=== PATIENT | female | born 1995 | race Caucasian/White ===

== ENCOUNTER 2017-11-24 22:14 | Emergency (ER) | payer BC, MEDICAID, SELFPAY ==
[2017-11-24 22:18] VITALS: BP 133/65; PULSE 85; RESP 18; TEMP 36.7
[2017-11-24] MEDS: Ketorolac 30 MG/ML VIAL IVP (23:15)
[2017-11-24] MEDS: Acetaminophen 500 MG TAB 1000 MG PO (23:15)
[2017-11-24] MEDS: Normal Saline 1,000 ML 1000 ML IV (23:16)
[2017-11-24 23:18] LABS: Abs Immature Grans 0.02 k/cumm (0.0-0.09); Absolute Basophil Count 0.03 k/cumm (0.0-0.2); Absolute Eosinophil Count 0.09 k/cumm (0.0-0.7); Absolute Lymphocyte Count 2.01 k/cumm (1.2-3.4); Absolute Monocyte Count 0.66 k/cumm (0.11-0.7); Absolute Neutrophil Count 6.51 k/cumm (1.2-6.7); Basophils % 0.3; HCT 43.2 % (36.0-46.0); HGB 14.6 g/dL (12.0-15.5); Immature Grans % 0.2; Lymphocytes % 21.6; Mean Corp. HGB Concentration 33.8 g/dL (32.0-36.0); Mean Corpuscular Hemoglobin 30.5 pg (27.0-33.0); Mean Corpuscular Volume 90.4 fL (80-95); Mean Platelet Volume 10.9 fL (8.0-11.0); Monocytes % 7.1; Neutrophils % 69.8; Platelet Count 267 x1000/uL (130-400); RBC 4.78 m/cumm (4.00-5.20); RBC Distribution Width 12.6 % (11.7-14.6); White Blood Cell Count 9.32 k/cumm (4.4-10.8)
[2017-11-24 23:26] LABS: ALT 36 U/L (12-78); AST 16 U/L (15-37); Albumin 3.9 g/dL (3.4-5.0); Alkaline Phosphatase 93 U/L (46-116); Anion Gap 9.9 mmol/L (3-11); BUN 10 mg/dL (7-18); Bilirubin, Total 0.8 mg/dL (0.2-1.0); CO2 28.1 mmol/L (21.0-32.0); CREATININE 0.77 mg/dL (0.55-1.02); Calcium 9.7 mg/dL (8.5-10.1); Chloride 103 mmol/L (98-107); Glucose 88 mg/dL (70-100); Potassium 3.2 mmol/L (3.5-5.1); Sodium 141 mmol/L (136-145); Total Protein 7.6 g/dL (6.4-8.2)
[2017-11-24 23:53] LABS: HCG Quant, Pregnancy 1198 mIU/mL (1-3)
--- NOTE | 2017-11-25 00:20 | W.ED.GENAD ---
Discharge Plan Disposition Patient Disposition: HOME Condition: Good Discharge Details Chief Complaint: GenMedical Clinical Impression: Incomplete miscarriage Primary Care Provider: Unknown,Unknown ED Provider: Kishore Hung Home Meds and New Rx's Prescriptions: New ibuprofen [Motrin IB] 200 MG tablet 800 mg PO Q6H 5 Days Qty: 80 RF: 0 No Action ketoconazole (bulk) 25 GM crystals 25 gm Miscellaneous BID Qty: 1 RF: 2 albuterol sulfate [Proventil HFA] 200 PUFF HFA aerosol inhaler 2 puff Inhalation Q4H PRN PRNQty: 1 RF: 0 Discharge Instructions Instructions: Miscarriage (ED) Additional Instructions: Please take the ibuprofen as directed. Please follow-up with your obstetrics rn surgical as soon as possible. If you notice any worsening of your symptoms, or any new symptoms such as vomiting, diarrhea, fever, chills, shortness of breath, chest pain, numbness, weakness, or fainting , please return immediately to the emergency department for reevaluation. Please follow up with your primary care provider as soon as possible for reassessment and reevaluation. As always, it was a pleasure participating in your medical care today. Medical Decision Making This is a pleasant 22-year-old female who presents today for miscarriage. She had an ultrasound earlier today which demonstrated no heart tones, she was discharged home with follow-up. The bleeding worsened in the evening, and she had passage of tissue. She came in for concern of this. Vital signs are normal and demonstrates no signs of tachycardia, hypotension, or fever. Laboratory workup demonstrates a normal hemoglobin level at 14.6, her Rh status is positive. Potassium is slightly low at 3.2. Beta hCG is 1198. Patient was given 1 L of fluids, as well as Toradol. She had notable improvement of her bleeding after this. With a normal hemoglobin, stable vital signs, no heart tones, and close follow-up tomorrow morning, I feel she can be safely discharged home. We will continue ibuprofen 800 mg every 6 hours for the bleeding and cramps. We discussed red flags which to return patient understands. I have extensively reviewed the treatment plan and discharge instructions with the patient. I have addressed all patient concerns at this time. The patient was made aware of what symptoms to monitor for that would warrant a return to the emergency department. Discussed the plan with the patient, they demonstrate verbal understanding and agreement with our assessment and plan at this time. Diagnosis incomplete miscarriage. HPI General Date/Time Provider Initiated Documentation: 11/24/17 22:51. HPI Narrative: This is a 22-year-old female who presents for evaluation of miscarriage. She was 4-5 weeks . She was seen by the women's health group earlier today for cramps and bleeding. Ultrasound was performed and no heart tones were noted. He was discharged home for a impending and suspected miscarriage. After she was discharged she noticed a large amount of blood and tissue extruded. Because of the amount of bleeding that she had she came to the ER for further evaluation. Currently she describes only minimal cramping, but denies any significant abdominal pain, vomiting, diarrhea. She denies any history of bleeding diatheses. She has never had a miscarriage before. She denies any recent surgeries. She denies any other medical problems at this time. She denies any IV or illicit drug use. She denies any pertinent family history. Related Data Home Medications Medication Instructions Recorded Confirmed ketoconazole (bulk) 25 gm MISCELLANEOUS BID #1 tube 01/29/17 11/24/17 albuterol sulfate [Proventil HFA] 2 puff INHALATION Q4H PRN PRN #1 04/19/17 11/24/17 inh ibuprofen [Motrin Ib] 800 mg PO Q6H 5 Days #80 tab 11/25/17 Previous Rx's Medication Instructions Recorded ketoconazole (bulk) 25 gm MISCELLANEOUS BID #1 tube 01/29/17 albuterol sulfate [Proventil HFA] 2 puff INHALATION Q4H PRN PRN #1 04/19/17 inh ibuprofen [Motrin Ib] 800 mg PO Q6H 5 Days #80 tab 11/25/17 Allergies Allergy/AdvReac Type Severity Reaction Status Date / Time codeine [Codeine] AdvReac Intermediate hyperactivi Unverified 11/24/17 22:20 ty General Stated Complaint: GenMedical PHIL: 3 Review of Systems Review of Systems All systems reviewed & are unremarkable except as noted in HPI and below PFSH Social History Smoking/Tobacco Use Status: Never Surgical History removal of wisdom teeth Exam Narrative Exam Narrative: 1.Const: Well-nourished, Well-developed, appearing stated age 2.Eyes: PERRL, no conjunctival injection, no conjunctival pallor, and symmetrical lids. 3.ENT: Atraumatic external nose and ears. Moist MM. Neck: Symmetric, trachea midline, No thyromegaly. 4.CVS: +S1/S2, No murmurs or gallops. Peripheral pulses 2+ and equal in all extremities. Brisk capillary refill in all extremities. 5.RESP: Unlabored respiratory effort. Clear to auscultation bilaterally. No wheezes rales or rhonchi 6.GI: Soft, Nontender/Nondistended, No hepatosplenomegaly. No guarding or rebound. No significant tenderness on palpation of the pelvic region. 7.MSK: Normocephalic/Atraumatic, Extremities w/o deformity or ttp No cyanosis or clubbing, Normal movement of all extremities 8.Skin: Warm, Dry. No rashes or lesions. 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 Sensation grossly intact, no focal neurologic deficits. 10.Psych: (AAO) x3. Appropriate mood and affect Pelvic exam was performed with female nurse at bedside. Notable blood, and small tissue fragments present in the vaginal vault. Cervix is open and minimally dilated. No cervical motion tenderness. Bedside ultrasound demonstrates no evidence of heart rate, or intact fetus on ultrasonography of the uterus. Small amounts of retained products are noted. Blood and clots are noted. Course Vital Signs Temperature 36.7 C 11/24/17 22:18 Pulse 85 11/24/17 22:18 Respiratory Rate 18 11/24/17 22:18 Blood Pressure 133/65 11/24/17 22:18 Temperature 36.7 C 11/24/17 22:18 Temperature Source Temporal Artery Scan 11/24/17 22:18 Pulse 85 11/24/17 22:18 Respiratory Rate 18 11/24/17 22:18 Respiratory Effort 11/24/17 22:21 Respiratory Depth Normal 11/24/17 22:21 Respiratory Pattern Normal 11/24/17 22:21 Blood Pressure 133/65 11/24/17 22:18 Blood Pressure Position Sitting 11/24/17 22:18 Pain Level 2 11/24/17 22:18 Lab/Test Results Lab/Test Results: Laboratory Tests Range/Units 11/24/17 11/24/17 11/24/17 22:58 22:58 22:58 WBC (4.4-10.8) k/cumm 9.32 RBC (4.00-5.20) m/cumm 4.78 Hgb (12.0-15.5) g/dL 14.6 Hct (36.0-46.0) % 43.2 MCV (80-95) fL 90.4 MCH (27.0-33.0) pg 30.5 MCHC (32.0-36.0) g/dL 33.8 RDW (11.7-14.6) % 12.6 Plt Count (130-400) x1000/uL 267 MPV (8.0-11.0) fL 10.9 Immature Gran % 0.2 Neutrophils % 69.8 Lymphocytes % 21.6 Monocytes % 7.1 Eosinophils % 1.0 Basophils % 0.3 Absolute Neutrophils (1.2-6.7) k/cumm 6.51 Absolute Lymphocytes (1.2-3.4) k/cumm 2.01 Absolute Monocytes (0.11-0.7) k/cumm 0.66 Absolute Eosinophils (0.0-0.7) k/cumm 0.09 Absolute Basophils (0.0-0.2) k/cumm 0.03 Sodium (136-145) mmol/L 141 Potassium (3.5-5.1) mmol/L 3.2 L Chloride (98-107) mmol/L 103 Carbon Dioxide (21.0-32.0) mmol/L 28.1 Anion Gap (3-11) mmol/L 9.9 BUN (7-18) mg/dL 10 Creatinine (0.55-1.02) mg/dL 0.77 Estimated GFR/1.73 m2 (mL/min/1.73m2) >= 60.00 Glucose (70-100) mg/dL 88 Calcium (8.5-10.1) mg/dL 9.7 Total Bilirubin (0.2-1.0) mg/dL 0.8 AST (15-37) U/L 16 ALT (12-78) U/L 36 Alkaline Phosphatase (46-116) U/L 93 Total Protein (6.4-8.2) g/dL 7.6 Albumin (3.4-5.0) g/dL 3.9 Beta HCG, Quant (1-3) mIU/mL 1198 H
[2017-11-25 00:47] VITALS: BP 107/68; PULSE 74; RESP 18; TEMP 36.8; O2SAT 96
== END 2017-11-25 00:53 | disposition home or self-care (01) ==
PROVIDERS: Emergency Provider Student in an Organized Health Care Education/Training Program
DX: O03.4 Incomplete spontaneous abortion without complication (principal)
CPT/HCPCS: 80053; 86850; 86900; 86901; 96361; 96374; 99284; 84702; 85025; 99283; J1885

== ENCOUNTER 2017-12-02 14:59 | Outpatient (CLI) | payer BC, MEDICAID, SELFPAY ==
[2017-12-02 16:49] LABS: HCG Quant, Pregnancy 4 mIU/mL (1-3)
== END 2017-12-02 15:19 ==
PROVIDERS: Visit Provider Obstetrics & Gynecology Gynecology
DX: O03.9 Complete or unspecified spontaneous abortion without complication (principal)
CPT/HCPCS: 36415; 84702

== ENCOUNTER 2018-04-18 16:43 | Emergency (ER) | payer BC, MEDICAID, SELFPAY ==
[2018-04-18 16:52] VITALS: BP 135/80; PULSE 76; RESP 18; TEMP 36.5; O2SAT 100
[2018-04-18 18:14] LABS: Abs Immature Grans 0.01 k/cumm (0.0-0.09); Absolute Basophil Count 0.04 k/cumm (0.0-0.2); Absolute Eosinophil Count 0.09 k/cumm (0.0-0.7); Absolute Lymphocyte Count 1.89 k/cumm (1.2-3.4); Absolute Monocyte Count 0.49 k/cumm (0.11-0.7); Absolute Neutrophil Count 5.63 k/cumm (1.2-6.7); Basophils % 0.5; Eosinophils % 1.1; HCT 42.7 % (36.0-46.0); HGB 14.7 g/dL (12.0-15.5); Immature Grans % 0.1; Lymphocytes % 23.2; Mean Corp. HGB Concentration 34.4 g/dL (32.0-36.0); Mean Corpuscular Hemoglobin 30.7 pg (27.0-33.0); Mean Corpuscular Volume 89.1 fL (80-95); Mean Platelet Volume 10.9 fL (8.0-11.0); Neutrophils % 69.1; Platelet Count 254 x1000/uL (130-400); RBC 4.79 m/cumm (4.00-5.20); White Blood Cell Count 8.15 k/cumm (4.4-10.8)
[2018-04-18 18:27] LABS: Bilirubin Small (Negative); Blood Large (Negative); Clarity Cloudy; Glucose Negative (Negative); Ketones Trace mg/dL (Negative); Leukocyte Esterase Trace (Negative); Nitrite Positive (Negative); Specific Gravity >= 1.030 (1.005-1.025)
[2018-04-18 18:33] LABS: ALT 30 U/L (12-78); AST 19 U/L (15-37); Alkaline Phosphatase 86 U/L (46-116); Anion Gap 9.3 mmol/L (3-11); BUN 10 mg/dL (7-18); Bilirubin, Total 0.7 mg/dL (0.2-1.0); CO2 27.7 mmol/L (21.0-32.0); CREATININE 0.69 mg/dL (0.55-1.02); Calcium 9.2 mg/dL (8.5-10.1); Chloride 107 mmol/L (98-107); Glucose 96 mg/dL (70-100); Potassium 3.4 mmol/L (3.5-5.1); Sodium 144 mmol/L (136-145); Total Protein 8.1 g/dL (6.4-8.2)
[2018-04-18 18:34] LABS: C & S Indicated? Yes; RBC >50 (0-2)
--- NOTE | 2018-04-18 18:46 | DI.US_ITS ---
Many abnormalities cannot be diagnosed. A normal exam does not exclude a congenital anomaly. Radiology No. LMP: 03/02/18 Exam Date: 04/19/18 [facility] wks days on EDC ([facility]) Confirmed: HISTORY: VAGINAL BLEEDING IN EARLY , H/O MISCARRIAGE PREDICTED GESTATIONAL AGE NUMBER 6 1/2 weeks with a range of 5 1/2 week to 7 1/2 weeks. 1 2 3 Multiple Determined by___1STUS__X_LMP___HISTORY Info. pertaining to fetus # PLACENTA PRESENTATION Grade Cephalic___ Anterior___Posterior___ Breech____ Right Left Transverse(head right___ Fundal___Low-lying___Previa___ Transverse(head left___ Varying BIOMETRY AMNIOTIC FLUID BPD: mm weeks Normal HC: mm weeks Oligo Polyhydramnios AC: mm weeks FL: mm weeks AMNIOTIC FLUID INDEX >26 WK CRL: mm weeks Cisterna Magna: mm CI: RUQ: LUQ Cerebellum: cm EFW: grams Percentile RLQ: LLQ Total: cms Composite AGE= wks EDC by US BIOPHYSICAL PROFILE ANATOMY IDENTIFIED SCORE 0/2 Heart: 4-Chamber___Rate:BPM LVOT: RVOT: Amniotic Fluid(>2cms)____ Stomach: Kidneys: Respirations (>30 secs) Bladder: Post. Fossa: Body Flex/Extension 3 vessel cord: Ventricles: cord insertion: Lips:____ Extremity Flex/Extension spinal morphology: Nose: Total Score= Palate: NS=not seen The uterus measures 7.5 by 3.8 by 5.5 cm. The endometrial stripe is within normal limits at .4 cm. There is a 0.4 cm. cystic lesion seen in the cervical region. The right ovary measures 2.5 by 1.7 by 1.6 cm. There is normal blood flow. No evidence of torsion. The left ovary measures 2.9 by 1.5 by 2.9 cm. There is normal blood flow. There is a 1.4 cm. left ovarian cyst. The cyst does have internal debris and peripheral vascular flow. There is a small amount of fluid in the cul-de-sac. IMPRESSION: 1. No evidence of an intrauterine gestational sac. This may represent an early or ectopic or failed . 2. 0.4 cm. cystic structure in the region of the cervix. This likely reflects a cervical Nabothian cyst. Theoretically an ectopic or occurring could have this appearance. 3. 1.4 cm. complex left ovarian cyst. This may represent a hemorrhagic cyst or corpus luteal cyst. Follow up as clinically appropriate.
[2018-04-18 18:48] LABS: HCG Qual (Serum) Negative
[2018-04-18 19:42] LABS: HCG Quant, Pregnancy 2 mIU/mL (1-3)
--- NOTE | 2018-04-18 20:29 | W.ED.GENAD ---
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 Clinical Impression: Vaginal bleeding, UTI (urinary tract infection) Primary Care Provider: Unknown,Unknown ED Provider: Mika Munroe Home Meds and New Rx's Prescriptions: New cephalexin 500 mg tablet 500 mg PO BID Qty: 14 RF: 0 No Action Proventil HFA 200 PUFF HFA aerosol inhaler 2 puff Inhalation Q4H PRN PRNQty: 1 RF: 0 Discharge Instructions Instructions: Urinary Tract Infection in Women (ED), First Trimester Vaginal Bleed (ED) Additional Instructions: Return immediately to the emergency department if you have significant change in your vaginal bleeding, rapid heart rate, fever chills, severe abdominal pain, or other concerns. Otherwise please take your antibiotics as prescribed and follow-up with women's wellness for reassessment later this week Referrals: [facility] [Provider Group] (Keep your appointment as previously arranged and inform them of your emergency department results) Discharge Data Discharge Date/Time-TO BE ENTERED AT DEPARTURE: 04/18/18 20:43 Medical Decision Making Patient presenting the emergency department for chief complaint of vaginal bleeding. Patient states that she has a proximally 6 weeks and has been verified with multiple urine test along with a visit to women's wellness with a positive urine test there as well. Patient states around 2:00 today she started having some mild vaginal spotting. Patient denies any pain cramping or discomfort. Patient states that she is O+. Exam is unremarkable. Patient also does state some mild urinary frequency but otherwise denies other vaginal discharge bleeding, pain, discomfort, fever or chills. Plan to check labs including hCG, and ultrasound. Given that patient is otherwise asymptomatic I do not feel any interventions are needed. Review of previous labs does show O+ blood type so I do not feel that RhoGam is needed at this time. Patient deferring vaginal exam. Review of urine to show concerning findings for urinary tract infection otherwise no severe anemia and labs are otherwise nondiagnostic. Serum qualitative test showed negative so quantitative hCG was ordered to confirm. Patient at ultrasound while receiving these reports. Ultrasound preliminary report shows no signs of , no yolk sac, . Radiology interpretation shows the following IMPRESSION: 1. No intrauterine gestational sac is identified. This can be seen with early , failed , or ectopic . 2. Small cystic structure in the region of the cervix. This could represent a nabothian cyst. Theoretically, a cervical ectopic or occurring could also produce this appearance. 3. Lesion within the left ovary which does not fulfill the criteria for a simple cyst. This could represent a corpus luteal lesion of . Followup suggested. 4. Small amount of free fluid in the pelvis. Other findings as above. For the above findings, clinical correlation and close interval followup suggested. patient reassessed and states no pain or discomfort. Again discussed with patient vaginal exam and question if she had any risk factors for STD. She states that her significant other had cheated on her recently but denied any sex and she and him of both been asymptomatic. I informed her she should inform women's wellness of this as well if she is concerned. Again though patient denied/deferred. I feel that the radiological findings showing a cystic structure in the region of the cervix is more than likely from ongoing miscarriage compared to cervical ectopic. Again patient appears very stable and is pain-free patient states only slight spotting at this time. Patient informed to contact women's wellness tomorrow morning for arrangement of close follow-up appointment. Patient encouraged to return for any new or worsening symptoms severe increase in pain or discomfort. After discussion of diagnosis and plan of care patient has no further needs, questions, or concerns and states clear understanding to return to the emergency department for any worsening symptoms. HPI General Mode of arrival: ambulatory. Date/Time Provider Initiated Documentation: 04/18/18 17:05. Limitations to Documentation: no limitations. Information obtained by: patient, RN notes reviewed and old records reviewed. History of Present Illness described as mild, Quality is described as other (denies pain), Patient started experiencing this hour(s) (3) and it has been constant. Patient notes no other symptoms.. Patient did receive the following treatments prior to arrival, none Related Data Home Medications Medication Instructions Recorded Confirmed Proventil HFA 2 puff INHALATION Q4H PRN PRN #1 04/19/17 04/18/18 inh cephalexin 500 mg PO BID #14 tab 04/18/18 Previous Rx's Medication Instructions Recorded Proventil HFA 2 puff INHALATION Q4H PRN PRN #1 04/19/17 inh cephalexin 500 mg PO BID #14 tab 04/18/18 Allergies Allergy/AdvReac Type Severity Reaction Status Date / Time codeine [Codeine] AdvReac Intermediate hyperactivi Unverified 04/18/18 16:55 ty General Stated Complaint: BEHAVIORAL THERAPIST PHIL: 3 Review of Systems Constitutional Denies chills and Denies fever(s) Cardiovascular Denies chest pain and Denies dyspnea Respiratory Denies dyspnea Gastrointestinal Denies abdominal pain, Denies diarrhea, Denies nausea and Denies vomiting Genitourinary Reports as per HPI, Reports abnormal vaginal bleeding, Reports urinary frequency, Denies genital pruritis, Denies genital lesions, Denies dyspareunia, Denies pelvic pain, Denies urinary incontinence, Denies urinary hesitancy, Denies urinary urgency, Denies vaginal discharge, Denies vaginal odor and Denies vaginal pruritus Integumentary/Breasts Denies rash PFSH Medical History Positive test (Acute) Seasonal allergies (Acute 10/27/14) BMI 39.0-39.9,adult (Resolved 07/28/17) Concussion (Resolved 05/18/14) Constipation (Resolved 05/18/14) On Depo-Provera for contraception (Resolved 01/12/15) Surgical History removal of wisdom teeth Social History Smoking and Tabacco status: Never Exam Const General: cooperative, healthy appearing, comfortable and no acute distress Orientation: alert, awake and oriented x3 Resp Effort & Inspection: normal respiratory effort and able to speak in complete sentences Auscultation: clear to auscultation bilaterally Cardio Rate: regular rate Rhythm: regular rhythm Heart Sounds: S1 normal, S2 normal, no click, no gallops, no murmurs and no rubs GI Inspection: normal to inspection Palpation: soft, no hepatosplenomegaly, not firm, no guarding, not rigid and nontender Auscultation: normal bowel sounds General: deferred (by patient) Back/Spine/Pelvis Back: no CVA tenderness Course Vital Signs Temperature 36.5 C 04/18/18 16:52 Pulse 76 04/18/18 16:52 Respiratory Rate 18 04/18/18 16:52 Blood Pressure 135/80 04/18/18 16:52 Pulse Oximetry 100 04/18/18 16:52 Temperature 36.5 C 02/17/19 16:52 Temperature Source Temporal Artery Scan 04/18/18 16:52 Pulse 76 04/18/18 16:52 Respiratory Rate 18 04/18/18 16:52 Respiratory Effort Non-Labored 04/18/18 16:52 Blood Pressure 135/80 04/18/18 16:52 Blood Pressure Position Sitting 04/18/18 16:52 Pulse Oximetry 100 04/18/18 16:52 Oxygen Delivery Method Room Air 04/18/18 16:52 Oxygen Flow Rate 0 04/18/18 16:52 Pain Level 0 04/18/18 16:52 Lab/Test Results Lab/Test Results: 04/18/18 18:00 Urine - Reflex from Ua Urine Culture - Pending Laboratory Tests Range/Units 04/18/18 04/18/18 04/18/18 17:45 17:45 17:45 WBC (4.4-10.8) k/cumm 8.15 RBC (4.00-5.20) m/cumm 4.79 Hgb (12.0-15.5) g/dL 14.7 Hct (36.0-46.0) % 42.7 MCV (80-95) fL 89.1 MCH (27.0-33.0) pg 30.7 MCHC (32.0-36.0) g/dL 34.4 RDW (11.7-14.6) % 13.0 Plt Count (130-400) x1000/uL 254 MPV (8.0-11.0) fL 10.9 Immature Gran % 0.1 Neutrophils % 69.1 Lymphocytes % 23.2 Monocytes % 6.0 Eosinophils % 1.1 Basophils % 0.5 Absolute Neutrophils (1.2-6.7) k/cumm 5.63 Absolute Lymphocytes (1.2-3.4) k/cumm 1.89 Absolute Monocytes (0.11-0.7) k/cumm 0.49 Absolute Eosinophils (0.0-0.7) k/cumm 0.09 Absolute Basophils (0.0-0.2) k/cumm 0.04 Sodium (136-145) mmol/L 144 Potassium (3.5-5.1) mmol/L 3.4 L Chloride (98-107) mmol/L 107 Carbon Dioxide (21.0-32.0) mmol/L 27.7 Anion Gap (3-11) mmol/L 9.3 BUN (7-18) mg/dL 10 Creatinine (0.55-1.02) mg/dL 0.69 Estimated GFR/1.73 m2 (mL/min/1.73m2) >= 60.00 Glucose (70-100) mg/dL 96 Calcium (8.5-10.1) mg/dL 9.2 Total Bilirubin (0.2-1.0) mg/dL 0.7 AST (15-37) U/L 19 ALT (12-78) U/L 30 Alkaline Phosphatase (46-116) U/L 86 Total Protein (6.4-8.2) g/dL 8.1 Albumin (3.4-5.0) g/dL 4.0 Serum HCG, Qual Negative Beta HCG, Quant (1-3) mIU/mL Urine Color (Yellow) Urine Clarity Urine pH (5-8) Ur Specific [place] (1.005-1.025) Urine Protein (Negative) mg/dL Urine Ketones (Negative) mg/dL Urine Blood (Negative) Urine Nitrite (Negative) Urine Bilirubin (Negative) Urine Urobilinogen (Up TO 0.2) EU/dL Ur Leukocyte Esterase (Negative) Urine RBC (0-2) Urine WBC Ur Epithelial Cells Urine Crystals Urine Bacteria Urine Mucus Ur Culture Indicated? Urine Glucose (Negative) mg/dL Range/Units 04/18/18 04/18/18 17:45 18:00 WBC (4.4-10.8) k/cumm RBC (4.00-5.20) m/cumm Hgb (12.0-15.5) g/dL Hct (36.0-46.0) % MCV (80-95) fL MCH (27.0-33.0) pg MCHC (32.0-36.0) g/dL RDW (11.7-14.6) % Plt Count (130-400) x1000/uL MPV (8.0-11.0) fL Immature Gran % Neutrophils % Lymphocytes % Monocytes % Eosinophils % Basophils % Absolute Neutrophils (1.2-6.7) k/cumm Absolute Lymphocytes (1.2-3.4) k/cumm Absolute Monocytes (0.11-0.7) k/cumm Absolute Eosinophils (0.0-0.7) k/cumm Absolute Basophils (0.0-0.2) k/cumm Sodium (136-145) mmol/L Potassium (3.5-5.1) mmol/L Chloride (98-107) mmol/L Carbon Dioxide (21.0-32.0) mmol/L Anion Gap (3-11) mmol/L BUN (7-18) mg/dL Creatinine (0.55-1.02) mg/dL Estimated GFR/1.73 m2 (mL/min/1.73m2) Glucose (70-100) mg/dL Calcium (8.5-10.1) mg/dL Total Bilirubin (0.2-1.0) mg/dL AST (15-37) U/L ALT (12-78) U/L Alkaline Phosphatase (46-116) U/L Total Protein (6.4-8.2) g/dL Albumin (3.4-5.0) g/dL Serum HCG, Qual Beta HCG, Quant (1-3) mIU/mL 2 Urine Color (Yellow) Red Urine Clarity Cloudy Urine pH (5-8) 6.0 Ur Specific [place] (1.005-1.025) >= 1.030 H Urine Protein (Negative) mg/dL >=300 H Urine Ketones (Negative) mg/dL Trace H Urine Blood (Negative) Large H Urine Nitrite (Negative) Positive H Urine Bilirubin (Negative) Small H Urine Urobilinogen (Up TO 0.2) EU/dL 1.0 H Ur Leukocyte Esterase (Negative) Trace H Urine RBC (0-2) >50 H Urine WBC Not Applicable Ur Epithelial Cells Not Applicable Urine Crystals Not Applicable Urine Bacteria Not Applicable Urine Mucus Not Applicable Ur Culture Indicated? Yes Urine Glucose (Negative) mg/dL Negative
[2018-04-18] MEDS: Cephalexin 500 MG CAP PO (20:38)
--- NOTE | 2018-04-18 20:56 | DI.VRAD_ITS ---
Addendum created by Sakshi Ennis MD on 04/18/2018 9:07:51 PM EST THIS REPORT CONTAINS FINDINGS THAT MAY BE CRITICAL TO PATIENT CARE. The findings were verbally communicated via telephone conference with IGOR HOWARD at 9:07 PM EST on 04/18/2018. The findings were acknowledged and understood. Initial report created on 04/18/2018 8:55:49 PM EST EXAM: US First Trimester, Transabdominal and US , Transvaginal EXAM DATE/TIME: 04/18/2018 6:41 PM CLINICAL HISTORY: 23 years old, female; Signs and symptoms; Lmp or gestational age (in weeks): Lmp 03/02/18; Other: Slight 1st trimester bleeding based on patient statements; Patient HX: Past history of miscarriage, slight spotting now, 6-7 week by patient home urine test TECHNIQUE: Real-time transabdominal obstetrical ultrasound of the maternal pelvis and a first trimester , less than 14 weeks 0 days, with image documentation. Transvaginal imaging was used for better evaluation of the fetus and adnexa. COMPARISON: US OB 01/26/2017 4:58 PM FINDINGS: GESTATION: Gestation: No intrauterine gestational sac is identified. MATERNAL: Uterus: Transabdominally, the uterus measures 7.1 x 4.1 x 5.4 cm. Transvaginally, the uterus measures 7.5 x 3.8 x 5.5 cm. Endometrial stripe measures 0.37 cm. Cervix: There is a small cystic structure in the region of the cervix, 0.41 cm. Right adnexa: Right ovary measures 2.5 x 1.7 x 1.6 cm. It demonstrates blood flow. It contains follicles. Left adnexa: Left ovary measures 2.9 x 1.5 x 2.9 cm. It demonstrates blood flow. It contains a 1.4 cm hypoechoic structure which demonstrates internal echoes and rim hyperemia. This could represent a corpus luteal lesion of . Intraperitoneal: There is a small amount of free fluid in the pelvis. IMPRESSION: 1. No intrauterine gestational sac is identified. This can be seen with early , failed , or ectopic . 2. Small cystic structure in the region of the cervix. This could represent a nabothian cyst. Theoretically, a cervical ectopic or occurring could also produce this appearance. 3. Lesion within the left ovary which does not fulfill the criteria for a simple cyst. This could represent a corpus luteal lesion of . Followup suggested. 4. Small amount of free fluid in the pelvis. Other findings as above. For the above findings, clinical correlation and close interval followup suggested. Dictated and Authenticated by: Sakshi Ennis MD. Ordering:ALLI Brennan MD
[2018-04-18 21:11] VITALS: BP 126/75; PULSE 68; RESP 18; TEMP 36.5
== END 2018-04-18 20:43 | disposition home or self-care (01) ==
PROVIDERS: Emergency Provider Nurse Practitioner Family
DX: O20.9 Hemorrhage in early pregnancy, unspecified (principal); N39.0 Urinary tract infection, site not specified; Z3A.01 Less than 8 weeks gestation of pregnancy
CPT/HCPCS: 36415; 80053; 87077; 99284; 76801; 81003; 81015; 84702; 84703; 85025; 87086; 87186

== ENCOUNTER 2018-05-22 12:40 | Emergency (ER) | payer BC, MEDICAID, SELFPAY ==
[2018-05-22 12:51] VITALS: BP 116/75; PULSE 69; RESP 16; TEMP 37; O2SAT 98
[2018-05-22 13:08] LABS: Bilirubin Negative (Negative); Blood Moderate (Negative); Clarity Clear; Glucose Negative (Negative); Ketones Trace mg/dL (Negative); Leukocyte Esterase Negative (Negative); Nitrite Negative (Negative)
--- NOTE | 2018-05-22 13:08 | W.ED.GENAD ---
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 Call [facility] on Thursday morning to schedule follow-up appointment for reevaluation. Alternate Tylenol and Motrin as needed and directed if you develop any pain. Return immediately to the emergency department any worsening or new concerning symptoms. Discharge Data Discharge Physician: Debbie Mauricio Medical Decision Making 23-year-old female A2 L1 who presents with heavy vaginal bleeding since her menses started yesterday. She used approximately 10 pads and 10 tampons yesterday but states the bleeding has somewhat decreased since yesterday. She does admit to right lower quadrant abdominal pain 1 week ago but states this is been resolved since then and denies any pain at present. She denies any fever, weakness, dizziness, vomiting, diarrhea or urinary symptoms. She states she did not want to come into the ER but her mom instructed her to for further evaluation of her heavy vaginal bleeding. Patient has 1 child by May 2017. She states she had a miscarriage in October 2017. She also had what appears to be a chemical last month Apr 2018 with a positive test at [facility], and then a negative test and ultrasound in the ED a few weeks later. Vitals within normal limits. Patient appears nontoxic and comfortable. Her abdomen is soft and nontender. 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 Urine test negative. Will place an IV, give bolus IV fluids and check screening labs. Discussed with patient that her symptoms may be due to hormonal fluctuations throughout her menstrual cycle. 1400 --labs reviewed and unremarkable. Hemoglobin 14. Normal white blood cell count. Urinalysis notes 3-5 WBCs but many epis, negative leukocyte esterase, negative nitrate and appears contaminated. Patient states she feels good and is requesting to go home. She is texting on phone and appears comfortable. She is hemodynamically stable. It was discussed that [facility] to schedule a follow-up appointment for reevaluation and to discuss if she has any further heavy vaginal bleeding. Discussed that a consideration for treatment of continued heavy vaginal bleeding includes oral contraceptives, although she may not want to do this at this time as she is hoping to possibly get again. She is instructed to return here immediately with any worsening or new concerning symptoms. Medical Records Medical records reviewed: Yes I reviewed the patient's medical records. Lab Data Lab results reviewed: Yes I reviewed the patient's lab results. Laboratory Tests Range/Units 05/22/18 05/22/18 05/22/18 13:00 13:25 13:25 WBC (4.4-10.8) k/cumm 7.13 RBC (4.00-5.20) m/cumm 4.50 Hgb (12.0-15.5) g/dL 14.0 Hct (36.0-46.0) % 40.3 MCV (80-95) fL 89.6 MCH (27.0-33.0) pg 31.1 MCHC (32.0-36.0) g/dL 34.7 RDW (11.7-14.6) % 12.8 Plt Count (130-400) x1000/uL 216 MPV (8.0-11.0) fL 10.5 Immature Gran % 0.3 Neutrophils % 63.4 Lymphocytes % 25.2 Monocytes % 8.7 Eosinophils % 2.0 Basophils % 0.4 Absolute Neutrophils (1.2-6.7) k/cumm 4.52 Absolute Lymphocytes (1.2-3.4) k/cumm 1.80 Absolute Monocytes (0.11-0.7) k/cumm 0.62 Absolute Eosinophils (0.0-0.7) k/cumm 0.14 Absolute Basophils (0.0-0.2) k/cumm 0.03 Sodium (136-145) mmol/L 138 Potassium (3.5-5.1) mmol/L 3.5 Chloride (98-107) mmol/L 104 Carbon Dioxide (21.0-32.0) mmol/L 28.4 Anion Gap (3-11) mmol/L 5.6 BUN (7-18) mg/dL 10 Creatinine (0.55-1.02) mg/dL 0.74 Estimated GFR/1.73 m2 (mL/min/1.73m2) >= 60.00 Glucose (70-100) mg/dL 79 Calcium (8.5-10.1) mg/dL 9.3 Total Bilirubin (0.2-1.0) mg/dL 0.7 AST (15-37) U/L 12 L ALT (12-78) U/L 26 Alkaline Phosphatase (46-116) U/L 100 Total Protein (6.4-8.2) g/dL 7.8 Albumin (3.4-5.0) g/dL 3.9 Urine Color (Yellow) Yellow Urine Clarity Clear Urine pH (5-8) 7.0 Ur Specific [place] (1.005-1.025) 1.020 Urine Protein (Negative) mg/dL Negative Urine Ketones (Negative) mg/dL Trace H Urine Blood (Negative) Moderate H Urine Nitrite (Negative) Negative Urine Bilirubin (Negative) Negative Urine Urobilinogen (Up TO 0.2) EU/dL 1.0 H Ur Leukocyte Esterase (Negative) Negative Urine RBC (0-2) 20-50 H Urine WBC (0-5) HPF 3-5 Ur Epithelial Cells (Negative) HPF Many Urine Crystals (Negative) HPF Negative Urine Bacteria (Negative) HPF Few Urine Casts (Negative) LPF Negative Urine Mucus (Negative) Trace Urine Other (Negative) Few transitional Ur Culture Indicated? No Urine Glucose (Negative) mg/dL Negative Urine test negative HPI General Mode of arrival: ambulatory. Date/Time Provider Initiated Documentation: 05/22/18 12:54. Limitations to Documentation: no limitations. Information obtained by: patient. HPI Narrative: Patient is a 23-year-old female [id number] who presents with heavy vaginal bleeding since yesterday. Patient states her menstrual periods have been regular and usually occurred every 28-30 days. She states she usually has her period lasting 5 days, and is of light flow. She states since yesterday she has used 10 tampons and 10 pads which were saturated. 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 She does admit to right lower quadrant abdominal cramping last week but states this is been resolved since then and she feels much better. She states she did not want to come into the ER but her mom instructed her to for further evaluation of her heavy bleeding. Patient states [facility], but then followed up in the ER and her test was negative. She denies any fever, nausea, vomiting, diarrhea, urinary symptoms and states she has been eating and drinking normally. 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 PHIL: 3 Review of Systems Review of Systems All systems reviewed & are unremarkable except as noted in HPI and below Constitutional Reports as per HPI, Denies chills and Denies fever(s) Eyes Denies blurry vision ENT Denies dizziness, Denies sore throat and Denies throat swelling Cardiovascular Denies chest pain and Denies dyspnea Respiratory Denies cough and Denies dyspnea Gastrointestinal Denies abdominal pain, Denies diarrhea and Denies vomiting Genitourinary Denies hematuria and Denies dysuria Comments: vaginal bleeding Musculoskeletal Denies back pain and Denies numbness Integumentary/Breasts Denies lesions and Denies rash Neurologic Denies dizziness, Denies focal weakness and Denies numbness Allergic/Immunologic Denies throat swelling [facility] Medical History Positive test (Acute) Seasonal allergies (Acute 10/27/14) BMI 39.0-39.9,adult (Resolved 07/28/17) Concussion (Resolved 05/18/14) Constipation (Resolved 05/18/14) On Depo-Provera for contraception (Resolved 01/12/15) Surgical History removal of wisdom teeth Social History Smoking/Tobacco Use Status: Never Alcohol Intake: never Drug use: Never Substance use type: marijuana Do you feel safe in your relationship?: Yes Exam Const General: cooperative, healthy appearing and no acute distress HENMT Head: normal to inspection Face and sinus: normal facial exam Eyes General: appearance normal, both eyes and all related structures Neck Neck: normal visual inspection and No submandibular swelling Lymphatic: no lymphadenopathy noted Chest Chest: normal inspection of the chest and no tenderness Resp Effort & Inspection: normal respiratory effort and able to speak in complete sentences Auscultation: clear to auscultation bilaterally Cardio Rate: regular rate Rhythm: regular rhythm GI Inspection: normal to inspection Palpation: soft, not firm, not rigid and nontender Auscultation: normal bowel sounds Skin General skin exam: no rashes or lesions noted Neuro General: alert, awake and oriented x3 Cognition: normal cognition Speech: speech normal Motor: muscle tone normal throughout Sensory Exam: no sensory deficits noted Extrem General: normal to inspection, full ROM, normal capillary refill and no edema Psych Appearance: grossly normal Mental Status: mental status grossly normal Speech and Movement: speech and movement normal Affect: normal affect Course Vital Signs Temperature 98.6 F 05/22/18 12:51 Pulse 69 05/22/18 12:51 Respiratory Rate 16 05/22/18 12:51 Blood Pressure 116/75 05/22/18 12:51 Pulse Oximetry 98 05/22/18 12:51 Temperature 98.6 F 05/22/18 12:51 Temperature Source Skin 05/22/18 12:51 Pulse 69 05/22/18 12:51 Respiratory Rate 16 05/22/18 12:51 Respiratory Effort 05/22/18 12:51 Blood Pressure 116/75 05/22/18 12:51 Blood Pressure Position Sitting 05/22/18 12:51 Pulse Oximetry 98 05/22/18 12:51 Oxygen Delivery Method Room Air 05/22/18 12:51 Oxygen Flow Rate 0 05/22/18 12:51 Pain Level 0 05/22/18 12:51 Lab/Test Results Lab/Test Results: POC- Test(urine) Negative
--- NOTE | 2018-05-22 13:11 | ED.GENADUL_ITS ---
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 Call [facility] on Thursday morning to schedule follow-up appointment for reevaluation. Alternate Tylenol and Motrin as needed and directed if you develop any pain. Return immediately to the emergency department any worsening or new concerning symptoms. Discharge Data Discharge Physician: Debbie Mauricio Medical Decision Making 23-year-old female A2 L1 who presents with heavy vaginal bleeding since her menses started yesterday. She used approximately 10 pads and 10 tampons yesterday but states the bleeding has somewhat decreased since yesterday. She does admit to right lower quadrant abdominal pain 1 week ago but states this is been resolved since then and denies any pain at present. She denies any fever, weakness, dizziness, vomiting, diarrhea or urinary symptoms. She states she did not want to come into the ER but her mom instructed her to for further evaluation of her heavy vaginal bleeding. Patient has 1 child by May 2017. She states she had a miscarriage in October 2017. She also had what appears to be a chemical last month Apr 2018 with a positive test [facility], and then a negative test and ultrasound in the ED a few weeks later. Vitals within normal limits. Patient appears nontoxic and comfortable. Her abdomen is soft and nontender. 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 Urine test negative. Will place an IV, give bolus IV fluids and check screening labs. Discussed with patient that her symptoms may be due to hormonal fluctuations throughout her menstrual cycle. 1400 --labs reviewed and unremarkable. Hemoglobin 14. Normal white blood cell count. Urinalysis notes 3-5 WBCs but many epis, negative leukocyte esterase, negative nitrate and appears contaminated. Patient states she feels good and is requesting to go home. She is texting on phone and appears comfortable. She is hemodynamically stable. It was discussed that she [facility] to schedule a follow-up appointment for reevaluation and to discuss if she has any further heavy vaginal bleeding. Discussed that a consideration for treatment of continued heavy vaginal bleeding includes oral contraceptives, although she may not want to do this at this time as she is hoping to possibly get again. She is instructed to return here immediately with any worsening or new concerning symptoms. Medical Records Medical records reviewed: Yes I reviewed the patient's medical records. Lab Data Lab results reviewed: Yes I reviewed the patient's lab results. Laboratory Tests Range/Units 05/22/18 05/22/18 05/22/18 13:00 13:25 13:25 WBC (4.4-10.8) k/cumm 7.13 RBC (4.00-5.20) m/cumm 4.50 Hgb (12.0-15.5) g/dL 14.0 Hct (36.0-46.0) % 40.3 MCV (80-95) fL 89.6 MCH (27.0-33.0) pg 31.1 MCHC (32.0-36.0) g/dL 34.7 RDW (11.7-14.6) % 12.8 Plt Count (130-400) x1000/uL 216 MPV (8.0-11.0) fL 10.5 Immature Gran % 0.3 Neutrophils % 63.4 Lymphocytes % 25.2 Monocytes % 8.7 Eosinophils % 2.0 Basophils % 0.4 Absolute Neutrophils (1.2-6.7) k/cumm 4.52 Absolute Lymphocytes (1.2-3.4) k/cumm 1.80 Absolute Monocytes (0.11-0.7) k/cumm 0.62 Absolute Eosinophils (0.0-0.7) k/cumm 0.14 Absolute Basophils (0.0-0.2) k/cumm 0.03 Sodium (136-145) mmol/L 138 Potassium (3.5-5.1) mmol/L 3.5 Chloride (98-107) mmol/L 104 Carbon Dioxide (21.0-32.0) mmol/L 28.4 Anion Gap (3-11) mmol/L 5.6 BUN (7-18) mg/dL 10 Creatinine (0.55-1.02) mg/dL 0.74 Estimated GFR/1.73 m2 (mL/min/1.73m2) >= 60.00 Glucose (70-100) mg/dL 79 Calcium (8.5-10.1) mg/dL 9.3 Total Bilirubin (0.2-1.0) mg/dL 0.7 AST (15-37) U/L 12 L ALT (12-78) U/L 26 Alkaline Phosphatase (46-116) U/L 100 Total Protein (6.4-8.2) g/dL 7.8 Albumin (3.4-5.0) g/dL 3.9 Urine Color (Yellow) Yellow Urine Clarity Clear Urine pH (5-8) 7.0 Ur Specific [place] (1.005-1.025) 1.020 Urine Protein (Negative) mg/dL Negative Urine Ketones (Negative) mg/dL Trace H Urine Blood (Negative) Moderate H Urine Nitrite (Negative) Negative Urine Bilirubin (Negative) Negative Urine Urobilinogen (Up TO 0.2) EU/dL 1.0 H Ur Leukocyte Esterase (Negative) Negative Urine RBC (0-2) 20-50 H Urine WBC (0-5) HPF 3-5 Ur Epithelial Cells (Negative) HPF Many Urine Crystals (Negative) HPF Negative Urine Bacteria (Negative) HPF Few Urine Casts (Negative) LPF Negative Urine Mucus (Negative) Trace Urine Other (Negative) Few transitional Ur Culture Indicated? No Urine Glucose (Negative) mg/dL Negative Urine test negative HPI General Mode of arrival: ambulatory . Date/Time Provider Initiated Documentation: 05/22/18 12:54 . Limitations to Documentation: no limitations . Information obtained by: patient . HPI Narrative: Patient is a 23-year-old female [id number] who presents with heavy vaginal bleeding since yesterday. Patient states her menstrual periods have been regular and usually occurred every 28-30 days. She states she usually has her period lasting 5 days, and is of light flow. She states since yesterday she has used 10 tampons and 10 pads which were saturated. She states the bleeding has somewhat lessened today and she has used less tampons and less pads with environmental project manager flow. She does admit to right lower quadrant abdominal cramping last week but states this is been resolved since then and she feels much better. She states she did not want to come into the ER but her mom instructed her to for further evaluation of her heavy bleeding. Patient states [facility], but then followed up in the ER and her test was negative. She denies any fever, nausea, vomiting, diarrhea, urinary symptoms and states she has been eating and drinking normally. 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: 3 Review of Systems Review of Systems All systems reviewed & are unremarkable except as noted in HPI and below Constitutional Reports as per HPI, Denies chills and Denies fever(s) Eyes Denies blurry vision ENT Denies dizziness, Denies sore throat and Denies throat swelling Cardiovascular Denies chest pain and Denies dyspnea Respiratory Denies cough and Denies dyspnea Gastrointestinal Denies abdominal pain, Denies diarrhea and Denies vomiting Genitourinary Denies hematuria and Denies dysuria Comments: vaginal bleeding Musculoskeletal Denies back pain and Denies numbness Integumentary/Breasts Denies lesions and Denies rash Neurologic Denies dizziness, Denies focal weakness and Denies numbness Allergic/Immunologic Denies throat swelling [facility] Medical History Positive test (Acute) Seasonal allergies (Acute 10/27/14) BMI 39.0-39.9,adult (Resolved 07/28/17) Concussion (Resolved 05/18/14) Constipation (Resolved 05/18/14) On Depo-Provera for contraception (Resolved 01/12/15) Surgical History removal of wisdom teeth Social History Smoking/Tobacco Use Status: Never Alcohol Intake: never Drug use: Never Substance use type: marijuana Do you feel safe in your relationship?: Yes Exam Const General: cooperative, healthy appearing and no acute distress HENMT Head: normal to inspection Face and sinus: normal facial exam Eyes General: appearance normal, both eyes and all related structures Neck Neck: normal visual inspection and No submandibular swelling Lymphatic: no lymphadenopathy noted Chest Chest: normal inspection of the chest and no tenderness Resp Effort & Inspection: normal respiratory effort and able to speak in complete sentences Auscultation: clear to auscultation bilaterally Cardio Rate: regular rate Rhythm: regular rhythm GI Inspection: normal to inspection Palpation: soft, not firm, not rigid and nontender Auscultation: normal bowel sounds Skin General skin exam: no rashes or lesions noted Neuro General: alert, awake and oriented x3 Cognition: normal cognition Speech: speech normal Motor: muscle tone normal throughout Sensory Exam: no sensory deficits noted Extrem General: normal to inspection, full ROM, normal capillary refill and no edema Psych Appearance: grossly normal Mental Status: mental status grossly normal Speech and Movement: speech and movement normal Affect: normal affect Course Vital Signs Temperature 98.6 F 05/22/18 12:51 Pulse 69 05/22/18 12:51 Respiratory Rate 16 05/22/18 12:51 Blood Pressure 116/75 05/22/18 12:51 Pulse Oximetry 98 05/22/18 12:51 Temperature 98.6 F 05/22/18 12:51 Temperature Source Skin 05/22/18 12:51 Pulse 69 05/22/18 12:51 Respiratory Rate 16 05/22/18 12:51 Respiratory Effort 05/22/18 12:51 Blood Pressure 116/75 05/22/18 12:51 Blood Pressure Position Sitting 05/22/18 12:51 Pulse Oximetry 98 05/22/18 12:51 Oxygen Delivery Method Room Air 05/22/18 12:51 Oxygen Flow Rate 0 05/22/18 12:51 Pain Level 0 05/22/18 12:51 Lab/Test Results Lab/Test Results: POC- Test(urine) Negative
[2018-05-22 13:17] LABS: Bacteria Few HPF (Negative); C & S Indicated? No; Casts Negative LPF (Negative); Crystals Negative HPF (Negative); Epithelial Cells Many HPF (Negative); Mucus Trace (Negative); Other Cells Few Transitional (Negative); RBC 20-50 (0-2)
[2018-05-22 13:30] LABS: Abs Immature Grans 0.02 k/cumm (0.0-0.09); Absolute Basophil Count 0.03 k/cumm (0.0-0.2); Absolute Eosinophil Count 0.14 k/cumm (0.0-0.7); Absolute Monocyte Count 0.62 k/cumm (0.11-0.7); Absolute Neutrophil Count 4.52 k/cumm (1.2-6.7); Basophils % 0.4; HCT 40.3 % (36.0-46.0); Immature Grans % 0.3; Lymphocytes % 25.2; Mean Corp. HGB Concentration 34.7 g/dL (32.0-36.0); Mean Corpuscular Hemoglobin 31.1 pg (27.0-33.0); Mean Corpuscular Volume 89.6 fL (80-95); Mean Platelet Volume 10.5 fL (8.0-11.0); Monocytes % 8.7; Neutrophils % 63.4; Platelet Count 216 x1000/uL (130-400); RBC Distribution Width 12.8 % (11.7-14.6); White Blood Cell Count 7.13 k/cumm (4.4-10.8)
[2018-05-22] MEDS: Normal Saline 1,000 ML 1000 ML IV (13:30)
[2018-05-22 13:43] LABS: ALT 26 U/L (12-78); AST 12 U/L (15-37); Albumin 3.9 g/dL (3.4-5.0); Alkaline Phosphatase 100 U/L (46-116); Anion Gap 5.6 mmol/L (3-11); BUN 10 mg/dL (7-18); Bilirubin, Total 0.7 mg/dL (0.2-1.0); CO2 28.4 mmol/L (21.0-32.0); CREATININE 0.74 mg/dL (0.55-1.02); Calcium 9.3 mg/dL (8.5-10.1); Chloride 104 mmol/L (98-107); Glucose 79 mg/dL (70-100); Potassium 3.5 mmol/L (3.5-5.1); Sodium 138 mmol/L (136-145); Total Protein 7.8 g/dL (6.4-8.2)
[2018-05-22 14:23] VITALS: BP 107/52; PULSE 58; RESP 16; TEMP 37; O2SAT 100
== END 2018-05-22 14:24 | disposition home or self-care (01) ==
PROVIDERS: Emergency Provider Physician Assistant
DX: N93.9 Abnormal uterine and vaginal bleeding, unspecified (principal)
CPT/HCPCS: 36415; 80053; 81025; 96360; 99284; 81003; 81015; 85025; 99283

== ENCOUNTER 2018-11-03 07:05 | Emergency (ER) | payer BC, MEDICAID, SELFPAY ==
[2018-11-03 07:17] VITALS: BP 112/57; PULSE 88; RESP 20; TEMP 37.4; O2SAT 100
[2018-11-03 07:31] LABS: Bilirubin Negative (Negative); Blood Trace-intact (Negative); Clarity Cloudy (Clear); Glucose Negative (Negative); Ketones Negative (Negative); Leukocyte Esterase Small (Negative); Nitrite Positive (Negative); Specific Gravity 1.025 (1.005-1.025); Urobilinogen 0.2 EU/dL (Up TO 0.2); pH 6.5 (5-8)
[2018-11-03 07:44] LABS: Bacteria Many HPF (Negative)
[2018-11-03 07:45] LABS: Crystals Negative HPF (Negative); Epithelial Cells Many HPF (Negative); Mucus Moderate (Negative)
[2018-11-03 07:46] LABS: C & S Indicated? No/Sq. Contamination
--- NOTE | 2018-11-03 08:00 | W.ED.GENAD ---
Discharge Plan Disposition Patient Disposition: HOME Condition: Stable Discharge Details Chief Complaint: Abd Prob Clinical Impression: Abdominal cramping Primary Care Provider: Hardik Lilly ED Provider: Guanakito Quna Home Meds and New Rx's Prescriptions: Continued prenat.vits,berenice,ypo-cxms-rfups Tablet 1 tab PO DAILY RF: 0 albuterol sulfate [Proventil HFA] 200 PUFF HFA aerosol inhaler 2 puff Inhalation Q4H PRN PRNQty: 1 RF: 0 Discharge Instructions Additional Instructions: [facility] Sampson in women's wellness if you have severe worsening pain or significant vaginal bleeding return to the emergency department for reevaluation Medical Decision Making 23 yo female who is about 7 weeks based on LMP comes in with one week of lower pelvic/abdominal cramping worse this AM. Denies fevers, chills, vomit. Denies vaginal bleeding or discharge. She has no tenderness on abdominal exam. On my bedside transabdominal exam she has no free fluid, has a thickened wall of the uterus but no visible iup. I suspect miscarriage vs early , will obtain radiology u/s and hcg and monitor. Given lack of bleeding labs unremarkable, beta hcg over 9000. U/s shows gestational sac and what appears to be likely cyst in ovary but is too small to characterize at this time. i discussed the case with Dr. Sampson who would like to see the patient this afternoon and we set her up with an appointment at 120pm with her today. Pt remains stable with no significant tenderness on abdominal exam. She understands to f/u with obgyn and return if worsening Differential Diagnosis miscarriage, ectopic Imaging Data Radiologic Study: Attestation: I personally reviewed and interpreted this imaging study as follows: Imaging: Ultrasound Radiologist's impression: The uterus measures 8.8 x 4.8 x 7.5 cm. There is a gestational sac seen within the endometrium which shows appropriate decidual reactive. A yolk sac is seen. A pole is not yet clearly defined. The gestational sac measurements correspond to 5 weeks 5 days. A cystic area is seen on the left ovary, likely representing a corpus luteum cyst. The right ovary is unremarkable. There is no free fluid. IMPRESSION: Findings consistent with an early intrauterine of 5 weeks 5 days. Lab Data Lab results reviewed: Yes I reviewed the patient's lab results. HPI General Mode of arrival: ambulatory. Date/Time Provider Initiated Documentation: 11/03/18 07:25. Limitations to Documentation: no limitations. Information obtained by: patient. History of Present Illness 23 year old F presents to the emergency department with the chief complaint of lower abdominal cramping, Patient started experiencing this week(s) (1) and it has been intermittent. No relieving factors improve symptom(s), No exacerbating factors reported . Patient did receive the following treatments prior to arrival, none Related Data Home Medications Medication Instructions Recorded Confirmed albuterol sulfate [Proventil HFA] 2 puff INHALATION Q4H PRN PRN #1 04/19/17 11/03/18 inh prenat.vits,berenice,ltc-fymr-[id number] 1 tab PO DAILY 10/25/18 11/03/18 Previous Rx's Medication Instructions Recorded albuterol sulfate [Proventil HFA] 2 puff INHALATION Q4H PRN PRN #1 04/19/17 inh Allergies Allergy/AdvReac Type Severity Reaction Status Date / Time codeine [Codeine] AdvReac Intermediate hyperactivi Verified 11/03/18 07:30 ty General Stated Complaint: Abd Prob PHIL: 3 Review of Systems Review of Systems All systems reviewed & are unremarkable except as noted in HPI and below Constitutional Denies chills, Denies fever(s) and Denies weakness Cardiovascular Denies chest pain and Denies dyspnea Respiratory Denies cough and Denies dyspnea Gastrointestinal Denies abdominal pain, Denies nausea and Denies vomiting Musculoskeletal Denies joint swelling Neurologic Denies weakness [facility] Social History Smoking/Tobacco Use Status: Never Alcohol Intake: never Drug use: Rarely Substance use type: marijuana Do you feel safe at home: Yes Do you feel safe in your relationship?: Yes Exam Const General: no acute distress Orientation: alert HENMT Head: normal to inspection Ears: external ears normal General nose exam: external nose normal Mouth: moist mucous membranes Eyes General: appearance normal, both eyes and all related structures Neck Neck: normal visual inspection Resp Effort & Inspection: normal respiratory effort and able to speak in complete sentences Cardio Rate: regular rate GI Palpation: soft Skin General skin exam: no rashes or lesions noted Neuro General: alert and oriented x3 Extrem General: normal to inspection Psych Mental Status: mental status grossly normal Course Vital Signs Temperature 37.4 C 11/03/18 07:17 Pulse 88 11/03/18 07:17 Respiratory Rate 20 11/03/18 07:17 Blood Pressure 112/57 L 11/03/18 07:17 Pulse Oximetry 100 11/03/18 07:17 Temperature 37.4 C 11/03/18 07:17 Temperature Source Temporal Artery Scan 11/03/18 07:17 Pulse 88 11/03/18 07:17 Respiratory Rate 20 11/03/18 07:17 Respiratory Effort Non-Labored 11/03/18 07:24 Blood Pressure 112/57 L 11/03/18 07:17 Blood Pressure Position Sitting 11/03/18 07:17 Pulse Oximetry 100 11/03/18 07:17 Oxygen Delivery Method Room Air 11/03/18 07:17 Oxygen Flow Rate 0 11/03/18 07:17 Pain Level 4 11/03/18 07:17 Lab/Test Results Lab/Test Results: Laboratory Tests Range/Units 11/03/18 07:20 Urine Color (Yellow) Yellow Urine Clarity (Clear) Cloudy Urine pH (5-8) 6.5 Ur Specific [place] (1.005-1.025) 1.025 Urine Protein (Negative) mg/dL 30 H Urine Ketones (Negative) mg/dL Negative Urine Blood (Negative) Trace-intact H Urine Nitrite (Negative) Positive H Urine Bilirubin (Negative) Negative Urine Urobilinogen (Up TO 0.2) EU/dL 0.2 Ur Leukocyte Esterase (Negative) Small H Urine RBC (0-2) Urine WBC (0-5) HPF Ur Epithelial Cells (Negative) HPF Many Urine Crystals (Negative) HPF Negative Urine Bacteria (Negative) HPF Many Urine Mucus (Negative) Moderate Urine Other (Negative) Ur Culture Indicated? No/sq. contamination Urine Glucose (Negative) mg/dL Negative POC- Test(urine) Positive
[2018-11-03 08:43] LABS: HGB 14.5 g/dL (12.0-15.5); Mean Corp. HGB Concentration 34.5 g/dL (32.0-36.0); Mean Corpuscular Volume 89.7 fL (80-95); Mean Platelet Volume 10.5 fL (8.0-11.0); Platelet Count 229 x1000/uL (130-400); RBC 4.68 m/cumm (4.00-5.20); RBC Distribution Width 12.6 % (11.7-14.6); White Blood Cell Count 11.59 k/cumm (4.4-10.8)
--- NOTE | 2018-11-03 09:10 | DI.US_ITS ---
SYMPTOMS/DIAGNOSIS: , CRAMPING, PAIN OB ULTRASOUND: The uterus measures 8.8 x 4.8 x 7.5 cm. There is a gestational sac seen within the endometrium which shows appropriate decidual reactive. A yolk sac is seen. A pole is not yet clearly defined. The gestational sac measurements correspond to 5 weeks 5 days. A cystic area is seen on the left ovary, likely representing a corpus luteum cyst. The right ovary is unremarkable. There is no free fluid. IMPRESSION: Findings consistent with an early intrauterine of 5 weeks 5 days. Many abnormalities cannot be diagnosed. A normal exam does not exclude a congenital anomaly. HISTORY: Date of exam: 11/03/18 LMP: 09/23/18 EDC by LMP: 06/30/2019 Previous study: 5+6 wks Range: 4+6 to 6+6 EDC by prior us: Findings: Prior surgery/: BIOMETRY: PELVIC MEASUREMENTS: CRL: mm wks Uterus: 8.8 x 4.8 x 7.5 cm Yolk sac: 2.1-2.5 mm wks Gest sac: 9.2 mm 5+5 wks Rt Ovary: 2.7 x 1.4 x 1.3 cm BPD: mm wks HC: mm wks Lt Ovary: 3.2 x 2.5 x 2.7 cm AC: mm wks FL: mm wks Comments: endometrium = 15 mm Composite Age (US): 5+5 wks EDC by US: 07/01/2019 Heart Rate: NA BPM Amniotic Fluid: [place]lig[place] Normal Polyhydramnios Movement noted: Yes No Comments: 1. Single intrauterine gestation sac measuring 5+5 weeks containing yolk sac - no pole identified. 2. ? corpus luteal cyst in the left ovary vs unlikely ovarian ectopic - measures 1.6 x 1.1 x 1.2 cm.
[2018-11-03 09:26] LABS: HCG Quant, Pregnancy 9028 mIU/mL (1-3)
[2018-11-03 10:17] VITALS: BP 112/57; PULSE 88; RESP 20; TEMP 37.4; O2SAT 100
== END 2018-11-03 10:15 | disposition home or self-care (01) ==
PROVIDERS: Emergency Medicine; Emergency Provider Emergency Medicine; PCP Internal Medicine
DX: O26.891 Other specified pregnancy related conditions, first trimester (principal); Z3A.01 Less than 8 weeks gestation of pregnancy
CPT/HCPCS: 36415; 81025; 85027; 86850; 86900; 86901; 99284; 76801; 81003; 81015; 84702

== ENCOUNTER 2018-11-07 11:01 | Emergency (ER) | payer BC, MEDICAID, SELFPAY ==
[2018-11-07 11:05] VITALS: BP 107/57; PULSE 87; RESP 16; TEMP 36.5; O2SAT 99
--- NOTE | 2018-11-07 11:08 | ED.GENADUL_ITS ---
Discharge Plan Disposition Patient Disposition: HOME Condition: Good Discharge Details Chief Complaint: Sorethroat Clinical Impression: URI (upper respiratory infection) Primary Care Provider: Hardik Lilly ED Provider: Cynthia Weir Home Meds and New Rx's Prescriptions: Continued prenat.vits,berenice,cjf-cbnn-jixid Tablet 1 tab PO DAILY RF: 0 albuterol sulfate [Proventil HFA] 200 PUFF HFA aerosol inhaler 2 puff Inhalation Q4H PRN PRNQty: 1 RF: 0 Discharge Instructions Instructions: Upper Respiratory Infection (ED) Additional Instructions: Encourage hydration. May use Tylenol as needed for discomfort. If you develop shortness of breath, difficulty breathing, fevers or other new/worsening symptoms please seek care urgently once again. Please follow-up with primary care if not improving in the next 1 to 2 weeks. Referrals: Hardik Lilly MD [Primary Care Provider] - Medical Decision Making Patient 23-year-old female, approximately 6-1/2 weeks gestation, G3, P1 who presents with chief complaint of URI. Is been having sore throat for the past few weeks, reports that she began having cough and congestion yesterday. Denies other symptoms. Is concerned that she may have strep throat as the family was recently diagnosed with this. Denies any document fevers but significant other reports that a few weeks ago she had night sweats. States that these are intermittent. She has not had these historically with pregnancies. On exam, patient appears nontoxic. Vital signs within normal limits. Normal HEENT exam, lungs are clear. Patient is quite concerned with possible Streptococcus pharyngitis exposure, will run a rapid strep. Advised this likely viral and discussed expected course. Rapid strep testing negative. Again, patient I discussed new/worsening symptoms that should prompt her to seek care urgently once again. Advise follow-up with primary care if not improving the next 1 to 2 weeks. Encourage hydration. She may use Tylenol to help with discomfort. All questions and concerns were addressed she is in agreement this plan. HPI General Mode of arrival: ambulatory . Date/Time Provider Initiated Documentation: 11/07/18 11:08 . Limitations to Documentation: no limitations . Information obtained by: patient, family and RN notes reviewed . HPI Narrative: Patient is a 23-year-old female, G3P 1 breath 6 and half weeks , presenting today with chief complaint of cough and sore throat. She reports that she has had sore throat for the past few weeks. States that she began having congestion and cough yesterday. Reports that she is having coughing fits yesterday. States the cough is been primarily dry. Denies any fevers. Is concerned that the sore throat is persisted for so long and that family members recently diagnosed with Streptococcus pharyngitis. Denies any GI upset. No rash. Denies feeling short of breath or chest pain. Related Data Home Medications Medication Instructions Recorded Confirmed albuterol sulfate [Proventil HFA] 2 puff INHALATION Q4H PRN PRN #1 04/19/17 11/07/18 inh prenat.vits,berenice,zex-izwl-uomcp 1 tab PO DAILY 10/25/18 11/07/18 Previous Rx's Medication Instructions Recorded albuterol sulfate [Proventil HFA] 2 puff INHALATION Q4H PRN PRN #1 04/19/17 inh Allergies Allergy/AdvReac Type Severity Reaction Status Date / Time codeine [Codeine] AdvReac Intermediate hyperactivi Verified 11/07/18 11:08 ty General Stated Complaint: ThroatFB PHIL: 5 Review of Systems Constitutional Reports as per HPI and Denies headache(s) Eyes Reports as per HPI, Denies eye discharge and Denies irritation ENT Reports as per HPI and Denies headache(s) Cardiovascular Reports as per HPI, Denies chest pain and Denies dyspnea Respiratory Reports as per HPI and Denies dyspnea Gastrointestinal Reports as per HPI, Denies abdominal pain, Denies change in bowel habits, Denies nausea and Denies vomiting Integumentary/Breasts Reports as per HPI and Denies rash Neurologic Reports as per HPI and Denies headache(s) [facility] Medical History BMI 39.0-39.9,adult (Resolved 07/28/17) Concussion (Resolved 05/18/14) Constipation (Resolved 05/18/14) On Depo-Provera for contraception (Resolved 01/12/15) Positive test (Acute) Seasonal allergies (Acute 10/27/14) Surgical History removal of wisdom teeth Social History (Reviewed 09/08/19 @ 11:19 by NU Smith Smoking/Tobacco Use Status: Never Alcohol Intake: never Drug use: Rarely Substance use type: marijuana Do you feel safe at home: Yes Do you feel safe in your relationship?: Yes Exam Const General: cooperative, healthy appearing, comfortable, no acute distress, well developed and well groomed Nutritional Appearance: well nourished and overweight Orientation: alert and awake [facility] Head: normal to inspection, normocephalic and atraumatic Ears: hearing grossly normal bilaterally, external ears normal and TM's normal bilaterally General nose exam: external nose normal and nares normal Face and sinus: normal facial exam, sinuses nontender and face symmetric Mouth: oral mucosae normal, lip normal, tongue normal, oropharynx normal and moist mucous membranes Teeth and gingiva: dentition normal Throat: posterior oropharynx normal, tonsils normal and uvula midline Eyes General: appearance normal, both eyes and all related structures Neck Neck: normal visual inspection, full ROM, no lymphadenopathy and no meningeal signs Resp Effort & Inspection: normal respiratory effort, able to speak in complete sentences and no respiratory distress Auscultation: clear to auscultation bilaterally, no rales, no rhonchi and no wheezes Cardio Rate: regular rate Rhythm: regular rhythm Heart Sounds: S1 normal and S2 normal Skin General skin exam: no rashes or lesions noted Neuro General: alert and awake Cognition: normal cognition Speech: speech normal Gait: normal gait Psych Appearance: grossly normal and well kempt Mental Status: mental status grossly normal Speech and Movement: speech and movement normal Course Vital Signs Temperature 36.5 C 11/07/18 11:05 Pulse 87 11/07/18 11:05 Respiratory Rate 16 11/07/18 11:05 Blood Pressure 107/57 L 11/07/18 11:05 Pulse Oximetry 99 11/07/18 11:05 Temperature 36.5 C 11/07/18 11:05 Temperature Source Skin 11/07/18 11:05 Pulse 87 11/07/18 11:05 Respiratory Rate 16 11/07/18 11:05 Blood Pressure 107/57 L 11/07/18 11:05 Blood Pressure Position Sitting 11/07/18 11:05 Pulse Oximetry 99 11/07/18 11:05 Oxygen Delivery Method Room Air 11/07/18 11:05 Oxygen Flow Rate 0 11/07/18 11:05 Pain Level 0 11/07/18 11:05
== END 2018-11-07 11:45 | disposition home or self-care (01) ==
PROVIDERS: Emergency Provider Physician Assistant; PCP Internal Medicine
DX: J06.9 Acute upper respiratory infection, unspecified (principal); Z3A.01 Less than 8 weeks gestation of pregnancy
CPT/HCPCS: 87880; 99282

== ENCOUNTER 2018-11-17 17:03 | Emergency (ER) | payer BC, MEDICAID, SELFPAY ==
[2018-11-17 17:15] VITALS: BP 106/62; PULSE 76; RESP 16; TEMP 36.6; O2SAT 97
--- NOTE | 2018-11-17 17:21 | W.ED.GENAD ---
Discharge Plan Disposition Patient Disposition: HOME Condition: Fair Discharge Details Chief Complaint: Nausea/Vomit/Diar Clinical Impression: Nausea and vomiting during Primary Care Provider: Hardik Lilly ED Provider: Cynthia Weir Home Meds and New Rx's Prescriptions: New ondansetron 4 mg tablet,disintegrating 4 mg PO Q6H PRN (Reason: nausea and vomiting) Qty: 10 RF: 0 Continued prenat.vits,berenice,alz-hjcq-eojyk Tablet 1 tab PO DAILY RF: 0 albuterol sulfate [Proventil HFA] 200 PUFF HFA aerosol inhaler 2 puff Inhalation Q4H PRN PRNQty: 1 RF: 0 Discharge Instructions Instructions: Nausea and Vomiting in (ED) Additional Instructions: Continue to encourage hydration. You may use vitamin B6 for nausea, may also try michi. If these are unsuccessful, please use the zofran as prescribed. Please keep upcoming appointment with OB. If you develop fevers/chills, abdominal pain, vaginal discharge, are unable to stay hydrated or develop other new/worsening symptoms please seek care urgently once again. Stand Alone Forms: Work Release Referrals: Nancy Hays MD [ [facility] STAFF PHYSICIAN] - Discharge Data Discharge Date/Time-TO BE ENTERED AT DEPARTURE: 11/17/18 18:50 Medical Decision Making Patient is a 23 year old female, estimated 8 week gestation, with c/c of N/V x 3 days. states that she was able to drink 4 bottles of water yesterday, has been drinking water today as well. Concerned that she is not tolerating solid foods well. Has had 1/2 piece of toast today. Denies fevers/chills. No abdominal pain. Has not tried anything for sympatomic management. No vomiting today. Requesting work note, called out of work today secondary to her nausea. On exam, patient is resting comfortably. VS WNL. Abdomen is benign. She appears well hydrated. We discussed treatment options, at this time, will give ODT zofran and po challenge her. She has appointment in 2 days with OB. Patient is currently hydrating orally. She continues to endorse some mild nausea but feels this is no further improvement she is requesting discharge home at this time. We did discuss [id number] medication and home remedies to help with symptomatic management. I encouraged that she begin with vitamin B6 as well as michi for symptomatic management if this is not sufficient she may try the Zofran as prescribed. Advised the brat diet. She is given strict return precautions. Hydrate well. She will keep her upcoming appointment with [facility]. All other questions and concerns were addressed she is in agreement this plan. HPI General Mode of arrival: ambulatory. Date/Time Provider Initiated Documentation: 11/17/18 17:21. Limitations to Documentation: no limitations. Information obtained by: patient, family (significant other) and RN notes reviewed. HPI Narrative: Patient is a 23 year old female , 8 week gestation, presenting today with c/c of nausea and vomiting x 3 days. States that she has had diminished PO intake. reports vomiting after food intake, has been able to hydrate. Reports no emesis today. Did vomit last night after eating macaroni and cheese. Denies abdominal pain. No fevers/chills. Was seen by myself a few weeks ago with c/c URI which has since been resolving. States that cough is all but gone, no sore throat at this time. Concerned that family member was dx with strep throat recently. Has OB dating US in 2 days. No vaginal discharge, bleeding. Denies change in bowel or bladder habits. Related Data Home Medications Medication Instructions Recorded Confirmed albuterol sulfate [Proventil HFA] 2 puff INHALATION Q4H PRN PRN #1 04/19/17 11/17/18 inh prenat.vits,berenice,vcm-ydot-nhupr 1 tab PO DAILY 10/25/18 11/17/18 ondansetron 4 mg PO Q6H PRN #10 tab 11/17/18 Previous Rx's Medication Instructions Recorded albuterol sulfate [Proventil HFA] 2 puff INHALATION Q4H PRN PRN #1 04/19/17 inh ondansetron 4 mg PO Q6H PRN #10 tab 11/17/18 Allergies Allergy/AdvReac Type Severity Reaction Status Date / Time codeine [Codeine] AdvReac Intermediate hyperactivi Verified 11/17/18 17:20 ty General Stated Complaint: Nausea/Vomit/Diar PHIL: 3 Review of Systems Constitutional Constitutional: Reports as per HPI, Denies chills, Denies fatigue, Denies fever(s) and Denies headache(s) ENT Ears, Nose, Mouth, and Throat: Denies headache(s) Cardiovascular Cardiovascular: Reports as per HPI, Denies chest pain and Denies dyspnea Respiratory Respiratory: Reports as per HPI, Denies cough and Denies dyspnea Gastrointestinal Gastrointestinal: Reports as per HPI, Denies abdominal pain, Denies melena, Denies bloating, Denies loose stools, Reports nausea, Reports vomiting and Denies hematemesis Genitourinary Genitourinary: Reports as per HPI Musculoskeletal Musculoskeletal: Reports as per HPI and Denies back pain Integumentary/Breasts Skin/Breast: Reports as per HPI and Denies rash Neurologic Neurologic: Reports as per HPI and Denies headache(s) Endocrine Endocrine: Denies fatigue [facility] Social History Smoking/Tobacco Use Status: Never Alcohol Intake: never Drug use: Rarely Substance use type: marijuana Do you feel safe at home: Yes Do you feel safe in your relationship?: Yes Exam Const General: cooperative, healthy appearing, comfortable, no acute distress and well developed Nutritional Appearance: well nourished and overweight Orientation: alert and awake HENMT Head: normal to inspection Mouth: moist mucous membranes Resp Effort & Inspection: normal respiratory effort, able to speak in complete sentences and no respiratory distress Auscultation: clear to auscultation bilaterally, no rales, no rhonchi and no wheezes Cardio Rate: regular rate Rhythm: regular rhythm Heart Sounds: S1 normal and S2 normal GI Inspection: normal to inspection Palpation: soft, no hepatosplenomegaly, not firm, no guarding, no masses, not rigid and nontender Percussion: normal to percussion Auscultation: normal bowel sounds Back/Spine/Pelvis Back: no CVA tenderness Skin General skin exam: no rashes or lesions noted Trauma: no lacerations or abrasions Neuro General: alert and awake Cognition: normal cognition Speech: speech normal Gait: normal gait Psych Appearance: grossly normal and well kempt Mental Status: mental status grossly normal Speech and Movement: speech and movement normal Course Vital Signs Vital signs: Vital Signs Temperature 36.6 C 11/17/18 17:15 Pulse 76 11/17/18 17:15 Respiratory Rate 16 11/17/18 17:15 Blood Pressure 106/62 11/17/18 17:15 Pulse Oximetry 97 11/17/18 17:15 Temperature 36.6 C 11/17/18 17:15 Temperature Source Temporal Artery Scan 11/17/18 17:15 Pulse 76 11/17/18 17:15 Respiratory Rate 16 11/17/18 17:15 Blood Pressure 106/62 11/17/18 17:15 Blood Pressure Position Sitting 11/17/18 17:15 Pulse Oximetry 97 11/17/18 17:15 Oxygen Delivery Method Room Air 11/17/18 17:15 Oxygen Flow Rate 0 11/17/18 17:15 Pain Level 0 11/17/18 17:15
[2018-11-17] MEDS: Ondansetron O.D.T. 4 MG TABEF PO (18:06)
== END 2018-11-17 18:50 | disposition home or self-care (01) ==
PROVIDERS: Emergency Provider Physician Assistant; PCP Internal Medicine
DX: O21.9 Vomiting of pregnancy, unspecified (principal); Z3A.08 8 weeks gestation of pregnancy
CPT/HCPCS: 99283

== ENCOUNTER 2018-12-03 15:53 | Outpatient (REF) | payer BC, MEDICAID, SELFPAY ==
--- NOTE | 2018-12-03 15:50 | PAPFT_PTH ---
PATIENT: Laura Hwang LOC: [facility] U#:[id number] AGE/SX: 23/F ROOM: RE12/03/[address]: Archana Delacruz RN : 1995 BED: DIS: 12/03/2018 SPEC #: [id number] RECD: 12/06/18 12:47 STATUS: MAYRA REQ #: [id number] CARRIE: 12/03/18 15:[address]: Archana Delacruz DEPT: [facility] Cytology RECD BY: Mayuri Inman ENTERED: 12/06/18 12:47 SP TYPE: PAPFT OTHR DR: Hardik Lilly Tissues: 1 - CX/ENDOCX FOR PAP SMEARS Procedures: PAP THIN PREP/UVM Screening Comments: [id number]
[2018-12-03 17:46] LABS: *AMPHETAMINES SCREEN URINE Negative (Negative); *BARBITURATES SCREEN URINE Negative (Negative); *BENZODIAZEPINES SCREEN URINE Negative (Negative); Cannabinoids THC Negative (Negative); Cocaine Screen,Urine Negative (Negative); METHADONE URINE SCREEN Negative (Negative); OPIATES URINE SCREEN Negative (Negative)
[2018-12-03 17:47] LABS: Tricyclic Antidepressants Negative (Negative)
[2018-12-06 15:49] LABS: Chlamydia Result Negative (Negative); GC Result Negative (Negative); Specimen Description CERVIX
[2018-12-08 10:45] LABS: Buprenorphine Negative; Norbuprenorphine Negative
== END 2018-12-03 16:13 ==
LOC: LBN 15:53
PROVIDERS: PCP Internal Medicine; Visit Provider Advanced Practice Midwife
DX: Z34.91 Encounter for supervision of normal pregnancy, unspecified, first trimester (principal); Z11.3 Encounter for screening for infections with a predominantly sexual mode of transmission; Z12.4 Encounter for screening for malignant neoplasm of cervix
CPT/HCPCS: 80307; 87077; 87491; 87591; 88142; 87086; 87186

== ENCOUNTER 2018-12-08 07:54 | Outpatient (CLI) | payer BC, MEDICAID, SELFPAY ==
[2018-12-08 10:05] LABS: Abs Immature Grans 0.01 k/cumm (0.0-0.09); Absolute Basophil Count 0.02 k/cumm (0.0-0.2); Absolute Eosinophil Count 0.09 k/cumm (0.0-0.7); Absolute Lymphocyte Count 1.59 k/cumm (1.2-3.4); Absolute Monocyte Count 0.54 k/cumm (0.11-0.7); Absolute Neutrophil Count 6.12 k/cumm (1.2-6.7); Basophils % 0.2; Eosinophils % 1.1; HCT 35.6 % (36.0-46.0); HGB 12.2 g/dL (12.0-15.5); Immature Grans % 0.1; Mean Corp. HGB Concentration 34.3 g/dL (32.0-36.0); Mean Corpuscular Hemoglobin 30.7 pg (27.0-33.0); Mean Corpuscular Volume 89.7 fL (80-95); Mean Platelet Volume 10.1 fL (8.0-11.0); Monocytes % 6.5; Neutrophils % 73.1; Platelet Count 220 x1000/uL (130-400); RBC 3.97 m/cumm (4.00-5.20); RBC Distribution Width 12.4 % (11.7-14.6); White Blood Cell Count 8.37 k/cumm (4.4-10.8)
[2018-12-08 10:17] LABS: Glucose,1 Hr (Glucola) 66 mg/dL (80-140)
[2018-12-08 10:53] LABS: TSH (W/Ref FT4) 2.28 uIU/mL (0.36-3.74)
[2018-12-09 10:21] LABS: HIV-1/2 Ag & Ab Screen Negative (NEGAT)
[2018-12-09 10:25] LABS: Hepatitis B Surface Ag Negative (NEGAT); Varicella IgG Antibody Positive
[2018-12-09 10:27] LABS: Rubella IgG Ab (UVM) Positive
[2018-12-09 10:43] LABS: Hepatitis C Ab w Rflx HCV PCR Negative (NEGAT)
[2018-12-12 10:19] LABS: Syphilis Total Ab w/Reflex Nonreactive (Nonreactive)
== END 2018-12-08 08:14 ==
PROVIDERS: PCP Internal Medicine; Visit Provider Advanced Practice Midwife
DX: Z34.91 Encounter for supervision of normal pregnancy, unspecified, first trimester (principal); Z11.59 Encounter for screening for other viral diseases; Z11.4 Encounter for screening for human immunodeficiency virus [HIV]; Z01.84 Encounter for antibody response examination
CPT/HCPCS: 36415; 82950; 86787; 86803; 86850; 86900; 86901; 87340; 87389; 84443; 85025; 86762; 86780

== ENCOUNTER 2018-12-11 11:02 | Emergency (ER) | payer MEDICAID, SELFPAY ==
[2018-12-11 11:06] VITALS: BP 114/59; PULSE 89; RESP 18; TEMP 36.8; O2SAT 97
--- NOTE | 2018-12-11 11:36 | ED.GENADUL_ITS ---
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 Finish your antibiotics for your urinary tract infection. Return to the emergency department if you develop any worsening or new concerning symptoms of fever, persistent vomiting, worsening vaginal bleeding or pain. Discharge Data Discharge Date/Time-TO BE ENTERED AT DEPARTURE: 12/11/18 13:16 Discharge Physician: Debbie Mauricio Medical Decision Making 1110 -- 23yo F at 11w2d here with vaginal spotting and lower abdominal cramping since last night. She is currently taking macrobid for UTI. Her last ultrasound was on 11/23/2018 which noted an IUP at 8 weeks of with an estimated delivery date of 06/30/2019. Abdomen soft nontender. Will check screening labs including beta quant, blood type and Rh, urinalysis and do bedside ultrasound. No formal ultrasound available today. 1300 --labs reviewed. Normal white blood cell count, electrolytes. Hemoglobin 11.8. Platelets 217. Glucose 58. She was offered food here. Beta quant 24970. Urinalysis notes leukocyte esterase and greater than 50 WBCs but appears contaminated, she is currently on antibiotics for UTI. Blood type O+. Bedside ultrasound noted movement with heart rate 150s. Case discussed with Dr. Mena and recommend that patient follow-up with OB clinic this week. Patient is advised to drink plenty of fluids, get pelvic rest, and return to the emergency department with any worsening or concerning symptoms. Medical Records Medical records reviewed: Yes I reviewed the patient's medical records. Lab Data Lab results reviewed: Yes I reviewed the patient's lab results. Labs: Laboratory Tests Range/Units 12/11/18 12/11/18 12/11/18 11:51 12:00 12:00 WBC (4.4-10.8) k/cumm 8.04 RBC (4.00-5.20) m/cumm 3.82 L Hgb (12.0-15.5) g/dL 11.8 L Hct (36.0-46.0) % 34.4 L MCV (80-95) fL 90.1 MCH (27.0-33.0) pg 30.9 MCHC (32.0-36.0) g/dL 34.3 RDW (11.7-14.6) % 12.6 Plt Count (130-400) x1000/uL 217 MPV (8.0-11.0) fL 10.3 Immature Gran % 0.1 Neutrophils % 75.0 Lymphocytes % 16.5 Monocytes % 7.3 Eosinophils % 0.9 Basophils % 0.2 Absolute Neutrophils (1.2-6.7) k/cumm 6.02 Absolute Lymphocytes (1.2-3.4) k/cumm 1.33 Absolute Monocytes (0.11-0.7) k/cumm 0.59 Absolute Eosinophils (0.0-0.7) k/cumm 0.07 Absolute Basophils (0.0-0.2) k/cumm 0.02 Sodium (136-145) mmol/L 139 Potassium (3.5-5.1) mmol/L 3.6 Chloride (98-107) mmol/L 104 Carbon Dioxide (21.0-32.0) mmol/L 26.8 Anion Gap (3-11) mmol/L 8.2 BUN (7-18) mg/dL 11 Creatinine (0.55-1.02) mg/dL 0.63 Estimated GFR/1.73 m2 (mL/min/1.73m2) >= 60.00 Glucose (70-100) mg/dL 58 L Calcium (8.5-10.1) mg/dL 8.7 Total Bilirubin (0.2-1.0) mg/dL 0.5 AST (15-37) U/L 8 L ALT (14-59) U/L 12 L Alkaline Phosphatase (46-116) U/L 68 Total Protein (6.4-8.2) g/dL 6.9 Albumin (3.4-5.0) g/dL 3.1 L Beta HCG, Quant (1-3) mIU/mL 09622 H Urine Color (Yellow) Yellow Urine Clarity (Clear) Sl cloudy Urine pH (5-8) 6.5 Ur Specific Ferris (1.005-1.025) 1.025 Urine Protein (Negative) mg/dL 30 H Urine Ketones (Negative) mg/dL Negative Urine Blood (Negative) Moderate H Urine Nitrite (Negative) Negative Urine Bilirubin (Negative) Negative Urine Urobilinogen (Up TO 0.2) EU/dL 0.2 Ur Leukocyte Esterase (Negative) Small H Urine RBC (0-2) >50 H Urine WBC (0-5) HPF 20-50 Ur Epithelial Cells (Negative) HPF Moderate Urine Crystals (Negative) HPF Negative Urine Bacteria (Negative) HPF Few Urine Mucus (Negative) Moderate Urine Other (Negative) Ur Culture Indicated? No/sq. contamination Urine Glucose (Negative) mg/dL Negative Patient ABO/Rh Range/Units 12/11/18 12:00 WBC (4.4-10.8) k/cumm RBC (4.00-5.20) m/cumm Hgb (12.0-15.5) g/dL Hct (36.0-46.0) % MCV (80-95) fL MCH (27.0-33.0) pg MCHC (32.0-36.0) g/dL RDW (11.7-14.6) % Plt Count (130-400) x1000/uL MPV (8.0-11.0) fL Immature Gran % Neutrophils % Lymphocytes % Monocytes % Eosinophils % Basophils % Absolute Neutrophils (1.2-6.7) k/cumm Absolute Lymphocytes (1.2-3.4) k/cumm Absolute Monocytes (0.11-0.7) k/cumm Absolute Eosinophils (0.0-0.7) k/cumm Absolute Basophils (0.0-0.2) k/cumm Sodium (136-145) mmol/L Potassium (3.5-5.1) mmol/L Chloride (98-107) mmol/L Carbon Dioxide (21.0-32.0) mmol/L Anion Gap (3-11) mmol/L BUN (7-18) mg/dL Creatinine (0.55-1.02) mg/dL Estimated GFR/1.73 m2 (mL/min/1.73m2) Glucose (70-100) mg/dL Calcium (8.5-10.1) mg/dL Total Bilirubin (0.2-1.0) mg/dL AST (15-37) U/L ALT (14-59) U/L Alkaline Phosphatase (46-116) U/L Total Protein (6.4-8.2) g/dL Albumin (3.4-5.0) g/dL Beta HCG, Quant (1-3) mIU/mL Urine Color (Yellow) Urine Clarity (Clear) Urine pH (5-8) Ur Specific Ferris (1.005-1.025) Urine Protein (Negative) mg/dL Urine Ketones (Negative) mg/dL Urine Blood (Negative) Urine Nitrite (Negative) Urine Bilirubin (Negative) Urine Urobilinogen (Up TO 0.2) EU/dL Ur Leukocyte Esterase (Negative) Urine RBC (0-2) Urine WBC (0-5) HPF Ur Epithelial Cells (Negative) HPF Urine Crystals (Negative) HPF Urine Bacteria (Negative) HPF Urine Mucus (Negative) Urine Other (Negative) Ur Culture Indicated? Urine Glucose (Negative) mg/dL Patient ABO/Rh O Positive HPI General Mode of arrival: ambulatory . Date/Time Provider Initiated Documentation: 12/11/18 11:14 . Limitations to Documentation: no limitations . Information obtained by: patient . HPI Narrative: Patient is a 23-year-old female G5, P1 with 3 previous miscarriages and one living child at 18 months who is currently 11 weeks and 2 days presents with lower abdominal cramping and vaginal spotting since yesterday. She describes the pain as intermittent, cramping, suprapubic and 0 at its least and 9 at its worst. She states her pain is currently 0. She describes the spotting as very minimal and that she has not even needed to use a pad. She states the spotting is light and pink. She denies fever, nausea, vomiting, urinary symptoms or back pain. 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 PHIL: 3 Review of Systems Review of Systems ROS Unobtainable: All systems reviewed & are unremarkable except as noted in HPI and below Constitutional Constitutional: Reports as per HPI, Denies chills and Denies fever(s) Eyes Eyes: Denies blurry vision ENT Ears, Nose, Mouth, and Throat: Denies dizziness, Denies sore throat and Denies t hroat swelling Cardiovascular Cardiovascular: Denies chest pain and Denies dyspnea Respiratory Respiratory: Denies cough and Denies dyspnea Gastrointestinal Gastrointestinal: Reports abdominal pain, Denies diarrhea and Denies vomiting Genitourinary Genitourinary: Denies hematuria, Denies dysuria and Reports other (vaginal spotting) Musculoskeletal Musculoskeletal: Denies back pain and Denies numbness Integumentary/Breasts Skin/Breast: Denies lesions and Denies rash Neurologic Neurologic: Denies dizziness, Denies focal weakness and Denies numbness Allergic/Immunologic Allergic/Immunologic: Denies throat swelling PFSH Surgical History removal of wisdom teeth Social History Smoking/Tobacco Use Status: Never Alcohol Intake: never Drug use: Rarely Substance use type: marijuana Do you feel safe at home: Yes Do you feel safe in your relationship?: Yes History History 3 Para 1 Hx # Term Pregnancies 1 Multiple births 0 Hx # Pregnancies 0 Ectopic pregnancies 0 AB induced 0 Hx Number of Living Children 1 AB spontaneous 1 Past Pregnancies Del. Date GA/Weeks # Outcome Route Wgt Sex Labor Lgth Anesthes ia Location Prov Complic 06/14/17 42 No Successful vaginal 4.092 kg Male [address] guan other Delivery Date: 06/14/17 On 12/03/18 @ 15:41 MORGAN LOZANO as per pt; infant stuck at brow. w/o use of vacuum or forceps, baby had bleeding of head, then seizures [place] [facility] [place]. [place] [facility] [place] 1 weeks sent home on seizure meds x 1 week. al Exam Const General: cooperative, healthy appearing and no acute distress [facility] Head: normal to inspection Face and sinus: normal facial exam Eyes General: appearance normal, both eyes and all related structures Pupils: PERRL EOM: EOM intact bilaterally Neck Neck: normal visual inspection and No submandibular swelling Lymphatic: no lymphadenopathy noted Chest Chest: normal inspection of the chest and no tenderness Resp Effort & Inspection: normal respiratory effort and able to speak in complete sentences Auscultation: clear to auscultation bilaterally Cardio Rate: regular rate Rhythm: regular rhythm GI Inspection: normal to inspection Palpation: soft, not firm, not rigid and tender suprapubicly Auscultation: normal bowel sounds Skin General skin exam: no rashes or lesions noted Neuro General: alert, awake and oriented x3 Cognition: normal cognition Speech: speech normal Motor: muscle tone normal throughout Sensory Exam: no sensory deficits noted Extrem General: normal to inspection, full ROM, normal capillary refill, no calf tenderness bilaterally and no edema Psych Appearance: grossly normal Mental Status: mental status grossly normal Speech and Movement: speech and movement normal Affect: normal affect Course Vital Signs Vital signs: Vital Signs Temperature 98.2 F 12/11/18 11:06 Pulse 89 12/11/18 11:06 Respiratory Rate 18 12/11/18 11:06 Blood Pressure 114/59 L 12/11/18 11:06 Pulse Oximetry 97 12/11/18 11:06 Temperature 98.2 F 12/11/18 11:06 Temperature Source Skin 12/11/18 11:06 Pulse 89 12/11/18 11:06 Respiratory Rate 18 12/11/18 11:06 Respiratory Effort Non-Labored 12/11/18 11:10 Blood Pressure 114/59 L 12/11/18 11:06 Blood Pressure Position Sitting 12/11/18 11:06 Pulse Oximetry 97 12/11/18 11:06 Oxygen Delivery Method Room Air 12/11/18 11:06 Oxygen Flow Rate 0 12/11/18 11:06
[2018-12-11 11:59] LABS: Bilirubin Negative (Negative); Blood Moderate (Negative); Clarity Sl Cloudy (Clear); Glucose Negative (Negative); Ketones Negative (Negative); Leukocyte Esterase Small (Negative); Nitrite Negative (Negative); Specific Gravity 1.025 (1.005-1.025); Urobilinogen 0.2 EU/dL (Up TO 0.2); pH 6.5 (5-8)
[2018-12-11 12:10] LABS: Bacteria Few HPF (Negative); Crystals Negative HPF (Negative); Epithelial Cells Moderate HPF (Negative); Mucus Moderate (Negative); RBC >50 (0-2); WBC 20-50 HPF (0-5)
[2018-12-11 12:11] LABS: C & S Indicated? No/Sq. Contamination
[2018-12-11 12:13] LABS: Abs Immature Grans 0.01 k/cumm (0.0-0.09); Absolute Basophil Count 0.02 k/cumm (0.0-0.2); Absolute Eosinophil Count 0.07 k/cumm (0.0-0.7); Absolute Lymphocyte Count 1.33 k/cumm (1.2-3.4); Absolute Monocyte Count 0.59 k/cumm (0.11-0.7); Absolute Neutrophil Count 6.02 k/cumm (1.2-6.7); Basophils % 0.2; Eosinophils % 0.9; HCT 34.4 % (36.0-46.0); HGB 11.8 g/dL (12.0-15.5); Immature Grans % 0.1; Lymphocytes % 16.5; Mean Corp. HGB Concentration 34.3 g/dL (32.0-36.0); Mean Corpuscular Hemoglobin 30.9 pg (27.0-33.0); Mean Corpuscular Volume 90.1 fL (80-95); Mean Platelet Volume 10.3 fL (8.0-11.0); Monocytes % 7.3; Platelet Count 217 x1000/uL (130-400); RBC 3.82 m/cumm (4.00-5.20); RBC Distribution Width 12.6 % (11.7-14.6); White Blood Cell Count 8.04 k/cumm (4.4-10.8)
[2018-12-11 12:44] LABS: ALT 12 U/L (14-59); AST 8 U/L (15-37); Albumin 3.1 g/dL (3.4-5.0); Alkaline Phosphatase 68 U/L (46-116); Anion Gap 8.2 mmol/L (3-11); BUN 11 mg/dL (7-18); Bilirubin, Total 0.5 mg/dL (0.2-1.0); CO2 26.8 mmol/L (21.0-32.0); CREATININE 0.63 mg/dL (0.55-1.02); Calcium 8.7 mg/dL (8.5-10.1); Chloride 104 mmol/L (98-107); Glucose 58 mg/dL (70-100); Potassium 3.6 mmol/L (3.5-5.1); Sodium 139 mmol/L (136-145); Total Protein 6.9 g/dL (6.4-8.2)
[2018-12-11 13:10] VITALS: BP 116/49; PULSE 77; RESP 16; O2SAT 99
== END 2018-12-11 13:16 | disposition home or self-care (01) ==
PROVIDERS: Emergency Provider Physician Assistant; PCP Internal Medicine
DX: O20.0 Threatened abortion (principal); N39.0 Urinary tract infection, site not specified; Z3A.10 10 weeks gestation of pregnancy
CPT/HCPCS: 36415; 80053; 86900; 86901; 99283; 81003; 81015; 84702; 85025

== ENCOUNTER 2018-12-31 16:37 | Outpatient (REF) | payer BC, SELFPAY | END 2018-12-31 16:57 | LOC: LBN 16:37 | PROVIDERS: PCP Internal Medicine; Visit Provider Obstetrics & Gynecology | DX: Z34.92 Encounter for supervision of normal pregnancy, unspecified, second trimester (principal) | CPT/HCPCS: 87077; 87086; 87186 ==

== ENCOUNTER 2019-01-20 16:35 | Emergency (ER) | payer BC, MEDICAID, SELFPAY ==
[2019-01-20 16:40] VITALS: BP 121/62; PULSE 80; RESP 16; TEMP 36.5; O2SAT 99
--- NOTE | 2019-01-20 17:03 | W.ED.GENAD ---
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 It is extremely important that you call soon as possible to make an appointment to be seen in follow-up for this visit by your automotive technology instructor as we discussed; you will need to have a follow-up ultrasound in 1 week. Referrals: Ghulam Polanco [ NON-[facility] STAFF PHYSICIAN] - Discharge Data Discharge Date/Time-TO BE ENTERED AT DEPARTURE: 01/20/19 18:05 Medical Decision Making Laura Hwang is a 23-year-old woman G5, P1 at 17 weeks gestational age who presented to the emergency department with small amount of vaginal bleeding noticed on toilet paper this morning without any other vaginal bleeding today. On exam patient is very well and nontoxic appearing. Exam/history is not consistent with placental abruption, hemorrhage, other acute emergent life-threatening process. I discussed patient presentation with Dr. Guan of obstetrics, who recommended outpatient ultrasound in 1 week to determine placental positioning, no other acute intervention. I had a lengthy discussion with the patient regarding return to emergency department precautions, home care, and importance of outpatient follow-up with obstetrics including ultrasound in 1 week. Patient verbalized understanding of the plan and was amenable. All questions were answered. Patient was discharged home with clear plan for outpatient follow-up. Medical Records Medical records reviewed: Yes I reviewed the patient's medical records. HPI General Mode of arrival: ambulatory. Date/Time Provider Initiated Documentation: 01/20/19 16:41. Limitations to Documentation: no limitations. Information obtained by: patient, family, RN notes reviewed and old records reviewed. HPI Narrative: Laura Hwang is a 23-year-old woman G5, P1 at 17 weeks gestational age presenting to the emergency department vaginal bleeding. Patient reports that she had some vaginal bleeding at approximately 10 weeks gestational age, which resolved. She has had no vaginal bleeding since 10 weeks. Patient reports that since that time she has had intermittent bilateral pelvic cramping, that has not increased or changed since onset 7 weeks ago. Patient reports that this morning she wiped and noticed a small amount of vaginal blood on toilet paper. Patient reports that she has had no other bleeding today. Patient reports that she thinks that she has felt the baby moving intermittently since approximately 2 weeks ago and think she felt the baby move last night, however she has not felt any movement today. She denies any current pain, fevers, shortness of breath, cough, rash. Has been eating and drinking as usual, and feels otherwise in her usual state of health. Reports marijuana use, denies tobacco use, alcohol, other recreational drugs. Related Data Home Medications Medication Instructions Recorded Confirmed albuterol sulfate [Proventil HFA] 2 puff INHALATION Q4H PRN PRN #1 04/19/17 01/20/19 inh prenat.vits,berenice,beq-ajbt-croqd 1 tab PO DAILY 10/25/18 01/20/19 cephalexin 500 mg capsule 500 mg PO .COMPLEX #90 cap 12/31/18 01/20/19 Previous Rx's Medication Instructions Recorded albuterol sulfate [Proventil HFA] 2 puff INHALATION Q4H PRN PRN #1 04/19/17 inh cephalexin 500 mg capsule 500 mg PO .COMPLEX #90 cap 12/31/18 Allergies Allergy/AdvReac Type Severity Reaction Status Date / Time codeine [Codeine] AdvReac Intermediate hyperactivi Verified 01/20/19 16:44 ty General Stated 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 PHIL: 2 Review of Systems Narrative: Constitutional: denies fevers Eyes: denies eye pain ENT: denies facial pain, dental pain, sore throat Cardiovascular: denies chest pain Respiratory: denies SOB, cough GI: denies abdominal pain, vomiting, diarrhea : denies flank pain, reports vaginal bleeding, intermittent bilateral pelvic pain for the past 7 weeks MSK: denies back pain, neck pain, arthralgias, myalgias Skin: denies rash Neuro: denies headaches, numbness, weakness [facility] Medical History Seasonal allergies (Acute 10/27/14) Social History Smoking/Tobacco Use Status: Never Alcohol Intake: never Drug use: Rarely Substance use type: marijuana Do you feel safe at home: Yes Do you feel safe in your relationship?: Yes History History 3 Para 1 Hx # Term Pregnancies 1 Multiple births 0 Hx # Pregnancies 0 Ectopic pregnancies 0 AB induced 0 Hx Number of Living Children 1 AB spontaneous 1 Past Pregnancies Del. Date GA/Weeks # Outcome Route Wgt Sex Labor Lgth Anesthesia Location Prov Complic 06/14/17 42 No Successful vaginal 4.092 kg Male [address] guan other Delivery Date: 06/14/17 On 12/03/18 @ 15:41 [facility]ATHRIN[facility]GAN as per pt; infant stuck at brow. w/o use of vacuum or forceps, baby had bleeding of head, then seizures sent to [facility] [place] at day three for seizures. @ [facility] [place] x 1 weeks sent home on seizure meds x 1 week. al Exam Narrative Exam Narrative: Constitutional: well and rei-yytis-gnzhckuft, pleasant, conversing normally HENT: head atraumatic/normocephalic/normal inspection, mucous membranes moist Eyes: conjunctiva normal, sclera normal, pupils 3mm b/l Neck: no stridor, normal ROM, trachea midline Chest: normal inspection Resp: normal work of breathing, LCTAB Cardio: normal rate, normal rhythm, no murmur appreciated GI: abdomen soft, non-tender, non-distended, fundus just below the umbilicus, uterus nontender to palpation Skin: warm, dry, normal color, no rash Neuro: alert, not altered, grossly non-focal, normal tone Ext: no edema, no posterior calf tenderness Psych: normal mood, normal affect, normal behavior Course Vital Signs Vital signs: Vital Signs Temperature 36.5 C 01/20/19 16:40 Pulse 80 01/20/19 16:40 Respiratory Rate 16 01/20/19 16:40 Blood Pressure 121/62 01/20/19 16:40 Pulse Oximetry 99 01/20/19 16:40 Temperature 36.5 C 01/20/19 16:40 Temperature Source Skin 01/20/19 16:40 Pulse 80 01/20/19 16:40 Respiratory Rate 16 01/20/19 16:40 Respiratory Effort Non-Labored 01/20/19 16:40 Blood Pressure 121/62 01/20/19 16:40 Blood Pressure Position Sitting 01/20/19 16:40 Pulse Oximetry 99 01/20/19 16:40 Oxygen Delivery Method Room Air 01/20/19 16:40 Oxygen Flow Rate 0 01/20/19 16:40 Pain Level 5 01/20/19 16:49
[2019-01-20 18:05] VITALS: BP 122/76; PULSE 78; RESP 18; TEMP 36.8; O2SAT 99
== END 2019-01-20 18:05 | disposition home or self-care (01) ==
PROVIDERS: Emergency Provider Student in an Organized Health Care Education/Training Program; PCP Internal Medicine
DX: O26.852 Spotting complicating pregnancy, second trimester (principal); O99.322 Drug use complicating pregnancy, second trimester; Z3A.17 17 weeks gestation of pregnancy; F12.10 Cannabis abuse, uncomplicated
CPT/HCPCS: 99281

== ENCOUNTER 2019-01-31 16:07 | Outpatient (REF) | payer BC, MEDICAID, SELFPAY | END 2019-01-31 16:27 | LOC: LBN 16:07 | PROVIDERS: PCP Internal Medicine; Visit Provider Obstetrics & Gynecology | DX: N39.0 Urinary tract infection, site not specified (principal) | CPT/HCPCS: 87077; 87086; 87186 ==

== ENCOUNTER 2019-02-01 08:24 | Outpatient (CLI) | payer BC, MEDICAID, SELFPAY ==
--- NOTE | 2019-02-01 16:30 | DI.US_ITS ---
EXAM: US OB 2-3 TRIMESTER CLINICAL HISTORY: morphology, Z34.90, O46.8X1 ANTEPARTUM HEMORRHAGE TECHNIQUE: Ultrasound performed using standard protocol. COMPARISON: US OB 1st trimester from 11/03/2018 FINDINGS: The fetus was in variable position during the exam. The placenta is posterior. The biometric measu rements correspond to 19 weeks 0 days, consistent with previous dating. No abnormalities are i dentified. The amniotic fluid appears visually normal. IMPRESSION: survey is within normal limits.
== END 2019-02-01 08:44 ==
PROVIDERS: PCP Internal Medicine; Visit Provider Obstetrics & Gynecology Gynecology
DX: Z34.92 Encounter for supervision of normal pregnancy, unspecified, second trimester (principal); Z3A.19 19 weeks gestation of pregnancy
CPT/HCPCS: 76805

== ENCOUNTER 2019-02-28 15:50 | Outpatient (REF) | payer BC, MEDICAID, SELFPAY | END 2019-02-28 16:10 | LOC: LBN 15:50 | PROVIDERS: PCP Internal Medicine; Visit Provider Obstetrics & Gynecology | DX: N39.0 Urinary tract infection, site not specified (principal) | CPT/HCPCS: 87077; 87086; 87186 ==

== ENCOUNTER 2019-03-19 11:34 | Emergency (ER) | payer MEDICAID, SELFPAY ==
[2019-03-19 11:42] VITALS: BP 124/69; PULSE 89; RESP 14; TEMP 36.8; O2SAT 100
--- NOTE | 2019-03-19 12:12 | ED.GENADUL_ITS ---
Discharge Plan Disposition Patient Disposition: HOME Condition: Improving Discharge Details Chief Complaint: Dizzy/Sync Clinical Impression: UTI (urinary tract infection) Primary Care Provider: Hardik Lilly ED Provider: Darren Barnett Home Meds and New Rx's Prescriptions: New nitrofurantoin macrocrystal 100 mg capsule 100 mg PO BID Qty: 14 RF: 0 Continued prenat.vits,berenice,doq-actm-bciwh Tablet 1 tab PO DAILY RF: 0 fddehclbfy-cmbfbanivfvzd-vkjx 50-325-40 mg capsule 1 cap PO Q6H PRN (Reason: pain) Qty: 20 RF: 0 albuterol sulfate [Proventil HFA] 200 PUFF HFA aerosol inhaler 2 puff Inhalation Q4H PRN PRNQty: 1 RF: 0 Discharge Instructions Instructions: Urinary Tract Infection in Women (ED) Additional Instructions: Please follow-up with Dr. Mena in clinic this week. Take antibiotics as prescribed and continue your vitamins. Home to rest today. Small, frequent sips of fluids to maintain hydration. Return for any acute concerns. Medical Decision Making 24-year-old female who is 24 weeks presents from home complaining of weeks of intermittent episodes of lightheadedness the last 45 minutes and dissipate on their own. They do not seem to be particularly positional. She has had no chest pain/shortness of breath/abdominal pain/vaginal discharge or bleeding/No headaches. She arrives with normal vital signs with a pulse of 89, 100% oxygenation on room air. Her exam is reassuring. She states to me she was treated for a UTI, antibiotics last 1 week ago. There is a question of need for suppressive dose of Keflex throughout her based on last clinic note, but the patient states she finished her course of prescribed Macrobid. Differential diagnosis includes physiologic changes of , consider recurrent UTI, consider dehydration or electrolyte abnormalities. Patient had screening laboratories, EKG, UA obtained. Given 1L NS. Reviewed urine sensitivities from February 28 with resistance to first generation cephalosporins. Sensitivity to nitrofurantoin. Labs reveal: White blood cell count 8, hematocrit 37, platelets 231. Chemistries reassuring but noted magnesium 1.7 which was supplemented in the ED. TSH within normal limits. Today's urinalysis consistent with acute UTI. Following fluids and supplementary magnesium, patient improving. We will treat her with a course of nitrofurantoin given that she is and given the recent antibiotic sensitivities of urine culture. Repeat urine culture is pending. She will follow-up in [facility] clinic. Lab Data Lab results reviewed: Yes I reviewed the patient's lab results. Labs: Laboratory Results - last 24 hr 03/19/19 03/19/19 03/19/19 12:19 12:20 12:20 WBC 8.70 RBC 4.08 Hgb 12.7 Hct 37.9 MCV 92.9 MCH 31.1 MCHC 33.5 RDW 13.1 Plt Count 231 MPV 10.0 Immature Gran % 0.3 Neutrophils % 82.3 Lymphocytes % 11.3 Monocytes % 5.5 Eosinophils % 0.5 Basophils % 0.1 Absolute Neutrophils 7.16 H Absolute Lymphocytes 0.98 L Absolute Monocytes 0.48 Absolute Eosinophils 0.04 Absolute Basophils 0.01 Sodium 141 Potassium 3.8 Chloride 106 Carbon Dioxide 27.5 Anion Gap 7.5 BUN 9 Creatinine 0.53 L Estimated GFR/1.73 m2 >= 60.00 Glucose 72 L Calcium 8.6 Magnesium 1.7 L Total Bilirubin 0.4 AST 9 L ALT 14 Alkaline Phosphatase 89 Total Protein 6.7 Albumin 2.9 L TSH 1.71 Urine Color Yellow Urine Clarity Sl cloudy Urine pH 7.0 Ur Specific Belding 1.020 Urine Protein Negative Urine Ketones Negative Urine Blood Large H Urine Nitrite Negative Urine Bilirubin Negative Urine Urobilinogen 0.2 Ur Leukocyte Esterase Trace H Urine RBC 0-2 Urine WBC 5-10 Ur Epithelial Cells Few Urine Crystals Negative Urine Bacteria Many Urine Casts Negative Urine Mucus Moderate Ur Culture Indicated? Yes Urine Glucose Negative ECG Data Attestation: I personally reviewed and interpreted this ECG (s) as follows: Interpretation: Normal sinus rhythm with a rate of 82, the QRS is narrow, there is no ST segment elevation present. Unremarkable intervals. HPI General Mode of arrival: ambulatory . Date/Time Provider Initiated Documentation: 03/19/19 11:35 . Limitations to Documentation: no limitations . Information obtained by: patient . History of Present Illness 24 year old F presents to the emergency department with the chief complaint of Near syncope, 25 weeks , no chest pain or shortness of breath, described as moderate, and is localized to the head. Patient reports no radiation. Patient started experiencing this minute(s) and it has been now resolved. No relieving factors improve symptom(s), No exacerbating factors reported . Patient notes denies chest pain, cough, headaches, nausea/vomiting, shortness of breath and syncope. Patient did receive the following treatments prior to arrival, none Related Data Home Medications Medication Instructions Recorded Confirmed albuterol sulfate [Proventil HFA] 2 puff INHALATION Q4H PRN PRN #1 04/19/17 03/19/19 inh prenat.vits,berenice,nmo-fpxa-aakro 1 tab PO DAILY 10/25/18 03/19/19 mzlbxchtum-kqozageshdenm-kumyqjod 1 cap PO Q6H PRN #20 cap 03/06/19 03/19/19 50 mg-325 mg-40 mg capsule nitrofurantoin macrocrystal 100 mg PO BID #14 cap 03/19/19 Previous Rx's Medication Instructions Recorded albuterol sulfate [Proventil HFA] 2 puff INHALATION Q4H PRN PRN #1 04/19/17 inh ibyzunbqqv-zkkzgikwqeyba-uvgnymlk 1 cap PO Q6H PRN #20 cap 03/06/19 50 mg-325 mg-40 mg capsule nitrofurantoin macrocrystal 100 mg PO BID #14 cap 03/19/19 Allergies Allergy/AdvReac Type Severity Reaction Status Date / Time codeine [Codeine] AdvReac Intermediate hyperactivi Verified 03/19/19 11:46 ty General Stated Complaint: Dizzy/Sync PHIL: 3 Review of Systems Narrative: No palpitations, no lower extremity pain or swelling, no prolonged travel, no vaginal bleeding or discharge. Denies abdominal pain, no chest pain. 8 systems reviewed and otherwise negative [facility] Medical History Seasonal allergies (Acute 10/27/14) Urinary tract infection due to Enterococcus (Acute) 03/06/2019. Along with E. coli UTI. Both sensitive to Cipro. Patient will need suppression therapy for the remainder of . Surgical History removal of wisdom teeth Social History Smoking/Tobacco Use Status: Never Alcohol Intake: never Drug use: Rarely Substance use type: marijuana Do you feel safe at home: Yes Do you feel safe in your relationship?: Yes History History 3 Para 1 Hx # Term Pregnancies 1 Multiple births 0 Hx # Pregnancies 0 Ectopic pregnancies 0 AB induced 0 Hx Number of Living Children 1 AB spontaneous 1 Past Pregnancies Del. Date GA/Weeks # Outcome Route Wgt Sex Labor Lgth Anesthes ia Location Prov Complic 06/14/17 42 No Successful vaginal 4.092 kg Male [address] guan other Delivery Date: 06/14/17 On 12/03/18 @ 15:41 MORGAN LOZANO as per pt; stuck at brow. w/o use of vacuum or forceps, baby had bleeding of head, then seizures sent to [facility] [place] at day three for seizures. @ [facility] [place] x 1 weeks sent home on seizure meds x 1 week. al Exam Narrative Exam Narrative: GEN: awake, alert, oriented 3. Pleasant, well groomed, interactive. HEAD: Normocephalic, atraumatic ENT: Mucous membranes moist, oropharynx unremarkable, External ear exam unremarkable EYES: PERRL, EOMI NECK: Full ROM, no KEISHA, no menigismus CHEST/RESP: Nontender, clear to auscultation bilateral, no wheeze/rhonchi/rales CARDIOVASCULAR: RRR, no murmur, rub marley. 2+ Rad pulse bilateral ABDOMEN: Soft, nontender, palpable mass below umbilicus. +Bowel sounds EXT: Full ROM, no edema, no rash Neuro: Grossly normal neurologic exam, conversant, interactive. Psych: Speech fluent, thoughts congruent, affect normal Course Vital Signs Vital signs: Vital Signs Temperature 36.8 C 03/19/19 11:42 Pulse 89 03/19/19 11:42 Respiratory Rate 14 03/19/19 11:42 Blood Pressure 124/69 03/19/19 11:42 Pulse Oximetry 100 03/19/19 11:42 Temperature 36.8 C 03/19/19 11:42 Temperature Source Temporal Artery Scan 03/19/19 11:42 Pulse 89 03/19/19 11:42 Respiratory Rate 14 03/19/19 11:42 Respiratory Effort Non-Labored 03/19/19 11:45 Blood Pressure 124/69 03/19/19 11:42 Blood Pressure Position Sitting 03/19/19 11:42 Pulse Oximetry 100 01/18/20 11:42 Oxygen Delivery Method Room Air 03/19/19 11:42 Oxygen Flow Rate 0 03/19/19 11:42
[2019-03-19] MEDS: Normal Saline Flush 10 ML SYR IVP (12:27)
[2019-03-19] MEDS: Normal Saline 1,000 ML 1000 ML IV (12:27)
[2019-03-19 12:29] LABS: Bilirubin Negative (Negative); Blood Large (Negative); Clarity Sl Cloudy (Clear); Glucose Negative (Negative); Ketones Negative (Negative); Leukocyte Esterase Trace (Negative); Nitrite Negative (Negative); Urobilinogen 0.2 EU/dL (Up TO 0.2)
[2019-03-19 12:30] LABS: Abs Immature Grans 0.03 k/cumm (0.0-0.09); Absolute Basophil Count 0.01 k/cumm (0.0-0.2); Absolute Eosinophil Count 0.04 k/cumm (0.0-0.7); Absolute Lymphocyte Count 0.98 k/cumm (1.2-3.4); Absolute Monocyte Count 0.48 k/cumm (0.11-0.7); Absolute Neutrophil Count 7.16 k/cumm (1.2-6.7); Basophils % 0.1; Eosinophils % 0.5; HCT 37.9 % (36.0-46.0); HGB 12.7 g/dL (12.0-15.5); Immature Grans % 0.3 %; Lymphocytes % 11.3; Mean Corp. HGB Concentration 33.5 g/dL (32.0-36.0); Mean Corpuscular Hemoglobin 31.1 pg (27.0-33.0); Mean Corpuscular Volume 92.9 fL (80-95); Monocytes % 5.5; Neutrophils % 82.3; Platelet Count 231 x1000/uL (130-400); RBC 4.08 m/cumm (4.00-5.20); RBC Distribution Width 13.1 % (11.7-14.6)
[2019-03-19 12:39] LABS: Bacteria Many HPF (Negative); Epithelial Cells Few HPF (Negative); RBC 0-2 HPF (0-2)
[2019-03-19 12:40] LABS: C & S Indicated? Yes; Casts Negative LPF (Negative); Crystals Negative HPF (Negative); Mucus Moderate (Negative)
[2019-03-19 12:53] LABS: ALT 14 U/L (14-59); AST 9 U/L (15-37); Albumin 2.9 g/dL (3.4-5.0); Alkaline Phosphatase 89 U/L (46-116); Anion Gap 7.5 mmol/L (3-11); BUN 9 mg/dL (7-18); Bilirubin, Total 0.4 mg/dL (0.2-1.0); CO2 27.5 mmol/L (21.0-32.0); CREATININE 0.53 mg/dL (0.55-1.02); Calcium 8.6 mg/dL (8.5-10.1); Chloride 106 mmol/L (98-107); Glucose 72 mg/dL (74-106); Magnesium 1.7 mg/dL (1.8-2.4); Potassium 3.8 mmol/L (3.5-5.1); Sodium 141 mmol/L (136-145); TSH 1.71 uIU/mL (0.36-3.74); Total Protein 6.7 g/dL (6.4-8.2)
[2019-03-19] MEDS: MAGNESIUM SULFATE 1 GM/100 ML BAG IVPB (13:32)
[2019-03-19] MEDS: MacroBID 100 MG CAP, 2 CAPS/BTL PO (13:32)
[2019-03-19 14:46] VITALS: BP 120/82; PULSE 80; RESP 18; TEMP 37.1; O2SAT 98
== END 2019-03-19 14:47 | disposition home or self-care (01) ==
PROVIDERS: Emergency Provider Emergency Medicine; PCP Internal Medicine
DX: O23.32 Infections of other parts of urinary tract in pregnancy, second trimester (principal); B95.2 Enterococcus as the cause of diseases classified elsewhere; Z3A.25 25 weeks gestation of pregnancy; E83.42 Hypomagnesemia; Z87.440 Personal history of urinary (tract) infections
CPT/HCPCS: 36415; 36416; 80053; 82962; 87077; 93005; 96361; 96365; 99284; 81003; 81015; 83735; 84443; 85025; 87086; 87186; 93010; J3475

== ENCOUNTER 2019-04-01 10:15 | Outpatient (REF) | payer MEDICAID, SELFPAY | END 2019-04-01 10:35 | LOC: LBN 10:15 | PROVIDERS: PCP Internal Medicine; Visit Provider Obstetrics & Gynecology | DX: O23.32 Infections of other parts of urinary tract in pregnancy, second trimester | CPT/HCPCS: 87077; 87086 ==

== ENCOUNTER 2019-04-12 15:09 | Outpatient (REF) | payer MEDICAID, SELFPAY | END 2019-04-12 15:29 | LOC: LBN 15:09 | PROVIDERS: PCP Internal Medicine; Visit Provider Obstetrics & Gynecology | DX: Z34.93 Encounter for supervision of normal pregnancy, unspecified, third trimester (principal) | CPT/HCPCS: 87086 ==

== ENCOUNTER 2019-04-24 14:56 | Observation (INO) | payer MEDICAID, SELFPAY ==
[2019-04-24 15:01] VITALS: BP 123/61; PULSE 100; RESP 18; TEMP 36.6; O2SAT 99
[2019-04-24 16:04] LABS: ROM Plus Negative
--- NOTE | 2019-04-24 16:42 | W.PM.HP.N ---
Date of service: 04/24/19 Time of Service: 16:42 Assessment and Plan Assessment and plan (1) Abdominal cramping: Status: Acute Assessment and plan: Patient presents with history of leakage of fluid, and I did reassure her I see no evidence of premature rupture of membranes. There is a completely normal amniotic fluid index, negative rupture membrane test, negative speculum exam as well. In terms of the occasional crampy pain it sounds like it may be related to gallbladder liver, therefore will check liver panel and have her call tomorrow if the liver panel is normal and will schedule an ultrasound of the gallbladder and liver. I did review twice daily kick counts with her, as well as the fact she should call if there is leakage of fluid, bleeding, further pain fevers chills or any other problems. History of Present Illness History of Present Illness Chief Complaint: Leakage of fluid for 1 to 2 weeks and right upper quadrant crampy pain Narrative: Patient is a 24-year-old 2 para 1 at 31 weeks gestation who reports a 2-week history of leakage of fluid per vagina. She reports it is a small amount of whitish to clear fluid, it does not soak her pants, she is never had a gush of fluid. She reports some crampy pain but the crampy pain is really in the right upper quadrant. Nothing to suggest contractions. Review of Systems All systems reviewed & are unremarkable except as noted in HPI and below PFSH Medical History (Updated 04/24/19 @ 15:20 by GENNY Long) Seasonal allergies (Acute 10/27/14) Urinary tract infection due to Enterococcus (Acute) 03/06/2019. Along with E. coli UTI. Both sensitive to Cipro. Patient will need suppression therapy for the remainder of . 03/19/2019 repeat UTI symptoms-enterococcus. On 03/24/2019 Rx with Cipro x10 days. Will need test of cure. Surgical History removal of wisdom teeth Social History Smoking/Tobacco Use Status: Never Alcohol Intake: never Drug use: Rarely Substance use type: marijuana Do you feel safe at home: Yes Do you feel safe in your relationship?: Yes History History 3 Para 1 Hx # Term Pregnancies 1 Multiple births 0 Hx # Pregnancies 0 Ectopic pregnancies 0 AB induced 0 Hx Number of Living Children 1 AB spontaneous 1 Past Pregnancies Del. Date GA/Weeks # Outcome Route Wgt Sex Labor Lgth Anesthesia Location Prov Complic 06/14/17 42 No Successful vaginal 9 lb 0.34 oz Male [address] guan other Delivery Date: 06/14/17 On 03/24/19 @ 13:34 Nancy Guan as per pt; stuck at brow. w/o use of vacuum or forceps, baby had bleeding of head, then seizures infant sent to [facility] [place] at day three for seizures. @ [facility] [place] x 1 weeks sent home on seizure meds x 1 week. al Name is [email or web address] Home Medications and Allergies Home Medications Medication Instructions Recorded Confirmed Type albuterol sulfate [Proventil HFA] 2 puff INHALATION Q4H PRN PRN #1 04/19/17 04/24/19 Rx inh prenat.vits,berenice,lim-zote-aebqq 1 tab PO DAILY 10/25/18 04/24/19 History sytiqlteds-dyxhdqzvcahul-eallqxbw 1 cap PO Q6H PRN #20 cap 03/06/19 04/24/19 Rx 50 mg-325 mg-40 mg capsule Allergies Allergy/AdvReac Type Severity Reaction Status Date / Time codeine [Codeine] AdvReac Intermediate hyperactivi Verified 04/24/19 15:05 ty Exam Narrative Exam Narrative: Patient is alert, no acute distress There is a category 1 heart tones and there is no contractions seen. The nurse to check the patient and there is no gross rupture of membranes and the cervix was fingertip and long. A speculum exam was done and there was only cervical mucus present, a rupture of membranes test was done was negative as well. An ultrasound was done revealing a single intrauterine viable vertex presentation, posterior placenta, good movement tone and breathing movement seen, JIM 15.64. Results Labs Labs: Laboratory Results - last 24 hr 04/24/19 15:40 Membranes Rupture Negative Last Vital Signs Temp 97.9 F 04/24/19 15:01 Pulse 100 H 04/24/19 15:01 Resp 18 04/24/19 15:01 BP 123/61 04/24/19 15:01 Pulse Ox 99 04/24/19 15:01
[2019-04-24 17:22] LABS: ALT 12 U/L (14-59); AST 8 U/L (15-37); Albumin 2.8 g/dL (3.4-5.0); Alkaline Phosphatase 102 U/L (46-116); Bilirubin, Direct 0.09 mg/dL (0.00-0.20); Bilirubin, Total 0.3 mg/dL (0.2-1.0); Total Protein 6.6 g/dL (6.4-8.2)
--- NOTE | 2019-04-25 10:38 | ED.GENADUL_ITS ---
Discharge Plan Disposition Patient Disposition: [facility] INPATIENT Condition: Stable Discharge Details Chief Complaint: Abd Prob Clinical Impression: Abdominal cramping Admit Date/Time: 04/24/19 15:20 Admit Provider: Angel Arteaga Attending Provider: Angel Arteaga Primary Care Provider: Hardik Lilly ED Provider: Gema Alcantar Discharge Data Discharge Date/Time-TO BE ENTERED AT DEPARTURE: 04/24/19 15:22 Medical Decision Making Is a 24-year-old patient presenting for complaints of cramping abdominal and back discomfort which is noted every 15 minutes which began overnight. Patient reports persistent symptoms. Patient reports primarily upper abdominal discomfort associated with bilateral hip discomfort and low back pain. Patient does report an associated leaking of clear fluid for 1 week for which she did see her OB doctor, Dr. Mena, was advised that this fluid was not amniotic. Patient denies dysuria, urgency or frequency. Denies systemic symptoms. Patient is currently hemodynamically Cruz stable she does have a heart rate of 100 at this time but has no pale color, difficulty breathing shortness of breath or wheezing. No increase in respiratory effort. Calm at the bedside at this time. heart tones of 155 noted at the bedside. Spoke with on-call PHOTOGRAMMETRIC ENGINEER Dr. Arteaga who recommends immediate transfer to labor and delivery floor for monitoring. Patient agrees with this plan of care. P atient admitted to labor and delivery floor for monitoring. Dr. Diaz will evaluate the patient there. HPI General Date/Time Provider Initiated Documentation: 04/24/19 15:08 . HPI Narrative: This is a very pleasant 24-year-old patient 2 para 131 weeks presenting to the emergency room today for complaints of abdominal discomfort which began overnight. Patient reports every 15 minutes abdominal pain in the upper abdomen as well as noted bilateral hip pain and lower back pain. Patient denies obvious abdominal contractions. Patient does report leaking a clear fluid for approximately 1 week for which she did see her PHOTOGRAMMETRIC ENGINEER doctor at initial onset of leaking fluid this was determined to not be amniotic fluid on exam however patient reports of persistent leakage of fluid. Denies any malodorous vaginal discharge. Denies any dysuria, urgency or frequency. Denies fever, chills, nausea, vomiting. Denies vaginal bleeding. Patient has felt normal activity. Denies dizziness, weakness. No other concerns or complaints at this time. Patient has had care thus far. 1 single intrauterine which has been uncomplicated thus far. Her first child was born at 42 weeks. Related Data Home Medications Medication Instructions Recorded Confirmed albuterol sulfate [Proventil HFA] 2 puff INHALATION Q4H PRN PRN #1 04/19/17 04/24/19 inh prenat.vits,berenice,ztm-egsw-cjbza 1 tab PO DAILY 10/25/18 04/24/19 azytfsnnni-qrygsznsmxxfs-helpyrmr 1 cap PO Q6H PRN #20 cap 03/06/19 04/24/19 50 mg-325 mg-40 mg capsule Previous Rx's Medication Instructions Recorded albuterol sulfate [Proventil HFA] 2 puff INHALATION Q4H PRN PRN #1 04/19/17 inh vbhuvlniqj-xfpgajvnneyye-dfdxzurv 1 cap PO Q6H PRN #20 cap 03/06/19 50 mg-325 mg-40 mg capsule Allergies Allergy/AdvReac Type Severity Reaction Status Date / Time codeine [Codeine] AdvReac Intermediate hyperactivi Verified 04/24/19 15:05 ty General Stated Complaint: Abd Prob PHIL: 3 Review of Systems All systems reviewed & are unremarkable except as noted in HPI and below Constitutional Constitutional: Denies chills, Denies fatigue, Denies fever(s), Denies headache(s) and Denies malaise ENT Ears, Nose, Mouth, and Throat: Denies headache(s) Neurologic Neurologic: Denies headache(s) Endocrine Endocrine: Denies fatigue [facility] Medical History (Updated 04/24/19 @ 15:20 by GENNY Long) Seasonal allergies (Acute 10/27/14) Urinary tract infection due to Enterococcus (Acute) 03/06/2019. Along with E. coli UTI. Both sensitive to Cipro. Patient will need suppression therapy for the remainder of . 03/19/2019 repeat UTI symptoms-enterococcus. On 03/24/2019 Rx with Cipro x10 days. Will need test of cure. Surgical History removal of wisdom teeth Social History Smoking/Tobacco Use Status: Never Alcohol Intake: never Drug use: Rarely Substance use type: marijuana Do you feel safe at home: Yes Do you feel safe in your relationship?: Yes History History 3 Para 1 Hx # Term Pregnancies 1 Multiple births 0 Hx # Pregnancies 0 Ectopic pregnancies 0 AB induced 0 Hx Number of Living Children 1 AB spontaneous 1 Past Pregnancies Del. Date GA/Weeks # Outcome Route Wgt Sex Labor Lgth Anesthes ia Location Prov Complic 06/14/17 42 No Successful vaginal 4.092 kg Male [address] guan other Delivery Date: 06/14/17 On 03/24/19 @ 13:34 Nancy Guan as per pt; stuck at brow. w/o use of vacuum or forceps, baby had bleeding of head, then seizures infant sent to [facility] [place] at day three for seizures. @ [facility] [place] x 1 weeks sent home on seizure meds x 1 week. al Name is George Exam Narrative Exam Narrative: CONST: Healthy appearing patient, in no acute distress. Well hydrated. Alert and oriented. EYES: General normal appearance. Alignment normal. Eyelids normal. Conjunctiva normal. NECK: Normal visual inspection. FROM. Trachea midline. No Midline tenderness. CHEST: Normal insepection of the chest. RESP: Normal respiratory effort. Speaking full sentences. No cough. No audible wheezing. No retractions. CARDIO: No JVD. No murmur. Regular rate and rhythm GI: Gravid abdomen. Bowel sounds are present in all 4 quadrants. No obvious peritoneal signs, rebound or guarding. No significant tenderness noted on abdominal exam. Back: No CVA tenderness noted. NEURO: Alert and awake. Speech clear. PSYCH: Normal affect. Cooperative. Course Vital Signs Vital signs: Vital Signs Temperature 36.6 C 04/24/19 15:01 Pulse 100 H 04/24/19 15:01 Respiratory Rate 18 04/24/19 15:01 Blood Pressure 123/61 04/24/19 15:01 Pulse Oximetry 99 04/24/19 15:01 Temperature 36.6 C 04/24/19 15:01 Temperature Source Temporal Artery Scan 04/24/19 15:01 Pulse 100 H 04/24/19 15:01 Respiratory Rate 18 04/24/19 15:01 Respiratory Effort 04/24/19 15:16 Blood Pressure 123/61 04/24/19 15:01 Blood Pressure Position Sitting 04/24/19 15:01 Pulse Oximetry 99 04/24/19 15:01 Oxygen Delivery Method Room Air 04/24/19 15:01 Oxygen Flow Rate 0 04/24/19 15:01
--- NOTE | 2019-04-25 14:10 | DSE_ITS ---
DATE OF ADMISSION: April 24, 2019 DATE OF DISCHARGE: April 24, 2019 HISTORY: Laura is a 24-year-old who was observed yesterday in labor and delivery because of question able rupture of membranes and some abdominal pain. She had a negative rupture of membrane test, she had a normal amniotic fluid index, and normal speculum exam. There is no active labor. She had a re active non-stress test. She had mild right upper quadrant pain but normal liver panel, as well as no rmal blood pressure. She is discharged to home and will follow-up in one week, we'll get her [facility] ed for an ultrasound of the gallbladder and liver to rule out cholelithiasis. No problems were noted .
== END 2019-04-24 18:01 | disposition home or self-care (01) ==
LOC: ER 15:20 → OBS 15:27
PROVIDERS: Admitting Provider Obstetrics & Gynecology; Emergency Provider Physician Assistant; PCP Internal Medicine; Visit Provider Obstetrics & Gynecology
DX: O47.03 False labor before 37 completed weeks of gestation, third trimester (principal); R10.9 Unspecified abdominal pain; Z3A.30 30 weeks gestation of pregnancy
CPT/HCPCS: 36415; 80076; 84112; 99221; 99285; 87086; G0378

== ENCOUNTER 2019-05-24 13:15 | Observation (INO) | payer MEDICAID, SELFPAY ==
--- NOTE | 2019-05-24 | DI.US_ITS ---
EXAM: US OB F/U FACIAL/LVOT/RVOT CLINICAL HISTORY: Fall on abdomen. COMPARISON: Priors available for comparison. TECHNIQUE: Routine obstetrical ultrasound was performed. FINDINGS: Sonographic images demonstrate a single intrauterine gestation. The fetus is in the cephalic presentation. heart rate is 160 beats per minute. The placenta is posterior without evidence of previa or abruption. IMPRESSION: Single living intrauterine gestation. No evidence of placental abruption. Placental grade 1. DATA REPOSITORY:
--- NOTE | 2019-05-24 16:17 | DI.VRAD_ITS ---
PROCEDURE INFORMATION: Exam: US , Limited Exam date and time: 05/24/2019 3:49 PM Age: 24 years old Clinical indication: Other: Fall on ice today on left hip/left abdomen, no bleeding/mild pain, PT is feeling baby move; Gestational age or lmp: 34 +5 weeks; TECHNIQUE: Imaging protocol: Real-time ultrasound of the maternal uterus with image documentation. Exam focused on the clinical indication. COMPARISON: SD US OB 2-3 TRIMESTER 02/01/2019 4:30 PM FINDINGS: GESTATION: Gestation: Single intrauterine Heart rate: Heart rate 160 Presentation: Cephalic presentation Placenta: Posterior placenta grade 1 . No evidence of placental abruption. MATERNAL: Other findings: No abnormalities in the region of pain. IMPRESSION: Posterior placenta grade 1 . No evidence of placental abruption. No abnormalities in the region of pain Dictated and Authenticated by: Sherrell Garcia MD. Ordering:JONATHAN Orozco MD
== END 2019-05-24 16:25 | disposition home or self-care (01) ==
PROVIDERS: Admitting Provider Obstetrics & Gynecology; PCP Internal Medicine; Visit Provider Obstetrics & Gynecology
DX: O9A.213 Injury, poisoning and certain other consequences of external causes complicating pregnancy, third trimester (principal); Z3A.34 34 weeks gestation of pregnancy; W19.XXXA Unspecified fall, initial encounter
CPT/HCPCS: 76815; G0378

== ENCOUNTER 2019-05-27 09:41 | Outpatient (CLI) | payer MEDICAID, SELFPAY ==
[2019-05-29 18:20] LABS: SARS-CoV-2 RNA Undetected (Undetected); SARS-CoV-2 Specimen Source Nasopharynx
== END 2019-05-27 10:01 ==
PROVIDERS: PCP Internal Medicine; Visit Provider Obstetrics & Gynecology
DX: Z20.828 Contact with and (suspected) exposure to other viral communicable diseases (principal)
CPT/HCPCS: U0003

== ENCOUNTER 2019-06-06 14:58 | Outpatient (REF) | payer MEDICAID, SELFPAY ==
[2019-06-06 16:38] LABS: *AMPHETAMINES SCREEN URINE Negative (Negative); *BARBITURATES SCREEN URINE POSITIVE (Negative); *BENZODIAZEPINES SCREEN URINE Negative (Negative); Cannabinoids THC Negative (Negative); Cocaine Screen,Urine Negative (Negative); METHADONE URINE SCREEN Negative (Negative); OPIATES URINE SCREEN Negative (Negative)
[2019-06-06 16:46] LABS: Tricyclic Antidepressants Negative (Negative)
[2019-06-12 19:55] LABS: Buprenorphine Negative; Norbuprenorphine Negative
== END 2019-06-06 15:18 ==
LOC: LBN 14:58
PROVIDERS: PCP Internal Medicine; Visit Provider Obstetrics & Gynecology Gynecology
DX: Z34.93 Encounter for supervision of normal pregnancy, unspecified, third trimester (principal); Z36.85 Encounter for antenatal screening for Streptococcus B
CPT/HCPCS: 80307; 87081

== ENCOUNTER 2019-06-15 17:18 | Inpatient (IN) | payer MEDICAID, SELFPAY ==
--- NOTE | 2019-06-15 20:59 | HPE_ITS ---
Date of service: 06/15/19 Time of Service: 20:59 Assessment and Plan Assessment and plan (1) Active labor: Status: Acute Assessment and plan: Will admit to center for management of active labor. We discussed pain management options with the patient. Plan for use of nitrous oxide and IV pain medications. At this time the patient declines epidural anesthesia. History of Present Illness History of Present Illness Chief Complaint: 38 weeks. Active labor. Narrative: 24 year old @ 38 presented initial with complaint of vaginal bleeding which she noticed while in the bathroom. Following her arrival she reported the onset of regular contractions. On initial exam cervical cervix was 5 cm in dilatation with 70% effacement. On repeat exam she did progress to 6 cm. The patient did express concerns over vaginal delivery due to difficulties with her first. Initially she expressed a strong desire to undergo primary section but after a lengthy discussion today the patient elects to proceed with vaginal delivery. Review of Systems All systems reviewed & are unremarkable except as noted in HPI and below PFSH Medical History (Updated 06/15/19 @ 21:05 by Ernesto Mena MD) Seasonal allergies (Acute 10/27/14) Urinary tract infection due to Enterococcus (Acute) 03/06/2019. Along with E. coli UTI. Both sensitive to Cipro. Patient will need suppression therapy for the remainder of . 03/19/2019 repeat UTI symptoms-enterococcus. On 03/24/2019 Rx with Cipro x10 days. Will need test of cure. Surgical History removal of wisdom teeth Social History Smoking/Tobacco Use Status: Never Alcohol Intake: never Drug use: Rarely Substance use type: marijuana Do you feel safe at home: Yes Do you feel safe in your relationship?: Yes History History 3 Para 1 Hx # Term Pregnancies 1 Multiple births 0 Hx # Pregnancies 0 Ectopic pregnancies 0 AB induced 0 Hx Number of Living Children 1 AB spontaneous 1 Past Pregnancies Del. Date GA/Weeks # Outcome Route Wgt Sex Labor Lgth Anesthes ia Location Prov Complic 06/14/17 42 No Successful vaginal 9 lb 0.34 oz Male [address] guan other Delivery Date: 06/14/17 as per pt; infant stuck at brow. w/o use of vacuum or forceps, baby had bleeding of head, then seizures sent to [facility] [place] at day three for seizures. @ [facility] [place] x 1 weeks sent home on seizure meds x 1 week. al Name is Nancy Andrade Home Medications and Allergies Home Medications Medication Instructions Recorded Confirmed Type albuterol sulfate [Proventil HFA] 2 puff INHALATION Q4H PRN PRN #1 04/19/17 04/24/19 Rx inh prenat.vits,berenice,pcn-ezfi-hyrcc 1 tab PO DAILY 10/25/18 04/24/19 History bjsjuwkuzk-chzuohhelfxjp-nbbbaduj 1 cap PO Q6H PRN #20 cap 03/06/19 04/24/19 Rx 50 mg-325 mg-40 mg capsule Allergies Allergy/AdvReac Type Severity Reaction Status Date / Time codeine [Codeine] AdvReac Intermediate hyperactivi Verified 04/24/19 15:05 ty Exam Other: Cx - 6/70%/-2 with intact membranes. Results Labs Result diagrams: 06/15/19 20:42 Labs: Laboratory Results - last 24 hr 06/15/19 06/15/19 20:42 20:42 WBC Cancelled RBC Cancelled Hgb Cancelled Hct Cancelled MCV Cancelled MCH Cancelled MCHC Cancelled RDW Cancelled Plt Count Cancelled MPV Cancelled Patient ABO/Rh Cancelled COVID-19 Screening Traveled to [place] from one of the affected countries or regions?: NO Recent travel in the [place] within the last 8 weeks?: No Recent out of the country travel within the last 8 weeks?: No Exposure or possible exposure to illness during travel?: No Had IN PERSON contact w/suspected or confirmed C-19 person: No Have you had the following symptoms in the past few days?: No
[2019-06-15 21:54] LABS: Abs Immature Grans 0.05 k/cumm (0.0-0.09); Absolute Basophil Count 0.01 k/cumm (0.0-0.2); Absolute Eosinophil Count 0.06 k/cumm (0.0-0.7); Absolute Lymphocyte Count 1.91 k/cumm (1.2-3.4); Absolute Monocyte Count 0.73 k/cumm (0.11-0.7); Basophils % 0.1; Eosinophils % 0.5; HCT 37.1 % (36.0-46.0); HGB 12.7 g/dL (12.0-15.5); Immature Grans % 0.4 %; Mean Corp. HGB Concentration 34.2 g/dL (32.0-36.0); Mean Corpuscular Hemoglobin 31.6 pg (27.0-33.0); Mean Corpuscular Volume 92.3 fL (80-95); Mean Platelet Volume 10.6 fL (8.0-11.0); Monocytes % 6.1; Neutrophils % 76.9; Platelet Count 217 x1000/uL (130-400); RBC 4.02 m/cumm (4.00-5.20); RBC Distribution Width 12.7 % (11.7-14.6); White Blood Cell Count 11.91 k/cumm (4.4-10.8)
[2019-06-15 21:56] LABS: Absolute Neutrophil Count 9.16 k/cumm (1.2-6.7)
[2019-06-16] MEDS: Ibuprofen 600 MG TAB PO (08:15)
[2019-06-16] MEDS: Lactated Ringers 1,000 ML 125 ML IV (14:35)
[2019-06-16] MEDS: Oxytocin 10 UNITS/ML VIAL IM (19:05)
[2019-06-16] MEDS: Hamamelis Leaf/Glycerin 100 EACH BOX PR (20:00)
[2019-06-17] MEDS: Acetaminophen 325 MG TAB 650 MG PO ×3 (08:16→21:25)
[2019-06-17] MEDS: Ibuprofen 600 MG TAB PO ×3 (08:17→23:35)
--- NOTE | 2019-06-17 08:43 | W.PM.PROGNOT ---
Date of Service Date of service: 06/17/19 Time of Service: 08:43 Assessment and Plan Assessment and plan (1) (normal spontaneous vaginal delivery): Status: Acute Assessment and plan: PPD 1 s/p over intact perineum. Continue routine care. Plan for discharge home tomorrow. Subjective Subjective Interval history since last seen: No problems overnight Doing well. Minimal lochia. No pain Objective Objective Clinical Data: Vital Signs Pain Level 2 06/17/19 08:17 Intake & Output 06/16/19 06/16/19 06/17/19 11:59 23:59 11:59 Intake Total 1000 / 1000 Balance 1000 / 1000 Intake: IV 1000 / 1000 Laboratory Results WBC Cancelled 06/16/19 13:41 RBC Cancelled 06/16/19 13:41 Hgb Cancelled 06/16/19 13:41 Hct Cancelled 06/16/19 13:41 MCV Cancelled 06/16/19 13:41 MCH Cancelled 06/16/19 13:41 MCHC Cancelled 06/16/19 13:41 RDW Cancelled 06/16/19 13:41 Plt Count Cancelled 06/16/19 13:41 MPV Cancelled 06/16/19 13:41 Immature Gran % 0.4 % 06/15/19 21:41 Neutrophils % 76.9 06/15/19 21:41 Lymphocytes % 16.0 06/15/19 21:41 Monocytes % 6.1 06/15/19 21:41 Eosinophils % 0.5 06/15/19 21:41 Basophils % 0.1 06/15/19 21:41 Absolute Neutrophils 9.16 k/cumm (1.2-6.7) H 06/15/19 21:41 Absolute Lymphocytes 1.91 k/cumm (1.2-3.4) 06/15/19 21:41 Absolute Monocytes 0.73 k/cumm (0.11-0.7) H 06/15/19 21:41 Absolute Eosinophils 0.06 k/cumm (0.0-0.7) 06/15/19 21:41 Absolute Basophils 0.01 k/cumm (0.0-0.2) 06/15/19 21:41 Patient ABO/Rh O Positive 06/15/19 21:41 Antibody Screen Negative 06/15/19 21:41
[2019-06-17] MEDS: Calcium Carbonate *TUMS* 500 MG CHEW (23:35)
[2019-06-18] MEDS: Ibuprofen 600 MG TAB PO (06:20)
== END 2019-06-18 15:50 | disposition home or self-care (01) | DRG 807 ==
PROVIDERS: Admitting Provider Obstetrics & Gynecology; PCP Internal Medicine; Visit Provider Obstetrics & Gynecology
DX: O69.81X0 Labor and delivery complicated by cord around neck, without compression, not applicable or unspecified (principal); Z37.0 Single live birth; Z3A.38 38 weeks gestation of pregnancy
CPT/HCPCS: 85027; 86850; 86900; 86901; 99223; 99233; 85025; G0378; J2590; J3490

== ENCOUNTER 2019-07-03 17:33 | Emergency (ER) | payer MEDICAID, SELFPAY ==
[2019-07-03 17:38] VITALS: BP 119/93; PULSE 75; RESP 20; TEMP 36.3; O2SAT 99
--- NOTE | 2019-07-03 18:02 | ED.GENADUL_ITS ---
Discharge Plan Disposition Patient Disposition: HOME Condition: Stable Discharge Details Chief Complaint: EarProblem Clinical Impression: Ear foreign body Primary Care Provider: Hardik Lilly ED Provider: Chris Bonilla Home Meds and New Rx's Prescriptions: No Action prenat.vits,berenice,dtf-uoko-njtka Tablet 1 tab PO DAILY RF: 0 bwcesyogvw-unvmpgeegbfpy-sqer 50-325-40 mg capsule 1 cap PO Q6H PRN (Reason: pain) Qty: 20 RF: 0 albuterol sulfate [Proventil HFA] 200 PUFF HFA aerosol inhaler 2 puff Inhalation Q4H PRN PRNQty: 1 RF: 0 Discharge Instructions Instructions: Ear Foreign Body (ED) Additional Instructions: Cotton swab was removed without any difficulty. Please watch for new or w orsening symptoms and return to the ER for any concerns Discharge Data Discharge Date/Time-TO BE ENTERED AT DEPARTURE: 07/03/19 18:06 Medical Decision Making Examination is consistent with a foreign body in her left ear. I was able to easily remove what appeared to be a small piece of cotton with alligator forceps. Patient tolerated well. Evaluation status post foreign body removal was unremarkable, canal is clear, TM was unremarkable. No discharge, erythema, swelling. No signs of perforation or trauma. Patient reports that she feels that her hearing is back to normal. Medical Records Medical records reviewed: Yes I reviewed the patient's medical records. HPI General Mode of arrival: ambulatory . Date/Time Provider Initiated Documentation: 07/03/19 17:53 . Limitations to Documentation: no limitations . Information obtained by: patient . HPI Narrative: 24-year-old female presenting for assessment regarding a possible left ear foreign body. She reports that approximately 1 week ago she was cleaning her ear with a Q-tip, felt as though the cotton may had not all come out, and since that time has had slight decreased hearing in her left ear. Denies any pain or discharge. Otherwise she is asymptomatic Related Data Home Medications Medication Instructions Recorded Confirmed albuterol sulfate [Proventil HFA] 2 puff INHALATION Q4H PRN PRN #1 04/19/17 07/03/19 inh prenat.vits,berenice,gmh-xifa-enwtg 1 tab PO DAILY 10/25/18 07/03/19 cwnohonyjw-zylghfpvlohhu-puadmhlj 1 cap PO Q6H PRN #20 cap 03/06/19 07/03/19 50 mg-325 mg-40 mg capsule Previous Rx's Medication Instructions Recorded albuterol sulfate [Proventil HFA] 2 puff INHALATION Q4H PRN PRN #1 04/19/17 inh aacjalwlho-ygntngffyaavg-hhiwyyzc 1 cap PO Q6H PRN #20 cap 03/06/19 50 mg-325 mg-40 mg capsule Allergies Allergy/AdvReac Type Severity Reaction Status Date / Time codeine [Codeine] AdvReac Intermediate hyperactivi Verified 07/03/19 17:44 ty General Stated Complaint: EarProblem PHIL: 4 Review of Systems Constitutional Constitutional: Denies fever(s) and Denies headache(s) ENT Ears, Nose, Mouth, and Throat: Denies headache(s) and Denies sore throat Cardiovascular Cardiovascular: Denies chest pain Neurologic Neurologic: Denies headache(s) PFSH Medical History Seasonal allergies (Acute 10/27/14) Urinary tract infection due to Enterococcus (Acute) 03/06/2019. Along with E. coli UTI. Both sensitive to Cipro. Patient will need suppression therapy for the remainder of . 03/19/2019 repeat UTI symptoms-enterococcus. On 03/24/2019 Rx with Cipro x10 days. Will need test of cure. Surgical History removal of wisdom teeth Social History Smoking/Tobacco Use Status: Never Alcohol Intake: never Drug use: Rarely Substance use type: marijuana Do you feel safe at home: Yes Do you feel safe in your relationship?: Yes History History 3 Para 1 Hx # Term Pregnancies 1 Multiple births 0 Hx # Pregnancies 0 Ectopic pregnancies 0 AB induced 0 Hx Number of Living Children 1 AB spontaneous 1 Past Pregnancies Del. Date GA/Weeks # Outcome Route Wgt Sex Labor Lgth Anesthes ia Location Prov Complic 06/14/17 42 No Successful vaginal 4.092 kg Male [address] guan other Delivery Date: 06/14/17 as per pt; infant stuck at brow. w/o use of vacuum or forceps, baby had bleeding of head, then seizures infant sent to [facility] [place] at day three for seizures. @ [facility] [place] x 1 weeks sent home on seizure meds x 1 week. al Name is George ReannaorNancy Exam Const General: cooperative, healthy appearing, comfortable and no acute distress Orientation: alert, awake and oriented x3 HENMT Head: normal to inspection, normocephalic and atraumatic Ears: TM normal on the right and unable to visualize TM on the left (Obscured by white foreign body) Mouth: moist mucous membranes Eyes Conjunctivae: conjunctivae normal Neck Neck: normal visual inspection, full ROM, trachea midline and supple Resp Effort & Inspection: normal respiratory effort and able to speak in complete sentences Cardio Rate: regular rate Rhythm: regular rhythm Skin General skin exam: no rashes or lesions noted Neuro General: patient alert, patient awake, moves all extremities and no focal motor deficits Sensory Exam: no sensory deficits noted Psych Appearance: grossly normal Mental Status: mental status grossly normal Course Vital Signs Vital signs: Vital Signs Temperature 36.3 C L 07/03/19 17:38 Pulse 75 07/03/19 17:38 Respiratory Rate 07/03/19 17:38 Blood Pressure 119/93 H 07/03/19 17:38 Pulse Oximetry 99 07/03/19 17:38 Temperature 36.3 C L 07/03/19 17:38 Temperature Source Tympanic 07/03/19 17:38 Pulse 75 07/03/19 17:38 Respiratory Rate 20 07/03/19 17:38 Blood Pressure 119/93 H 07/03/19 17:38 Blood Pressure Position Sitting 07/03/19 17:38 Pulse Oximetry 99 07/03/19 17:38 Oxygen Delivery Method Room Air 07/03/19 17:38 Oxygen Flow Rate 0 07/03/19 17:38
== END 2019-07-03 18:06 | disposition home or self-care (01) ==
PROVIDERS: Emergency Provider Physician Assistant; PCP Internal Medicine
DX: T16.2XXA Foreign body in left ear, initial encounter (principal)
CPT/HCPCS: 69200

== ENCOUNTER 2019-10-02 19:35 | Emergency (ER) | payer MEDICAID, SELFPAY ==
[2019-10-02 19:46] VITALS: BP 106/62; PULSE 81; RESP 18; TEMP 36.7; O2SAT 97
[2019-10-02 20:22] LABS: Bilirubin Negative (Negative); Blood Small (Negative); Clarity Clear (Clear); Glucose Negative (Negative); Ketones Negative (Negative); Leukocyte Esterase Negative (Negative); Nitrite Negative (Negative); Specific Gravity >= 1.030 (1.005-1.025); Urobilinogen 0.2 EU/dL (Up TO 0.2); pH 5.5 (5-8)
[2019-10-02 20:29] LABS: Abs Immature Grans 0.02 10^3/uL (0.0-0.06); Absolute Basophil Count 0.04 10^3/uL (0.0-0.2); Absolute Eosinophil Count 0.09 10^3/uL (0.0-0.7); Absolute Lymphocyte Count 1.65 10^3/uL (1.2-3.4); Absolute Monocyte Count 0.69 10^3/uL (0.1-0.8); Absolute Neutrophil Count 7.26 10^3/uL (1.2-6.7); Basophils % 0.4; Eosinophils % 0.9; HCT 38.7 % (36.0-46.0); Immature Grans % 0.2; Lymphocytes % 16.9; MCH 30.4 pg (27.0-33.0); MCHC 33.6 % (32.0-36.0); MCV 90.4 fL (80-95); MPV 10.2 fL (8.0-11.0); Monocytes % 7.1; Neutrophils % 74.5; Platelet Count 274 10^3/uL (130-400); RBC 4.28 10^6/uL (3.93-5.22); RDW 12.2 % (11.7-14.6); RDW-SD 39.8 fL; WBC 9.75 10^3/uL (4.4-10.8)
[2019-10-02 20:31] LABS: Lactate 1.1 mmol/L (0.6-1.4)
--- NOTE | 2019-10-02 20:35 | DI.CT_ITS ---
EXAM: CT ABDOMEN PELVIS W CLINICAL HISTORY: RUQ pain, r/o GB pathology TECHNIQUE: COMPARISON: No exams were available for comparison FINDINGS: CT examination of the abdomen and pelvis was performed with bolus infusion of 100 cc of Omnipaque 350 . Images obtained through the lung bases are unremarkable. The liver and spleen appear normal. The pancreas appears normal. There is no biliary dilatation. Note is made of gallbladder wall thick ening and possible edema. No definite pericholecystic fluid collection or fat edema. No definite ga llstones. Adrenals and kidneys appear normal. No urinary tract calcification or obstruction. Abdominal wall shows no evidence of hernia. No abdominal or pelvic adenopathy seen. Abdominal aorta is of diameter. No major visceral branch abnormality seen. Appendix is normal. No evidence of diverticulitis or bowel obstruction. 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 IMPRESSION: Gallbladder wall thickening, nonspecific. Cholecystitis not excluded. Correlation with ultrasound s uggested, if clinically indicated additional evaluation with nuclear medicine hepatobiliary scan may be obtained.
[2019-10-02 20:37] LABS: Bacteria Negative HPF (Negative); C & S Indicated? No; Casts Negative LPF (Negative); Crystals Negative HPF (Negative); Epithelial Cells Few HPF (Negative); Mucus Negative (Negative)
[2019-10-02] MEDS: Normal Saline 1,000 ML 1000 ML IV (20:40)
--- NOTE | 2019-10-02 20:42 | W.ED.GENAD ---
Discharge Plan Disposition Patient Disposition: HOME Condition: Good Discharge Details Chief Complaint: Abd Prob Clinical Impression: Colicky right upper quadrant pain, Thickening of wall of gallbladder Primary Care Provider: Hardik Lilly ED Provider: Kishore Hung Home Meds and New Rx's Prescriptions: New amoxicillin-pot clavulanate [Augmentin] 875-125 mg tablet 1 tab PO BID Qty: 20 RF: 0 ondansetron HCl [Zofran] 4 mg tablet 4 mg PO Q8H Qty: 12 RF: 0 Continued sertraline [Zoloft] 50 mg tablet 50 mg PO DAILY Qty: 60 RF: 2 nudyilwqzp-xdxyauhtrtdzb-fxbe 50-325-40 mg capsule 1 cap PO Q6H PRN (Reason: pain) Qty: 20 RF: 0 albuterol sulfate [Proventil HFA] 200 PUFF HFA aerosol inhaler 2 puff Inhalation Q4H PRN PRNQty: 1 RF: 0 Discharge Instructions Instructions: Biliary Colic (ED) Additional Instructions: At this time your gallbladder is inflamed, but does not require emergent surgery. It is very important that you take the antibiotic Augmentin as directed. Take the Zofran as needed for nausea. Avoid any foods and stick with just small sips of liquid water. Please follow-up tomorrow morning at [address] Marlow at the surgical offices. Contact their office at 8 AM would be open to confirm the appointment. If you notice any worsening of your symptoms, or any new symptoms such as vomiting, diarrhea, fever, chills, shortness of breath, chest pain, numbness, weakness, or fainting , please return immediately to the emergency department for reevaluation. Please follow up with your primary care provider as soon as possible for reassessment and reevaluation. As always, it was a pleasure participating in your medical care today. Referrals: Alondra De La Garza MD [ [facility] STAFF PHYSICIAN] - Hardik Lilly MD [Primary Care Provider] - Medical Decision Making 34-year-old female with significant past medical history presents today for evaluation of right upper quadrant abdominal pain radiating to her back in a bandlike sensation, worse with movement. She did not have any food that brought this on however when the pain did begin she did try eating to see if this was would help and immediately threw up. It is been present for the last 2 hours. She denies any hematemesis or hematochezia. She does admit to a small bit of loose stool. Pain is notably crampy and sharp in the right upper quadrant radiates to the right back. She states that she did have problems with her gallbladder when she was , but has not had any problems since. She has not taken any medications. No other complaints at this time. No other modifying factors of fever, chills, numbness tingling or weakness. Physical exam demonstrates notable right upper quadrant tenderness, positive Blake sign. No pain in the right lower quadrant. Signs and symptoms notably concerning for acute cholecystitis. No formal ultrasonography is available. We will get a CT scan for further assessment. Patient refusing pain medications at this time. 9:[address] results have returned, nonspecific gallbladder wall thickening of 7 mm. No gallstones. No other acute process at this time. Patient does not have a white count, conjugated bilirubin is 0.32, unconjugated bilirubin is 1.08. Patient is amenable now to Toradol, I did contact Dr. Marlow and discussed the case with her. We will give the patient dose of Unasyn here, see if she is able to tolerate p.o. With no fever or white count, no indication for emergent surgery tonight. A dose of Unasyn is given here. If she is able to tolerate a p.o. trial Zofran, she will follow-up with Dr. Marlow tomorrow morning at 1030 for surgical planning and further evaluation. 9:50 PM Pain notably improved with Toradol. Patient tolerated p.o. very well. She is feeling much better and requesting discharge. At this time patient stable, will be discharged home with close follow-up with surgery tomorrow morning at 1030. Patient will be discharged home with prescription for Augmentin per Dr. Marlow's recommendations. Discussed red flags for which to immediately return. I have extensively reviewed the treatment plan and discharge instructions with the patient. I have addressed all patient concerns at this time. The patient was made aware of what symptoms to monitor for that would warrant a return to the emergency department. Discussed the plan with the patient, they demonstrate verbal understanding and agreement with our assessment and plan at this time. FINDINGS: Pleural space: Suggestion of a minimal right pleural effusion. Liver: Normal. No mass. Gallbladder and bile ducts: Gallbladder wall thickening to 7 mm. This is nonspecific in appearance. Cannot exclude cholecystitis. No definable gallstones. No pericholecystic fluid. No biliary dilatation. Correlation with ultrasound may be helpful. Nuclear medicine HIDA scan may be warranted for further investigation. Pancreas: Normal. No ductal dilation. Spleen: Normal. No splenomegaly. Adrenals: Normal. No mass. Kidneys and ureters: No hydronephrosis or renal calculi. No renal inflammatory changes. Stomach and bowel: Unremarkable. No obstruction. No mucosal thickening. Appendix: A normal appendix is seen. See series 4, image 53. Intraperitoneal space: No free fluid in the abdomen or pelvis. Vasculature: Unremarkable. No abdominal aortic aneurysm. Lymph nodes: Unremarkable. No enlarged lymph nodes. Bladder: Unremarkable as visualized. Reproductive: Unremarkable as visualized. Bones/joints: Unremarkable. No acute fracture. Soft tissues: Unremarkable. IMPRESSION: Nonspecific gallbladder wall thickening to approximately 7 mm. No gallstones evident. No biliary dilatation. Cannot exclude cholecystitis. Recommend clinical correlation. Ultrasound and/or nuclear medicine HIDA scan may be helpful for further evaluation. Thank you for allowing us to participate in the care of your patient. Dictated and Authenticated by: Dustin Hernández MD 10/02/2019 9:07 PM Eastern Time ([place] & [place]) HPI General Date/Time Provider Initiated Documentation: 10/02/19 19:53. HPI Narrative: 34-year-old female with significant past medical history presents today for evaluation of right upper quadrant abdominal pain radiating to her back in a bandlike sensation, worse with movement. She did not have any food that brought this on however when the pain did begin she did try eating to see if this was would help and immediately threw up. It is been present for the last 2 hours. She denies any hematemesis or hematochezia. She does admit to a small bit of loose stool. Pain is notably crampy and sharp in the right upper quadrant radiates to the right back. She states that she did have problems with her gallbladder when she was , but has not had any problems since. She has not taken any medications. No other complaints at this time. No other modifying factors of fever, chills, numbness tingling or weakness. Related Data Home Medications Medication Instructions Recorded Confirmed albuterol sulfate [Proventil HFA] 2 puff INHALATION Q4H PRN PRN #1 04/19/17 08/03/19 inh dxffissfon-ibdtqvxvsdxpw-vimjcghy 1 cap PO Q6H PRN #20 cap 03/06/19 08/03/19 50 mg-325 mg-40 mg capsule sertraline 50 mg tablet 50 mg PO DAILY #60 tab 08/03/19 08/03/19 amoxicillin-pot clavulanate 1 tab PO BID #20 tab 10/02/19 [Augmentin] ondansetron HCl [Zofran] 4 mg PO Q8H #12 tab 10/02/19 Previous Rx's Medication Instructions Recorded albuterol sulfate [Proventil HFA] 2 puff INHALATION Q4H PRN PRN #1 04/19/17 inh nmgewkylxo-bmbpanczbqxis-fjuvvkyh 1 cap PO Q6H PRN #20 cap 03/06/19 50 mg-325 mg-40 mg capsule sertraline 50 mg tablet 50 mg PO DAILY #60 tab 08/03/19 amoxicillin-pot clavulanate 1 tab PO BID #20 tab 10/02/19 [Augmentin] ondansetron HCl [Zofran] 4 mg PO Q8H #12 tab 10/02/19 Allergies Allergy/AdvReac Type Severity Reaction Status Date / Time codeine [Codeine] AdvReac Intermediate hyperactivi Verified 10/02/19 19:52 ty General Stated Complaint: Abd Prob PHIL: 3 Review of Systems All systems reviewed & are unremarkable except as noted in HPI and below PFSH Medical History Seasonal allergies (Acute 10/27/14) Urinary tract infection due to Enterococcus (Acute) 03/06/2019. Along with E. coli UTI. Both sensitive to Cipro. Patient will need suppression therapy for the remainder of . 03/19/2019 repeat UTI symptoms-enterococcus. On 03/24/2019 Rx with Cipro x10 days. Will need test of cure. Surgical History removal of wisdom teeth Social History Smoking/Tobacco Use Status: Never Alcohol Intake: never Drug use: Rarely Substance use type: marijuana Do you feel safe at home: Yes Do you feel safe in your relationship?: Yes History History 3 Para 1 Hx # Term Pregnancies 1 Multiple births 0 Hx # Pregnancies 0 Ectopic pregnancies 0 AB induced 0 Hx Number of Living Children 1 AB spontaneous 1 Past Pregnancies Del. Date GA/Weeks # Outcome Route Wgt Sex Labor Lgth Anesthesia Location Prov Complic 06/14/17 42 No Successful vaginal 4.092 kg Male [address] guan other 06/16/19 38 No Successful vaginal 3.[address] Mena shoulder dystocia Delivery Date: 06/14/17 as per pt; infant stuck at brow. w/o use of vacuum or forceps, baby had bleeding of head, then seizures infant sent to [facility] at day three for seizures. @ [facility] x 1 weeks sent home on seizure meds x 1 week. al Name is George GuanNancy Delivery Date: 06/16/19 Felix Rose LPN,Alejandra Exam Narrative Exam Narrative: 1.Const: Well-nourished, Well-developed, appearing stated age 2.Eyes: PERRL, no conjunctival injection, and symmetrical lids. 3.ENT: Atraumatic external nose and ears. Moist MM. Neck: Symmetric, trachea midline, No thyromegaly. 4.CVS: +S1/S2, No murmurs or gallops. Peripheral pulses 2+ and equal in all extremities. Brisk capillary refill in all extremities. 5.RESP: Unlabored respiratory effort. Clear to auscultation bilaterally. No wheezes rales or rhonchi 6.GI: Soft, notable tenderness in the right upper quadrant, voluntary guarding, positive Blake sign. Right CVA tenderness on percussion. No pain in the right lower quadrant, no pain at McBurney's point, no pain on the left side of the abdomen. Bowel sounds reduced but present. 7.MSK: Normocephalic/Atraumatic, Extremities w/o deformity or ttp No cyanosis or clubbing, Normal movement of all extremities 8.Skin: Warm, Dry. No rashes or lesions. 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 Sensation grossly intact, no focal neurologic deficits. 10.Psych: (AAO) x3. Appropriate mood and affect Course Vital Signs Vital signs: Vital Signs Temperature 36.7 C 10/02/19 19:46 Pulse 81 10/02/19 19:46 Respiratory Rate 18 10/02/19 19:46 Blood Pressure 106/62 10/02/19 19:46 Pulse Oximetry 97 10/02/19 19:46 Temperature 36.7 C 10/02/19 19:46 Temperature Source Skin 10/02/19 19:46 Pulse 81 10/02/19 19:46 Respiratory Rate 18 10/02/19 19:46 Respiratory Effort Non-Labored 10/02/19 19:52 Blood Pressure 106/62 10/02/19 19:46 Blood Pressure Position Sitting 10/02/19 19:46 Pulse Oximetry 97 10/02/19 19:46 Oxygen Delivery Method Room Air 10/02/19 19:46 Oxygen Flow Rate 0 10/02/19 19:46 Pain Level 8 10/02/19 19:46 Lab/Test Results Lab/Test Results: Laboratory Tests Range/Units 10/02/19 10/02/19 10/02/19 20:09 20:20 20:20 WBC (4.4-10.8) 10^3/uL 9.75 RBC (3.93-5.22) 10^6/uL 4.28 Hgb (11.2-15.7) g/dL 13.0 Hct (36.0-46.0) % 38.7 MCV (80-95) fL 90.4 MCH (27.0-33.0) pg 30.4 MCHC (32.0-36.0) % 33.6 RDW (11.7-14.6) % 12.2 Plt Count (130-400) 10^3/uL 274 MPV (8.0-11.0) fL 10.2 Immature Gran % 0.2 Neutrophils % 74.5 Lymphocytes % 16.9 Monocytes % 7.1 Eosinophils % 0.9 Basophils % 0.4 Absolute Neutrophils (1.2-6.7) 10^3/uL 7.26 H Absolute Lymphocytes (1.2-3.4) 10^3/uL 1.65 Absolute Monocytes (0.1-0.8) 10^3/uL 0.69 Absolute Eosinophils (0.0-0.7) 10^3/uL 0.09 Absolute Basophils (0.0-0.2) 10^3/uL 0.04 Lactate (0.6-1.4) mmol/L 1.1 Urine Color (Yellow) Yellow Urine Clarity (Clear) Clear Urine pH (5-8) 5.5 Ur Specific [place] (1.005-1.025) >= 1.030 H Urine Protein (Negative) mg/dL Negative Urine Ketones (Negative) mg/dL Negative Urine Blood (Negative) Small H Urine Nitrite (Negative) Negative Urine Bilirubin (Negative) Negative Urine Urobilinogen (Up TO 0.2) EU/dL 0.2 Ur Leukocyte Esterase (Negative) Negative Urine RBC (0-2) HPF 5-10 H Urine WBC (0-5) HPF 3-5 Ur Epithelial Cells (Negative) HPF Few Urine Crystals (Negative) HPF Negative Urine Bacteria (Negative) HPF Negative Urine Casts (Negative) LPF Negative Urine Mucus (Negative) Negative Ur Culture Indicated? No Urine Glucose (Negative) mg/dL Negative POC- Test(urine) Negative
[2019-10-02 20:44] LABS: ALT 42 U/L (14-59); AST 40 U/L (15-37); Albumin 3.9 g/dL (3.4-5.0); Alkaline Phosphatase 72 U/L (46-116); Anion Gap 7.2 mmol/L (3-11); BUN 13 mg/dL (7-18); Bilirubin, Total 1.4 mg/dL (0.2-1.0); CO2 27.8 mmol/L (21.0-32.0); Chloride 106 mmol/L (98-107); Glucose 101 mg/dL (74-106); Lipase 144 U/L (73-393); Potassium 3.8 mmol/L (3.5-5.1); Sodium 141 mmol/L (136-145); Total Protein 7.5 g/dL (6.4-8.2)
[2019-10-02 21:07] LABS: Bilirubin, Direct 0.32 mg/dL (0.00-0.20)
--- NOTE | 2019-10-02 21:07 | DI.VRAD_ITS ---
PROCEDURE INFORMATION: Exam: CT Abdomen And Pelvis With Contrast Exam date and time: 10/02/2019 8:06 PM Age: 24 years old Clinical indication: Abdominal pain TECHNIQUE: Imaging protocol: Computed tomography of the abdomen and pelvis with intravenous contrast. COMPARISON: US OB F/U FACIAL/LVOT/RVOT 05/24/2019 3:31 PM FINDINGS: Pleural space: Suggestion of a minimal right pleural effusion. Liver: Normal. No mass. Gallbladder and bile ducts: Gallbladder wall thickening to 7 mm. This is nonspecific in appearance. Cannot exclude cholecystitis. No definable gallstones. No pericholecystic fluid. No biliary dilatation. Correlation with ultrasound may be helpful. Nuclear medicine HIDA scan may be warranted for further investigation. Pancreas: Normal. No ductal dilation. Spleen: Normal. No splenomegaly. Adrenals: Normal. No mass. Kidneys and ureters: No hydronephrosis or renal calculi. No renal inflammatory changes. Stomach and bowel: Unremarkable. No obstruction. No mucosal thickening. Appendix: A normal appendix is seen. See series 4, image 53. Intraperitoneal space: No free fluid in the abdomen or pelvis. Vasculature: Unremarkable. No abdominal aortic aneurysm. Lymph nodes: Unremarkable. No enlarged lymph nodes. Bladder: Unremarkable as visualized. Reproductive: Unremarkable as visualized. Bones/joints: Unremarkable. No acute fracture. Soft tissues: Unremarkable. IMPRESSION: Nonspecific gallbladder wall thickening to approximately 7 mm. No gallstones evident. No biliary dilatation. Cannot exclude cholecystitis. Recommend clinical correlation. Ultrasound and/or nuclear medicine HIDA scan may be helpful for further evaluation. Dictated and Authenticated by: Dustin Hernández MD. Ordering:HUBERT Novak MD
--- NOTE | 2019-10-02 21:07 | NUR.NOTE ---
Nursing Note: copied referal for cm to follow up 10/02/19
[2019-10-02] MEDS: Normal Saline - Diluent 50 ML VIAL IV (21:09)
[2019-10-02] MEDS: Omnipaque 350 MG/ML 100 ML BTL IJ (21:10)
[2019-10-02] MEDS: Normal Saline Flush 10 ML SYR IVP (21:11)
[2019-10-02] MEDS: Ondansetron 4 MG/2 ML VIAL IVP (21:14)
[2019-10-02] MEDS: AMPICILLIN/SULBACTAM 3 GM in Normal Saline 100 ML IVPB (21:14)
[2019-10-02] MEDS: Ketorolac 15 MG/ML VIAL IVP (21:15)
[2019-10-02] MEDS: Amox. 875/Clav. 125, 2 TABS/BTL 1 TAB PO (21:54)
[2019-10-02 21:55] VITALS: PULSE 80; RESP 18; TEMP 36.7; O2SAT 98
== END 2019-10-02 21:51 | disposition home or self-care (01) ==
LOC: ER 22:09
PROVIDERS: Emergency Provider Student in an Organized Health Care Education/Training Program; PCP Internal Medicine
DX: R10.11 Right upper quadrant pain (principal); R93.2 Abnormal findings on diagnostic imaging of liver and biliary tract; R11.2 Nausea with vomiting, unspecified
CPT/HCPCS: 36415; 80053; 81025; 83690; 96361; 96365; 96375; 99285; 74177; 81003; 81015; 82248; 83605; 85025; J0295; J1885; J2405; J3490

== ENCOUNTER 2019-10-04 08:11 | Day surgery (SDC) | payer MEDICAID, SELFPAY ==
[2019-10-04] VITALS (10 sets, daily range): BP systolic 95–112; BP diastolic 47–97; PULSE 58–92; RESP 11–19; TEMP 36–36.5; O2SAT 97–100
[2019-10-04] MEDS: Lactated Ringers 1,000 ML 80 ML IV (08:50)
[2019-10-04] MEDS: ceFAZolin 2 GM/50 ML BAG IVPB (10:18)
--- NOTE | 2019-10-04 11:23 | GB_PTH ---
PATIENT: Laura Hwang LOC: [facility] U#:[id number] AGE/SX: 24/F ROOM: RE10/04/[address]: Alondra De La Garza MD : 1995 BED: DIS: 10/04/2019 SPEC #: [id number] RECD: 10/04/19 12:54 STATUS: MAYRA REQ #: [id number] CARRIE: 10/04/19 11:[address]: Alondra De La Garza DEPT: Surgical Specimen RECD BY: Mayuri Inman ENTERED: 10/04/19 12:54 SP TYPE: GB OTHR DR: Hardik Lilly Tissues: 1 - GALLBLADDER Procedures: GROSS AND MICRO LEVEL 3 Comments: [id number]
--- NOTE | 2019-10-04 11:32 | W.PM.DSUDISC ---
Discharge Plan Disposition Patient Disposition: HOME Condition: Good Discharge Details Reason For Visit: Laparoscopic cholecystectomy Attending Provider: Alondra De La Garza Primary Care Provider: Hardik Lilly Home Meds and New Rx's Prescriptions: Continued sertraline [Zoloft] 50 mg tablet 50 mg PO DAILY Qty: 60 RF: 2 hydrocodone-acetaminophen 5-325 mg tablet 1 tab PO Q4H PRN MDD 4 PRN (Reason: pain) Qty: 20 RF: 0 oifycgpcca-txibxilbyivfx-hywk 50-325-40 mg capsule 1 cap PO Q6H PRN (Reason: pain) Qty: 20 RF: 0 ondansetron HCl [Zofran] 4 mg tablet 4 mg PO Q8H Qty: 12 RF: 0 albuterol sulfate [Proventil HFA] 200 PUFF HFA aerosol inhaler 2 puff Inhalation Q4H PRN PRNQty: 1 RF: 0 Discontinued amoxicillin-pot clavulanate [Augmentin] 875-125 mg tablet 1 tab PO BID Qty: 20 RF: 0 Discharge Instructions Additional Instructions: The top bandage can be removed tomorrow. The steri strips will usually stick for about a week. When the edges start to curl up, they can be removed. It is okay to shower tomorrow, the water can run over the steri strips Do not swim or soak in a tub for two weeks Call for any concerns including fever, increased pain, vomiting, incision redness or drainage. Do not lift more than 15 pounds for two weeks. Walking and stairs are fine. Do not drive if on narcotic pain meds or if limited by pain. May use Tylenol alternating with ibuprofen for pain control. Ice is also an option. The maximum dose for Tylenol is 4000 mg/day. May use ibuprofen 800 mg every 8 hours as needed. If concerned about constipation, you may use a stool softener or milk of magnesia. Referrals: Alondra De La Garza MD [ [facility] STAFF PHYSICIAN] - (Return in 10-14 days for a postop check) Activity:: Do not lift more than 15 pounds for two weeks Remove Dressings/Wound Care:: 24 hours Shower/Bathe:: 24 hours Diet:: Low fat for two weeks Discharge Orders Discharge Orders: Discharge Order (Routine); Ordered 10/04/19 Ordered By: Alondra De La Garza DS: Diagnosis Discharge Diagnosis (1) Acute cholecystitis: Status: Acute
--- NOTE | 2019-10-04 12:12 | W.PM.OP ---
Operative Note Operative Note DATE OF PROCEDURE: 10/04/19 PRE-OP DIAGNOSIS: Acute cholecystitis POST-OP DIAGNOSIS: same PROCEDURE: Laparoscopic cholecystectomy SURGEON: Alondra De La Garza SENIOR PROJECT COORDINATOR: Soledad Donohue ANESTHESIA: GETA and local Indications: This patient presented with RUQ pain and a CT showing a thickened gallbladder wall. Procedure Description: The patient was placed supine on the operative table and after induction of general anesthetic was prepped and draped sterilely. A 5 mm incision was made to the left of the umbilicus after injecting local anesthetic and the abdomen entered under direct visualization. A CO2 pneumoperitoneum was begun and she was placed in reverse Trendelenberg position. The epigastric and 2 lateral ports were placed under direct visualization after injecting local anesthetic. The gallbladder was edematous and distended but not severely inflamed. There were no visible liver abnormalities. It was decompressed of dark bile using the needle. The gallbladder fundus was grasped and pulled up over the liver. The gallbladder infundibulum was retracted laterally and the peritoneum overlying the triangle of Calot dissected free with hook cautery. The cystic duct and artery were isolated and visualized going directly onto the gallbladder. The common bile duct was visualized and avoided. The cystic duct was not dilated and had no stones palpated within it. The cystic duct was clipped twice distally and once proximally and divided. The artery was clipped twice proximally, once distally and divided. The gallbladder was dissected off the liver bed with hook cautery and removed through the epigastric incision in an Endo Catch bag. Several small vascular branches in the gallbladder fossa were clipped. The operative site was inspected with no evidence of bleeding or bile leak. The CO2 was released and then the ports removed. The skin of the port sites was then closed with a 4-0 Monocryl subcuticular stitch. She tolerated the procedure well and was stable to recovery
[2019-10-04] MEDS: HYDROmorphone 2 MG/ML VIAL IVP (12:14)
[2019-10-04] MEDS: Normal Saline 10 ML VIAL IJ (12:18)
[2019-10-04] MEDS: Acetaminophen 325 MG TAB 650 MG PO (14:55)
[2019-10-05 08:18] LABS: COVID-19 RT-PCR UVMMC Result Negative (Negative)
== END 2019-10-04 15:24 | disposition home or self-care (01) ==
PROVIDERS: PCP Internal Medicine; Visit Provider Surgery
PROC: 0FT44ZZ Resection of Gallbladder, Percutaneous Endoscopic Approach (ICD-10-PCS; CPT 47562; principal; 2019-10-04 10:00)
DX: K81.2 Acute cholecystitis with chronic cholecystitis (principal); Z03.818 Encounter for observation for suspected exposure to other biological agents ruled out
CPT/HCPCS: 47562; 81025; U0003; 88304; J0690; J1100; J1885; J2001; J2405; J3475

== ENCOUNTER 2019-12-06 11:12 | Emergency (ER) | payer MEDICAID, SELFPAY ==
[2019-12-06 11:24] VITALS: BP 103/62; PULSE 82; RESP 20; TEMP 36.6; O2SAT 98
--- NOTE | 2019-12-06 11:34 | W.ED.GENAD ---
Discharge Plan Disposition Patient Disposition: HOME Condition: Improving Discharge Details Clinical Impression: Hematochezia Primary Care Provider: Hardik Lilly ED Provider: Darren Barnett Home Meds and New Rx's Prescriptions: Continued xavgwuoyym-pzvnmtjjkkkqi-vamo 50-325-40 mg capsule 1 cap PO Q6H PRN (Reason: pain) Qty: 20 RF: 0 albuterol sulfate [Proventil HFA] 200 PUFF HFA aerosol inhaler 2 puff Inhalation Q4H PRN PRNQty: 1 RF: 0 Discharge Instructions Additional Instructions: Please begin increase daily dietary fiber. I recommend you begin Metamucil once daily which is available [id number]. We will ask our care management team to arrange an outpatient follow-up for you in surgery clinic. Home to rest today. Avoid the use of aspirin, ibuprofen, naproxen. Return if you have persistent rectal bleeding, develop a fever, abdominal pain, or any other acute concerns. Medical Decision Making 24-year-old female presents from home after 2 soft brown bowel movements that were associated with bright red blood per rectum. She is not had any abdominal pain, no fever and otherwise feels well. No significant daily medications denies use of aspirin or ibuprofen. On exam her vital signs are unremarkable, she has normal rectal tone without evidence of mass or fissure. Guaiac positive brown stool present. CBC unremarkable with hematocrit of 41 and platelets 271. Chemistries within normal limits as are coags. Offered endoscopy which she would like to decline. Given the hematochezia I do feel she would benefit from outpatient referral to surgery clinic for consideration of colonoscopy. I will place her on a high-fiber diet. She understands indications to return to the ER. Lab Data Lab results reviewed: Yes I reviewed the patient's lab results. Labs: Laboratory Results - last 24 hr 12/06/19 12/06/19 12/06/19 11:33 11:33 11:33 WBC 6.54 RBC 4.59 Hgb 14.1 Hct 41.3 MCV 90.0 MCH 30.7 MCHC 34.1 RDW 12.3 Plt Count 271 MPV 10.3 Immature Gran % 0.2 Neutrophils % 60.5 Lymphocytes % 28.1 Monocytes % 8.6 Eosinophils % 2.1 Basophils % 0.5 Nucleated RBC % 0 Absolute Neutrophils 3.96 Absolute Lymphocytes 1.84 Absolute Monocytes 0.56 Absolute Eosinophils 0.14 Absolute Basophils 0.03 PT 9.9 INR 1.0 APTT 26.1 Sodium 138 Potassium 3.6 Chloride 104 Carbon Dioxide 29.7 Anion Gap 4.3 BUN 14 Creatinine 0.80 Estimated GFR/1.73 m2 >= 60.00 Glucose 84 Calcium 8.8 Total Bilirubin 1.0 AST 14 L ALT 26 Alkaline Phosphatase 77 Total Protein 7.5 Albumin 3.8 HPI General Mode of arrival: ambulatory. Date/Time Provider Initiated Documentation: 12/06/19 11:13. Limitations to Documentation: no limitations. Information obtained by: patient. History of Present Illness 24 year old F presents to the emergency department with the chief complaint of Blood with bowel movement, described as moderate, Quality is described as dull, and is localized to the abdomen. Patient reports no radiation. Patient started experiencing this hour(s) and it has been intermittent. No relieving factors improve symptom(s), No exacerbating factors reported . Patient notes denies diaphoresis, loss of appetite and nausea/vomiting. Patient did receive the following treatments prior to arrival, none Related Data Home Medications Medication Instructions Recorded Confirmed albuterol sulfate [Proventil HFA] 2 puff INHALATION Q4H PRN PRN #1 04/19/17 12/06/19 inh emzzreaxwi-vzxwkwsxqbaxa-jzdqvldx 1 cap PO Q6H PRN #20 cap 03/06/19 12/06/19 50 mg-325 mg-40 mg capsule Previous Rx's Medication Instructions Recorded albuterol sulfate [Proventil HFA] 2 puff INHALATION Q4H PRN PRN #1 04/19/17 inh psmpqrfwqz-iarlcjmydhisg-etltxfye 1 cap PO Q6H PRN #20 cap 03/06/19 50 mg-325 mg-40 mg capsule Allergies Allergy/AdvReac Type Severity Reaction Status Date / Time codeine [Codeine] AdvReac Intermediate hyperactivi Verified 10/10/19 13:31 ty General Stated Complaint: GI Bleed PHIL: 3 Review of Systems Narrative: 6 systems reviewed otherwise negative [facility] Medical History (Updated 12/06/19 @ 12:20 by Darren Barnett MD) Seasonal allergies (10/27/14) Urinary tract infection due to Enterococcus 03/06/2019. Along with E. coli UTI. Both sensitive to Cipro. Patient will need suppression therapy for the remainder of . 03/19/2019 repeat UTI symptoms-enterococcus. On 03/24/2019 Rx with Cipro x10 days. Will need test of cure. Surgical History removal of wisdom teeth Social History Smoking/Tobacco Use Status: Never Alcohol Intake: never Drug use: Never Substance use type: does not use Do you feel safe at home: Yes Do you feel safe in your relationship?: Yes History History 3 Para 1 Hx # Term Pregnancies 1 Multiple births 0 Hx # Pregnancies 0 Ectopic pregnancies 0 AB induced 0 Hx Number of Living Children 1 AB spontaneous 1 Past Pregnancies Del. Date GA/Weeks # Outcome Route Wgt Sex Labor Lgth Anesthesia Location Prov Complic 06/14/17 42 No Successful vaginal 4091.97 g Male [address] guan other 06/16/19 38 No Successful vaginal 3061.[address] Mena shoulder dystocia Delivery Date: 06/14/17 as per pt; stuck at brow. w/o use of vacuum or forceps, baby had bleeding of head, then seizures infant sent to [facility] [place] at day three for seizures. @ [facility] [place] x 1 weeks sent home on seizure meds x 1 week. al Name is Nancy Andrade Delivery Date: 06/16/19 Felix Rose LPN,Alejandra Exam Narrative Exam Narrative: GEN: awake, alert, oriented 3. Pleasant, well groomed, interactive. HEAD: Normocephalic, atraumatic ENT: Mucous membranes moist, oropharynx unremarkable, External ear exam unremarkable EYES: PERRL, EOMI NECK: Full ROM, no KEISHA, no menigismus CHEST/RESP: Nontender, clear to auscultation bilateral, no wheeze/rhonchi/rales CARDIOVASCULAR: RRR, no murmur, rub marley. 2+ Rad pulse bilateral ABDOMEN: Soft, nontender, no mass. +Bowel sounds. Rectal exam without evidence of mass, no anal fissure appreciated, normal tone, brown stool that is guaiac positive. EXT: Full ROM, no edema, no rash Neuro: Grossly normal neurologic exam, conversant, interactive. Psych: Speech fluent, thoughts congruent, affect normal Course Vital Signs Vital signs: Vital Signs Temperature 36.6 C 12/06/19 11:24 Pulse 82 12/06/19 11:24 Respiratory Rate 20 12/06/19 11:24 Blood Pressure 103/62 12/06/19 11:24 Pulse Oximetry 98 12/06/19 11:24 Temperature 36.6 C 12/06/19 11:24 Temperature Source Skin 12/06/19 11:24 Pulse 82 12/06/19 11:24 Respiratory Rate 20 12/06/19 11:24 Respiratory Effort Non-Labored 12/06/19 11:28 Blood Pressure 103/62 12/06/19 11:24 Blood Pressure Position Sitting 12/06/19 11:24 Pulse Oximetry 98 12/06/19 11:24 Oxygen Delivery Method Room Air 12/06/19 11:24 Oxygen Flow Rate 0 12/06/19 11:24 Pain Level 0 12/06/19 11:24
[2019-12-06 11:51] LABS: Abs Immature Grans 0.01 10^3/uL (0.0-0.06); Absolute Basophil Count 0.03 10^3/uL (0.0-0.2); Absolute Eosinophil Count 0.14 10^3/uL (0.0-0.7); Absolute Lymphocyte Count 1.84 10^3/uL (1.2-3.4); Absolute Monocyte Count 0.56 10^3/uL (0.1-0.8); Absolute Neutrophil Count 3.96 10^3/uL (1.2-6.7); Basophils % 0.5; Eosinophils % 2.1; HCT 41.3 % (36.0-46.0); HGB 14.1 g/dL (11.2-15.7); Immature Grans % 0.2; Lymphocytes % 28.1; MCH 30.7 pg (27.0-33.0); MCHC 34.1 % (32.0-36.0); MPV 10.3 fL (8.0-11.0); Monocytes % 8.6; Neutrophils % 60.5; Nucleated RBC 0 %; Platelet Count 271 10^3/uL (130-400); RBC 4.59 10^6/uL (3.93-5.22); RDW 12.3 % (11.7-14.6); RDW-SD 39.9 fL; WBC 6.54 10^3/uL (4.4-10.8)
[2019-12-06 12:04] LABS: ALT 26 U/L (14-59); AST 14 U/L (15-37); Albumin 3.8 g/dL (3.4-5.0); Alkaline Phosphatase 77 U/L (46-116); Anion Gap 4.3 mmol/L (3-11); BUN 14 mg/dL (7-18); CO2 29.7 mmol/L (21.0-32.0); Calcium 8.8 mg/dL (8.5-10.1); Chloride 104 mmol/L (98-107); Glucose 84 mg/dL (74-106); Potassium 3.6 mmol/L (3.5-5.1); Sodium 138 mmol/L (136-145); Total Protein 7.5 g/dL (6.4-8.2)
--- NOTE | 2019-12-06 12:05 | NUR.NOTE ---
Referral faxed to [facility]Nursing Note:
[2019-12-06 12:06] LABS: PTT Activated 26.1 sec (21.0-31.4); Prothrombin Time 9.9 sec (9.3-11.0)
[2019-12-06 12:32] VITALS: BP 100/59; PULSE 82; RESP 16; TEMP 36.6; O2SAT 97
== END 2019-12-06 12:35 | disposition home or self-care (01) ==
PROVIDERS: Emergency Provider Emergency Medicine; PCP Internal Medicine
DX: K92.1 Melena (principal)
CPT/HCPCS: 36415; 80053; 99283; 85025; 85610; 85730

== ENCOUNTER 2019-12-06 20:29 | Observation (INO) | payer MEDICAID, SELFPAY ==
--- NOTE | 2019-12-06 20:31 | W.ED.GENAD ---
Discharge Plan Disposition Patient Disposition: [facility] INPATIENT Condition: Stable Discharge Details Chief Complaint: GI Bleed Clinical Impression: Acute GI bleeding Primary Care Provider: Hardik Lilly ED Provider: Kishore Hung Home Meds and New Rx's Prescriptions: No Action izvryqoedk-whwxaroewjhjg-hsjn 50-325-40 mg capsule 1 cap PO Q6H PRN (Reason: pain) Qty: 20 RF: 0 albuterol sulfate [Proventil HFA] 200 PUFF HFA aerosol inhaler 2 puff Inhalation Q4H PRN PRNQty: 1 RF: 0 Medical Decision Making 24-year-old female with no significant past medical history, surgical history of cholecystectomy 2 months ago, who presents today for evaluation of GI bleed. Patient states that this morning she began having bright red bloody bowel movements. She came to the emergency department earlier today/8 hours ago, work-up at that time demonstrated stable hemoglobin, vital signs were 85 heart rate consistently, blood pressure was stable. The discussion of admission versus discharge was held, with the patient demonstrating notable stability she was discharged home with outpatient follow-up. Unfortunately since then she has had 4-5 continued notably bloody bowel movements. It is all coming from her rectum. Her period ended a few days ago. Aside from mild dull achiness in the lower abdomen she denies any other complaints of pain. She denies any numbness tingling or weakness. No family history of abdominal cancer, or colon cancer that she is aware of. She denies any syncope. No vomiting. She states that her stools have been soft and formed, she denies any diarrhea. No other complaints at this time. Physical exam demonstrates a notably nonsurgical nontender abdomen. Rectal exam demonstrates a notable amount of dried blood around the perirectal area. No fissure, significant hemorrhoid that I can palpate, or mass. No significant perirectal or rectal tenderness. Patient denies any pain with bowel movements at all and she has not had any hard stool or diarrhea per history. Although heart rate on her initial visit was in the 80s, she is currently in the low 100s at 110-115. With the patient's continued bloody bowel movements, with stable blood pressure I feel that the patient would benefit from further evaluation with colonoscopy and endoscopy. I did contact Dr. Cortez and discussed the case with her. She has agreed to accept the patient for admission. Also with the patient's young age, lack of significant abdominal pain and with no clinical signs of an acute surgical abdomen whatsoever, we did discuss together risk and benefits of holding off CAT scan until colonoscopy especially that she has had an unremarkable CAT scan 2 months ago with no evidence of significant diverticulosis at that time, and that currently her symptoms appearing consistent with severe or fulminant colitis, we will hold off on CT imaging for the time being until tomorrow on reassessment or after colonoscopy. Patient will be made n.p.o. at midnight, she will be allowed clear liquids until then. I will place admission orders on behalf of Dr. Cortez. We will give a fluid bolus of 1000 mL's, start a Protonix bolus and drip out of an abundance of precaution for a less likely upper GI bleed, monitor closely and admit. I have extensively reviewed the treatment plan with the patient. I have addressed all patient concerns at this time. I have also discussed the plan with the admitting physician and they agree with the current assessment and plan and have agreed to assume responsibility for the patient. All parties demonstrate verbal understanding and agreement with our assessment and plan at this time. HPI General Date/Time Provider Initiated Documentation: 12/06/19 20:30. HPI Narrative: 24-year-old female with no significant past medical history, surgical history of cholecystectomy 2 months ago, who presents today for evaluation of GI bleed. Patient states that this morning she began having bright red bloody bowel movements. She came to the emergency department earlier today/8 hours ago, work-up at that time demonstrated stable hemoglobin, vital signs were 85 heart rate consistently, blood pressure was stable. The discussion of admission versus discharge was held, with the patient demonstrating notable stability she was discharged home with outpatient follow-up. Unfortunately since then she has had 4-5 continued notably bloody bowel movements. It is all coming from her rectum. Her period ended a few days ago. Aside from mild dull achiness in the lower abdomen she denies any other complaints of pain. She denies any numbness tingling or weakness. No family history of abdominal cancer, or colon cancer that she is aware of. She denies any syncope. No vomiting. She states that her stools have been soft and formed, she denies any diarrhea. No other complaints at this time. Related Data Home Medications Medication Instructions Recorded Confirmed albuterol sulfate [Proventil HFA] 2 puff INHALATION Q4H PRN PRN #1 04/19/17 12/06/19 inh tyabxwlciu-ppioogxmduswp-katdqxar 1 cap PO Q6H PRN #20 cap 03/06/19 12/06/19 50 mg-325 mg-40 mg capsule Previous Rx's Medication Instructions Recorded albuterol sulfate [Proventil HFA] 2 puff INHALATION Q4H PRN PRN #1 04/19/17 inh odmetfidam-izctkgfwldgxz-zpelglvg 1 cap PO Q6H PRN #20 cap 03/06/19 50 mg-325 mg-40 mg capsule Allergies Allergy/AdvReac Type Severity Reaction Status Date / Time codeine [Codeine] AdvReac Intermediate hyperactivi Verified 12/06/19 20:36 ty General PHIL: 3 Review of Systems All systems reviewed & are unremarkable except as noted in HPI and below PFSH Medical History (Updated 12/06/19 @ 21:12 by Kishore Hung DO) Seasonal allergies (10/27/14) Urinary tract infection due to Enterococcus 03/06/2019. Along with E. coli UTI. Both sensitive to Cipro. Patient will need suppression therapy for the remainder of . 03/19/2019 repeat UTI symptoms-enterococcus. On 03/24/2019 Rx with Cipro x10 days. Will need test of cure. Surgical History removal of wisdom teeth Social History Smoking/Tobacco Use Status: Never Alcohol Intake: never Drug use: Never Substance use type: does not use Do you feel safe at home: Yes Do you feel safe in your relationship?: Yes History History 3 Para 1 Hx # Term Pregnancies 1 Multiple births 0 Hx # Pregnancies 0 Ectopic pregnancies 0 AB induced 0 Hx Number of Living Children 1 AB spontaneous 1 Past Pregnancies Del. Date GA/Weeks # Outcome Route Wgt Sex Labor Lgth Anesthesia Location Prov Complic 06/14/17 42 No Successful vaginal 4091.97 g Male [address] guan other 06/16/19 38 No Successful vaginal 3061.[address] eMna shoulder dystocia Delivery Date: 06/14/17 as per pt; infant stuck at brow. w/o use of vacuum or forceps, baby had bleeding of head, then seizures infant sent to [facility] [place] at day three for seizures. @ [facility] [place] x 1 weeks sent home on seizure meds x 1 week. al Name is Nancy Andrade Delivery Date: 06/16/19 Felix Rose LPN,Alejandra Exam Narrative Exam Narrative: 1.Const: Well-nourished, Well-developed, appearing stated age 2.Eyes: PERRL, no conjunctival injection, and symmetrical lids. 3.ENT: Atraumatic external nose and ears. Moist MM. Neck: Symmetric, trachea midline, No thyromegaly. 4.CVS: +S1/S2, No murmurs or gallops. Peripheral pulses 2+ and equal in all extremities. Brisk capillary refill in all extremities. 5.RESP: Unlabored respiratory effort. Clear to auscultation bilaterally. No wheezes rales or rhonchi 6.GI: Soft, Nontender/Nondistended, No hepatosplenomegaly. No guarding or rebound. No signs of an acute surgical abdomen. Mild subjective achiness in the lower abdomen not particularly worsened with palpation. No flank or CVA tenderness. Rectal exam was performed with female nurse Miriam at bedside. No evidence of hemorrhoid, mass, lesion or fissure on exam. There is a notable amount of dried blood around the rectum. No significant pain with rectal exam. Minimal achiness on deep digital rectal component, but no mass or significant pain with this component of the exam. 7.MSK: Normocephalic/Atraumatic, Extremities w/o deformity or ttp No cyanosis or clubbing, Normal movement of all extremities 8.Skin: Warm, Dry. No rashes or lesions. 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 Sensation grossly intact, no focal neurologic deficits. 10.Psych: (AAO) x3. Appropriate mood and affect
[2019-12-06 20:33] VITALS: BP 137/82; PULSE 111; RESP 14; TEMP 36.6; O2SAT 97
[2019-12-06] MEDS: ACETAMINOPHEN 1,000 MG/100 ML BTL 400 MG IVPB (21:18)
[2019-12-06] MEDS: Normal Saline 1,000 ML 1000 ML IV (21:18)
[2019-12-06] MEDS: PANTOPRAZOLE 80 MG in Normal Saline 100 ML 10 MG IV (21:19)
[2019-12-06] MEDS: Pantoprazole 40 MG VIAL IVP (21:19)
[2019-12-06 21:26] LABS: Abs Immature Grans 0.03 10^3/uL (0.0-0.06); Absolute Basophil Count 0.05 10^3/uL (0.0-0.2); Absolute Eosinophil Count 0.14 10^3/uL (0.0-0.7); Absolute Lymphocyte Count 2.15 10^3/uL (1.2-3.4); Absolute Monocyte Count 0.62 10^3/uL (0.1-0.8); Basophils % 0.5; Eosinophils % 1.4; HCT 40.6 % (36.0-46.0); HGB 13.9 g/dL (11.2-15.7); Immature Grans % 0.3; Lymphocytes % 21.9; MCH 30.8 pg (27.0-33.0); MCHC 34.2 % (32.0-36.0); MPV 10.4 fL (8.0-11.0); Monocytes % 6.3; Neutrophils % 69.6; Nucleated RBC 0 %; Platelet Count 281 10^3/uL (130-400); RBC 4.51 10^6/uL (3.93-5.22); RDW 12.3 % (11.7-14.6); RDW-SD 40.6 fL; WBC 9.81 10^3/uL (4.4-10.8)
[2019-12-06 21:29] LABS: Absolute Neutrophil Count 6.83 10^3/uL (1.2-6.7)
[2019-12-06 21:36] LABS: ALT 27 U/L (14-59); AST 18 U/L (15-37); Albumin 3.9 g/dL (3.4-5.0); Alkaline Phosphatase 83 U/L (46-116); Anion Gap 8.6 mmol/L (3-11); BUN 15 mg/dL (7-18); Bilirubin, Total 0.7 mg/dL (0.2-1.0); CO2 28.4 mmol/L (21.0-32.0); CREATININE 0.81 mg/dL (0.55-1.02); Calcium 9.3 mg/dL (8.5-10.1); Chloride 103 mmol/L (98-107); Glucose 101 mg/dL (74-106); Potassium 3.5 mmol/L (3.5-5.1); Sodium 140 mmol/L (136-145); Total Protein 7.6 g/dL (6.4-8.2)
[2019-12-06 21:42] LABS: PTT Activated 25.6 sec (21.0-31.4); Prothrombin Time 9.9 sec (9.3-11.0)
[2019-12-06 21:51] VITALS: BP 95/59; PULSE 76; RESP 18; TEMP 36.6; O2SAT 98
[2019-12-06] MEDS: Normal Saline Flush 10 ML SYR IVP (22:37)
[2019-12-06 22:59] VITALS: BP 95/59; PULSE 76; RESP 18; TEMP 36.6; O2SAT 98
[2019-12-07 03:17] VITALS: BP 108/72; PULSE 73; RESP 17; TEMP 36.8; O2SAT 99
[2019-12-07 07:20] LABS: HCT 39.1 % (36.0-46.0); HGB 13.4 g/dL (11.2-15.7)
[2019-12-07] MEDS: PANTOPRAZOLE 80 MG in Normal Saline 100 ML 10 MG IV (07:39)
[2019-12-07 08:02] VITALS: BP 115/76; PULSE 71; RESP 20; TEMP 36.4; O2SAT 99
--- NOTE | 2019-12-07 09:36 | W.SURGCON ---
Date of service: 12/07/19 Time of Service: 09:36 Assessment and Plan Assessment and plan (1) Acute anal fissure: Status: Acute Assessment and plan: High fiber diet Metamucil daily push fluids f/u in clinic in 1-2 wks d/c home History of Present Illness Narrative: Notes from ED reviewed. Pt has never had rectal bleeding before. She denies any trauma or unusual activities. She denies eating unusual foods. She denies constipation or straining to move her bowels. She denies any pain w/ BM. She states yesterday whe went to the [facility] and had BRBPR x1. Than she had to have another BM and was passing lg clots. no pain. No CP or SOB/dizziness/weakness. SHe came into the ED adn blood was noted on rectal exam. She has not had any further bleeding or BM since she has beenon the hospital. No n/v. hgb has been stable. Consults Consult date: 12/07/19 Review of Systems All systems reviewed & are unremarkable except as noted in HPI and below PFSH Medical History Acute anal fissure Seasonal allergies (10/27/14) Urinary tract infection due to Enterococcus 03/06/2019. Along with E. coli UTI. Both sensitive to Cipro. Patient will need suppression therapy for the remainder of . 03/19/2019 repeat UTI symptoms-enterococcus. On 03/24/2019 Rx with Cipro x10 days. Will need test of cure. Surgical History removal of wisdom teeth Social History Smoking/Tobacco Use Status: Never Alcohol Intake: never Drug use: Never Substance use type: does not use Do you feel safe at home: Yes Do you feel safe in your relationship?: Yes History History 3 Para 1 Hx # Term Pregnancies 1 Multiple births 0 Hx # Pregnancies 0 Ectopic pregnancies 0 AB induced 0 Hx Number of Living Children 1 AB spontaneous 1 Past Pregnancies Del. Date GA/Weeks # Outcome Route Wgt Sex Labor Lgth Anesthesia Location Prov Complic 06/14/17 42 No Successful vaginal 4091.97 g Male [address] guan other 06/16/19 38 No Successful vaginal 3061.[address] Mena shoulder dystocia Delivery Date: 06/14/17 as per pt; infant stuck at brow. w/o use of vacuum or forceps, baby had bleeding of head, then seizures [place] [facility] [place] for seizures. @ [facility] [place] 1 weeks sent home on seizure meds x 1 week. al Name is George GuanNancy Delivery Date: 06/16/19 Feilx Rose LPN,Alejandra Exam Const General: cooperative, healthy appearing, comfortable, no acute distress, well developed and well groomed Nutritional Appearance: average body habitus and well nourished Orientation: alert, awake and oriented x3 HENMT Head: normal to inspection, normocephalic and atraumatic Ears: hearing grossly normal bilaterally and external ears normal General nose exam: external nose normal Face and sinus: normal facial exam and sinuses nontender Mouth: oral mucosae normal, lip normal, tongue normal and moist mucous membranes Teeth and gingiva: dentition normal Eyes General: appearance normal, both eyes and all related structures Conjunctivae: conjunctivae normal Sclera: sclerae normal Pupils: PERRL Neck Neck: normal visual inspection and full ROM Chest Chest: normal inspection of the chest Resp Effort & Inspection: normal respiratory effort, able to speak in complete sentences, no cough, no nasal flaring, not tachypneic and no use of accessory muscles Auscultation: clear to auscultation bilaterally, no rales, no rhonchi and no wheezes Cardio Jugular venous pressure: no JVD Rate: regular rate Rhythm: regular rhythm GI Inspection: normal to inspection, no edema and non-distended Palpation: soft, no masses, nontender and No ascites Auscultation: normal bowel sounds Rectal Exam - female: visual inspection normal, normal sphincter tone, fissure (12 oclock position. tender ) and No mass Skin General skin exam: no rashes or lesions noted Trauma: no lacerations or abrasions Neuro General: patient alert, patient oriented x3, oriented, gait normal, moves all extremities, no focal motor deficits and CN's II-XI intact bilaterally Cognition: normal cognition Speech: speech normal Gait: normal gait Motor: muscle tone normal throughout Extrem General: normal to inspection, full ROM and no clubbing, cyanosis or edema Psych Appearance: grossly normal and well kempt Mental Status: mental status grossly normal Speech and Movement: speech and movement normal Affect: normal affect Results Last Vital Signs Temp 36.4 C L 12/07/19 08:02 Pulse 71 12/07/19 08:02 Resp 20 12/07/19 08:02 BP 115/76 12/07/19 08:02 Pulse Ox 99 12/07/19 08:02 Labs Result diagrams: 12/07/19 07:05 12/06/19 21:10 Labs: Laboratory Results - last 24 hr 12/06/19 12/06/19 12/06/19 21:10 21:10 21:10 WBC 9.81 D RBC 4.51 Hgb 13.9 Hct 40.6 MCV 90.0 MCH 30.8 MCHC 34.2 RDW 12.3 Plt Count 281 MPV 10.4 Immature Gran % 0.3 Neutrophils % 69.6 Lymphocytes % 21.9 Monocytes % 6.3 Eosinophils % 1.4 Basophils % 0.5 Nucleated RBC % 0 Absolute Neutrophils 6.83 H Absolute Lymphocytes 2.15 Absolute Monocytes 0.62 Absolute Eosinophils 0.14 Absolute Basophils 0.05 PT 9.9 INR 1.0 APTT 25.6 Sodium 140 Potassium 3.5 Chloride 103 Carbon Dioxide 28.4 Anion Gap 8.6 BUN 15 Creatinine 0.81 Estimated GFR/1.73 m2 >= 60.00 Glucose 101 Calcium 9.3 Total Bilirubin 0.7 AST 18 ALT 27 Alkaline Phosphatase 83 Total Protein 7.6 Albumin 3.9 Patient ABO/Rh Antibody Screen 12/06/19 12/07/19 21:10 07:05 WBC RBC Hgb 13.4 Hct 39.1 MCV MCH MCHC RDW Plt Count MPV Immature Gran % Neutrophils % Lymphocytes % Monocytes % Eosinophils % Basophils % Nucleated RBC % Absolute Neutrophils Absolute Lymphocytes Absolute Monocytes Absolute Eosinophils Absolute Basophils PT INR APTT Sodium Potassium Chloride Carbon Dioxide Anion Gap BUN Creatinine Estimated GFR/1.73 m2 Glucose Calcium Total Bilirubin AST ALT Alkaline Phosphatase Total Protein Albumin Patient ABO/Rh O Positive Antibody Screen Negative
[2019-12-07 11:04] VITALS: BP 118/77; PULSE 84; RESP 18; TEMP 36.2; O2SAT 100
[2019-12-07] MEDS: Normal Saline Flush 10 ML SYR IVP ×3 (11:11→13:03)
[2019-12-07] MEDS: Psyllium PKT 1 EACH PO (13:04)
[2019-12-07 14:25] LABS: COVID-19 RT-PCR UVMMC Result Negative (Negative)
--- NOTE | 2019-12-07 15:41 | PDOC.CMIN ---
- If Service Date Differs Date of service: 12/07/19 Time of Service: 15:42 Care Management Initial Assess REASON FOR HOSPITALIZATION:: GI Bleed PAST MEDICAL HISTORY/PAST SURGICAL HISTORY:: , Adjustment disorder with mixed anxiety and depressed mood, acute cholecystitis, Acute GI bleeding, hematochezia. PREVIOUS FUNCTIONAL STATUS/SOCIAL/FAMILY SUPPORTS:: Laura lives in [facility] with her , Luis. They have two children who are 2 years and 6 months. She is currently home with the kids. Her parents both live nearby. She is independent at baseline. CURRENT FUNCTIONAL STATUS:: Laura was sleeping when CM met with her. She woke up to visit with CM. She was pleasant and engaged in conversation. She reported that she was unsure if she would be discharged, but she was told that she would not have a colonoscopy during this admission. CM will continue to follow. ADVANCE DIRECTIVES:: None on file. Has patient been provided with info about the portal/API?: Yes Did the patient sign up for the portal?: No CODE STATUS:: Full Code INSURANCE COVERAGE / FINANCIAL ISSUES:: [employer] CURRENT HOME/COMMUNITY SERVICES/EQUIPMENT:: No current services or equipment. PRIMARY CARE PHYSICIAN:: Hardik Lilly POTENTIAL DISCHARGE NEEDS:: Evaluations for further needs, follow up appointments PATIENT/FAMILY EDUCATION NEEDS:: Review discharge instructions regarding activity levels and medications, discussion of self care needs including ask me three. ANTICIPATED BARRIERS TO DISCHARGE:: None identified. TRANSPORTATION:: Via private vehicle by family. PLAN:: Anticipate Laura will return home with no additional services once medically cleared. She will follow up with her PCP and discharge plan of care. CM will continue to follow.
--- NOTE | 2019-12-07 16:51 | W.PM.DS.N ---
Date of service: 12/07/19 Time of Service: 16:51 DS: Diagnosis Discharge Diagnosis (1) Acute anal fissure: Status: Acute Discharge Plan Disposition Patient Disposition: HOME Condition: Stable Discharge Details Reason For Visit: Anal fissure Admit Date/Time: 12/06/19 20:45 Admit Provider: Faiza Cortez Attending Provider: Faiza Cortez Primary Care Provider: Hardik Lilly Hospital Course Hospital Course: Patient was having rectal bleeding and then was admitted through the ER. On exam today she is found to have an anal fissure. She has had no further bleeding. She had no pain. She has no history of rectal cancer she has no other symptoms that would suggest inflammatory bowel disease. She will be discharged home today fiber supplement and high fiber diet. She will follow-up in the office in 1 to 2 weeks. Home Meds and New Rx's Prescriptions: New Metamucil 3.4 gram/5.4 gram powder 1 tbsp PO DAILY Qty: 660 RF: 12 Continued pnqyhnffba-[id number]-[id number] 50-325-40 mg capsule 1 cap PO Q6H PRN (Reason: pain) Qty: 20 RF: 0 albuterol sulfate [Proventil HFA] 200 PUFF HFA aerosol inhaler 2 puff Inhalation Q4H PRN PRNQty: 1 RF: 0 Discharge Instructions Additional Instructions: High Fiber Diet What is Dietary Fiber? All fiber comes from plants, bushes, imani or trees. Of course, the ones that we eat provide us with fruits, vegetables and grains. There are many different types of fiber but the three that are most important to the health of the body are: Insoluble Fiber This fiber does not dissolve in water, nor is it fermented by the bacteria residing in the colon. Rather, it retains water and in so doing, helps to promote a larger, bulkier and more regular bowel activity. This, in turn, may be important in preventing disorder such as diverticulosis and hemorrhoids, and in sweeping out certain toxins and cancer causing carcinogens. Sources of insoluble fiber are: ? whole grain wheat and other whole grains ? corn bran, including popcorn, unflavored and unsweetened ? nuts and seeds ? potatoes and the skins from most fruits from trees such as apples, bananas and avocados ? many green vegetables such as green beans, zucchini, celery and cauliflower ? some fruit plants such as tomatoes and kiwi Soluble Fiber These fibers are fermented or used by the colon bacteria as a food source or nourishment. When these good bacteria grow and thrive, many health benefits occur in both the colon and the body. Soluble fiber is present in some degree in most edible plant foods, but the ones with the most soluble fiber include: ? legumes such as peas and most beans, including soybeans ? oats, rye and barley ? many fruits such as berries, plums, apples bananas and pears ? certain vegetables such as broccoli and carrots ? most root vegetables ? psyllium husk supplement products Prebiotic Soluble Fiber These are relatively newly discovered soluble plant fibers. The technical name for this fiber is inulin or fructan. When these soluble fibers are fermented by the good colon bacteria, some further significant health benefits have been shown to occur by research in many medical centers. These soluble prebiotic fibers occur in significant amounts in: ? asparagus ? yams ? onions ? garlic ? bananas ? leeks ? agave ? chicory and other root vegetables such as [place] artichokes ? wheat, rye and barley (smaller amounts) Benefits of a High Fiber Diet The health benefits of a high fiber diet, consumed on a regular basis and reaching recommended amounts (below), are now fairly well-defined. There are some additional benefits in the early research stage with the prebiotic soluble fibers. What is now known regarding a high fiber diet include: Bowel Regularity A high fiber diet promotes regularity with a softer, bulkier and regular stool pattern. This decreases the chance of hemorrhoids, diverticulosis and perhaps colon cancer. Cholesterol and Reduced Triglycerides The soluble fibers are the ones that will reduce cholesterol levels when used on a regular basis. Psyllium husk and prebiotic soluble fiber will also reduce cholesterol. They may also reduce the incidence of coronary heart disease. Oats, flax seeds and legumes or beans are the recommended fibers. Colon Polyps and Cancer It is still not certain if a high fiber diet helps prevent colon cancer. Considerable research suggests that this may occur. Certainly it makes sense to increase regularity and so speed the movement of cancer causing carcinogens through the bowel. In addition, reducing a heavy meat diet reduces the bile flow from the liver in a favorable way. This, too, reduces the amount of carcinogens that reach and are manufactured in the colon. Finally, a high fiber diet, including prebiotic soluble fiber, increases the integrity and health of the wall of the colon. The risk of cancer may be reduced. Colon Wall Integrity A high fiber diet changes the bacterial makeup of the colon toward a more favorable balance. For instance, it is known that those people with obesity, diabetes type 2 and inflammatory bowel disease have a predominance of bad bacteria in the colon. This, in turn, may render the bowel wall weak and allow bacteria and, indeed, even toxins to seep through. A high fiber diet with a modest reduction in animal and meat products may return the bacterial makeup to a more positive balance. This, in particular, has been seen when the soluble fiber prebiotics are added to the diet. Blood Sugar Soluble fiber such as in legumes (beans), oats and in prebiotic fibers slows the absorption of blood sugar and so helps regulate the sugar in the blood. Insoluble fiber on a regular basis is associated with reduced risk of type 2 diabetes. Weight Loss High fiber diets are more filling and give a sense of fullness sooner than an animal and meat based diet does. In addition, the soluble prebiotic fibers have been shown to turn off the hunger hormones produced in the wall of the gut and to increase the hormones that give a sense of fullness. Those hormones are made in the wall of the gut. New medical research has shown that the bacterial makeup in the colon in overweight people is abnormal to the extent that they manufacture and absorb almost twice the number of calories through the colon wall as do normals. Prebiotic fibers (below) will help change this hormonal balancein a favorable way. Bacteria and the Function of the Colon The colon finishes the digestive process. Hopefully, the waste products move through in a nice regular manner. Insoluble fibers help this process by retaining water and so producing a bulkier, softer stool, which is easy to pass. The additional role of the colon is to provide a home for an enormous number of micro-organisms, mostly bacteria. Recent research has shown that there are over 1,000 species of bacteria with a total bacterial count ten times the number of cells in the body. These bacteria play a major role in keeping the colon wall itself healthy. In addition, these good bacteria produce a very strong immune system for the body. They significantly increase calcium absorption and bone density. They provide other documented benefits. It is the soluble fibers in the diet that are so effective in stimulating the growth of good colon bacteria. How Much is Enough? The amount of fiber in food is measured in grams. National nutritional authorities recommend the following amounts of dietary fiber daily. Under Age 50 Over Age 50 Men 38 grams 30 grams Women 25 grams 21 grams For a week or so, it is best to tally the amount of fiber you are consuming. Boxed and packaged foods will have the amount of fiber per serving on the nutrition label. Which Fibers and Which Foods are Best? As noted, healthy fiber is only found in plants. The three major categories are whole grains, fruits and vegetables. Whole Grains Wheat, oats, barley, wild or brown rice, amaranth, buckwheat, bulgur, corn, millet, quinoa, rye, sorghum, teff and triticals. By far, wheat, oats and wild or brown rice are most common. Always buy whole grain products. White bread, baked goods and rolls almost always are made from wheat flour. Wheat flour is white because most of the fiber, vitamins and other nutrients have been removed. Try not buy enriched grains. What this means is that simple white flour has had vitamins added to it by the water resource manager. The word, enriched, implies a good and healthy product. On the contrary, enriched means that most of the fiber has been removed and a few vitamins added. Fruits Fruits come from trees such as apple and pear or from bushes or imani. You should eat a wide variety of fruits, preferably with every meal. In many cases, the skin of a fruit such as apple will contain much of the insoluble fiber while the pulp contains most of the soluble fiber. To the extent possible, buy organic fruits as these will have little or no pesticides. Always wash fruit. Vegetables Eat a wide variety of vegetables. They should be a mainstay of lunch and dinners. Frozen vegetables retain as much nutrition and fiber as fresh vegetables. As with fruit, try to buy organic to reduce any residual pesticide ingestion. Wash fresh vegetables thoroughly. Cruciferous vegetables such as broccoli, [place] sprouts and cauliflower contain certain chemicals such as sulforaphane. This substance has very strong anti-cancer properties and should be eaten frequently. Legumes, Beans, Peas and Soybeans These vegetables have plenty of soluble fiber and should be part of a varied vegetable intake. Beans, in particular, contain a certain type of fiber that may lead to harmless gas or bloating. Nuts and Seeds These are rich sources of fiber and are a good substitute for sweets such as candies and baked sweet goods. While nuts and seeds are rich in fiber, they also contain vegetable fat and so can and do add calories. Read the Labels As noted, fresh and frozen foods are usually better. They have good nutrition and few, if any, chemicals added to them. When buying packaged foods and, in particular grains, look for three things: ? The first word on the label should be whole, such as whole wheat or whole grain. ? Check out the calories and the amount of fiber in a serving. ? How many and what other additives or chemicals are added. Fewer is always better. Do you know what each additive does? Some are added not for the benefit of the stock buyer but rather for manufacturers. These could and do include sugar, artificial flavor, chemicals to prevent oxidation and spoilage, emulsifiers to blend the product. You have to be a superintendent refuse disposal. Fiber Facts, Nuggets and Pearls ? For breakfast you can easily get the day started well by using a high fiber, whole grain cereal. Check the labels. Add fruit such as blueberries and bananas. If you are an egg eater, use whole wheat or grain toast. Adding wheat germ gives you a good fiber kick. ? Always use whole grain or wheat with rolls and sandwiches. Does your fast food store not have them? Perhaps you look elsewhere. Eating an occasional black renee or veggie burger provides variety. ? Snacks should consist of fruit and/or nuts. While nuts are loaded with fiber, they are an energy rich food, meaning they have a lot of calories in a small packet. ? Fruit juices should contain pulp. Clear juices such as clear orange, pear or apple juice contain little fiber and have a lot of fructose. Prune juice is usually high in fiber. ? Homemade soups ? adding fresh or frozen vegetables to a chicken or vegetable stock is a good way to start homemade soup. ? Salads ? adding cooked and then chilled vegetables provide great flavoring to almost any salad. Remember, a garzon salad has lots of cooked corn in it. Small slices of apples or oranges and nuts such as chopped walnuts or sliced almonds always adds taste, variety and fiber to almost any salad. ? Fruit ? Try to eat fruit of some type with almost every meal. ? Rethink how you place the various foods on your dinner plate. Reducing the portions of the meat or animal food portion to the side with equal or more portions of vegetables, legumes and fruits portion always allows for more fiber. There was never anything magic about making the meat or animal food portion the main part of the dinner plate. Eating from smaller plates can, over time, trick your mind and long-term habit of using a dinner plate. Again, there is nothing magic in an 11, 12, or 13 inch dinner plate. Fiber Supplements There are a variety of fiber supplements available on the food or pharmacy shelves. Psyllium This soluble plant fiber has been used in [place] for over 2,000 years. It is a soluble fiber with mucilage in it. This acts to retain a lot of water and also is fermented by colon bacteria. When 7 grams a day are used, it does lower cholesterol. Metamucil in various forms is psyllium- you were given a prescription for this. Methyl Cellulose All the cellulose products come from finely ground wood chips which are then treated in a variety of ways such as boiling in acids. Methyl cellulose is an insoluble fiber which does dissolve in water. It is also an emulsifier, meaning it blends oils and water. Citrucel is methyl cellulose (MC). MC may not be appropriate for Crohn?s disease or ulcerative colitis as several medical studies have shown that certain emulsifiers dissolve the mucous lining of the colon in animals prone to Crohn?s disease. This then allows bacteria to invade the underlying tissue. Inulin Inulin is a soluble prebiotic fiber found in many foods and which are fermented mostly in the left side of the colon. It is available in a supplement as generic inulin and in Fiber Choice. Oligofructose FOS These are also prebiotic fibers. They are fermented very quickly in the right side of the colon. Prebiotin This product is a combination of oligofructose, which feeds the bacteria in the right side of the colon and inulin, which does the same in the left side of the colon. There seems to be a benefit for this particular formula based on medical research. Prebiotic Soluble Fiber These may be the healthiest of all the soluble fibers. They grow in many plants and have had a great deal of research done on them in the last 10-15 years. These fibers are found in asparagus, yams and other root vegetables such as chicory, garlic, onion, leeks and in smaller amounts in wheat. This research has shown the following: ? Increase in good and decrease in bad colon bacteria ? Increase calcium absorption and enhanced bone mass ? Enhanced immune system ? Appetite and weight control by changing the hormone appetite signals to the brain ? May decrease colon cancer incidence ? Reduce or correct a leaky colon Eating a wide variety of plant food up to the recommended amount will likely give you enough prebiotic fiber. Supplements such as Prebiotin can be added to the diet. Short Chain Fatty Acids (SCFA) Some rather remarkable research findings have shown that one of the benefits of ingesting a lot of soluble fiber, in particular the prebiotic ones, results in larger amounts of SCFAs in the colon. These SCFAs are made by the good bacteria in the colon such as Bifidobacter and Lactobacillus. These small molecules have been shown to do the following: ? Enhance the health and integrity of the colon wall ? Provide nourishment for the cells that actually line the colon ? Increases the acidity of the colon which is a very real health benefit ? Stabilize blood sugar for diabetics ? Reduce blood cholesterol and triglyceride ? Significantly enhance immunity ? May be a benefit for Crohn?s disease and ulcerative colitis patients Fiber and Gas Everyone has intestinal gas and that is a good thing. It means that bacteria, hopefully the good ones, are thriving. The normal amount of flatus passed each day depends on sex and what is eaten. The normal number of flatus is 10-20 times a day. When the bacteria that make intestinal gases are growing, it also means that other good bacteria are using the same fibers to grow and produce multiple health benefits, including the production of healthy short-chain fatty acids. These substances are produced quietly in the colon and produce many health-related outcomes. Soluble fiber should always be used in a gradual manner. If too much is consumed at any one time, then excess, but harmless, intestinal gas can occur. People with irritable bowel syndrome are particularly prone to bloating and mild cramping. In this instance, soluble fiber in the diet or supplement should be used in small doses and increased gradually. Finally, prebiotic fibers tend to cause the production of short-chain fatty acids which acidify the colon. This, in turn, reduces or stops the growth of bacteria that make the smelly hydrogen sulfide gases that produce noxious flatus. People who consume many vegetables with prebiotics or take a prebiotic fiber supplement often have non-odoriferous flatus. Fiber and Irritable Bowel Syndrome Irritable bowel syndrome (IBS) is one of the most common disorders of the lower digestive tract. The symptoms of IBS can be quite varied. They can be a mix of several symptoms such as constipation, diarrhea, crampy abdominal discomfort, bloating and gas. An attack of IBS can be triggered by emotional tension and anxiety, poor dietary habits and certain medications. It is now known that infections in the intestine can lead to long-term IBS symptoms. Increased amounts of fiber in the diet can help relieve the symptoms of irritable bowel syndrome by producing soft, bulky stools. This helps to normalize the time it takes for the stool to pass through the colon. Recent medical research with newer techniques has shown some surprising and dramatic findings for IBS patients. Specifically, there is a very significant and abnormal shift of bacteria from those that provide health benefits to those bad bacteria that we really do not want in the gut. The technical name for this bad group of bacteria is called Firmicutes. Along with this abnormal bacterial collection, there is a smoldering low-grade inflammation in the gut wall that may contribute to symptoms. The goal for IBS patients should be to gradually increase the soluble dietary fibers in the diet so as to promote the growth of good bacteria and so suppress the bad ones along with the associated inflammation. IBS patients need to be careful of the amount of soluble fiber they consume. The reason for this is that, while the good colon bacteria thrive on these fibers and produce health benefits, other gas-forming bacteria may generate excessive but harmless gas and subsequent bloating. Thus, soluble plant fibers or a dietary prebiotic supplement should be taken in small initial doses and then gradually increased to tolerance. Fiber and Colon Polyps/Cancer Colon cancer is a major health problem. This disease is most common in Western cultures. It is not seen very often in rural cultures where the diet is mostly plant based. Usually, colon cancer starts out as a colon polyp, a benign mushroom-shaped growth. In time it grows, and in some people it becomes cancerous. Colon cancer is usually always curable if polyps are removed when found or if surgery is performed at an early stage. It is now known that people can inherit the risk of developing colon cancer, but diet is important, too. As noted, there is a very low rate of colon cancer in residents of countries where grains are unprocessed and retain their fiber. It seems that in the [place] world, cancer-containing agents (carcinogens) remain in contact with the colon wall for a longer time and in higher concentrations. So, a large bulky stool may act to dilute these carcinogens by moving them through the bowel more quickly. Less carcinogenic exposure to the colon may mean fewer colon polyps and less cancer. A very current review of the entire world?s literature on the effect of fiber on colon polyps and cancer prevention has shown rather clearly that for every 10 grams of fiber added to the diet, there is a 10% reduction in incidence of colon cancer. So the recommended 30 gram fiber diet would result in a 30% less chance of getting these tumors. There are also substances produced in the colon by the good bacteria that seem to retard certain pre-cancer factors from developing. They are called short-chain fatty acids (SCFA). See above for description of SCFAs. A high fiber diet increases these substances. So, the combination of dietary fiber and the production of short-chain fatty acids have a clear health benefit. Fiber and Diverticulosis Prolonged, vigorous contraction of the colon over a long period of time may result in diverticulosis. This increased pressure causes small and, eventually, larger ballooning pockets to form. These pockets by themselves cause no problem. However, sometimes they become infected (diverticulitis) or even break open (perforate) causing infection or inflammation within the abdomen (peritonitis). A high fiber diet increases the bulk in the stool and thereby reduces the pressure within the colon. By so doing, the formation of pockets may be reduced or possibly even stopped. In the past, many physicians were fearful that seeds as in tomatoes, nuts or berries were harmful and could get inside these pockets and rattle around, causing damage. We now know that this has never been the case and that these foods contain lots of fiber and are actually beneficial for diverticulosis patients. Certain bulking agents such as psyllium are traditional types of bulk producing supplements. Psyllium is a soluble fiber. Combining it with insoluble fiber as in wheat bran or corn bran (no gluten) can enhance this bulking effect even more. A product containing a prebiotic, psyllium and wheat bran is probably a very good combination for bowel regularity. Prebiotin Regularity/Diverticulosis is one such product. Inflammatory Bowel Disease (IBD) IBD means Crohn?s Disease (CD) or Ulcerative Colitis (UC). CD is an inflammation of the lower small bowel and/or the colon. Bacteria actually invade and cause inflammation in the entire wall of the intestine. UC, on the other hand, is an inflammation just of the lining of the colon. It usually starts in the rectum and left colon and may spread to the entire colon from there. It is now known that in both CD and UC that the bacterial make up is abnormal. This means that there are significantly more of the bad bacteria present than the good ones. These abnormal bacteria are called Firmicutes. Fiber and Crohn?s Disease There is now some information in the medical literature on what type of diet may be harmful and what may help Crohn?s Disease. A reduction in red meat is likely helpful. So is reducing the fat in the diet, including vegetable oils. More importantly, people who had low fiber ingestion in the diet had a greater chance of getting CD. So, a gradual increase in the amount of fiber is likely helpful in hopefully preventing CD. This should always be done in conjunction with the physician. It should be done gradually and should include soluble fibers which fertilize the best colon bacteria. The good bacteria grow and push out the bad ones. These good bacteria provide short chain fatty acids, which can help heal the bowel wall. Prebiotics such as Prebiotin are available. Fiber and Ulcerative Colitis We still do not have strong evidence in the medical literature on what is the best diet for UC. Eating plenty of soluble fiber, including prebiotic fibers will nourish the best colon bacteria. It is hoped that this will result in a decrease in the bad or Firmicutes bacteria. It is well-known that when the good bacteria proliferate that they produce lots of acid substances called short chain fatty acids (SCFA). The SCFAs actually nourish the cells of the colon wall, the very ones that become inflamed in UC. In addition, when the colon contents become acid, the smelly sulfide gases are not produced and the flatus becomes less noxious and may even have no smell at all. This may have a beneficial effect on the inflammation. Prebiotics such as Prebiotin are the best type of soluble fiber. Activity:: Activity as Tolerated Equipment/Supplies:: No Equipment Needed Diet:: high fiber Discharge Orders Discharge Orders: Discharge Order (Routine); Ordered 12/07/19 Ordered By: Juana Howard DS: Summary Status at Discharge Functional status at discharge: independent ambulation Overall status at discharge: patient is back to baseline Mental Status: mental status grossly normal Speech and Movement: speech and movement normal Mood: congruent mood Affect: normal affect Exam Psych Mental Status: mental status grossly normal Speech and Movement: speech and movement normal Mood: congruent mood Affect: normal affect DS: Data Vitals/I&O Vitals and I&O: Vital Signs Temperature 36.2 C L 12/07/19 11:04 Temperature Source Tympanic 12/07/19 11:04 Pulse 84 12/07/19 11:04 Pulse Rhythm Regular 12/07/19 07:10 Respiratory Rate 18 12/07/19 11:04 Respiratory Effort Non-Labored 12/07/19 07:10 Respiratory Depth Normal 12/07/19 07:10 Respiratory Pattern Normal 12/07/19 07:10 Blood Pressure 118/77 12/07/19 11:04 Blood Pressure Position Sitting 12/06/19 20:33 Pulse Oximetry 100 12/07/19 11:04 Oxygen Delivery Method Room Air 12/07/19 11:04 Oxygen Flow Rate 0 12/07/19 11:04 Pain Level 0 12/07/19 15:20 Comment 12/07/19 15:20 Intake & Output 12/06/19 12/07/19 12/07/19 23:59 11:59 23:59 Intake Total 145.333 / 402.333 257 / 402.333 Output Total 900 / 900 Balance -754.667 / -497.667 257 / -497.667 Weight 99.5 kg 99.4 kg Intake: IV 145.333 / 162.333 17 / 162.333 Oral 240 / 240 Output: Urine 900 / 900 Other: Urine Color Straw Yellow Urine Appearance Clear Clear Urine Odor Normal Normal Comment Void x1 in the toilet. Void x1 in the toilet. Stool Size Moderate Stool Characteristics Soft Formed Brown Emesis Description None Voiding Methods Toilet Toilet Data Completed and Pending Labs on day of discharge: Labs from last 24 hours 12/07/19 12/06/19 12/06/19 07:05 21:10 21:10 WBC RBC Hgb 13.4 Hct 39.1 MCV MCH MCHC RDW Plt Count MPV Immature Gran % Neutrophils % Lymphocytes % Monocytes % Eosinophils % Basophils % Nucleated RBC % Absolute Neutrophils Absolute Lymphocytes Absolute Monocytes Absolute Eosinophils Absolute Basophils PT INR APTT Sodium Potassium Chloride Carbon Dioxide Anion Gap BUN Creatinine Estimated GFR/1.73 m2 Glucose Calcium Total Bilirubin AST ALT Alkaline Phosphatase Total Protein Albumin COVID-19 PCR Negative Nasopharyn COVID-19 PCR Not Applicable Ref Test Perform Site [facility] lab Patient ABO/Rh O Positive Antibody Screen Negative 12/06/19 12/06/19 12/06/19 21:10 21:10 21:10 WBC 9.81 D RBC 4.51 Hgb 13.9 Hct 40.6 MCV 90.0 MCH 30.8 MCHC 34.2 RDW 12.3 Plt Count 281 MPV 10.4 Immature Gran % 0.3 Neutrophils % 69.6 Lymphocytes % 21.9 Monocytes % 6.3 Eosinophils % 1.4 Basophils % 0.5 Nucleated RBC % 0 Absolute Neutrophils 6.83 H Absolute Lymphocytes 2.15 Absolute Monocytes 0.62 Absolute Eosinophils 0.14 Absolute Basophils 0.05 PT 9.9 INR 1.0 APTT 25.6 Sodium 140 Potassium 3.5 Chloride 103 Carbon Dioxide 28.4 Anion Gap 8.6 BUN 15 Creatinine 0.81 Estimated GFR/1.73 m2 >= 60.00 Glucose 101 Calcium 9.3 Total Bilirubin 0.7 AST 18 ALT 27 Alkaline Phosphatase 83 Total Protein 7.6 Albumin 3.9 COVID-19 PCR Nasopharyn COVID-19 PCR Ref Test Perform Site Patient ABO/Rh Antibody Screen [facility] Medical History Acute anal fissure Seasonal allergies (10/27/14) Urinary tract infection due to Enterococcus 03/06/2019. Along with E. coli UTI. Both sensitive to Cipro. Patient will need suppression therapy for the remainder of . 03/19/2019 repeat UTI symptoms-enterococcus. On 03/24/2019 Rx with Cipro x10 days. Will need test of cure. Surgical History removal of wisdom teeth Social History Smoking/Tobacco Use Status: Never Alcohol Intake: never Drug use: Never Substance use type: does not use Do you feel safe at home: Yes Do you feel safe in your relationship?: Yes History History 3 Para 1 Hx # Term Pregnancies 1 Multiple births 0 Hx # Pregnancies 0 Ectopic pregnancies 0 AB induced 0 Hx Number of Living Children 1 AB spontaneous 1 Past Pregnancies Del. Date GA/Weeks # Outcome Route Wgt Sex Labor Lgth Anesthesia Location Prov Complic 06/14/17 42 No Successful vaginal 4091.97 g Male [address] guan other 06/16/19 38 No Successful vaginal 3061.[address] Mena shoulder dystocia Delivery Date: 06/14/17 as per pt; infant stuck at brow. w/o use of vacuum or forceps, baby had bleeding of head, then [place] [facility] [place] [facility] [place] home on seizure meds x 1 week. al Name is Nancy Andrade Delivery Date: 06/16/19 Felix Rose LPN,Alejandra
--- NOTE | 2019-12-08 15:03 | PDOC.DSDIS_ITS ---
Discharge Plan Disposition Patient Disposition: HOME Condition: Stable Discharge Details Reason For Visit: Anal fissure Admit Date/Time: 12/06/19 20:45 Admit Provider: Faiza Cortez Attending Provider: Faiza Cortez Primary Care Provider: Hardik Lilly Hospital Course Hospital Course: Patient was having rectal bleeding and then was admitted through the ER. On exam today she is found to have an anal fissure. She has had no further bleeding. She had no pain. She has no history of rectal cancer she has no other symptoms that would suggest inflammatory bowel disease. She will be discharged home today fiber supplement and high fiber diet. She will follow-up in the office in 1 to 2 weeks. Home Meds and New Rx's Prescriptions: New Metamucil 3.4 gram/5.4 gram powder 1 tbsp PO DAILY Qty: 660 RF: 12 Continued [id number] 50-325-40 mg capsule 1 cap PO Q6H PRN (Reason: pain) Qty: 20 RF: 0 albuterol sulfate [Proventil HFA] 200 PUFF HFA aerosol inhaler 2 puff Inhalation Q4H PRN PRNQty: 1 RF: 0 Discharge Instructions Additional Instructions: High Fiber Diet What is Dietary Fiber? All fiber comes from plants, bushes, imani or trees. Of course, the ones that we eat provide us with fruits, vegetables and grains. There are many different types of fiber but the three that are most important to the health of the body are: Insoluble Fiber This fiber does not dissolve in water, nor is it fermented by the bacteria residing in the colon. Rather, it retains water and in so doing, helps to promote a larger, bulkier and more regular bowel activity. This, in turn, may be important in preventing disorder such as diverticulosis and hemorrhoids, and in sweeping out certain toxins and cancer causing carcinogens. Sources of insoluble fiber are: ? whole grain wheat and other whole grains ? corn bran, including popcorn, unflavored and unsweetened ? nuts and seeds ? potatoes and the skins from most fruits from trees such as apples, bananas and avocados ? many green vegetables such as green beans, zucchini, celery and cauliflower ? some fruit plants such as tomatoes and kiwi Soluble Fiber These fibers are fermented or used by the colon bacteria as a food source or nourishment. When these good bacteria grow and thrive, many health benefits occur in both the colon and the body. Soluble fiber is present in some degree in most edible plant foods, but the ones with the most soluble fiber include: ? legumes such as peas and most beans, including soybeans ? oats, rye and barley ? many fruits such as berries, plums, apples bananas and pears ? certain vegetables such as broccoli and carrots ? most root vegetables ? psyllium husk supplement products Prebiotic Soluble Fiber These are relatively newly discovered soluble plant fibers. The technical name for this fiber is inulin or fructan. When these soluble fibers are fermented by the good colon bacteria, some further significant health benefits have been shown to occur by research in many medical centers. These soluble prebiotic fibers occur in significant amounts in: ? asparagus ? yams ? onions ? garlic ? bananas ? leeks ? agave ? chicory and other root vegetables such as [place] artichokes ? wheat, rye and barley (smaller amounts) Benefits of a High Fiber Diet The health benefits of a high fiber diet, consumed on a regular basis and reaching recommended amounts (below), are now fairly well-defined. There are some additional benefits in the early research stage with the prebiotic soluble fibers. What is now known regarding a high fiber diet include: Bowel Regularity A high fiber diet promotes regularity with a softer, bulkier and regular stool pattern. This decreases the chance of hemorrhoids, diverticulosis and perhaps colon cancer. Cholesterol and Reduced Triglycerides The soluble fibers are the ones that will reduce cholesterol levels when used on a regular basis. Psyllium husk and prebiotic soluble fiber will also reduce cholesterol. They may also reduce the incidence of coronary heart disease. Oats, flax seeds and legumes or beans are the recommended fibers. Colon Polyps and Cancer It is still not certain if a high fiber diet helps prevent colon cancer. Considerable research suggests that this may occur. Certainly it makes sense to increase regularity and so speed the movement of cancer causing carcinogens through the bowel. In addition, reducing a heavy meat diet reduces the bile flow from the liver in a favorable way. This, too, reduces the amount of carcinogens that reach and are manufactured in the colon. Finally, a high fiber diet, including prebiotic soluble fiber, increases the integrity and health of the wall of the colon. The risk of cancer may be reduced. Colon Wall Integrity A high fiber diet changes the bacterial makeup of the colon toward a more favorable balance. For instance, it is known that those people with obesity, diabetes type 2 and inflammatory bowel disease have a predominance of bad bacteria in the colon. This, in turn, may render the bowel wall weak and allow bacteria and, indeed, even toxins to seep through. A high fiber diet with a modest reduction in animal and meat products may return the bacterial makeup to a more positive balance. This, in particular, has been seen when the soluble fiber prebiotics are added to the diet. Blood Sugar Soluble fiber such as in legumes (beans), oats and in prebiotic fibers slows the absorption of blood sugar and so helps regulate the sugar in the blood. Insoluble fiber on a regular basis is associated with reduced risk of type 2 diabetes. Weight Loss High fiber diets are more filling and give a sense of fullness sooner than an animal and meat based diet does. In addition, the soluble prebiotic fibers have been shown to turn off the hunger hormones produced in the wall of the gut and to increase the hormones that give a sense of fullness. Those hormones are made in the wall of the gut. New medical research has shown that the bacterial makeup in the colon in overweight people is abnormal to the extent that they manufacture and absorb girish ost twice the number of calories through the colon wall as do normals. Prebiotic fibers (below) will help change this hormonal balancein a favorable way. Bacteria and the Function of the Colon The colon finishes the digestive process. Hopefully, the waste products move through in a nice regular manner. Insoluble fibers help this process by retaining water and so producing a bulkier, softer stool, which is easy to pass. The additional role of the colon is to provide a home for an enormous number of micro-organisms, mostly bacteria. Recent research has shown that there are over 1,000 species of bacteria with a total bacterial count ten times the number of cells in the body. These bacteria play a major role in keeping the colon wall itself healthy. In addition, these good bacteria produce a very strong immune system for the body. They significantly increase calcium absorption and bone density. They provide other documented benefits. It is the soluble fibers in the diet that are so effective in stimulating the growth of good colon bacteria. How Much is Enough? The amount of fiber in food is measured in grams. National nutritional authorities recommend the following amounts of dietary fiber daily. Under Age 50 Over Age 50 Men 38 grams 30 grams Women 25 grams 21 grams For a week or so, it is best to tally the amount of fiber you are consuming. Boxed and packaged foods will have the amount of fiber per serving on the nutrition label. Which Fibers and Which Foods are Best? As noted, healthy fiber is only found in plants. The three major categories are whole grains, fruits and vegetables. Whole Grains Wheat, oats, barley, wild or brown rice, amaranth, buckwheat, bulgur, corn, millet, quinoa, rye, sorghum, teff and triticals. By far, wheat, oats and wild or brown rice are most common. Always buy whole grain products. White bread, baked goods and rolls almost always are made from wheat flour. Wheat flour is white because most of the fiber, vitamins and other nutrients have been removed. Try not buy enriched grains. What this means is that simple white flour has had vitamins added to it by the engraver flatware. The word, enriched, implies a good and healthy product. On the contrary, enriched means that most of the fiber has been removed and a few vitamins added. Fruits Fruits come from trees such as apple and pear or from bushes or imani. You should eat a wide variety of fruits, preferably with every meal. In many cases, the skin of a fruit such as apple will contain much of the insoluble fiber while the pulp contains most of the soluble fiber. To the extent possible, buy organic fruits as these will have little or no pesticides. Always wash fruit. Vegetables Eat a wide variety of vegetables. They should be a mainstay of lunch and dinners. Frozen vegetables retain as much nutrition and fiber as fresh vegetables. As with fruit, try to buy organic to reduce any residual pesticide ingestion. Wash fresh vegetables thoroughly. Cruciferous vegetables such as broccoli, [place] sprouts and cauliflower contain certain chemicals such as sulforaphane. This substance has very strong anti-cancer properties and should be eaten frequently. Legumes, Beans, Peas and Soybeans These vegetables have plenty of soluble fiber and should be part of a varied vegetable intake. Beans, in particular, contain a certain type of fiber that may lead to harmless gas or bloating. Nuts and Seeds These are rich sources of fiber and are a good substitute for sweets such as candies and baked sweet goods. While nuts and seeds are rich in fiber, they also contain vegetable fat and so can and do add calories. Read the Labels As noted, fresh and frozen foods are usually better. They have good nutrition and few, if any, chemicals added to them. When buying packaged foods and, in particular grains, look for three things: ? The first word on the label should be whole, such as whole wheat or whole grain. ? Check out the calories and the amount of fiber in a serving. ? How many and what other additives or chemicals are added. Fewer is always better. Do you know what each additive does? Some are added not for the benefit of the digital media buyer but rather for manufacturers. These could and do include sugar, artificial flavor, chemicals to prevent oxidation and spoilage, emulsifiers to blend the product. You have to be a licensed funeral director. Fiber Facts, Nuggets and Pearls ? For breakfast you can easily get the day started well by using a high fiber, whole grain cereal. Check the labels. Add fruit such as blueberries and bananas. If you are an egg eater, use whole wheat or grain toast. Adding wheat germ gives you a good fiber kick. ? Always use whole grain or wheat with rolls and sandwiches. Does your fast food store not have them? Perhaps you look elsewhere. Eating an occasional black renee or veggie burger provides variety. ? Snacks should consist of fruit and/or nuts. While nuts are loaded with fiber, they are an energy rich food, meaning they have a lot of calories in a small packet. ? Fruit juices should contain pulp. Clear juices such as clear orange, pear or apple juice contain little fiber and have a lot of fructose. Prune juice is usually high in fiber. ? Homemade soups ? adding fresh or frozen vegetables to a chicken or vegetable stock is a good way to start homemade soup. ? Salads ? adding cooked and then chilled vegetables provide great flavoring to almost any salad. Remember, a garzon salad has lots of cooked corn in it. Small slices of apples or oranges and nuts such as chopped walnuts or sliced almonds always adds taste, variety and fiber to almost any salad. ? Fruit ? Try to eat fruit of some type with almost every meal. ? Rethink how you place the various foods on your dinner plate. Reducing the portions of the meat or animal food portion to the side with equal or more portions of vegetables, legumes and fruits portion always allows for more fiber. There was never anything magic about making the meat or animal food portion the main part of the dinner plate. Eating from smaller plates can, over time, trick your mind and group home habit of using a dinner plate. Again, there is nothing magic in an 11, 12, or 13 inch dinner plate. Fiber Supplements There are a variety of fiber supplements available on the food or pharmacy shelves. Psyllium This soluble plant fiber has been used in [place] for over 2,000 years. It is a soluble fiber with mucilage in it. This acts to retain a lot of water and also is fermented by colon bacteria. When 7 grams a day are used, it does lower cholesterol. Metamucil in various forms is psyllium- you were given a prescription for this. Methyl Cellulose All the cellulose products come from finely ground wood chips which are then treated in a variety of ways such as boiling in acids. Methyl cellulose is an insoluble fiber which does dissolve in water. It is also an emulsifier, meaning it blends oils and water. Citrucel is methyl cellulose (MC). MC may not be appropriate for Crohn?s disease or ulcerative colitis as several medical studies have shown that certain emulsifiers dissolve the mucous lining of the colon in animals prone to Crohn?s disease. This then allows bacteria to invade the underlying tissue. Inulin Inulin is a soluble prebiotic fiber found in many foods and which are fermented mostly in the left side of the colon. It is available in a supplement as generic inulin and in Fiber Choice. Oligofructose FOS These are also prebiotic fibers. They are fermented very quickly in the right side of the colon. Prebiotin This product is a combination of oligofructose, which feeds the bacteria in the right side of the colon and inulin, which does the same in the left side of the colon. There seems to be a benefit for this particular formula based on medical research. Prebiotic Soluble Fiber These may be the healthiest of all the soluble fibers. They grow in many plants and have had a great deal of research done on them in the last 10-15 years. These fibers are found in asparagus, yams and other root vegetables such as chicory, garlic, onion, leeks and in smaller amounts in wheat. This research has shown the following: ? Increase in good and decrease in bad colon bacteria ? Increase calcium absorption and enhanced bone mass ? Enhanced immune system ? Appetite and weight control by changing the hormone appetite signals to the brain ? May decrease colon cancer incidence ? Reduce or correct a leaky colon Eating a wide variety of plant food up to the recommended amount will likely give you enough prebiotic fiber. Supplements such as Prebiotin can be added to the diet. Short Chain Fatty Acids (SCFA) Some rather remarkable research findings have shown that one of the benefits of ingesting a lot of soluble fiber, in particular the prebiotic ones, results in larger amounts of SCFAs in the colon. These SCFAs are made by the good bacteria in the colon such as Bifidobacter and Lactobacillus. These small molecules have been shown to do the following: ? Enhance the health and integrity of the colon wall ? Provide nourishment for the cells that actually line the colon ? Increases the acidity of the colon which is a very real health benefit ? Stabilize blood sugar for diabetics ? Reduce blood cholesterol and triglyceride ? Significantly enhance immunity ? May be a benefit for Crohn?s disease and ulcerative colitis patients Fiber and Gas Everyone has intestinal gas and that is a good thing. It means that bacteria, hopefully the good ones, are thriving. The normal amount of flatus passed each day depends on sex and what is eaten. The normal number of flatus is 10-20 times a day. When the bacteria that make intestinal gases are growing, it also means that other good bacteria are using the same fibers to grow and produce multiple health benefits, including the production of healthy short-chain fatty acids. These substances are produced quietly in the colon and produce many health-related outcomes. Soluble fiber should always be used in a gradual manner. If too much is consumed at any one time, then excess, but harmless, intestinal gas can occur. People with irritable bowel syndrome are particularly prone to bloating and mild cramping. In this instance, soluble fiber in the diet or supplement should be used in small doses and increased gradually. Finally, prebiotic fibers tend to cause the production of short-chain fatty acids which acidify the colon. This, in turn, reduces or stops the growth of bacteria that make the smelly hydrogen sulfide gases that produce noxious flatus. People who consume many vegetables with prebiotics or take a prebiotic fiber supplement often have non-odoriferous flatus. Fiber and Irritable Bowel Syndrome Irritable bowel syndrome (IBS) is one of the most common disorders of the lower digestive tract. The symptoms of IBS can be quite varied. They can be a mix of several symptoms such as constipation, diarrhea, crampy abdominal discomfort, bloating and gas. An attack of IBS can be triggered by emotional tension and anxiety, poor dietary habits and certain medications. It is now known that infections in the intestine can lead to long-term IBS symptoms. Increased amounts of fiber in the diet can help relieve the symptoms of irritable bowel syndrome by producing soft, bulky stools. This helps to normalize the time it takes for the stool to pass through the colon. Recent medical research with newer techniques has shown some surprising and dramatic findings for IBS patients. Specifically, there is a very significant and abnormal shift of bacteria from those that provide health benefits to those bad bacteria that we really do not want in the gut. The technical name for this bad group of bacteria is called Firmicutes. Along with this abnormal bacterial collection, there is a smoldering low-grade inflammation in the gut wall that may contribute to symptoms. The goal for IBS patients should be to gradually increase the soluble dietary fibers in the diet so as to promote the growth of good bacteria and so suppress the bad ones along with the associated inflammation. IBS patients need to be careful of the amount of soluble fiber they consume. The reason for this is that, while the good colon bacteria thrive on these fibers and produce health benefits, other gas-forming bacteria may generate excessive but harmless gas and subsequent bloating. Thus, soluble plant fibers or a dietary prebiotic supplement should be taken in small initial doses and then gradually increased to tolerance. Fiber and Colon Polyps/Cancer Colon cancer is a major health problem. This disease is most common in Western cultures. It is not seen very often in rural cultures where the diet is mostly plant based. Usually, colon cancer starts out as a colon polyp, a benign mushroom-shaped growth. In time it grows, and in some people it becomes cancerous. Colon cancer is usually always curable if polyps are removed when found or if surgery is performed at an early stage. It is now known that people can inherit the risk of developing colon cancer, but diet is important, too. As noted, there is a very low rate of colon cancer in residents of countries where grains are unprocessed and retain their fiber. It seems that in the [place] world, cancer-containing agents (carcinogens) remain in contact with the colon wall for a longer time and in higher concentrations. So, a large bulky stool may act to dilute these carcinogens by moving them through the bowel more quickly. Less carcinogenic exposure to the colon may mean fewer colon polyps and less cancer. A very current review of the entire world?s literature on the effect of fiber on colon polyps and cancer prevention has shown rather clearly that for every 10 grams of fiber added to the diet, there is a 10% reduction in incidence of colon cancer. So the recommended 30 gram fiber diet would result in a 30% less chance of getting these tumors. There are also substances produced in the colon by the good bacteria that seem to retard certain pre-cancer factors from developing. They are called short- chain fatty acids (SCFA). See above for description of SCFAs. A high fiber diet increases these substances. So, the combination of dietary fiber and the production of short-chain fatty acids have a clear health benefit. Fiber and Diverticulosis Prolonged, vigorous contraction of the colon over a long period of time may result in diverticulosis. This increased pressure causes small and, eventually, larger ballooning pockets to form. These pockets by themselves cause no pro blem. However, sometimes they become infected (diverticulitis) or even break open (perforate) causing infection or inflammation within the abdomen (peritonitis). A high fiber diet increases the bulk in the stool and thereby reduces the pressure within the colon. By so doing, the formation of pockets may be reduced or possibly even stopped. In the past, many physicians were fearful that seeds as in tomatoes, nuts or berries were harmful and could get inside these pockets and rattle around, causing damage. We now know that this has never been the case and that these foods contain lots of fiber and are actually beneficial for diverticulosis patients. Certain bulking agents such as psyllium are traditional types of bulk producing supplements. Psyllium is a soluble fiber. Combining it with insoluble fiber as in wheat bran or corn bran (no gluten) can enhance this bulking effect even more. A product containing a prebiotic, psyllium and wheat bran is probably a very good combination for bowel regularity. Prebiotin Regularity/Diverticulosis is one such product. Inflammatory Bowel Disease (IBD) IBD means Crohn?s Disease (CD) or Ulcerative Colitis (UC). CD is an inflammation of the lower small bowel and/or the colon. Bacteria actually invade and cause inflammation in the entire wall of the intestine. UC, on the other hand, is an inflammation just of the lining of the colon. It usually starts in the rectum and left colon and may spread to the entire colon from there. It is now known that in both CD and UC that the bacterial make up is abnormal. This means that there are significantly more of the bad bacteria present than the good ones. These abnormal bacteria are called Firmicutes. Fiber and Crohn?s Disease There is now some information in the medical literature on what type of diet may be harmful and what may help Crohn?s Disease. A reduction in red meat is likely helpful. So is reducing the fat in the diet, including vegetable oils. More importantly, people who had low fiber ingestion in the diet had a greater chance of getting CD. So, a gradual increase in the amount of fiber is likely helpful in hopefully preventing CD. This should always be done in conjunction with the physician. It should be done gradually and should include soluble fibers which fertilize the best colon bacteria. The good bacteria grow and push out the bad ones. These good bacteria provide short chain fatty acids, which can help heal the bowel wall. Prebiotics such as Prebiotin are available. Fiber and Ulcerative Colitis We still do not have strong evidence in the medical literature on what is the best diet for UC. Eating plenty of soluble fiber, including prebiotic fibers will nourish the best colon bacteria. It is hoped that this will result in a decrease in the bad or Firmicutes bacteria. It is well-known that when the good bacteria proliferate that they produce lots of acid substances called short chain fatty acids (SCFA). The SCFAs actually nourish the cells of the colon wall, the very ones that become inflamed in UC. In addition, when the colon contents become acid, the smelly sulfide gases are not produced and the flatus becomes less noxious and may even have no smell at all. This may have a beneficial effect on the inflammation. Prebiotics such as Prebiotin are the best type of soluble fiber. Stand Alone Forms: Nursing Discharge Form Activity:: Activity as Tolerated Equipment/Supplies:: No Equipment Needed Diet:: high fiber Discharge Orders Discharge Orders: Discharge Order (Routine); Ordered 12/07/19 Ordered By: Juana Howard Discharge Data Discharge Date/Time-TO BE ENTERED AT DEPARTURE: 12/07/19 18:00 DS: Diagnosis Discharge Diagnosis (1) Acute anal fissure: Status: Acute
== END 2019-12-07 18:00 | disposition home or self-care (01) ==
LOC: ER 21:42 → MS 21:47
PROVIDERS: Admitting Provider Surgery; Emergency Provider Student in an Organized Health Care Education/Training Program; PCP Internal Medicine; Visit Provider Surgery
DX: K60.0 Acute anal fissure (principal)
CPT/HCPCS: 36415; 80053; 81025; 86850; 86900; 86901; 90686; 96374; 96375; 99238; 99285; U0003; 85014; 85018; 85025; 85610; 85730; 99284; G0378; J0131

== ENCOUNTER 2020-01-10 09:56 | Emergency (ER) | payer MEDICAID, SELFPAY ==
[2020-01-10 10:00] VITALS: BP 144/64; PULSE 67; RESP 18; TEMP 36.5; O2SAT 98
--- NOTE | 2020-01-10 10:04 | W.ED.GENAD ---
Discharge Plan Disposition Patient Disposition: HOME Condition: Stable Discharge Details Clinical Impression: Anxiety Primary Care Provider: Hardik Lilly ED Provider: Chris Bonilla Home Meds and New Rx's Prescriptions: Continued ktwtvwpcgx-jueuinsjmofnu-pjmd 50-325-40 mg capsule 1 cap PO Q6H PRN (Reason: pain) Qty: 20 RF: 0 albuterol sulfate [Proventil HFA] 200 PUFF HFA aerosol inhaler 2 puff Inhalation Q4H PRN PRNQty: 1 RF: 0 Discharge Instructions Instructions: Anxiety (ED) Additional Instructions: Please call the instructions given to you by our [facility] human service team as well as our care management team. Watch for new or worsening symptoms and return to the ER for any concerns. An appointment has been made for you with Dr. Lilly on January 12 at 1:35 PM. Their number is [phone]. I have also placed you on the [employer] callback list to help expedite your outpatient appointment. I do recommend you reach out to their office in the next 24-48 hours if you do not hear from them. Please take ontd-opj-pnlycbk vitamin. Stand Alone Forms: Work Release Medical Decision Making 24-year-old female G6, P2 presenting to the ER for increasing stress and anxiety, feeling overwhelmed. She feels safe, denies any suicidal or homicidal thoughts whatsoever. She has no medical concerns or complaints at this time. Denies fever, chest pain, shortness breath abdominal pain, nausea, vomiting, dysuria, vaginal bleeding or discharge. Medically she appears well, nontoxic. We discussed our options. I do not believe that any emergent laboratory values are indicated at this time. We will have her evaluated by our [facility] human services team, by our care management team, and will place her on the [employer] list. Please see the consultation by both care management and [facility] human service team. Patient was also made an appointment with her primary care provider, Dr. Lilly, on January 12. Upon reevaluation patient is no longer anxious or tearful. She reports that she feels well, she understands what resources are available to her as an outpatient, and she plans to follow-up with her primary care provider, [employer] team, and listen to the recommendations by the mental health team as well as our care management team. She denies any suicidal or homicidal ideations and continues to feel safe. Medical Records Medical records reviewed: Yes I reviewed the patient's medical records. HPI General Mode of arrival: ambulatory. Date/Time Provider Initiated Documentation: 01/10/20 10:04. Limitations to Documentation: no limitations. Information obtained by: patient. HPI Narrative: This is a 24-year-old female presents to the ER for evaluation of anxiety and a panic attack. She reports that she is currently , last menstrual cycle was sometime in October, has not sought after any [employer] care. She states that this is her sixth , 2 births, 3 miscarriages. She was recently homeless but now has a place to stay over the past week, and even has a job over the past 2 weeks. She reports that increased stress have been building over the past couple of weeks, she is concerned that she will not be able to properly care for her new unborn baby. She went to work today, felt as though the shift previous to her did not do their job well which in turn put more stress on her. She denies any suicidal or homicidal ideations. She does feel safe. She simply feels overwhelmed, has not seen her primary care provider in a very long time, does not have a counselor, and has not established [employer] care for this . She denies any recent injury or illness. Denies fever, chest pain, shortness of breath abdominal pain, nausea, vomiting, back pain, dysuria, hematuria, vaginal bleeding or discharge. She denies smoking cigarettes, drug use, alcohol use. Related Data Home Medications Medication Instructions Recorded Confirmed albuterol sulfate [Proventil HFA] 2 puff INHALATION Q4H PRN PRN #1 04/19/17 01/10/20 inh tuqshjqyrb-qezqrmisttang-xsiljdev 1 cap PO Q6H PRN #20 cap 03/06/19 01/10/20 50 mg-325 mg-40 mg capsule Previous Rx's Medication Instructions Recorded albuterol sulfate [Proventil HFA] 2 puff INHALATION Q4H PRN PRN #1 04/19/17 inh raycoenden-qjemxclzzibbc-nslbadnf 1 cap PO Q6H PRN #20 cap 03/06/19 50 mg-325 mg-40 mg capsule Allergies Allergy/AdvReac Type Severity Reaction Status Date / Time codeine [Codeine] AdvReac Intermediate hyperactivi Verified 01/10/20 10:06 ty General PHIL: 3 Review of Systems All systems reviewed & are unremarkable except as noted in HPI and below PFSH Medical History Acute anal fissure Seasonal allergies (10/27/14) Urinary tract infection due to Enterococcus 03/06/2019. Along with E. coli UTI. Both sensitive to Cipro. Patient will need suppression therapy for the remainder of . 03/19/2019 repeat UTI symptoms-enterococcus. On 03/24/2019 Rx with Cipro x10 days. Will need test of cure. Surgical History removal of wisdom teeth Social History Smoking/Tobacco Use Status: Never Smoking risk assessment performed?: Yes Alcohol Intake: never Drug use: Never Substance use type: does not use Do you feel safe at home: Yes Do you feel safe in your relationship?: Yes History History 3 Para 1 Hx # Term Pregnancies 1 Multiple births 0 Hx # Pregnancies 0 Ectopic pregnancies 0 AB induced 0 Hx Number of Living Children 1 AB spontaneous 1 Past Pregnancies Del. Date GA/Weeks # Outcome Route Wgt Sex Labor Lgth Anesthesia Location Prov Complic 06/14/17 42 No Successful vaginal 4091.97 g Male [address] guan other 06/16/19 38 No Successful vaginal 3061.[address] Mena shoulder dystocia Delivery Date: 06/14/17 as per pt; stuck at brow. w/o use of vacuum or forceps, baby had bleeding of head, then seizures infant sent to [facility] [place] at day three for seizures. @ [facility] [place] x 1 weeks sent home on seizure meds x 1 week. al Name is Nancy Andrade Delivery Date: 06/16/19 Alejandra Sotelo LPN Exam Const General: cooperative, healthy appearing, comfortable, no acute distress and anxious (Tearful) Orientation: alert, awake and oriented x3 HENMT Head: normal to inspection, normocephalic and atraumatic General nose exam: external nose normal Face and sinus: normal facial exam Mouth: moist mucous membranes Eyes General: appearance normal, both eyes and all related structures Conjunctivae: conjunctivae normal Sclera: sclerae normal Neck Neck: normal visual inspection, full ROM, trachea midline and supple Resp Effort & Inspection: normal respiratory effort and able to speak in complete sentences Auscultation: clear to auscultation bilaterally Cardio Rate: regular rate Rhythm: regular rhythm GI Inspection: normal to inspection Palpation: soft, not firm, no guarding and nontender Back/Spine/Pelvis Back: no CVA tenderness and No back tenderness Skin General skin exam: no rashes or lesions noted Neuro General: patient alert, patient awake, patient oriented x3, moves all extremities and no focal motor deficits Cranial Nerves: CN's II-XI intact bilaterally Cognition: normal cognition Speech: speech normal Gait: normal gait Motor: muscle tone normal throughout Sensory Exam: no sensory deficits noted Extrem General: normal to inspection, full ROM, capillary refill normal, no pedal edema and no calf tenderness Psych Appearance: grossly normal Mental Status: mental status grossly normal Speech and Movement: speech and movement normal Mood: anxious mood Affect: sad Attitude: cooperative Thought Process: normal Thought Content: normal Insight: insight good Judgment: judgment good
[2020-01-10 10:34] VITALS: RESP 18
--- NOTE | 2020-01-10 10:34 | NUR.NOTE ---
Nursing Note: [facility]. Crystal Henson
--- NOTE | 2020-01-10 11:23 | PDOC.MHCN_ITS ---
Date of service: 01/10/20 Time of Service: 11:23 Mental Health Crisis Note Presenting Issue How did you arrive at the ED and why did you come: Laura came to the ER today voluntarily from work as she was experiencing a significant panic attack. Precipitating Factors Laura denied SI and HI. She is not showing any signs of delusions. Disposition BEHAVIOR: Laura is cooperative and friendly. She is soft spoken with good insight and judgment. She is feeling like, and has gone through some significant stressors lately including homelessness, finding a recent home, starting a new job and finding out she was all just within the last few days. EYE CONTACT: Eye contact is good and appropriate. MOOD: Mood appears slightly anxious and overwhelmed. AFFECT: Affect is normal. APPETITE: Laura reports a decrease in appetite but has been eating as she knows she is . SLEEP(trouble falling/staying asleep: Laura reports poor sleep which is a change for her but denied feeling tired as a result. Plan Laura although is stressed she is not at work we discussed the importance of self care. She is going to go home today and walk the river for some rocks and because she likes to paint she is going home to paint them. She also likes to DIY and play video games. A lot of this she has not done since becoming a mom. I encouraged her to do more of this on a regular basis. In addition I spoke to ER provider and Central Supply Tech about a referral to [facility] and her PCP as she has not been seen since having her children. She may benefit from a complete physical and possible medication to help level out her anxiety. I spoke with her about the counselor in the [facility] office as a resource until she can get in to see another one. I or someone form [facility] will outreach in a couple of days to see how she is doing and offer any additional supports if needed. Signature Clinician's Name/Title: Susie Dias MS, [facility] Emergency Services Clinician
[2020-01-10 12:06] VITALS: BP 132/75; PULSE 74; RESP 18; TEMP 36.7; O2SAT 99
--- NOTE | 2020-01-10 15:17 | PDOC.ERCMPRO ---
- If Service Date Differs Date of service: 01/10/20 Time of Service: 15:17 Care Management Progress Note Laura presents to the ED for anxiety. CM meets with her at the request of ED provider to discuss needs and offer resources. Laura reports she was formerly homeless and has recently moved into a place of her own. While she is thankful to have a place to call home, she shares she now worries about losing her home and becoming homeless again. She also states she has no furniture and few pots and pans and dishes. Laura is referred to the [id number] in [place] as they occasionally have donations of furniture and household items. Laura is also in need of an appointment with her PCP. CM contacts the [facility] and schedules a follow up appointment for Laura for Monday, January 13, 2020 at 1:[address] Lilly.
== END 2020-01-10 12:20 | disposition home or self-care (01) ==
PROVIDERS: Emergency Provider Physician Assistant; PCP Internal Medicine
DX: O99.341 Other mental disorders complicating pregnancy, first trimester (principal); F41.0 Panic disorder [episodic paroxysmal anxiety]; F43.9 Reaction to severe stress, unspecified; Z3A.01 Less than 8 weeks gestation of pregnancy
CPT/HCPCS: 99283

== ENCOUNTER 2020-03-08 02:41 | Outpatient (CLI) | payer MEDICAID, SELFPAY ==
[2020-03-08 12:08] LABS: Kit/Specimen SENT
[2020-03-08 12:13] LABS: Abs Immature Grans 0.02 10^3/uL (0.0-0.06); Absolute Basophil Count 0.02 10^3/uL (0.0-0.2); Absolute Eosinophil Count 0.07 10^3/uL (0.0-0.7); Absolute Lymphocyte Count 1.43 10^3/uL (1.2-3.4); Absolute Monocyte Count 0.52 10^3/uL (0.1-0.8); Absolute Neutrophil Count 5.58 10^3/uL (1.2-6.7); Basophils % 0.3; Eosinophils % 0.9; HCT 38.2 % (36.0-46.0); HGB 13.2 g/dL (11.2-15.7); Immature Grans % 0.3; Lymphocytes % 18.7; MCH 30.7 pg (27.0-33.0); MCHC 34.6 % (32.0-36.0); MCV 88.8 fL (80-95); MPV 10.6 fL (8.0-11.0); Monocytes % 6.8; Nucleated RBC 0 %; Platelet Count 188 10^3/uL (130-400); RDW 12.1 % (11.7-14.6); RDW-SD 39.4 fL; WBC 7.64 10^3/uL (4.4-10.8)
[2020-03-08 13:08] LABS: TSH (W/Ref FT4) 1.65 uIU/mL (0.36-3.74)
[2020-03-08 13:28] LABS: *AMPHETAMINES SCREEN URINE Negative (Negative); *BARBITURATES SCREEN URINE Negative (Negative); *BENZODIAZEPINES SCREEN URINE Negative (Negative); Cannabinoids THC Negative (Negative); Cocaine Screen,Urine Negative (Negative); METHADONE URINE SCREEN Negative (Negative); OPIATES URINE SCREEN Negative (Negative)
[2020-03-08 13:29] LABS: Tricyclic Antidepressants Negative (Negative)
[2020-03-09 08:48] LABS: Hepatitis B Surface Ag Negative (Negative)
[2020-03-09 09:33] LABS: HIV-1/2 Ag & Ab Screen Negative (Negative)
[2020-03-09 09:44] LABS: Hepatitis C Ab w Rflx HCV PCR Negative (Negative)
[2020-03-09 14:44] LABS: Rubella IgG Ab (UVM) Positive (See Note)
[2020-03-09 14:48] LABS: Varicella IgG Antibody Negative (See Note)
[2020-03-09 15:34] LABS: Chlamydia Result Negative (Negative); GC Result Negative (Negative)
[2020-03-10 14:05] LABS: Syphilis Total Ab w/Reflex Nonreactive (Nonreactive)
[2020-03-14 14:52] LABS: Buprenorphine Negative; Norbuprenorphine Negative
== END 2020-03-08 03:01 ==
PROVIDERS: PCP Internal Medicine; Visit Provider Advanced Practice Midwife
DX: Z34.91 Encounter for supervision of normal pregnancy, unspecified, first trimester (principal); Z11.4 Encounter for screening for human immunodeficiency virus [HIV]; Z11.59 Encounter for screening for other viral diseases; Z01.84 Encounter for antibody response examination; Z11.3 Encounter for screening for infections with a predominantly sexual mode of transmission
CPT/HCPCS: 36415; 80307; 86787; 86803; 86850; 86900; 86901; 87077; 87340; 87389; 87491; 87591; 84443; 85025; 86762; 86780; 87086; 87186

== ENCOUNTER 2020-04-06 02:09 | Outpatient (CLI) | payer MEDICAID, SELFPAY ==
--- NOTE | 2020-04-06 06:15 | DI.US_ITS ---
EXAM: US OB 2-3 TRIMESTER CLINICAL HISTORY: routine pnc,z32.01. TECHNIQUE: Transabdominal obstetrical ultrasound performed. COMPARISON: US US OB F/U FACIAL/LVOT/RVOT from 05/24/2019 FINDINGS: Transabdominal obstetrical ultrasound performed. FINDINGS: Number of fetuses: One. position: Varied throughout the examination. heart rate: Not taken on the examination today. Placental location: Anterior no evidence of previa. Amniotic fluid index: Amount of fluid is within normal limits. ANATOMICAL SURVEY: Within normal limits. BIOMETRIC DATA: BPD: 3.8cm equal 17 weeks 5 days HC: 14.9cm equals 18 weeks AC: 11.9cm equal 17 weeks 4 days FL: 2.6cm equals 17 weeks 6 days Cisterna Magna: 5 mm Cerebellum: 1.8 cm EFW: 208 grms 47% Composite Age: 17 weeks 6 days EDC by US: 09/08/2020 IMPRESSION: 1. Single live intrauterine gestation as above. 2. heart rate was not taken on today's examination. 3. Normal anatomic survey. DATA REPOSITORY:
== END 2020-04-06 02:10 ==
LOC: DI 02:10
PROVIDERS: PCP Internal Medicine; Visit Provider Advanced Practice Midwife
DX: Z34.92 Encounter for supervision of normal pregnancy, unspecified, second trimester (principal)
CPT/HCPCS: 76805

== ENCOUNTER 2020-07-04 10:58 | Emergency (ER) | payer MEDICAID, SELFPAY ==
[2020-07-04] VITALS (18 sets, daily range): BP systolic 99–120; BP diastolic 61–86; PULSE 101–127; RESP 14–28; TEMP 36.7–37.1; O2SAT 95–99
--- NOTE | 2020-07-04 11:20 | W.ED.GENAD ---
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 She presents with 3 days of lower back pain has been somewhat spasmodic. She notes increased frequency of urination. She denies any new vaginal discharge or bleeding. She has a known vaginal cyst but has been unchanged. Patient arrives to the ER blood pressure 100/70, pulse 120, afebrile and in no acute distress. Bedside ultrasound reveals single live IUP with heart tones approximately 150s. Discussed the case with Dr. Ferguson, who asked that the patient be referred to the center for evaluation. HPI General Mode of arrival: ambulatory. Date/Time Provider Initiated Documentation: 07/04/20 10:59. Limitations to Documentation: no limitations. Information obtained by: patient. History of Present Illness 25 year old F presents to the emergency department with the chief complaint of Lower back pain, described as moderate, Quality is described as dull, and is localized to the back. Patient started experiencing this day(s) and it has been intermittent. No relieving factors improve symptom(s), No exacerbating factors reported . Patient notes loss of appetite; denies fever/chills and nausea/vomiting. Patient did receive the following treatments prior to arrival, none Related Data Home Medications Medication Instructions Recorded Confirmed albuterol sulfate [Proventil HFA] 2 puff INHALATION Q4H PRN PRN #1 04/19/17 07/04/20 inh rhqzxphsfb-yslgkaisrblob-hqyerotf 1 cap PO Q6H PRN #20 cap 03/06/19 07/04/20 50 mg-325 mg-40 mg capsule Previous Rx's Medication Instructions Recorded albuterol sulfate [Proventil HFA] 2 puff INHALATION Q4H PRN PRN #1 04/19/17 inh icmizjueht-pzwxcjrvhbzmz-osyezyui 1 cap PO Q6H PRN #20 cap 03/06/19 50 mg-325 mg-40 mg capsule Allergies Allergy/AdvReac Type Severity Reaction Status Date / Time codeine [Codeine] AdvReac Intermediate hyperactivi Verified 07/04/20 11:18 ty General 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 negative discharge. Negative fever. Increased frequency of urination. 6 systems reviewed otherwise negative [facility] Medical History Acute anal fissure History of rectal bleeding 12/2019 ED visit History of recurrent UTIs HRP (high risk ) Seasonal allergies (10/27/14) Urinary tract infection due to Enterococcus 03/06/2019. Along with E. coli UTI. Both sensitive to Cipro. Patient will need suppression therapy for the remainder of . 03/19/2019 repeat UTI symptoms-enterococcus. On 03/24/2019 Rx with Cipro x10 days. Will need test of cure. Surgical History History of cholecystectomy removal of wisdom teeth Social History Smoking/Tobacco Use Status: Never Smoking risk assessment performed?: Yes Alcohol Intake: never Drug use: Occasionally Substance use type: marijuana Details: smoked marijuana last night Do you feel safe at home: Yes Do you feel safe in your relationship?: Yes History History 3 Para 1 Hx # Term Pregnancies 1 Multiple births 0 Hx # Pregnancies 0 Ectopic pregnancies 0 AB induced 0 Hx Number of Living Children 1 AB spontaneous 1 Past Pregnancies Del. Date GA/Weeks # Outcome Route Wgt Sex Labor Lgth Anesthesia Location Prov Complic 06/14/17 42 No Successful vaginal 4091.97 g Male [address] guan other 06/16/19 38 No Successful vaginal 3061.[address] Mena shoulder dystocia Delivery Date: 06/14/17 as per pt; infant stuck at brow. w/o use of vacuum or forceps, baby had bleeding of head, then seizures [place] [facility] [place] for seizures. @ [facility] [place] 1 weeks sent home on seizure meds x 1 week. al Name is Nancy Andrade Delivery Date: 06/16/19 Felix Rose LPN,Alejandra Exam Narrative Exam Narrative: GEN: awake, alert, oriented 3. Pleasant, well groomed, interactive. HEAD: Normocephalic, atraumatic ENT: Mucous membranes moist, oropharynx unremarkable, External ear exam unremarkable EYES: PERRL, EOMI NECK: Full ROM, no KEISHA, no menigismus CHEST/RESP: Nontender, clear to auscultation bilateral, no wheeze/rhonchi/rales CARDIOVASCULAR: RRR, no murmur, rub marley. 2+ Rad pulse bilateral ABDOMEN: Soft, nontender, gravid, +Bowel sounds EXT: Full ROM, no edema, no rash Neuro: Grossly normal neurologic exam, conversant, interactive. Psych: Speech fluent, thoughts congruent, affect normal Course Vital Signs Vital signs: Vital Signs Temperature 37.1 C 07/04/20 11:00 Pulse 127 H 07/04/20 11:00 Respiratory Rate 16 07/04/20 11:00 Blood Pressure 99/73 L 07/04/20 11:00 Pulse Oximetry 97 07/04/20 11:00 Temperature 37.1 C 07/04/20 11:00 Temperature Source Skin 07/04/20 11:00 Pulse 127 H 07/04/20 11:00 Respiratory Rate 16 07/04/20 11:00 Blood Pressure 99/73 L 07/04/20 11:00 Blood Pressure Position Sitting 07/04/20 11:00 Pulse Oximetry 97 07/04/20 11:00 Oxygen Delivery Method Room Air 07/04/20 11:00 Oxygen Flow Rate 0 07/04/20 11:00 Pain Level 5 07/04/20 11:14 Comment 07/04/20 11:00
[2020-07-04] MEDS: Normal Saline Flush 10 ML SYR IVP (11:40)
[2020-07-04 11:54] LABS: Anion Gap 12.2 mmol/L (3-11); BUN 4 mg/dL (7-18); CO2 21.8 mmol/L (21.0-32.0); CREATININE 0.5 mg/dL (0.55-1.02); Calcium 8.5 mg/dL (8.5-10.1); Chloride 105 mmol/L (98-107); Glucose 104 mg/dL (74-106); HCT 35.4 % (36.0-46.0); HGB 11.9 g/dL (11.2-15.7); MCH 31.4 pg (27.0-33.0); MCHC 33.6 % (32.0-36.0); MCV 93.4 fL (80-95); MPV 10.6 fL (8.0-11.0); Platelet Count 168 10^3/uL (130-400); Potassium 3.7 mmol/L (3.5-5.1); RBC 3.79 10^6/uL (3.93-5.22); RDW 12.1 % (11.7-14.6); RDW-SD 41.7 fL; Sodium 139 mmol/L (136-145); WBC 14.81 10^3/uL (4.4-10.8)
[2020-07-04] MEDS: Normal Saline 250 ML 500 ML IV (11:55)
[2020-07-04 12:06] LABS: Bilirubin Negative (Negative); Blood Negative (Negative); Clarity Clear (Clear); Glucose Negative (Negative); Ketones 15 mg/dL (Negative); Leukocyte Esterase Moderate (Negative); Nitrite Negative (Negative); Urobilinogen 0.2 EU/dL (Up TO 0.2)
[2020-07-04 12:15] LABS: Bacteria Moderate HPF (Negative); C & S Indicated? Yes; Casts Negative LPF (Negative); Crystals Negative HPF (Negative); Epithelial Cells Few HPF (Negative); Mucus Negative (Negative); RBC Negative HPF (0-2); WBC 20-50 HPF (0-5)
[2020-07-04 18:49] LABS: COVID-19 PCR Negative (Negative)
--- NOTE | 2020-07-04 19:01 | NUR.NOTE ---
spoke to pt, advised that covid test was negative.Nursing Note:
== END 2020-07-04 12:47 | disposition short-term general hospital (02) ==
PROVIDERS: Emergency Provider Emergency Medicine; PCP Internal Medicine
DX: O23.43 Unspecified infection of urinary tract in pregnancy, third trimester (principal); O26.893 Other specified pregnancy related conditions, third trimester; Z3A.32 32 weeks gestation of pregnancy; M54.5 Low back pain; Z87.440 Personal history of urinary (tract) infections; Z03.818 Encounter for observation for suspected exposure to other biological agents ruled out
CPT/HCPCS: 36415; 80048; 85027; 87077; 87635; 96360; 99284; 81003; 81015; 87086; 87186; 99283

== ENCOUNTER 2020-07-04 13:14 | Outpatient (CLI) | payer MEDICAID, SELFPAY ==
[2020-07-04 14:23] VITALS: BP 109/62; PULSE 100; TEMP 36.7
--- NOTE | 2020-07-04 14:44 | W.OBNST ---
Date of service: 07/04/20 Time of Service: 14:44 NST Evaluation Reason for NST Reasons for Nonstress Test: OTHER, SEE COMMENT Reason for NST Other: Seen in ER for back pain, wellbeing Gestational Age Gestational Age in Weeks and Days: 30 Weeks and 3Days Test and Monitor Explained Test/Monitor Explained: Test Explained, Monitor Explained and Patient Verbalized Understanding Vital Signs Blood Pressure: 109/62 Pulse: 100 Temperature: 98.1 F NST Information Time on Monitor: 12:50 NST Interventions: PO Hydration Contraction Frequency: none NST Evaluation Patient States Movement: Present FHR Baseline: 145 Variability: Moderate 6-25 bpm Accelerations: 15x15 Decelerations: None NST Results: Reactive Note NST Note Note: Patient presented to the emergency department with report of constant low back pain for the past 3 days. It was uncomfortable enough to prevent her from sleeping or getting out of bed this morning. A urinalysis is currently pending to the rule out UTI. While on the center for observation she had a reactive NST and no evidence of contractions. Vaginal exam was deferred. On physical examination she has no flank pain to percussion or palpation all her her pain is along her SI joint with the left SI joint being more uncomfortable than her right SI joint. I counseled the patient to use Tylenol for pain and application of heat as needed. She will be given a lidocaine patch of 5% strength at the time of her discharge and she will [facility] the [facility] at a scheduled visit tomorrow 07/05/2020. NST Reviewed and Verified by: Nancy Hays
[2020-07-04 14:46] VITALS: BP 109/62; PULSE 100; TEMP 36.7
[2020-07-04] MEDS: Lidocaine 5% Patch 1 PATCH TP (14:46)
== END 2020-07-04 15:00 | disposition home or self-care (01) ==
LOC: BCD 13:15 → OBS 13:27
PROVIDERS: PCP Internal Medicine; Visit Provider Obstetrics & Gynecology
DX: O26.893 Other specified pregnancy related conditions, third trimester (principal); M54.9 Dorsalgia, unspecified; O35.8XX0 Maternal care for other (suspected) fetal abnormality and damage, not applicable or unspecified; Z3A.30 30 weeks gestation of pregnancy
CPT/HCPCS: 59025; G0378

== ENCOUNTER 2020-07-09 08:33 | Outpatient (CLI) | payer MEDICAID, SELFPAY ==
[2020-07-09 08:47] LABS: Abs Immature Grans 0.07 10^3/uL (0.0-0.06); Absolute Basophil Count 0.02 10^3/uL (0.0-0.2); Absolute Eosinophil Count 0.13 10^3/uL (0.0-0.7); Absolute Lymphocyte Count 1.12 10^3/uL (1.2-3.4); Absolute Monocyte Count 0.73 10^3/uL (0.1-0.8); Absolute Neutrophil Count 9.49 10^3/uL (1.2-6.7); Basophils % 0.2; Eosinophils % 1.1; HCT 34.1 % (36.0-46.0); HGB 11.5 g/dL (11.2-15.7); Immature Grans % 0.6; Lymphocytes % 9.7; MCH 31.3 pg (27.0-33.0); MCHC 33.7 % (32.0-36.0); MCV 92.9 fL (80-95); MPV 10.4 fL (8.0-11.0); Monocytes % 6.3; Neutrophils % 82.1; Nucleated RBC 0 %; Platelet Count 217 10^3/uL (130-400); RBC 3.67 10^6/uL (3.93-5.22); RDW 12.3 % (11.7-14.6); RDW-SD 42.2 fL; WBC 11.56 10^3/uL (4.4-10.8)
[2020-07-09 08:52] LABS: Glucose,1 Hr (Glucola) 108 mg/dL (80-140)
== END 2020-07-09 08:34 | disposition home or self-care (01) ==
LOC: LBO 08:34
PROVIDERS: PCP Internal Medicine; Visit Provider Obstetrics & Gynecology
DX: O09.93 Supervision of high risk pregnancy, unspecified, third trimester (principal); Z3A.31 31 weeks gestation of pregnancy
CPT/HCPCS: 36415; 82950; 85025

== ENCOUNTER 2020-07-24 18:28 | Outpatient (REF) | payer MEDICAID, SELFPAY | END 2020-07-24 18:29 | disposition home or self-care (01) | LOC: NCHCN 18:28 | PROVIDERS: PCP Internal Medicine; Visit Provider Obstetrics & Gynecology Gynecology | DX: R82.998 Other abnormal findings in urine (principal); Z87.440 Personal history of urinary (tract) infections | CPT/HCPCS: 87086 ==

== ENCOUNTER 2020-08-05 19:37 | Outpatient (CLI) | payer MEDICAID, SELFPAY ==
[2020-08-05 20:10] VITALS: BP 125/71; PULSE 110; RESP 20; TEMP 36.8
[2020-08-05 20:19] VITALS: BP 125/71; PULSE 110; RESP 20; TEMP 36.8
[2020-08-05 20:59] LABS: ROM Plus Negative
--- NOTE | 2020-08-05 21:54 | W.OBNST ---
Date of service: 08/05/20 Time of Service: 21:54 NST Evaluation Reason for NST Reason for NST Other: evaluate for report of SROM Gestational Age Gestational Age in Weeks and Days: 35 Weeks and 0Days Test and Monitor Explained Test/Monitor Explained: Test Explained, Monitor Explained and Patient Verbalized Understanding NST Information NST Interventions: None Contraction Frequency: irregular Comments: mild to palpation NST Evaluation Patient States Movement: Present FHR Baseline: 150 Variability: Moderate 6-25 bpm Accelerations: 15x15 Decelerations: None NST Results: Reactive Note NST Note Note: Patient reported loss of clear fluid after urinating this evening. She was evaluated on the center and had a ROM plus performed that was negative for rupture of membranes. SVE performed to 2 cm 50% effaced 0 station mid position and cervix soft. Patient was counseled regarding signs and symptoms of labor. GBS RV CX performed. She will return to the office on 08/07/2020 for scheduled visit. NST Reviewed and Verified by: Nancy Hays
== END 2020-08-05 21:15 | disposition home or self-care (01) ==
LOC: OBS 21:08 → BCD 08-07 12:40
PROVIDERS: PCP Internal Medicine; Visit Provider Obstetrics & Gynecology Gynecology
DX: O26.893 Other specified pregnancy related conditions, third trimester (principal); Z3A.35 35 weeks gestation of pregnancy
CPT/HCPCS: 59025; 84112; 87081; G0378

== ENCOUNTER 2020-08-14 16:16 | Outpatient (REF) | payer MEDICAID, SELFPAY ==
[2020-08-14 11:45] LABS: *AMPHETAMINES SCREEN URINE Negative (Negative); *BARBITURATES SCREEN URINE Negative (Negative); *BENZODIAZEPINES SCREEN URINE Negative (Negative); Cannabinoids THC Positive (Negative); Cocaine Screen,Urine Negative (Negative); METHADONE URINE SCREEN Negative (Negative); OPIATES URINE SCREEN Negative (Negative)
[2020-08-14 11:46] LABS: Tricyclic Antidepressants Negative (Negative)
[2020-08-21 11:52] LABS: Buprenorphine Negative ng/mL (Cutoff: 5.0); Norbuprenorphine Negative ng/mL (Cutoff: 2.5)
== END 2020-08-14 16:17 | disposition home or self-care (01) ==
LOC: LBN 16:16
PROVIDERS: PCP Internal Medicine; Visit Provider Obstetrics & Gynecology Gynecology
DX: O09.93 Supervision of high risk pregnancy, unspecified, third trimester (principal); Z3A.36 36 weeks gestation of pregnancy
CPT/HCPCS: 80307

== ENCOUNTER 2020-08-18 00:20 | Inpatient (IN) | payer MEDICAID, SELFPAY ==
[2020-08-18] VITALS (18 sets, daily range): BP systolic 110–127; BP diastolic 55–79; PULSE 67–96; RESP 16–18; TEMP 36.2–36.9; O2SAT 98–99
--- NOTE | 2020-08-18 00:28 | W.PM.OBNL1 ---
Date of service: 08/18/20 Time of Service: 00:28 Pelvic Exam Dilation: 3 Effacement (%): 50 station: -3 Cervix Position: mid Consistency: soft Vaginal Exam Presentation: Vertex Contractions Monitor Mode: External Contraction Frequency(min): 4 Contraction Duration(sec): 60 Intensity: Mild/Moderate Fetus A Monitor: External (US) Heart Rate Baseline: 145 Presentation: Cephalic Variability: Moderate (6-25 BPM) Categories: Category I FHR Rhythm: Regular Accelerations: Present Decelerations: Variable Recurrence: Intermittent Amniotic Membrane Status: Intact Assessment and Plan Assessment and plan (1) HRP (high risk ): Status: Acute Assessment and plan: known advanced cervical dilation. (2) Uterine contractions: Status: Acute Assessment and plan: Q 4 minutes. Will re-check cervix in 1-2 hours. If change, will admit. if no labor or progress, d/c home (3) Group B streptococcal carriage complicating : Status: Acute Assessment and plan: antibiotics if active labor Objective Vital Signs Reviewed: Yes Subjective Interval history since last seen: Patient presents to triage with regular contractions every 3-4 minutes. Feeling damp, no gush of fluid. Good movement. Was sexually active tonight, prior to presenting. No bleeding. No signs of pre-eclampsia
[2020-08-18 03:08] LABS: HCT 36.1 % (36.0-46.0); MCH 30.8 pg (27.0-33.0); MCHC 33.2 % (32.0-36.0); MCV 92.8 fL (80-95); MPV 10.6 fL (8.0-11.0); Platelet Count 214 10^3/uL (130-400); RBC 3.89 10^6/uL (3.93-5.22); RDW 12.3 % (11.7-14.6); RDW-SD 41.2 fL; WBC 11.87 10^3/uL (4.4-10.8)
[2020-08-18] MEDS: Penicillin G POT. 5,000,000 UNITS in Normal Saline 100 ML 200 UNITS IVPB (03:13)
[2020-08-18 03:28] LABS: Source Nasal/Nares
[2020-08-18 04:17] LABS: COVID-19 PCR Negative (Negative)
--- NOTE | 2020-08-18 05:56 | HPE_ITS ---
Date of service: 08/18/20 Time of Service: 05:57 Assessment and Plan Assessment and plan (1) HRP (high risk ): Status: Acute Assessment and plan: Poor social situation. Hx shoulder dystocia (2) Normal labor: Status: Acute Assessment and plan: now 6-7 cm. continue expectant management (3) Group B streptococcal carriage complicating : Status: Acute Assessment and plan: S/P 1 dose PCN. Second due in 1 hour OB-HPI Labor/Delivery History of Present Illness Reason for Visit: RULE OUT LABOR Chief Complaint: Uterine Contractions. YAHIR Calculator Estimated Delivery Date Method Current WG Current Estimate 09/09/20 Ultrasound #1 36w 6d Other Estimates 08/21/20 LMP (Uncertain) 39w 4d History of Present Expected Delivery Route/Plan - Elects MD care Varicella Non-Immune, pt desires vaccine BB yes to circ Specific Issues/Plan 1. Opted only for [place]. Consent/Declination signed.al 1a. [place] result low prob x3, male fetus 2. BMI 36 and prev >9 lbs - early 1-hr GTT 3. History of recurrent UTI UTI - e.coli, RX 03/10/19 with Macrobid x 10 days. 07/04/20. EColi. 07/24/20 [place] 4. 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 Low dose ASA for increased pre-e risk (BMI 36) 5. Severe PP depression after last preg (was homeless, unemployed) never revealed to OB providers. No Rx. Pt counseled to consider starting SSRI at delivery. Review of Systems Narrative: Patient presented llast night with contractions after intercourse. SVE 3-4 cm, now with regular contractions every 4 minutes is 6-7 cm All systems reviewed & are unremarkable except as noted in HPI and below Constitutional Constitutional: Reports as per HPI, Denies chills, Denies fever(s) and Denies malaise Eyes Eyes: Reports system reviewed and no additional complaints, except as documented Cardiovascular Cardiovascular: Reports system reviewed and no additional complaints, except as documented, Denies chest pain and Denies palpitations Respiratory Respiratory: Denies chest congestion and Denies cough Gastrointestinal Gastrointestinal: Reports system reviewed and no additional complaints, except as documented, Denies constipation, Denies nausea and Denies vomiting Genitourinary Genitourinary: Reports system reviewed and no additional complaints, except as documented Neurologic Neurologic: Reports system reviewed and no additional complaints, except as documented Psychiatric Psychiatric: Reports system reviewed and no additional complaints, except as documented Endocrine Endocrine: Denies palpitations [facility] Medical History (Updated 08/18/20 @ 06:07 by Miriam Ferguson DO) Acute anal fissure Group B streptococcal carriage complicating History of rectal bleeding 12/2019 ED visit History of recurrent UTIs HRP (high risk ) Hx of depression, currently Seasonal allergies (10/27/14) Urinary tract infection due to Enterococcus 03/06/2019. Along with E. coli UTI. Both sensitive to Cipro. Patient will need suppression therapy for the remainder of . 03/19/2019 repeat UTI symptoms-enterococcus. On 03/24/2019 Rx with Cipro x10 days. Will need test of cure. Surgical History History of cholecystectomy removal of wisdom teeth Social History Smoking/Tobacco Use Status: Never Smoking risk assessment performed?: Yes Alcohol Intake: never Drug use: Occasionally Substance use type: marijuana Do you feel safe at home: Yes Do you feel safe in your relationship?: Yes History History 3 Para 2 Hx # Term Pregnancies 1 Multiple births 0 Hx # Pregnancies 0 Ectopic pregnancies 0 AB induced 0 Hx Number of Living Children 1 AB spontaneous 1 Past Pregnancies Del. Date GA/Weeks # Outcome Route Wgt Sex Labor Lgth Anesthes ia Location Prov Complic 06/14/17 42 No Successful vaginal 9 lb 0.34 oz Male [address] guan other 06/16/19 38 No Successful vaginal 6 lb [address] Mena shoulder dystocia Delivery Date: 06/14/17 as per pt; stuck at brow. w/o use of vacuum or forceps, baby had ble eding of head, then seizures sent to [facility] [place] at [place] three for seizures. @ [facility] [place] x 1 weeks sent home on seizure meds x 1 week. al Name is Nancy Andrade Delivery Date: 06/16/19 Felix Rose LPN,Alejandra Meds Allergies and Home Medications Allergies Allergy/AdvReac Type Severity Reaction Status Date / Time codeine [Codeine] AdvReac Intermediate hyperactivi Verified 08/18/20 03:24 ty Home Medications Medication Instructions Recorded Confirmed Type albuterol sulfate [Proventil HFA] 2 puff INHALATION Q4H PRN PRN #1 04/19/17 08/18/20 Rx inh [id number] 1 cap PO Q6H PRN #20 cap 03/06/19 08/18/20 Rx 50 mg-325 mg-40 mg capsule cyclobenzaprine 5 mg tablet 5 mg PO TID PRN #7 tab 07/05/20 08/18/20 Rx Exam Physical Exam Vital signs: Temp Pulse Resp BP Pulse Ox 97.9 F 90 16 118/75 99 08/18/20 03:29 08/18/20 03:29 08/18/20 03:29 08/18/20 03:29 08/18/20 03:29 Detailed Labor and Delivery Exam Dilation: 6 Effacement (%): 60 station: -1 Cervix position: anterior Consistency: soft Allison Score: Cervical Points Exam 0 1 2 3 Dilation Closed 1-2cm 3-4 cm 5-6cm Effacement 0-30% 40-50% 60-70% 80% Consistency Firm Medium Soft Station -3 -2 -1,0 +1,+2 Position Posterior Mid Anterior Amniotic Membrane Status: Intact Contraction Frequency(min): 4 Contraction Intensity: Moderate Fetus A Heart Rate Baseline: 132 Monitor Accelerations: 15 X 15 Monitor Decelerations: None Variability: Moderate (6-25 BPM) HEENT Exam HEENT Exam: Normal Neck Exam Neck Exam: Normal Respiratory Exam Respiratory Exam: Normal Cardiovascular Exam Cardiovascular Exam: Normal Abdominal Exam Abdominal Exam: Normal Exam Exam: Normal Extremities Exam Extremities Exam: Normal Back/Spine/Pelvis Exam Back Exam: Normal Pelvis Adequate: Yes Skin Exam Skin Exam: Normal Psychiatric Exam Psychiatric Exam: Normal Results Results Group Beta Strep: Positive Blood Type: O+ Rubella Status: Immune Varicella Immunity: Nonimmune Abnormal Lab Findings: Abnormal Labs 08/18/20 03:00 WBC 11.87 H RBC 3.89 L Risk Assessment Risk for Shoulder Dystocia Historical/Initial OB: POSITIVE FOR: Pre- BMI>30, Previous Shoulder Dystocia and Previous Macrosomia; NEGATIVE FOR: Pelvic Abnormality Increased Risk?: Yes Counselin03/08/20 reviewed delivery of first child and 2nd. Pt feeling more confident that she will deliver w/o incident but aware that she is at greater risk given her bmi, and prev. child's weight of 9lbs 3.4 oz. This child had seizure activity at home on ppday#5, which necessitated transfer to [facility] [place]. W/O seizure activity since this immediate pp period. Advised pt to keep wt gain under 40 lbs and preferably no more than 20. Will do early gct for bmi and wt. of nb > 9lbs. al Delivery Plan @ 36wks: Risk for Pre-Eclampsia Daily Dose ASA Indicated: Yes Date Initiated/Initials: 03/08/20 accepts rec. of l/d asa qd will start today. al Yes, if one or more: NEGATIVE FOR: Hx Pre-E/Gest HTN, Chronic HTN, Multiple Gestation, Pre-gestational DM, Renal Disease, Systemic Lupus or APA Syndrome Yes, if 2 or more: POSITIVE FOR: BMI>30 and Mother/Sister w/ Pre-E (03/08/20 pts sister had pre-e. al); NEGATIVE FOR: Nulliparity, Age>= 35 yrs, >10yr btwn pregnancies, ethinicty or Previous IUGR Risk for Post- Hemorrhage Initial: NEGATIVE FOR: Multiple Gestation, Previous PPH, Known Clotting Deficiency, Grand Multiparity or Anticoagulation At Risk?: No Date/Initials: [place]AN 08/18/2020 Risks Reviewed Risks Reviewed Upon Admission: Yes
[2020-08-18] MEDS: Penicillin G POT. 3,000,000 UNITS in Normal Saline 50 ML 100 UNITS IVPB (07:19)
[2020-08-18] MEDS: Normal Saline Flush 10 ML SYR IVP (07:22)
[2020-08-18] MEDS: Oxytocin/Normal Saline 30 UNIT/500 ML BAG 167 UNITS IV (09:48)
--- NOTE | 2020-08-18 10:03 | W.OBDELIVERY ---
Date of service: 08/18/20 Time of Service: 10:03 OB Labor/ Delivery Information Providers Doctor: Miriam Ferguson Nurse: Jai Matos Nurse: Ana Baez Labor/Delivery Information Number of Babies in Womb: 1 Group Beta Strep: Positive Antibiotics Administered: Yes Number of Doses of Antibiotics: 2 Rubella Status: Immune Blood Type: O+ Varicella Immunity: Nonimmune Shoulder Dystocia: No Stages of Labor Onset of Labor Date: 08/17/20 Onset of Labor Time: 20:00 Complete Dilatation Date: 08/18/20 Complete Dilatation Time: 09:40 Labor - Stage 1 Duration: 24 hours and 0 minutes ROM Baby A: 08/18/20 ROM Baby A: 07:59 ROM Total Time- Baby A: [id number] Delivery Date-Baby A: 08/18/20 Infant Delivery Time-Baby A: 09:46 Labor Stage 2 Duration: 6 minutes Placenta Delivery Date-Baby A: 08/18/20 Placenta Delivery Time-Baby A: 09:53 Labor-Stage 3 Duration: 7 minutes Total Length of Labor-Baby A: 13 hours and 46 minutes Placenta Status: Delivered Baby A Gender: Male Gestational Status: Late (34-36.6 wks) Gestational Age in Weeks/Days: 36 Weeks and 6 Days Score-1 Minute Interval(Baby A) Heart Rate-1 minute: 100 BPM or Greater Respiratory Effort- 1 minute: Spontaneous/Strong Cry Muscle Tone-1 minute: Active Movement Reflex Response-1 minute: Prompt Response Color-1 minute: Bluish Hands or Feet Total Score-1 minute: 9 Score-5 Minute Interval(Baby A) Heart Rate- 5 minute: 100 BPM or Greater Respiratory Effort-5 minute: Spontaneous/Strong Cry Muscle Tone-5 minute: Active Movement Reflex Response-5 minute: Prompt Response Color-5 minute: Bluish Hands or Feet Total Score- 5 minute: 9
[2020-08-18] MEDS: Acetaminophen 325 MG TAB 650 MG PO (11:55)
[2020-08-18] MEDS: Ibuprofen 600 MG TAB PO (11:58)
[2020-08-18] MEDS: Varicella Virus Vaccine (Live) 0.5 ML SC (15:10)
[2020-08-19 07:15] VITALS: BP 111/79; PULSE 76; RESP 16; TEMP 36.8; O2SAT 99
[2020-08-19] MEDS: Acetaminophen 325 MG TAB 650 MG PO ×3 (07:15→19:27)
[2020-08-19 07:31] LABS: HCT 33.1 % (36.0-46.0); HGB 11.2 g/dL (11.2-15.7); MCH 30.9 pg (27.0-33.0); MCHC 33.8 % (32.0-36.0); MCV 91.4 fL (80-95); MPV 10.6 fL (8.0-11.0); Platelet Count 221 10^3/uL (130-400); RBC 3.62 10^6/uL (3.93-5.22); RDW 12.2 % (11.7-14.6); RDW-SD 40.5 fL; WBC 11.91 10^3/uL (4.4-10.8)
--- NOTE | 2020-08-19 08:50 | W.PM.OBPNV1 ---
Date of service: 08/19/20 Time of Service: 08:50 Assessment and Plan Assessment and plan (1) (normal spontaneous vaginal delivery): Status: Acute Assessment and plan: Post day #1, S/P . Poor feeding today. Circ for baby tomorrow. Consent obtained. Probable D/C home tomorrow Subjective Subjective Interval history: Mom is doing well. Minimla pain. Lochia is physiologic Patient comments: No complaints and Pain well controlled baby status: Doing well; no Nursing well feeding status: Pumping and bottle feeding Exam Physical Exam Vital signs: Temp Pulse Resp BP Pulse Ox 98.2 F 76 16 111/79 99 08/19/20 07:15 08/19/20 07:15 08/19/20 07:15 08/19/20 07:15 08/19/20 07:15 Constitutional Constitutional: no acute distress and cooperative HEENT Exam HEENT Exam: Normal Neck Exam Neck Exam: Normal Cardiovascular Exam Cardiovascular Exam: Normal Fundal Exam Fundus: Below Umbilicus Extremities Exam Extremity Exam: Normal; negative Calf Tenderness Back/Spine/Pelvis Exam Back Exam: Normal Neurological Exam Neurological Exam: Normal DetailedPsychiatric Exam Psych Exam: Normal Affect, Normal Thougth Process and Cooperative Results Hemoglobin/Hematocrit: Hgb 11.2 g/dL (11.2-15.7) 08/19/20 07:15 Hct 33.1 % (36.0-46.0) L 08/19/20 07:15 Abnormal Lab Findings: Abnormal Labs 08/18/20 08/19/20 03:00 07:15 WBC 11.87 H 11.91 H RBC 3.89 L 3.62 L Hct 33.1 L
[2020-08-19] MEDS: Ibuprofen 600 MG TAB PO (19:27)
[2020-08-19 20:03] VITALS: BP 108/75; PULSE 76; RESP 18; TEMP 36.8
--- NOTE | 2020-08-20 07:29 | OBPPV_ITS ---
Date of service: 08/20/20 Time of Service: 07:29 Assessment and Plan Assessment and plan (1) (normal spontaneous vaginal delivery): Status: Acute Assessment and plan: Routine care, D/C home. Follow up in 2 weeks Subjective Subjective Patient comments: No complaints, Pain well controlled and Tolerating diet baby status: Doing well and Strong Bonding Observed [place] feeding status: Pumping and bottle feeding Exam Physical Exam Vital signs: Temp Pulse Resp BP Pulse Ox 98.3 F 76 18 108/75 99 08/19/20 20:03 08/19/20 20:03 08/19/20 20:03 08/19/20 20:03 08/19/20 07:15 Constitutional Constitutional: no acute distress HEENT Exam HEENT Exam: Normal Neck Exam Neck Exam: Normal Respiratory Exam Respiratory Exam: Normal Cardiovascular Exam Cardiovascular Exam: Normal Abdominal Exam Comments: soft, uterus firm Extremities Exam Extremity Exam: Normal; negative Calf Tenderness and Edema Skin Exam Skin Exam: Normal Psychiatric Exam Psychiatric Exam: Normal DetailedPsychiatric Exam Psych Exam: Normal Affect, Normal Thougth Process, Cooperative, Good Insight and Good Judgement Results Hemoglobin/Hematocrit: Hgb 11.2 g/dL (11.2-15.7) 08/19/20 07:15 Hct 33.1 % (36.0-46.0) L 08/19/20 07:15 Abnormal Lab Findings: Abnormal Labs 08/18/20 08/19/20 03:00 07:15 WBC 11.87 H 11.91 H RBC 3.89 L 3.62 L Hct 33.1 L
--- NOTE | 2020-08-20 07:34 | DSE_ITS ---
Date of service: 08/20/20 Time of Service: 07:34 DS: Diagnosis Discharge Diagnosis (1) (normal spontaneous vaginal delivery): Status: Acute Discharge Plan Disposition Patient Disposition: HOME Condition: Good Discharge Details Reason For Visit: RULE OUT LABOR Admit Date/Time: 08/18/20 00:21 Admit Provider: Miriam Ferguson Attending Provider: Miriam Ferguson Primary Care Provider: Hardik Lilly Hospital Course Hospital Course: Presneted in active labor at 36 6/7. Progressed to . Routine post care. D/C home PP day #2 Home Meds and New Rx's Prescriptions: New ibuprofen [IBU] 800 mg tablet 800 mg PO Q8H PRNQty: 30 RF: 1 Continued cyclobenzaprine 5 mg tablet 5 mg PO TID PRN (Reason: muscle spasm) Qty: 7 RF: 0 flfbrllnmf-oyubpltncbmsm-zzvj 50-325-40 mg capsule 1 cap PO Q6H PRN (Reason: pain) Qty: 20 RF: 0 albuterol sulfate [Proventil HFA] 200 PUFF HFA aerosol inhaler 2 puff Inhalation Q4H PRN PRNQty: 1 RF: 0 Discharge Instructions Stand Alone Forms: BC Post Vaginal Deliver Activity:: Activity as Tolerated Equipment/Supplies:: No Equipment Needed Diet:: As Tolerated Discharge Orders Discharge Orders: Discharge Order (Routine); Ordered 08/20/20 Ordered By: Miriam Ferguson OB:DS Summary Summary Episiotomy Description: None Laceration Description: None Laceration Extension: N/A Contraception Discussed Contraception Discussed: Yes (Nexplanon, post ) Contraceptive Plan: Levonorgestrel Implant, [place] Infant Gender-Baby A: Male weight: 6 lb 4.531 oz Status at Discharge Functional status at discharge: independent ambulation Overall status at discharge: patient is back to baseline Mental Status: mental status grossly normal Speech and Movement: speech and movement normal Mood: congruent mood Affect: normal affect Exam Physical Exam Vital signs: Temp Pulse Resp BP Pulse Ox 98.3 F 76 18 108/75 99 08/19/20 20:03 08/19/20 20:03 08/19/20 20:03 08/19/20 20:03 08/19/20 07:15 Constitutional Comments: See progress note dated 08/20/2020 [facility] Medical History Acute anal fissure Group B streptococcal carriage complicating History of rectal bleeding 12/2019 ED visit History of recurrent UTIs HRP (high risk ) Hx of depression, currently (normal spontaneous vaginal delivery) Seasonal allergies (10/27/14) Urinary tract infection due to Enterococcus 03/06/2019. Along with E. coli UTI. Both sensitive to Cipro. Patient will need suppression therapy for the remainder of . 03/19/2019 repeat UTI symptoms-enterococcus. On 03/24/2019 Rx with Cipro x10 days. Will need test of cure. Surgical History History of cholecystectomy removal of wisdom teeth Social History Smoking/Tobacco Use Status: Never Smoking risk assessment performed?: Yes Alcohol Intake: never Drug use: Occasionally Substance use type: marijuana Do you feel safe at home: Yes Do you feel safe in your relationship?: Yes History History 3 Para 2 Hx # Term Pregnancies 1 Multiple births 0 Hx # Pregnancies 0 Ectopic pregnancies 0 AB induced 0 Hx Number of Living Children 1 AB spontaneous 1 Past Pregnancies Del. Date GA/Weeks # Outcome Route Wgt Sex Labor Lgth Anesthes ia Location [facility] 06/14/17 42 No Successful vaginal 9 lb 0.34 oz Male [address] guan other 06/16/19 38 No Successful vaginal 6 lb [address] Mena shoulder dystocia Delivery Date: 06/14/17 as per pt; infant stuck at brow. w/o use of vacuum or forceps, baby had bleeding of head, then [place] [facility] [place] [facility] [place] home on seizure meds x 1 week. al Name is Nancy Andrade Delivery Date: 06/16/19 Alejandra Sotelo LPN DS: Data Vitals/I&O Vitals and I&O: Vital Signs Temperature 98.3 F 08/19/20 20:03 Pulse 76 08/19/20 20:03 Pulse Rhythm Regular 08/19/20 21:00 Respiratory Rate 18 08/19/20 20:03 Respiratory Depth Normal 08/18/20 03:29 Blood Pressure 108/75 08/19/20 20:03 Blood Pressure Mean 86 08/19/20 20:03 Pulse Oximetry 99 08/19/20 07:15 Oxygen Delivery Method Room Air 08/18/20 03:29 Oxygen Flow Rate 0 08/18/20 03:29 Pain Level 3 08/19/20 20:03 Data Completed and Pending Labs on day of discharge: Labs from last 24 hours 08/19/20 07:15 WBC 11.91 H RBC 3.62 L Hgb 11.2 Hct 33.1 L MCV 91.4 MCH 30.9 MCHC 33.8 RDW 12.2 Plt Count 221 MPV 10.6
[2020-08-20 08:25] VITALS: BP 118/82; PULSE 78; RESP 16; TEMP 36.8; O2SAT 99
[2020-08-20 12:54] VITALS: BP 120/80; PULSE 75; RESP 16; TEMP 36.5; O2SAT 98
[2020-08-20 15:20] VITALS: BP 118/79; PULSE 86; RESP 16; TEMP 36.7; O2SAT 98
[2020-08-20] MEDS: Acetaminophen 325 MG TAB 650 MG PO (15:21)
[2020-08-20] MEDS: Ibuprofen 600 MG TAB PO (15:22)
== END 2020-08-20 17:15 | disposition home or self-care (01) | DRG 807 ==
PROVIDERS: Admitting Provider Obstetrics & Gynecology; PCP Internal Medicine; Visit Provider Obstetrics & Gynecology
DX: O99.824 Streptococcus B carrier state complicating childbirth (principal); Z37.0 Single live birth; Z3A.36 36 weeks gestation of pregnancy
CPT/HCPCS: 36415; 85027; 86850; 86900; 86901; 87635; G0378; J2540

== ENCOUNTER 2021-04-09 02:05 | Outpatient (CLI) | payer MEDICAID, SELFPAY ==
[2021-04-09 17:18] LABS: Kit/Specimen SENT
[2021-04-09 17:31] LABS: Glucose,1 Hr (Glucola) 56 mg/dL (80-140)
[2021-04-09 17:32] LABS: Abs Immature Grans 0.04 10^3/uL (0.0-0.06); Absolute Basophil Count 0.02 10^3/uL (0.0-0.2); Absolute Eosinophil Count 0.06 10^3/uL (0.0-0.7); Absolute Lymphocyte Count 1.64 10^3/uL (1.2-3.4); Absolute Monocyte Count 0.64 10^3/uL (0.1-0.8); Absolute Neutrophil Count 7.11 10^3/uL (1.2-6.7); Basophils % 0.2; Eosinophils % 0.6; HCT 40.7 % (36.0-46.0); Immature Grans % 0.4; Lymphocytes % 17.2; MCH 31.1 pg (27.0-33.0); MCHC 34.4 % (32.0-36.0); MCV 90.4 fL (80-95); MPV 10.6 fL (8.0-11.0); Monocytes % 6.7; Neutrophils % 74.9; Nucleated RBC 0 %; Platelet Count 234 10^3/uL (130-400); RDW 11.9 % (11.7-14.6); RDW-SD 38.8 fL; WBC 9.51 10^3/uL (4.4-10.8)
[2021-04-11 09:39] LABS: Varicella IgG Antibody Positive (See Note)
[2021-04-11 09:42] LABS: Rubella IgG Ab (UVM) Positive (See Note)
[2021-04-11 10:53] LABS: Hepatitis C Ab w Rflx HCV PCR Negative (Negative)
[2021-04-11 11:41] LABS: HIV-1/2 Ag & Ab Screen Negative (Negative)
[2021-04-11 12:34] LABS: Hepatitis B Surface Ag Negative (Negative)
[2021-04-11 22:27] LABS: Syphilis IgG w/Reflex Nonreactive (Nonreactive)
== END 2021-04-09 02:06 | disposition home or self-care (01) ==
LOC: LBO 02:05
PROVIDERS: PCP Internal Medicine; Visit Provider Advanced Practice Midwife
DX: Z34.81 Encounter for supervision of other normal pregnancy, first trimester (principal)
CPT/HCPCS: 82950; 86787; 86803; 86850; 86900; 86901; 87340; 87389; 85025; 86762; 86780

== ENCOUNTER 2021-04-09 16:40 | Outpatient (REF) | payer MEDICAID, SELFPAY ==
[2021-04-09 21:14] LABS: *AMPHETAMINES SCREEN URINE Negative (Negative); *BARBITURATES SCREEN URINE Negative (Negative); *BENZODIAZEPINES SCREEN URINE Negative (Negative); Cannabinoids THC Positive (Negative); Cocaine Screen,Urine Negative (Negative); METHADONE URINE SCREEN Negative (Negative); OPIATES URINE SCREEN Negative (Negative)
[2021-04-09 21:20] LABS: Tricyclic Antidepressants Negative (Negative)
[2021-04-11 13:31] LABS: Chlamydia Result Negative (Negative); GC Result Negative (Negative)
[2021-04-16 08:46] LABS: Buprenorphine Negative ng/mL (Cutoff: 5.0); Norbuprenorphine Negative ng/mL (Cutoff: 2.5)
== END 2021-04-09 16:41 | disposition home or self-care (01) ==
LOC: LBN 16:40
PROVIDERS: PCP Internal Medicine; Visit Provider Advanced Practice Midwife
DX: Z34.91 Encounter for supervision of normal pregnancy, unspecified, first trimester (principal); N89.8 Other specified noninflammatory disorders of vagina
CPT/HCPCS: 80307; 87077; 87491; 87591; 87086; 87186; 87480; 87510; 87660

== ENCOUNTER 2021-05-28 01:54 | Outpatient (CLI) | payer MEDICAID, SELFPAY ==
--- NOTE | 2021-05-28 07:45 | DI.US_ITS ---
Exam(s) US OB 2-3 TRIMESTER EXAM: US OB 2-3 TRIMESTER CLINICAL HISTORY: anatomy, Z34.92, SURVEY. TECHNIQUE: Transabdominal obstetrical ultrasound performed. COMPARISON: US US OB 2-3 TRIMESTER from 04/06/2020 FINDINGS: Transabdominal obstetrical ultrasound performed. FINDINGS: Number of fetuses: One. position: Varied throughout the examination. heart rate: 126 bpm. Placental location: There is a grade 1 anterior placenta. No evidence of previa. Amniotic fluid index: Amount of fluid is within normal limits. ANATOMICAL SURVEY: Within normal limits. BIOMETRIC DATA: BPD: 3.8cm consistent with 17 weeks 3 days HC: 14.4cm consistent with 17 weeks 4 days AC: 12.6cm consistent with 18 weeks 1 day FL: 2.6cm consistent with 17 weeks 6 days Cisterna Magna: 3.9 mm Cerebellum: 1.72 cm EFW: 218 grms 11% Composite Age: 17 weeks 5 days EDC by US: 10/31/2021 IMPRESSION: 1. Single live intrauterine gestation as above. 2. Normal anatomic survey. DATA REPOSITORY:
== END 2021-05-28 02:14 ==
PROVIDERS: PCP Internal Medicine; Visit Provider Advanced Practice Midwife
DX: Z34.92 Encounter for supervision of normal pregnancy, unspecified, second trimester (principal); Z3A.17 17 weeks gestation of pregnancy
CPT/HCPCS: 76805

== ENCOUNTER 2021-07-12 09:33 | Outpatient (CLI) | payer MEDICAID, SELFPAY ==
[2021-07-12] VITALS (12 sets, daily range): BP systolic 114; BP diastolic 52; PULSE 89–102; TEMP 36.8; O2SAT 100
[2021-07-12 20:25] LABS: HCT 38.4 % (36.0-46.0); HGB 12.7 g/dL (11.2-15.7); MCHC 33.1 % (32.0-36.0); MCV 94 fL (80-95); MPV 10.7 fL (8.0-11.0); Platelet Count 181 10^3/uL (130-400); RDW 12.8 % (11.7-14.6); RDW-SD 44.2 fL; WBC 14.03 10^3/uL (4.4-10.8)
[2021-07-12 20:38] LABS: ALT 21 U/L (14-59); AST 13 U/L (15-37); Albumin 3.1 g/dL (3.4-5.0); Alkaline Phosphatase 100 U/L (46-116); Anion Gap 10.2 mmol/L (3-11); BUN 9 mg/dL (7-18); Bilirubin, Total 0.7 mg/dL (0.2-1.0); CO2 22.8 mmol/L (21.0-32.0); CREATININE 0.6 mg/dL (0.55-1.02); Calcium 8.4 mg/dL (8.5-10.1); Chloride 105 mmol/L (98-107); Glucose 77 mg/dL (74-106); Potassium 3.5 mmol/L (3.5-5.1); Sodium 138 mmol/L (136-145); Total Protein 7.2 g/dL (6.4-8.2)
--- NOTE | 2021-07-12 21:04 | W.OBNST ---
Date of service: 07/12/21 Time of Service: 20:05 NST Evaluation Reason for NST Reason for NST Other: Abdominal pain Gestational Age Gestational Age in Weeks and Days: 25 Weeks and 1Days Test and Monitor Explained Test/Monitor Explained: Test Explained and Monitor Explained Vital Signs Blood Pressure: 114/52 Pulse: 102 Temperature: 98.2 F NST Information Date on Monitor: 07/12/21 Time on Monitor: 18:30 Date off Monitor: 07/12/21 Time off Monitor: 19:31 Total Time on Monitor: 61 NST Interventions: PO Hydration NST Evaluation Patient States Movement: Present FHR Baseline: 145 Variability: Moderate 6-25 bpm Accelerations: None Decelerations: None NST Results: Non-Reactive Note NST Note Note: 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 Take all the antibiotics till completed. Amoxicillin 500mg TID x7 days. Reviewed VS and labs. Pt okay to be discharged to home. Will call pt on Thursday and arrange f/u office visit at [facility]. NST variability c/w gestational age. NST Reviewed and Verified by: Nancy Hays
[2021-07-12] MEDS: Amoxicillin 500 MG CAP PO (21:24)
--- NOTE | 2021-07-25 19:11 | PDOC.NST_ITS ---
Date of service: 07/12/21 Time of Service: 18:12 NST Evaluation Reason for NST Reasons for Nonstress Test: OTHER, SEE COMMENT Reason for NST Other: Abdominal pain Gestational Age Gestational Age in Weeks and Days: 25 Weeks and 1Days Test and Monitor Explained Test/Monitor Explained: Test Explained and Monitor Explained Vital Signs Blood Pressure: 114/52 Pulse: 102 Temperature: 98.2 F NST Information Date on Monitor: 07/12/21 Time on Monitor: 18:30 Date off Monitor: 07/12/21 Time off Monitor: 19:31 Total Time on Monitor: 61 NST Interventions: PO Hydration NST Evaluation Patient States Movement: Present FHR Baseline: 145 Variability: Moderate 6-25 bpm Accelerations: None Decelerations: None NST Results: Non-Reactive Note NST Note Note: Patient evaluated for potential liver on the center. Evaluation was neg ative for rupture membranes cervical change or uterine contractions. She will follow-up for [facility] near future. NST Reviewed and Verified by: Nancy Hays
[2021-07-25 19:12] VITALS: BP 114/52; PULSE 102; TEMP 36.8
== END 2021-07-12 18:22 | disposition home or self-care (01) ==
LOC: OBS 07-15 14:03 → BCD 07-17 09:33
PROVIDERS: PCP Internal Medicine; Visit Provider Obstetrics & Gynecology Gynecology
DX: O26.892 Other specified pregnancy related conditions, second trimester (principal); Z3A.25 25 weeks gestation of pregnancy; R10.9 Unspecified abdominal pain
CPT/HCPCS: 80053; 85027; 87077; 59025; 87086; 87186

== ENCOUNTER 2021-07-12 17:37 | Observation (INO) | payer MEDICAID, SELFPAY ==
[2021-07-12 17:59] VITALS: BP 121/54; PULSE 103; RESP 14; TEMP 37.3
--- NOTE | 2021-07-12 18:17 | W.ED.GENAD ---
Discharge Plan Disposition Patient Disposition: LEFT WITHOUT BEING SEEN Discharge Details Primary Care Provider: Hardik Lilly ED Provider: Provider,Kan Medical Decision Making Informed by ER staff that Dr. Soto who is on for SHUTTLE PREPARATION SUPERVISOR will see the patient up in the Center. Patient to be triaged to L&D. Patient not seen and evaluated by myself was seen by ER nurses only. HPI General Date/Time Provider Initiated Documentation: 07/12/21 17:53. Related Data Home Medications Medication Instructions Recorded Confirmed albuterol sulfate 90 mcg/actuation 2 puff inhalation Q4H PRN PRN #1 04/19/17 07/12/21 aerosol inhaler (Proventil HFA) inh prenat.vits,berenice,zpd-vgkc-vprnv 1 tab PO DAILY 03/14/21 04/09/21 amoxicillin 500 mg tablet 500 mg PO Q8H #20 tabs 07/12/21 Previous Rx's Medication Instructions Recorded albuterol sulfate 90 mcg/actuation 2 puff inhalation Q4H PRN PRN #1 04/19/17 aerosol inhaler (Proventil HFA) inh amoxicillin 500 mg tablet 500 mg PO Q8H #20 tabs 07/12/21 Allergies Allergy/AdvReac Type Severity Reaction Status Date / Time codeine [Codeine] AdvReac Intermediate hyperactivi Verified 04/09/21 15:03 ty General Stated Complaint: Abd Prob PHIL: 3 PFSH All Active Problems (Updated 07/12/21 @ 23:18 by Lis Cárdenas) Abdominal pain during (Acute) Left flank pain (Acute) Vaginal discharge during (Acute) (Acute) History of shoulder dystocia in prior , currently (Acute) BMI 38.0-38.9,adult (Acute) Positive test (Acute) Hx of depression, currently (Acute) History of recurrent UTIs (Acute) Seasonal allergies (Acute 10/27/14) Medical History (Updated 07/12/21 @ 23:18 by Lis Cárdenas) Susceptible to varicella (non-immune), currently Urinary tract infection due to Enterococcus 03/06/2019. Along with E. coli UTI. Both sensitive to Cipro. Patient will need suppression therapy for the remainder of . 03/19/2019 repeat UTI symptoms-enterococcus. On 03/24/2019 Rx with Cipro x10 days. Will need test of cure. Surgical History (Updated 03/07/21 @ 15:32 by Makenna Johnson NP) History of cholecystectomy removal of wisdom teeth Family History (Updated 04/09/21 @ 15:35 by Mariela Monaco CNM) Father Alcohol use disorder Heart disease Hyperlipidemia Hypertension Paternal Uncle Alcohol use disorder Paternal Grandfather Alcohol use disorder Maternal Aunt Breast cancer Great Aunt, diagnosed under age 50 Maternal Uncle Colon cancer Maternal Grandmother Cancer liver or stomach Self Depression Social History Smoking/Tobacco Use Status: Current-Occasional Smoking risk assessment performed?: Yes Alcohol Intake: never Drug use: Occasionally Substance use type: marijuana Details: Marijuana smoker once a week. Do you feel safe at home: Yes Do you feel safe in your relationship?: Yes History History 7 Para 3 Hx # Term Pregnancies 3 Multiple births 0 Hx # Pregnancies 0 Ectopic pregnancies 0 AB induced 0 Hx Number of Living Children 3 AB spontaneous 3 Past Pregnancies Del. Date GA/Weeks # Outcome Route Wgt Sex Labor Lgth Anesthesia Location Prov Complic 06/14/17 42 No Successful vaginal 4091.97 g Male [address] guan shoulder dystocia 09/16/17 6 other 02/10/18 6 other 03/30/19 4 other 06/16/19 38 No Successful vaginal 3061.[address] Mena 08/18/20 36 No Successful vaginal 2849.127 g Male 3 KJ Delivery Date: 06/14/17 Last Updated by: Nancy Guan M.D. as per pt; infant stuck at brow. w/o use of vacuum or forceps, baby had bleeding of head, then seizures [place] [facility] [place]. @ [facility] [place] sent home on seizure meds x 1 week. al Name is George Delivery Date: 09/16/17 Last Updated by: Mariela Monaco CNM SAB Delivery Date: 02/10/18 Last Updated by: Mariela Monaco CNM SAB Delivery Date: 03/30/19 Last Updated by: Mariela Monaco CNM SAB Delivery Date: 06/16/19 Last Updated by: CHERYL Fenton Delivery Date: 08/18/20 Last Updated by: Mariela Monaco, BEATRICE Canchola Jr. Course Vital Signs Vital signs: Vital Signs Temperature 37.3 C 07/12/21 17:59 Pulse 103 H 07/12/21 17:59 Respiratory Rate 14 07/12/21 17:59 Blood Pressure 121/54 L 07/12/21 17:59 Temperature 37.3 C 07/12/21 17:59 Pulse 103 H 07/12/21 17:59 Respiratory Rate 14 07/12/21 17:59 Blood Pressure 121/54 L 07/12/21 17:59 Oxygen Delivery Method Room Air 07/12/21 17:59 Oxygen Flow Rate 0 07/12/21 17:59 Pain Level 6 07/12/21 17:59 Comment 07/12/21 17:59
[2021-07-12 18:34] VITALS: BP 121/54; PULSE 103; RESP 14; TEMP 37.3
== END 2021-07-12 23:55 | disposition home or self-care (01) ==
LOC: ER 18:20 → NUR 20:12
PROVIDERS: Admitting Provider Obstetrics & Gynecology Gynecology; PCP Internal Medicine; Visit Provider Obstetrics & Gynecology Gynecology
DX: O26.892 Other specified pregnancy related conditions, second trimester (principal); Z3A.25 25 weeks gestation of pregnancy; R10.32 Left lower quadrant pain; O99.332 Smoking (tobacco) complicating pregnancy, second trimester; F17.210 Nicotine dependence, cigarettes, uncomplicated
CPT/HCPCS: 59025; 80053; 85027; 87077; 87086; 87186

== ENCOUNTER 2021-08-01 03:06 | Outpatient (CLI) | payer MEDICAID, SELFPAY | END 2021-08-01 03:07 | disposition home or self-care (01) | LOC: LBO 03:07 | PROVIDERS: PCP Internal Medicine; Visit Provider Obstetrics & Gynecology ==

== ENCOUNTER 2021-09-03 15:13 | Outpatient (REF) | payer MEDICAID, SELFPAY ==
[2021-09-03 16:47] LABS: ROM Plus Negative
== END 2021-09-03 15:14 | disposition home or self-care (01) ==
LOC: LBN 15:13
PROVIDERS: PCP Internal Medicine; Visit Provider Obstetrics & Gynecology
DX: O26.893 Other specified pregnancy related conditions, third trimester (principal); R10.9 Unspecified abdominal pain; Z3A.32 32 weeks gestation of pregnancy
CPT/HCPCS: 84112

== ENCOUNTER 2021-09-09 03:30 | Outpatient (CLI) | payer MEDICAID, SELFPAY | END 2021-09-09 03:31 | disposition home or self-care (01) | LOC: LBO 03:30 | PROVIDERS: PCP Internal Medicine; Visit Provider Obstetrics & Gynecology ==

== ENCOUNTER 2021-09-17 15:29 | Outpatient (REF) | payer MEDICAID, SELFPAY | END 2021-09-17 15:30 | disposition home or self-care (01) | LOC: LBN 15:29 | PROVIDERS: PCP Internal Medicine; Visit Provider Obstetrics & Gynecology | DX: Z34.93 Encounter for supervision of normal pregnancy, unspecified, third trimester (principal); Z3A.34 34 weeks gestation of pregnancy | CPT/HCPCS: 87086 ==

== ENCOUNTER 2021-09-19 01:46 | Outpatient (CLI) | payer MEDICAID, SELFPAY | END 2021-09-19 01:47 | disposition home or self-care (01) | LOC: LBO 01:46 | PROVIDERS: PCP Internal Medicine; Visit Provider Obstetrics & Gynecology ==

== ENCOUNTER 2021-10-02 07:23 | Inpatient (IN) | payer MEDICAID, SELFPAY ==
[2021-10-02] VITALS (14 sets, daily range): BP systolic 111–138; BP diastolic 56–78; PULSE 63–206; RESP 16–22; TEMP 36.4–36.7; O2SAT 97
--- NOTE | 2021-10-02 07:33 | ED.GENADUL_ITS ---
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 She states they started last night but was able to sleep through them. This morning they are more painful and about 10 minutes apart. She denies vaginal bleeding or discharge. She arrives stable in no distress on exam, has a nontender abdomen, FHR 137. Will consult obgyn to admit her to center discussed with Dr. Ferguson who accepts her to go to the center. Differential Diagnosis Differential Diagnosis: labor, basim mayers HPI General Mode of arrival: ambulatory . Date/Time Provider Initiated Documentation: 10/02/21 07:26 . Limitations to Documentation: no limitations . Information obtained by: patient . History of Present Illness 26 year old F presents to the emergency department with the chief complaint of contractions, described as moderate, Patient started experiencing this day(s) (1) and it has been intermittent. No relieving factors improve symptom(s), No exacerbating factors reported . Patient notes no other symptoms.. Patient did receive the following treatments prior to arrival, none Related Data Home Medications Medication Instructions Recorded Confirmed albuterol sulfate 90 mcg/actuation 2 puff inhalation Q4H PRN PRN #1 04/19/17 10/02/21 aerosol inhaler (Proventil HFA) inh prenat.vits,berenice,upa-jpsm-domyw 1 tab PO DAILY 03/14/21 10/02/21 Previous Rx's Medication Instructions Recorded albuterol sulfate 90 mcg/actuation 2 puff inhalation Q4H PRN PRN #1 04/19/17 aerosol inhaler (Proventil HFA) inh Allergies Allergy/AdvReac Type Severity Reaction Status Date / Time codeine [Codeine] AdvReac Intermediate hyperactivi Verified 10/02/21 07:30 ty General 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 PHIL: 3 Review of Systems All systems reviewed & are unremarkable except as noted in HPI and below Constitutional Constitutional: Denies chills, Denies fever(s) and Denies weakness Cardiovascular Cardiovascular: Denies chest pain and Denies dyspnea Respiratory Respiratory: Denies cough and Denies dyspnea Gastrointestinal Gastrointestinal: Denies nausea and Denies vomiting Genitourinary Genitourinary: Denies dysuria Neurologic Neurologic: Denies weakness PFSH All Active Problems (Updated 09/18/21 @ 12:13 by Yari Smyth) Other specified counseling (Acute) Abdominal pain during (Acute) Left flank pain (Acute) Vaginal discharge during (Acute) (Acute) History of shoulder dystocia in prior , currently (Acute) BMI 38.0-38.9,adult (Acute) Positive test (Acute) Hx of depression, currently (Acute) History of recurrent UTIs (Acute) Seasonal allergies (Acute 10/27/14) Medical History (Updated 09/18/21 @ 12:13 by Yari Smyth) Susceptible to varicella (non-immune), currently Urinary tract infection due to Enterococcus 03/06/2019. Along with E. coli UTI. Both sensitive to Cipro. Patient will need suppression therapy for the remainder of . 03/19/2019 repeat UTI symptoms-enterococcus. On 03/24/2019 Rx with Cipro x10 days. Will need test of cure. Surgical History (Updated 03/07/21 @ 15:32 by Makenna Johnson NP) History of cholecystectomy removal of wisdom teeth Family History (Updated 04/09/21 @ 15:35 by Mariela Monaco CNM) Father Alcohol use disorder Heart disease Hyperlipidemia Hypertension Paternal Uncle Alcohol use disorder Paternal Grandfather Alcohol use disorder Maternal Aunt Breast cancer Great Aunt, diagnosed under age 50 Maternal Uncle Colon cancer Maternal Grandmother Cancer liver or stomach Self Depression Social History Smoking/Tobacco Use Status: Current-Occasional Smoking risk assessment performed?: Yes Alcohol Intake: never Drug use: Occasionally Substance use type: marijuana Details: Marijuana smoker once a week. Do you feel safe at home: Yes Do you feel safe in your relationship?: Yes History History 7 Para 3 Hx # Term Pregnancies 3 Multiple births 0 Hx # Pregnancies 0 Ectopic pregnancies 0 AB induced 0 Hx Number of Living Children 3 AB spontaneous 3 Past Pregnancies Del. Date GA/Weeks # Preg Succ Route Wgt Sex Labor Lgth Anesth esia Location [facility] 06/14/17 42 No vaginal 4091.97 g Male [address] guan shoulder dystocia 09/16/17 6 other 02/10/18 6 other 03/30/19 4 other 06/16/19 38 No vaginal 3061.[address] Brent pcek 08/18/20 36 No vaginal 2849.127 g Male 3 KJ Delivery Date: 06/14/17 Last Updated by: Nancy Guan M.D. as per pt; stuck at brow. w/o use of vacuum or forceps, baby had bleeding of head, then seizures infant sent to [facility] [place] at day three for seizures. @ [facility] [place] x 1 weeks sent home on seizure meds x 1 week. al Name is George Delivery Date: 09/16/17 Last Updated by: BEATRICE Barrow Delivery Date: 02/10/18 Last Updated by: Mariela Monaco CNM [facility] Delivery Date: 03/30/19 Last Updated by: Mariela Monaco CNM [facility] Delivery Date: 06/16/19 Last Updated by: CHERYL Fenton Delivery Date: 08/18/20 Last Updated by: BEATRICE Barrow Jr. Exam Const General: no acute distress Orientation: alert [facility] Head: normal to inspection Ears: external ears normal General nose exam: external nose normal Mouth: moist mucous membranes Eyes General: appearance normal, both eyes and all related structures Neck Neck: normal visual inspection Resp Effort & Inspection: normal respiratory effort and able to speak in complete sentences Cardio Rate: regular rate GI Palpation: nontender Skin General skin exam: no rashes or lesions noted Neuro General: patient alert and patient oriented x3 Extrem General: normal to inspection Psych Mental Status: mental status grossly normal Course Vital Signs Vital signs: Vital Signs Temperature 36.4 C L 10/02/21 07:27 Pulse 85 10/02/21 07:27 Respiratory Rate 20 10/02/21 07:27 Blood Pressure 125/78 10/02/21 07:27 Pulse Oximetry 97 10/02/21 07:27 Temperature 36.4 C L 10/02/21 07:27 Temperature Source Skin 10/02/21 07:27 Pulse 85 10/02/21 07:27 Respiratory Rate 20 10/02/21 07:27 Respiratory Effort Non-Labored 10/02/21 07:31 Blood Pressure 125/78 10/02/21 07:27 Blood Pressure Position Sitting 10/02/21 07:27 Pulse Oximetry 97 10/02/21 07:27 Oxygen Delivery Method Room Air 10/02/21 07:27 Oxygen Flow Rate 0 10/02/21 07:27 Pain Level 0 10/02/21 07:27
[2021-10-02] MEDS: Penicillin G POT. 5,000,000 UNITS in Normal Saline 100 ML 200 UNITS IVPB (08:11)
[2021-10-02 08:32] LABS: HGB 12.3 g/dL (11.2-15.7); MCH 30.7 pg (27.0-33.0); MCHC 34.2 % (32.0-36.0); MCV 90 fL (80-95); MPV 10.8 fL (8.0-11.0); Platelet Count 182 10^3/uL (130-400); RBC 4.01 10^6/uL (3.93-5.22); RDW 12.9 % (11.7-14.6); RDW-SD 42.2 fL; WBC 8.21 10^3/uL (4.4-10.8)
[2021-10-02 08:36] LABS: Source Nasal/Nares
--- NOTE | 2021-10-02 08:42 | HPE_ITS ---
Date of service: 10/02/21 Time of Service: 08:42 Assessment and Plan Assessment and plan (1) Active labor: Status: Acute Assessment and plan: Patient is an active labor madelin every 3 to 5 minutes with a cervix that is 5 cm, 80%, -1 station. She is group B strep unknown. Group B strep culture was performed today. She will be treated empirically with penicillin G. Will await artificial rupture of membranes until her second dose if possible. Overall, though she has a reassuring maternal- status. We will check a CBC, type and screen, COVID testing today. I would anticipate normal spontaneous vaginal delivery. OB-HPI Labor/Delivery History of Present Illness Reason for Visit: Rule Out Labor Chief Complaint: Uterine Contractions. YAHIR Calculator Estimated Delivery Date Method Current WG Current Estimate 10/24/21 Ultrasound #1 36w 6d Other Estimates 10/21/21 LMP (Uncertain) 37w 2d Comments: Patient presented to the emergency department today with complaints of contractions and some mucus discharge. She is 36 weeks and 6 days today. She was scheduled for visit yesterday and group B strep culture, however she did not present for this appointment due to family issues. Today, she states that she is feeling well. Baby's been moving and active. She denies loss of fluid. She has no signs or symptoms of preeclampsia. History of Present Expected Delivery Route/Plan MD care, ELOISA; FOB Luis Patient is COVID vaccinated X1 planning second, FOB is not Vaccinated Breast feeding in hospital at least Planning Tubal Ligation Specific Issues/Plan 1. Pap due 11/2021 2. History of kidney infection, believes she has UTI at initial RX sent presumptive 3. Due to BMI and Mother and Sister had pre-eclampsia and history of frequent UTI / kidney disease will begin lo dose ASA at 12 wk 4. Early glucola 56 5. Panorama Declined SMA and CF testing 6. Initial UDS + THC Narrative: Active labor with a cervix that is 5 cm, 80%, -1 station occiput transverse position. Group B strep culture was performed. She will be treated empirically with penicillin G, 5,000,000 units followed by 2,500,000 units while awaiting her group B strep culture. Review of Systems Narrative: Painful regular contractions approximately every 3 to 5 minutes All systems reviewed & are unremarkable except as noted in HPI and below Constitutional Constitutional: Reports as per HPI, Denies chills, Denies fever(s) and Denies malaise Eyes Eyes: Reports system reviewed and no additional complaints, except as documented Cardiovascular Cardiovascular: Reports system reviewed and no additional complaints, except as documented, Denies chest pain and Denies palpitations Respiratory Respiratory: Denies chest congestion and Denies cough Gastrointestinal Gastrointestinal: Reports system reviewed and no additional complaints, except as documented, Denies constipation, Denies nausea and Denies vomiting Genitourinary Genitourinary: Reports system reviewed and no additional complaints, except as documented Neurologic Neurologic: Reports system reviewed and no additional complaints, except as documented Psychiatric Psychiatric: Reports system reviewed and no additional complaints, except as documented Endocrine Endocrine: Denies palpitations PFSH All Active Problems (Updated 10/02/21 @ 08:46 by Miriam Ferguson DO) Active labor (Acute) Other specified counseling (Acute) Abdominal pain during (Acute) Left flank pain (Acute) Vaginal discharge during (Acute) (Acute) History of shoulder dystocia in prior , currently (Acute) BMI 38.0-38.9,adult (Acute) Positive test (Acute) Hx of depression, currently (Acute) History of recurrent UTIs (Acute) Seasonal allergies (Acute 10/27/14) Medical History (Updated 10/02/21 @ 08:46 by Miriam Ferguson DO) Susceptible to varicella (non-immune), currently Urinary tract infection due to Enterococcus 03/06/2019. Along with E. coli UTI. Both sensitive to Cipro. Patient will need suppression therapy for the remainder of . 03/19/2019 repeat UTI symptoms-enterococcus. On 03/24/2019 Rx with Cipro x10 days. Will need test of cure. Surgical History (Updated 03/07/21 @ 15:32 by Makenna Johnson NP) History of cholecystectomy removal of wisdom teeth Family History (Updated 04/09/21 @ 15:35 by Mariela Monaco CNM) Father Alcohol use disorder Heart disease Hyperlipidemia Hypertension Paternal Uncle Alcohol use disorder Paternal Grandfather Alcohol use disorder Maternal Aunt Breast cancer Great Aunt, diagnosed under age 50 Maternal Uncle Colon cancer Maternal Grandmother Cancer liver or stomach Self Depression Social History Smoking/Tobacco Use Status: Never Smoking risk assessment performed?: Yes Alcohol Intake: never Drug use: Occasionally Substance use type: marijuana Details: Marijuana smoker once a week. Do you feel safe at home: Yes Do you feel safe in your relationship?: Yes History History 7 Para 3 Hx # Term Pregnancies 3 Multiple births 0 Hx # Pregnancies 0 Ectopic pregnancies 0 AB induced 0 Hx Number of Living Children 3 AB spontaneous 3 Past Pregnancies Del. Date GA/Weeks # Preg Succ Route Wgt Sex Labor Lgth Anesth esia Location Prov Complic 06/14/17 42 No vaginal 9 lb 0.34 oz Male 24 hrs d keila guan shoulder dystocia 09/16/17 6 other 02/10/18 6 other 03/30/19 4 other 06/16/19 38 No vaginal 6 lb [address] Brent peck 08/18/20 36 No vaginal 6 lb 4.5 oz Male 3 KJ Delivery Date: 06/14/17 Last Updated by: Nancy Guan M.D. as per pt; infant stuck at brow. w/o use of vacuum or forceps, baby had bleeding of head, then [place] [facility] [place] [facility] [place] home on seizure meds x 1 week. al Name is George Delivery Date: 09/16/17 Last Updated by: BEATRICE Barrow Delivery Date: 02/10/18 Last Updated by: BEATRICE Barrow Delivery Date: 03/30/19 Last Updated by: BEATRICE Barrow Delivery Date: 06/16/19 Last Updated by: CHERYL Fenton Delivery Date: 08/18/20 Last Updated by: BEATRICE Barrow Jr. Meds Allergies and Home Medications Allergies Allergy/AdvReac Type Severity Reaction Status Date / Time codeine [Codeine] AdvReac Intermediate hyperactivi Verified 10/02/21 07:30 ty Home Medications Medication Instructions Recorded Confirmed Type albuterol sulfate 90 mcg/actuation 2 puff inhalation Q4H PRN PRN #1 04/19/17 10/02/21 Rx aerosol inhaler (Proventil HFA) inh prenat.vits,berenice,per-aqpi-olxdu 1 tab PO DAILY 03/14/21 10/02/21 History Exam Physical Exam Vital signs: Temp Pulse Resp BP Pulse Ox 97.5 F L 85 20 125/78 97 10/02/21 07:27 10/02/21 07:27 10/02/21 07:27 10/02/21 07:27 10/02/21 07:27 Detailed Labor and Delivery Exam Dilation: 5 Effacement (%): 80 station: -1 Position: LOT Cervix position: anterior Consistency: soft Allison Score: Cervical Points Exam 0 1 2 3 Dilation Closed 1-2cm 3-4 cm 5-6cm Effacement 0-30% 40-50% 60-70% 80% Consistency Firm Medium Soft Station -3 -2 -1,0 +1,+2 Position Posterior Mid Anterior Amniotic Membrane Status: Intact Contraction Frequency(min): 4 Contraction Intensity: Moderate Fetus A Monitor Accelerations: 15 X 15 Monitor Decelerations: None Variability: Moderate (6-25 BPM) HEENT Exam HEENT Exam: Normal Neck Exam Neck Exam: Normal Respiratory Exam Respiratory Exam: Normal Cardiovascular Exam Cardiovascular Exam: Normal Abdominal Exam Abdominal Exam: Normal Exam Exam: Normal Extremities Exam Extremities Exam: Normal Back/Spine/Pelvis Exam Back Exam: Normal Pelvis Adequate: Yes Skin Exam Skin Exam: Normal Psychiatric Exam Psychiatric Exam: Normal Risk Assessment Risk for Shoulder Dystocia Historical/Initial OB: POSITIVE FOR: Pre- BMI>30, Previous Shoulder Dystocia and Previous Macrosomia; NEGATIVE FOR: Pelvic Abnormality Counseling: is aware of slight increased risk based on BMI and previous shoulder dystocia. Date/Initial: 04/09/20: Risk for Pre-Eclampsia Date Initiated/Initials: 04/09/21: Yes, if one or more: POSTIVE FOR: Renal Disease; NEGATIVE FOR: Hx Pre-E/Gest HTN, Chronic HTN, Multiple Gestation, Pre- gestational DM, Systemic Lupus or APA Syndrome Yes, if 2 or more: POSITIVE FOR: BMI>30 and Mother/Sister w/ Pre-E; NEGATIVE FOR: Nulliparity, Age>= 35 yrs, >10yr btwn pregnancies, ethinicty or Previous IUGR Risk for Post- Hemorrhage Initial: NEGATIVE FOR: Multiple Gestation, Previous PPH, Known Clotting Deficiency, Grand Multiparity or Anticoagulation Counseled re: Active Management: Yes Date/Initials: 04/09/21 Risks Reviewed Risks Reviewed Upon Admission: Yes
[2021-10-02 09:36] LABS: COVID-19 PCR Negative (Negative)
[2021-10-02] MEDS: Penicillin G POT. 3,000,000 UNITS in Normal Saline 50 ML 100 UNITS IVPB (11:25)
--- NOTE | 2021-10-02 12:44 | W.PM.OBNL1 ---
Date of service: 10/02/21 Time of Service: 12:45 Pelvic Exam Dilation: 5 Effacement (%): 90 station: 0 Contractions Monitor Mode: Palpation Contraction Frequency(min): 3-5 Objective Temp Pulse Resp BP Pulse Ox 97.7 F 78 16 117/62 97 10/02/21 08:42 10/02/21 11:29 10/02/21 08:42 10/02/21 11:29 10/02/21 07:27 Laboratory Results WBC 8.21 10^3/uL (4.4-10.8) 10/02/21 08:23 RBC 4.01 10^6/uL (3.93-5.22) 10/02/21 08:23 Hgb 12.3 g/dL (11.2-15.7) 10/02/21 08:23 Hct 36.0 % (36.0-46.0) 10/02/21 08:23 MCV 90 fL (80-95) 10/02/21 08:23 MCH 30.7 pg (27.0-33.0) 10/02/21 08:23 MCHC 34.2 % (32.0-36.0) 10/02/21 08:23 RDW 12.9 % (11.7-14.6) 10/02/21 08:23 Plt Count 182 10^3/uL (130-400) 10/02/21 08:23 MPV 10.8 fL (8.0-11.0) 10/02/21 08:23 COVID-19 Source Nasal/Nares 10/02/21 08:05 SARS-CoV-2 (PCR) Negative (Negative) 10/02/21 08:05 Patient ABO/Rh O Positive 10/02/21 08:23 Antibody Screen NEGATIVE 10/02/21 08:23 Subjective Interval history since last seen: Patient seen. Irregular contractions. Some increase in pelvic pressure. Pelvic exam performed, 5 cm, 80%, 0 station, artificial rupture of membranes for clear fluid. Patient will ambulate. Anticipate normal spontaneous vaginal delivery. Results Hemoglobin/Hematocrit: Hgb 12.3 g/dL (11.2-15.7) 10/02/21 08:23 Hct 36.0 % (36.0-46.0) 10/02/21 08:23
[2021-10-02] MEDS: Penicillin G POT. 3,000,000 UNITS in Normal Saline 50 ML 50 UNITS IVPB (15:49)
[2021-10-02] MEDS: Normal Saline Flush 10 ML SYR IVP (15:56)
--- NOTE | 2021-10-02 15:57 | W.PM.OBNL1 ---
Date of service: 10/02/21 Time of Service: 15:57 Pelvic Exam Dilation: 7 Effacement (%): 90 station: 0 Objective Temp Pulse Resp BP Pulse Ox 97.9 F 80 16 118/71 97 10/02/21 14:26 10/02/21 14:26 10/02/21 14:26 10/02/21 14:26 10/02/21 07:27 Laboratory Results WBC 8.21 10^3/uL (4.4-10.8) 10/02/21 08:23 RBC 4.01 10^6/uL (3.93-5.22) 10/02/21 08:23 Hgb 12.3 g/dL (11.2-15.7) 10/02/21 08:23 Hct 36.0 % (36.0-46.0) 10/02/21 08:23 MCV 90 fL (80-95) 10/02/21 08:23 MCH 30.7 pg (27.0-33.0) 10/02/21 08:23 MCHC 34.2 % (32.0-36.0) 10/02/21 08:23 RDW 12.9 % (11.7-14.6) 10/02/21 08:23 Plt Count 182 10^3/uL (130-400) 10/02/21 08:23 MPV 10.8 fL (8.0-11.0) 10/02/21 08:23 COVID-19 Source Nasal/Nares 10/02/21 08:05 SARS-CoV-2 (PCR) Negative (Negative) 10/02/21 08:05 Patient ABO/Rh O Positive 10/02/21 08:23 Antibody Screen NEGATIVE 10/02/21 08:23 Subjective Interval history since last seen: Patient seen and examined. Contractions are more painful but less frequent with Pitocin. All her questions were answered. Verbal consent obtained for Pitocin augmentation. Results Hemoglobin/Hematocrit: Hgb 12.3 g/dL (11.2-15.7) 10/02/21 08:23 Hct 36.0 % (36.0-46.0) 10/02/21 08:23
[2021-10-02] MEDS: Oxytocin/Normal Saline 30 UNIT/500 ML BAG 1 UNITS IV (16:11)
--- NOTE | 2021-10-02 17:14 | OBVDS_ITS ---
Date of service: 10/02/21 Time of Service: 17:14 OB Labor/ Delivery Information Baby A Delivery Delivery Method: Spontaneaous Presentation: Vertex Cephalic Position: Vertex Vertex Position: Right Occipital Anterior Cord Description-Baby A: 3 Vessels Estimated Blood Loss: 50 Note: Patient presented to the emergency department today at 36-6/7 weeks gestation in active labor. She was noted to be 5 cm of water and contractions every 3 minutes. She received 2 after group B strep culture was prior to rupture of membranes. She had artificial rupture of membranes for clear fluid. At that point spaced approximately every 10 minutes. She progressed slowly to the point that she was 7 cm dilated. She had augmentation of labor with Pitocin as a total of 3 milliunits. She went on to be fully dilated and with good maternal effort and 2 pushes she passed a vertex over an intact perineum. There was no evidence of nuchal cord. Shoulders followed. Obtained. Patient there was delayed cord clamping. Mom and baby are in stable condition with skin to skin. Good bonding observed. Providers Doctor: Miriam Ferguson Nurse: Ana Baez Nurse: Cathleen Hendricks Labor/Delivery Information Number of Babies in Womb: 1 Steroids Given: None Reason Steroids Not Administered: N/A Group Beta Strep: Done-Result Unknown Antibiotics Administered: Yes Number of Doses of Antibiotics: 3 Rubella Status: Immune Blood Type: O+ Varicella Immunity: Immune Maternal Complications: None Stages of Labor Onset of Labor Date: 10/01/21 Onset of Labor Time: 19:00 ROM Baby A: 10/02/21 ROM Baby A: 12:07 Delivery Date-Baby A: 10/02/21 Delivery Time-Baby A: 16:56 Placenta Delivery Date-Baby A: 10/02/21 Placenta Delivery Time-Baby A: 17:02 Labor-Stage 3 Duration: 6 minutes Total Length of Labor-Baby A: 21 hours and 56 minutes Placenta Cultured: No Placenta Status: Delivered Baby A Infant Gender: Female Gestational Status: Late (34-36.6 wks) Gestational Age in Weeks/Days: 36 Weeks and 6 Days Length-Baby A: 19.5 in Score-1 Minute Interval(Baby A) Heart Rate-1 minute: 100 BPM or Greater Respiratory Effort- 1 minute: Spontaneous/Strong Cry Muscle Tone-1 minute: Active Movement Reflex Response-1 minute: Prompt Response Color-1 minute: Bluish Hands or Feet Total Score-1 minute: 9 Score-5 Minute Interval(Baby A) Heart Rate- 5 minute: 100 BPM or Greater Respiratory Effort-5 minute: Spontaneous/Strong Cry Muscle Tone-5 minute: Active Movement Reflex Response-5 minute: Prompt Response Color-5 minute: Morales-Sanchez/No Cyanosis Total Score- 5 minute: 10
[2021-10-02] MEDS: Acetaminophen 325 MG TAB 650 MG PO ×2 (17:41→23:33)
[2021-10-03 01:01] VITALS: BP 118/74; PULSE 67; RESP 18; TEMP 36.6; O2SAT 97
[2021-10-03] MEDS: Acetaminophen 325 MG TAB 650 MG PO ×2 (07:39→15:02)
[2021-10-03 08:18] VITALS: BP 109/69; PULSE 66; RESP 16; TEMP 36.7; O2SAT 95
--- NOTE | 2021-10-03 10:44 | W.PM.OBPNV1 ---
Date of service: 10/03/21 Time of Service: 10:46 Assessment and Plan Assessment and plan (1) care following vaginal delivery: Status: Acute Assessment and plan: Routine pp care. If a bed opens and baby is transferred then mom can be discharged today. Otherwise, she can be discharged tomorrow and stay with baby. Subjective Subjective Interval history: Mom doing well, just tired. Minimal lochia. Tolerating reg diet. Her brought her pump from home and she hopes to pump some for baby, who is currently unable to feed due to TTN. Peds had hoped to transfer baby last night but no beds were available. She is stable currently, on PPV but no oxygen. Exam Physical Exam Vital signs: Temp Pulse Resp BP Pulse Ox 98.1 F 66 16 109/69 95 10/03/21 08:18 10/03/21 08:18 10/03/21 08:18 10/03/21 08:18 10/03/21 08:18 Vital Signs Reviewed: Yes Constitutional Constitutional: no acute distress and cooperative Detailed HEENT Exam Head: Present normocephalic and atraumatic Respiratory Exam Respiratory Exam: Normal Abdominal Exam Abdomen: Tender (mildly) Fundal Exam Fundus: Below Umbilicus and Firm Extremities Exam Extremity Exam: negative Calf Tenderness or Edema Detailed Neurological Exam Neurological: Present alert, oriented X3 and CN II-XII intact Results Hemoglobin/Hematocrit: Hgb Cancelled 10/02/21 15:51 Hct Cancelled 10/02/21 15:51
--- NOTE | 2021-10-03 16:43 | DSE_ITS ---
DS: Diagnosis Discharge Diagnosis (1) care following vaginal delivery: Status: Acute Asessment and Plan: Uncomplicated delivery and routine pp care Discharge Plan Disposition Patient Disposition: HOME Condition: Stable Discharge Details Reason For Visit: Rule Out Labor Admit Date/Time: 10/03/21 07:48 Admit Provider: Miriam Ferguson Attending Provider: Miriam Ferguson Primary Care Provider: Hardik Lilly Hospital Course Hospital Course: Admitted in active labor and had an uncomplicated . She was recovering well and d/c at 24hr pp to go with her baby to a NICU Home Meds and New Rx's Prescriptions: No Action prenat.vits,berenice,eio-mskl-mpflr Tablet 1 tab PO DAILY albuterol sulfate [Proventil HFA] 200 PUFF HFA aerosol inhaler 2 puff Inhalation Q4H PRN PRNQty: 1 0RF Label Comments: Not needed since perscribed Discharge Instructions Activity:: Activity as Tolerated Equipment/Supplies:: No Equipment Needed Diet:: As Tolerated Discharge Orders Discharge Orders: Discharge Order (Routine); Ordered 10/03/21 Ordered By: Anita Valdez OB:DS Summary Summary Vaginal Delivery Method: Spontaneaous Episiotomy Description: None Contraception Discussed Contraception Discussed: Yes Contraceptive Plan: Tubal Ligation, [place] Infant Gender-Baby A: Female weight: 5 lb 6.95 oz Status at Discharge Functional status at discharge: independent ambulation Overall status at discharge: patient is back to baseline Mental Status: mental status grossly normal Speech and Movement: speech and movement normal Mood: congruent mood Affect: normal affect Exam Physical Exam Vital signs: Temp Pulse Resp BP Pulse Ox 98.1 F 66 16 109/69 95 10/03/21 08:18 10/03/21 08:18 10/03/21 08:18 10/03/21 08:18 10/03/21 08:18 PFSH All Active Problems (Updated 10/03/21 @ 10:49 by Anita Valdez MD) care following vaginal delivery (Acute) Medical History (Updated 10/03/21 @ 10:49 by Anita Valdez MD) Active labor BMI 38.0-38.9,adult History of depression History of recurrent UTIs History of shoulder dystocia in prior Left flank pain Seasonal allergies (10/27/14) Urinary tract infection due to Enterococcus 03/06/2019. Along with E. coli UTI. Both sensitive to Cipro. Patient will need suppression therapy for the remainder of . 03/19/2019 repeat UTI symptoms-enterococcus. On 03/24/2019 Rx with Cipro x10 days. Will need test of cure. Surgical History (Updated 03/07/21 @ 15:32 by Makenna Johnson NP) History of cholecystectomy removal of wisdom teeth Family History (Updated 04/09/21 @ 15:35 by Mariela Monaco CNM) Father Alcohol use disorder Heart disease Hyperlipidemia Hypertension Paternal Uncle Alcohol use disorder Paternal Grandfather Alcohol use disorder Maternal Aunt Breast cancer Great Aunt, diagnosed under age 50 Maternal Uncle Colon cancer Maternal Grandmother Cancer liver or stomach Self Depression Social History Smoking/Tobacco Use Status: Never Smoking risk assessment performed?: Yes Alcohol Intake: never Drug use: Occasionally Substance use type: marijuana Details: Marijuana smoker once a week. Do you feel safe at home: Yes Do you feel safe in your relationship?: Yes History History 7 Para 3 Hx # Term Pregnancies 3 Multiple births 0 Hx # Pregnancies 0 Ectopic pregnancies 0 AB induced 0 Hx Number of Living Children 3 AB spontaneous 3 Past Pregnancies Del. Date GA/Weeks # Preg Succ Route Wgt Sex Labor Lgth Anesth esia Location Prov Complic 06/14/17 42 No vaginal 9 lb 0.34 oz Male 24 hrs d keila guan shoulder dystocia 09/16/17 6 other 02/10/18 6 other 03/30/19 4 other 06/16/19 38 No vaginal 6 lb [address] Brent peck 08/18/20 36 No vaginal 6 lb 4.5 oz Male 3 KJ Delivery Date: 06/14/17 Last Updated by: Nancy Guan M.D. as per pt; infant stuck at brow. w/o use of vacuum or forceps, baby had bleeding of head, then seizures sent to [facility] [place] at day three for seizures. @ [facility] [place] x 1 weeks sent home on seizure meds x 1 week. al Name is George Delivery Date: 09/16/17 Last Updated by: Mariela Monaco CNM SAB Delivery Date: 02/10/18 Last Updated by: Mariela Monaco CNM SAB Delivery Date: 03/30/19 Last Updated by: Mariela Monaco CNM SAB Delivery Date: 06/16/19 Last Updated by: CHERYL Fenton Delivery Date: 08/18/20 Last Updated by: BEATRICE Barrow Jr. DS: Data Vitals/I&O Vitals and I&O: Vital Signs Temperature 98.1 F 10/03/21 08:18 Temperature Source Skin 10/02/21 07:27 Pulse 66 10/03/21 08:18 Pulse Rhythm Regular 10/03/21 07:40 Respiratory Rate 16 10/03/21 08:18 Respiratory Effort Non-Labored 10/02/21 07:31 Blood Pressure 109/69 10/03/21 08:18 Blood Pressure Mean 82 10/03/21 08:18 Blood Pressure Position Sitting 10/02/21 07:27 Pulse Oximetry 95 10/03/21 08:18 Oxygen Delivery Method Room Air 10/02/21 07:27 Oxygen Flow Rate 0 10/02/21 07:27 Pain Level 2 10/03/21 07:39 Comment 10/02/21 17:34 Intake & Output 10/02/21 10/03/21 10/03/21 23:59 11:59 23:59 Intake Total 84.450 / 201.117 Output Total 300 / 800 Balance -215.550 / -598.883 Intake: IV 84.450 / 201.117 Output: Urine 300 / 800 Data Completed and Pending Labs on day of discharge: Labs from last 24 hours 10/02/21 15:51 WBC Cancelled RBC Cancelled Hgb Cancelled Hct Cancelled MCV Cancelled MCH Cancelled MCHC Cancelled RDW Cancelled Plt Count Cancelled MPV Cancelled 10/02/21 07:52 Vaginal/Rectal Group B Streptococcus Culture - Pending Preliminary micro results at discharge 10/02/21 07:52 Group B Streptococcus Culture - Pending Vaginal/Rectal
== END 2021-10-03 17:05 | disposition home or self-care (01) | DRG 807 ==
LOC: ER 07:40 → OBS 07:42
PROVIDERS: Admitting Provider Obstetrics & Gynecology; Emergency Provider Emergency Medicine; PCP Internal Medicine; Visit Provider Obstetrics & Gynecology
DX: O60.14X0 Preterm labor third trimester with preterm delivery third trimester, not applicable or unspecified (principal); Z37.0 Single live birth; O99.334 Smoking (tobacco) complicating childbirth; F17.210 Nicotine dependence, cigarettes, uncomplicated; Z20.822 Contact with and (suspected) exposure to COVID-19; Z3A.36 36 weeks gestation of pregnancy
CPT/HCPCS: 36415; 85027; 86850; 86900; 86901; 87635; 99285; 87081; 88307; J2540

== ENCOUNTER 2021-12-26 14:01 | Outpatient (REF) | payer MEDICAID, SELFPAY ==
--- NOTE | 2021-12-26 13:50 | PAPFT_PTH ---
PATIENT: Laura Hwang LOC: [facility] U#:[id number] AGE/SX: 26/F ROOM: RE12/26/[address]: Nancy Hays : 1995 BED: DIS: 12/26/2021 SPEC #: [id number] RECD: 12/26/21 17:53 STATUS: MAYRA REQ #: [id number] CARRIE: 12/26/21 13:[address]: Nancy Hays DEPT: [facility] Cytology RECD BY: Mayuri Inman ENTERED: 12/26/21 17:54 SP TYPE: PAPFT OTHR DR: Hardik Lilly Tissues: 1 - CX/ENDOCX FOR PAP SMEARS Procedures: PAP THIN PREP/UVM Screening HPV DNA PROBE Comments: [id number]
== END 2021-12-26 14:02 | disposition home or self-care (01) ==
LOC: LBN 14:01
PROVIDERS: PCP Internal Medicine; Visit Provider Obstetrics & Gynecology Gynecology
DX: Z12.4 Encounter for screening for malignant neoplasm of cervix (principal); Z11.51 Encounter for screening for human papillomavirus (HPV)
CPT/HCPCS: 88142; 87624

== ENCOUNTER 2023-02-06 13:33 | Emergency (ER) | payer MEDICAID, SELFPAY ==
[2023-02-06 13:36] VITALS: BP 121/86; PULSE 90; RESP 16; TEMP 37.2; O2SAT 99
--- NOTE | 2023-02-06 13:45 | W.ED.GENAD ---
Discharge Plan Disposition Patient Disposition: Home Condition: Good Discharge Details Clinical Impression: Pain, dental Primary Care Provider: Hardik Lilly ED Provider: Kishore Hung Home Meds and New Rx's Prescriptions: New amoxicillin-pot clavulanate 875-125 mg tablet 1 tab PO BID 10 Days Qty: 20 0RF No Action norgestimate-ethinyl estradiol [Sprintec (28)] 0.25-35 mg-mcg tablet 1 tab PO DAILY Qty: 84 3RF albuterol sulfate [Proventil HFA] 200 PUFF HFA aerosol inhaler 2 puff Inhalation Q4H PRN PRNQty: 1 0RF Patient Comments: Not needed since perscribed Discharge Instructions Instructions: Toothache (ED) Additional Instructions: The block we administered should help improve your pain. Please take 800 mg of ibuprofen every 6 hours and 1000 mg of Tylenol every 6 hours to help with the inflammation and pain. These are the maximum doses. Please take the antibiotic as directed to help with the infection in your tooth. Please use the dental list that we have provided to contact the dentist for prompt follow-up and evaluation for tooth removal. If you notice any worsening of your symptoms, or any new symptoms such as difficulty swallowing, difficulty breathing, vomiting, diarrhea, fever, chills, shortness of breath, chest pain, numbness, weakness, or fainting , please return immediately to the emergency department for reevaluation. Please follow up with your primary care provider as soon as possible for reassessment and reevaluation. As always, it was a pleasure participating in your medical care today. Referrals: Hardik Lilly MD [Primary Care Provider] - Medical Decision Making 27-year-old female presents today for evaluation of right lower dental pain. Patient states that has been on and off for the last few months, she contacted a dentist who recommended that she come in here for evaluation. Patient states that while the pain has been on and off for the last 2 months has been notably worse over the last 2 to 3 days. She describes it as achy in the right lower dental area. It is near the site of her previous feeling. She denies any falls or trauma. No difficulty swallowing or drinking. No fever or chills. No other complaints at this time. She has been taking Tylenol with only mild improvement of the pain. Exam demonstrates well-appearing female, mild dental caries, filling in the right lower posterior molar is noted. Suspect pulpitis and mild dental caries causing infection. Will prescribe Augmentin, recommend NSAIDs and continue close dental follow-up. Did offer dental block and the patient has excepted. Bupivacaine was placed, so 7 cc total was administered and the patient tolerated this well. Near complete resolution of pain after this. Gave a dental sheet for home use. Discussed red flags which to return. I have extensively reviewed the treatment plan and discharge instructions with the patient. I have addressed all patient concerns at this time. The patient was made aware of what symptoms to monitor for that would warrant a return to the emergency department. Discussed the plan with the patient, they demonstrate verbal understanding and agreement with our assessment and plan at this time. The documentation in this chart was dictated using [employer] dictation software. Please excuse any dictation errors. HPI General Date/Time Provider Initiated Documentation: 02/06/23 13:34. HPI Narrative: 27-year-old female presents today for evaluation of right lower dental pain. Patient states that has been on and off for the last few months, she contacted a dentist who recommended that she come in here for evaluation. Patient states that while the pain has been on and off for the last 2 months has been notably worse over the last 2 to 3 days. She describes it as achy in the right lower dental area. It is near the site of her previous feeling. She denies any falls or trauma. No difficulty swallowing or drinking. No fever or chills. No other complaints at this time. She has been taking Tylenol with only mild improvement of the pain. Related Data Home Medications Medication Instructions Recorded Confirmed albuterol sulfate 90 mcg/actuation 2 puff inhalation Q4H PRN PRN #1 04/19/17 02/06/23 aerosol inhaler (Proventil HFA) inh norgestimate 0.25 mg-ethinyl 1 tab PO DAILY #84 tabs 12/11/22 02/06/23 estradiol 35 mcg tablet (Sprintec (28)) amoxicillin 875 mg-potassium 1 tab PO BID 10 days #20 tabs 02/06/23 clavulanate 125 mg tablet Previous Rx's Medication Instructions Recorded albuterol sulfate 90 mcg/actuation 2 puff inhalation Q4H PRN PRN #1 02/18/18 aerosol inhaler (Proventil HFA) inh norgestimate 0.25 mg-ethinyl 1 tab PO DAILY #84 tabs 12/11/22 estradiol 35 mcg tablet (Sprintec (28)) amoxicillin 875 mg-potassium 1 tab PO BID 10 days #20 tabs 02/06/23 clavulanate 125 mg tablet Allergies Allergy/AdvReac Type Severity Reaction Status Date / Time codeine [Codeine] AdvReac Intermediate hyperactivi Verified 02/06/23 13:38 ty General Stated Complaint: DentalOral PHIL: 4 Review of Systems All systems reviewed & are unremarkable except as noted in HPI and below PFSH All Active Problems (Updated 02/06/23 @ 13:45 by Kishore Hung DO) Pain, dental (Acute) Contraceptive management (Acute) Auditory hallucination (Acute) 04/2022.per pt report. has contacted [facility]. denies any impulses of self harm or harm of family. Encounter for general counseling and advice on contraceptive management (Acute) 04/2022. Federal sterilization consent signed. Nexplanon in place (Acute) 12/26/21 Nexplanon insertion (Acute) Medical History (Updated 02/06/23 @ 13:45 by Kishore Hung DO) History of depression History of shoulder dystocia in prior Active labor 10/02/21. F. at 36w6d. Transfer to in [facility] for resp distress. had Covid @3w EGA. Surgery for pyloric stenosis. Left flank pain BMI 38.0-38.9,adult History of recurrent UTIs Urinary tract infection due to Enterococcus 03/06/2019. Along with E. coli UTI. Both sensitive to Cipro. Patient will need suppression therapy for the remainder of . 03/19/2019 repeat UTI symptoms-enterococcus. On 03/24/2019 Rx with Cipro x10 days. Will need test of cure. Seasonal allergies (10/27/14) Surgical History (Updated 03/07/21 @ 15:32 by Makenna Johnson NP) History of cholecystectomy removal of wisdom teeth Family History (Updated 04/09/21 @ 15:35 by Mariela Monaco CNM) Father Alcohol use disorder Heart disease Hyperlipidemia Hypertension Paternal Uncle Alcohol use disorder Paternal Grandfather Alcohol use disorder Maternal Aunt Breast cancer Great Aunt, diagnosed under age 50 Maternal Uncle Colon cancer Maternal Grandmother Cancer liver or stomach Self Depression Social History Smoking/Tobacco Use Status: Never Smoking risk assessment performed?: Yes Alcohol Intake: never Drug use: Occasionally Substance use type: marijuana Details: Marijuana smoker once a week. Current gender identity: female Do you feel safe at home: Yes Do you feel safe in your relationship?: Yes History History 7 Para 3 Hx # Term Pregnancies 3 Multiple births 0 Hx # Pregnancies 1 Ectopic pregnancies 0 AB induced 0 Hx Number of Living Children 4 AB spontaneous 3 Past Pregnancies Del. Date GA/Weeks # Preg Succ Route Wgt Sex Labor Lgth Anesthesia Location Prov Complic 06/14/17 42 No vaginal 4091.97 g Male [address] guan shoulder dystocia 09/16/17 6 other 02/10/18 6 other 03/30/19 4 other 06/16/19 38 No vaginal 3061.[address] Mena 08/18/20 36 No vaginal 2849.127 g Male 3 KJ 10/02/21 36 Yes vaginal Female KJ 10/02/21 36 No Yes vaginal 2464.991 g Female DO Hussain 10/02/21 36 No Yes vaginal 2464.991 g Female 21hours 56min DO Hussain Delivery Date: 06/14/17 Last Updated by: Nancy Guan M.D. as per pt; infant stuck at brow. w/o use of vacuum or forceps, baby had bleeding of head, then seizures infant sent to [facility] [place] at day three for seizures. @ [facility] [place] x 1 weeks sent home on seizure meds x 1 week. al Name is George Delivery Date: 09/16/17 Last Updated by: BEATRICE Barrow Delivery Date: 02/10/18 Last Updated by: BEATRICE Barrow Delivery Date: 03/30/19 Last Updated by: BEATRICE Barrow Delivery Date: 06/16/19 Last Updated by: CHERYL Fenton Delivery Date: 08/18/20 Last Updated by: BEATRICE Barrow Jr. Delivery Date: 10/02/21 Last Updated by: MD Tania Morton'. Transfered to nursery. Had surgery at [facility] [place] for stomach stricture and N/V. Doing well. Delivery Date: 10/02/21 Last Updated by: CHERYL Kumar baby transferred after , surgery for pyloric stricture ([facility] [place]) Exam Narrative Exam Narrative: 1.Const: Well-nourished, Well-developed, appearing stated age 2.Eyes: PERRL, no conjunctival injection, and symmetrical lids. 3.ENT: Atraumatic external nose and ears. Moist MM. Neck: Symmetric, trachea midline, No thyromegaly. Mild dental caries, old filling noted in the right lower posterior molar. No evidence of Josh's angina. No evidence of swelling in the oropharynx. 4.CVS: +S1/S2, No murmurs or gallops. Peripheral pulses 2+ and equal in all extremities. Brisk capillary refill in all extremities. 5.RESP: Unlabored respiratory effort. Clear to auscultation bilaterally. No wheezes rales or rhonchi 6.GI: Soft, Nontender/Nondistended, No hepatosplenomegaly. No guarding or rebound. 7.MSK: Normocephalic/Atraumatic, Extremities w/o deformity or ttp No cyanosis or clubbing, Normal movement of all extremities 8.Skin: Warm, Dry. No rashes or lesions. 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 Sensation grossly intact, no focal neurologic deficits. 10.Psych: (AAO) x3. Appropriate mood and affect Course Vital Signs Vital signs: Vital Signs Temperature 37.2 C 02/06/23 13:36 Pulse 90 02/06/23 13:36 Respiratory Rate 16 02/06/23 13:36 Blood Pressure 121/86 02/06/23 13:36 Pulse Oximetry 99 02/06/23 13:36 Temperature 37.2 C 02/06/23 13:36 Pulse 90 02/06/23 13:36 Respiratory Rate 16 02/06/23 13:36 Respiratory Effort Normal 02/06/23 13:41 Blood Pressure 121/86 02/06/23 13:36 Blood Pressure Position Sitting 02/06/23 13:36 Pulse Oximetry 99 02/06/23 13:36 Oxygen Delivery Method Room Air 02/06/23 13:36 Oxygen Flow Rate 0 02/06/23 13:36 Procedures Nerve Block Nerve Block 1: Time out performed: Yes Local Anesthetic: Bupivicaine 0.5% Amount of anesthesia used (mL): 7 Side: right Intraoral Nerve Block: inferior alveolar Procedure Successful: Yes Patient Tolerated Procedure: well and no complications Complications: none
[2023-02-06] MEDS: Acetaminophen 500 MG TAB 1000 MG PO (13:51)
[2023-02-06] MEDS: Ibuprofen 800 MG TAB PO (13:51)
[2023-02-06] MEDS: Amox. 875/Clav. 125, 2 TABS/BTL 1 TAB PO (13:51)
== END 2023-02-06 13:52 | disposition home or self-care (01) ==
PROVIDERS: Emergency Provider Student in an Organized Health Care Education/Training Program; PCP Internal Medicine
DX: K08.89 Other specified disorders of teeth and supporting structures (principal)
CPT/HCPCS: 64400

== ENCOUNTER 2023-02-27 13:54 | Emergency (ER) | payer MEDICAID, SELFPAY ==
[2023-02-27 14:00] VITALS: BP 121/76; PULSE 88; RESP 16; TEMP 36.7; O2SAT 96
--- NOTE | 2023-02-27 14:48 | ED.GENADUL_ITS ---
Discharge Plan Disposition Patient Disposition: Home Condition: Good Discharge Details Clinical Impression: Pain, dental Primary Care Provider: Hardik Lilly ED Provider: Sakshi Umaña Home Meds and New Rx's Prescriptions: New amoxicillin-pot clavulanate 500-125 mg tablet 1 tab PO Q12H Qty: 20 0RF No Action norgestimate-ethinyl estradiol [Sprintec (28)] 0.25-35 mg-mcg tablet 1 tab PO DAILY Qty: 84 3RF albuterol sulfate [Proventil HFA] 200 PUFF HFA aerosol inhaler 2 puff Inhalation Q4H PRN PRNQty: 1 0RF Patient Comments: Not needed since perscribed Discharge Instructions Instructions: Toothache (ED) Additional Instructions: Take the amoxicillin twice a day for the next 10 days; [facility] should have the prescription ready. Tylenol/ibuprofen over the counter for pain; follow the directions on the bottle. Keep your appointment to have your tooth pulled. Return to the emergency department for new or worsening symptoms including fever, facial swelling, or if you have any other concerns. Referrals: Hardik Lilly MD [Primary Care Provider] - Medical Decision Making 28yo F with hx of asthma, known tooth infection, presenting for toothache. History from patient and [facility] records; seen here on 02/06 for same; prescribed amoxicillin at that time which helped. Has seen dentist, plan for tooth to be pulled on 03/10, was told she was getting another amox prescription but has not been able to get it from the pharmacy. Systemically well. Right mandibular molar carious and infected. Physical exam otherwise reassuring; would not get labs or CT imaging, not septic, not concerned for deep space neck infection. Attempted to contact pharmacy of record however they are closed for lunch. Exam does warrant abx; will re-send prescription. Ordered toradol here for pain. Discharged home; discharge instructions and return precautions were reviewed with patient who verbalized understanding. All questions were answered and she is in full agreement with the plan. HPI General Mode of arrival: ambulatory . Date/Time Provider Initiated Documentation: 02/27/23 14:05 . Limitations to Documentation: no limitations . Information obtained by: patient and old records reviewed . HPI Narrative: 28yo F with hx of asthma, known tooth infection, presenting for toothache. Right mandibular molar. Seen here on 12/8 for same; prescribed amoxicillin at that time which helped. Saw dentist in the interim and plan for tooth to be pulled on the . Reports she was supposed to be prescribed another course of amoxicillin by the dentist but there has been an issue with the prescription and she has not been able to get it. Pain has become severe again. She is otherwise in her usual state of health with no fevers, chills, rash, nausea, vomiting, difficulty breathing or swallowing, or other concerns. Related Data Home Medications Medication Instructions Recorded Confirmed albuterol sulfate 90 mcg/actuation 2 puff inhalation Q4H PRN PRN #1 04/19/17 02/27/23 aerosol inhaler (Proventil HFA) inh norgestimate 0.25 mg-ethinyl 1 tab PO DAILY #84 tabs 12/11/22 02/27/23 estradiol 35 mcg tablet (Sprintec (28)) amoxicillin 500 mg-potassium 1 tab PO Q12H #20 tabs 02/27/23 clavulanate 125 mg tablet Previous Rx's Medication Instructions Recorded albuterol sulfate 90 mcg/actuation 2 puff inhalation Q4H PRN PRN #1 04/19/17 aerosol inhaler (Proventil HFA) inh norgestimate 0.25 mg-ethinyl 1 tab PO DAILY #84 tabs 12/11/22 estradiol 35 mcg tablet (Sprintec (28)) amoxicillin 500 mg-potassium 1 tab PO Q12H #20 tabs 02/27/23 clavulanate 125 mg tablet Allergies Allergy/AdvReac Type Severity Reaction Status Date / Time codeine [Codeine] AdvReac Intermediate hyperactivi Verified 02/27/23 14:02 ty General Stated Complaint: DentalOral PHIL: 4 Review of Systems Narrative: see HPI PFSH All Active Problems (Updated 02/27/23 @ 14:50 by Sakshi Umaña MD) Pain, dental (Acute) Contraceptive management (Acute) Auditory hallucination (Acute) 04/2022.per pt report. has contacted [facility]. denies any impulses of self harm or harm of family. Encounter for general counseling and advice on contraceptive management (Acute) 04/2022. Federal sterilization consent signed. Nexplanon in place (Acute) 12/26/21 Nexplanon insertion (Acute) Medical History (Updated 02/27/23 @ 14:50 by Sakshi Umaña MD) History of depression History of shoulder dystocia in prior Active labor 10/02/21. F. at 36w6d. Transfer to in [facility] for resp distress. Infant had Covid @3w EGA. Surgery for pyloric stenosis. Left flank pain BMI 38.0-38.9,adult History of recurrent UTIs Urinary tract infection due to Enterococcus 03/06/2019. Along with E. coli UTI. Both sensitive to Cipro. Patient will need suppression therapy for the remainder of . 03/19/2019 repeat UTI symptoms-enterococcus. On 03/24/2019 Rx with Cipro x10 days. Will need test of cure. Seasonal allergies (10/27/14) Surgical History (Updated 03/07/21 @ 15:32 by Makenna Johnson NP) History of cholecystectomy removal of wisdom teeth Family History (Updated 04/09/21 @ 15:35 by Mariela Monaco CNM) Father Alcohol use disorder Heart disease Hyperlipidemia Hypertension Paternal Uncle Alcohol use disorder Paternal Grandfather Alcohol use disorder Maternal Aunt Breast cancer Great Aunt, diagnosed under age 50 Maternal Uncle Colon cancer Maternal Grandmother Cancer liver or stomach Self Depression Social History Smoking/Tobacco Use Status: Never Smoking risk assessment performed?: Yes Alcohol Intake: never Drug use: Occasionally Substance use type: marijuana Details: Marijuana smoker once a week. Current gender identity: female Do you feel safe at home: Yes Do you feel safe in your relationship?: Yes History History 7 Para 3 Hx # Term Pregnancies 3 Multiple births 0 Hx # Pregnancies 1 Ectopic pregnancies 0 AB induced 0 Hx Number of Living Children 4 AB spontaneous 3 Past Pregnancies Del. Date GA/Weeks # Preg Succ Route Wgt Sex Labor Lgth Anesth esia Location Prov Complic 06/14/17 42 No vaginal 4091.97 g Male [address] guan shoulder dystocia 09/16/17 6 other 02/10/18 6 other 03/30/19 4 other 06/16/19 38 No vaginal 3061.[address] Brent peck 08/18/20 36 No vaginal 2849.127 g Male 3 KJ 10/02/21 36 Yes vaginal Female KJ 10/02/21 36 No Yes vaginal 2464.991 g Female Tennille [email or web address] 10/02/21 36 No Yes vaginal 2464.991 g Female 21hours 56min DO Hussain Delivery Date: 06/14/17 Last Updated by: Nancy Guan M.D. as per pt; stuck at brow. w/o use of vacuum or forceps, baby had bleeding of head, then seizures sent to [facility] [place] at day three for seizures. @ [facility] x 1 weeks sent home on seizure meds x 1 week. al Name is George Delivery Date: 09/16/17 Last Updated by: BEATRICE Barrow Delivery Date: 02/10/18 Last Updated by: BEATRICE Barrow Delivery Date: 03/30/19 Last Updated by: BEATRICE Barrow Delivery Date: 06/16/19 Last Updated by: CHERYL Fenton Delivery Date: 08/18/20 Last Updated by: Mariela Monaco CNM Sushant . Delivery Date: 10/02/21 Last Updated by: MD Tania Morton'. Transfered to nursery. Had surgery at [facility] for stomach stricture and N/V. Doing well. Delivery Date: 10/02/21 Last Updated by: CHERYL Kumar baby transferred after , surgery for pyloric stricture ([facility]) Exam Narrative Exam Narrative: General: Alert, well appearing, well nourished, in no acute distress. Head: Normocephalic, atraumatic Neck: Trachea midline, ?Neck supple. ENT: ?MMM.? Carious teeth. Right mandibular molar carious with gingival erythema. Cardiac: ?No cyanosis. Resp: No respiratory distress. Speaking in full sentences. Abd: ?Non-distended. Extremities: ?No deformities.? No peripheral edema. Neurologic: GCS 15. ? Moves all extremities freely against gravity Course Vital Signs Vital signs: Vital Signs Temperature 36.7 C 02/27/23 14:00 Pulse 88 02/27/23 14:00 Respiratory Rate 16 02/27/23 14:00 Blood Pressure 121/76 02/27/23 14:00 Pulse Oximetry 96 02/27/23 14:00 Temperature 36.7 C 02/27/23 14:00 Temperature Source Temporal Artery Scan 02/27/23 14:00 Pulse 88 02/27/23 14:00 Respiratory Rate 16 02/27/23 14:00 Respiratory Effort Normal, Non-Labored 02/27/23 14:03 Blood Pressure 121/76 02/27/23 14:00 Blood Pressure Position Sitting 02/27/23 14:00 Pulse Oximetry 96 02/27/23 14:00 Oxygen Delivery Method Room Air 02/27/23 14:00 Oxygen Flow Rate 0 02/27/23 14:00
[2023-02-27] MEDS: Ketorolac 15 MG/ML VIAL IM (14:56)
[2023-02-27 15:25] VITALS: BP 121/76; PULSE 88; RESP 16; TEMP 36.7; O2SAT 96
== END 2023-02-27 15:09 | disposition home or self-care (01) ==
PROVIDERS: Emergency Provider Student in an Organized Health Care Education/Training Program; PCP Internal Medicine
DX: R68.84 Jaw pain (principal); K08.89 Other specified disorders of teeth and supporting structures
CPT/HCPCS: 99283; J1885

== ENCOUNTER 2023-04-06 05:20 | Outpatient (CLI) | payer MEDICAID, SELFPAY ==
[2023-04-06 11:31] LABS: HCT 41.1 % (36.0-46.0); MCH 29.9 pg (27.0-33.0); MCHC 34.1 % (32.0-36.0); MCV 88 fL (80-95); MPV 10.1 fL (8.0-11.0); Platelet Count 264 10^3/uL (130-400); RBC 4.69 10^6/uL (3.93-5.22); RDW 12.1 % (11.7-14.6); RDW-SD 38.5 fL; WBC 7.92 10^3/uL (4.4-10.8)
[2023-04-06 12:16] LABS: Anion Gap 9.8 mmol/L (3-11); BUN 8 mg/dL (7-18); CO2 28.2 mmol/L (21.0-32.0); CREATININE 0.6 mg/dL (0.55-1.02); Calcium 9.5 mg/dL (8.5-10.1); Chloride 103 mmol/L (98-107); Estimated GFR 126.87 (mL/min/1.73m2); Glucose 86 mg/dL (74-106); Potassium 3.5 mmol/L (3.5-5.1); Sodium 141 mmol/L (136-145)
[2023-04-06 12:17] LABS: HCG Qual (Serum) Negative
== END 2023-04-06 05:21 | disposition home or self-care (01) ==
LOC: LBO 05:20
PROVIDERS: Obstetrics & Gynecology Gynecology; PCP Internal Medicine; Visit Provider Obstetrics & Gynecology
DX: Z01.818 Encounter for other preprocedural examination (principal)
CPT/HCPCS: 36415; 80048; 85027; 86850; 86900; 86901; 84703

== ENCOUNTER 2023-04-08 06:10 | Day surgery (SDC) | payer MEDICAID, SELFPAY ==
[2023-04-08] VITALS (9 sets, daily range): BP systolic 93–116; BP diastolic 42–80; PULSE 68–100; RESP 15–18; TEMP 36.4–36.7; O2SAT 94–100; BMI 35.0
--- NOTE | 2023-04-08 06:29 | ANES.PREOP_ITS ---
General Info Date of Service Date Performed: 04/08/23 Height: 5 ft 4 in Weight: 92.533 kg Body Mass Index (BMI): 35.0 Surgical Procedure: Operation Date: 04/08/23 07:40 Proposed Procedure Side Surgeon p Salpingectomy Laparoscopic Bilateral Miriam Ferguson DO Meds Allergies and Home Medications Allergies Allergy/AdvReac Type Severity Reaction Status Date / Time codeine [Codeine] AdvReac Intermediate hyperactivi Verified 04/06/23 14:04 ty Home Medication Medication Instructions Recorded albuterol sulfate 90 mcg/actuation 2 puff inhalation Q4H PRN PRN #1 04/19/17 aerosol inhaler (Proventil HFA) inh Current Visit Medications: Current Medications Generic Name Dose Route Start Last Admin Trade Name Freq PRN Reason Stop Dose Admin Ringer's Solution 1,000 mls @ 125 mls/hr 04/08/23 06:00 IV 05/07/23 23:59 INFUSION JANET IV Miscellaneous Supplies 1 each 04/08/23 06:00 Iv Access IV 05/07/23 23:59 DIRECTED JANET Sodium Chloride 0 ml 04/08/23 06:00 Normal Saline Flush 10 Ml Syr IV 05/07/23 23:59 PRN PRN Sodium Chloride 0 ml 04/08/23 06:00 Normal Saline 10 Ml Vial IJ 05/07/23 23:59 DIRECTED PRN Sterile Water 0 ml 04/08/23 06:00 Water,Injection,Sterile 10 Ml Vial IJ 05/07/23 23:59 DIRECTED PRN PFSH Active Problems Active Problems: Problem Status Onset Code Contraceptive management Z30.9 Auditory hallucination R44.0 Encounter for general counseling and advice on contraceptive management Z30.[address] Z97.5 Nexplanon insertion Z30.017 Medical History Medical History History of depression History of shoulder dystocia in prior Active labor 10/02/21. F. at 36w6d. Transfer to in [facility] for resp distress. Infant had Covid @3w EGA. Surgery for pyloric stenosis. Left flank pain BMI 38.0-38.9,adult History of recurrent UTIs Urinary tract infection due to Enterococcus 03/06/2019. Along with E. coli UTI. Both sensitive to Cipro. Patient will need suppression therapy for the remainder of . 03/19/2019 repeat UTI symptoms-enterococcus. On 03/24/2019 Rx with Cipro x10 days. Will need test of cure. Seasonal allergies (10/27/14) Surgical History Surgical History Hx of wisdom tooth extraction History of cholecystectomy removal of wisdom teeth Tobacco Smoking/Tobacco Use Status: Never Alcohol Alcohol Intake: never Substance Use Substance use: Occasionally Substance use type: marijuana Details: Marijuana smoker once a week. Prental History History 7 Para 3 Hx # Term Pregnancies 3 Multiple births 0 Hx # Pregnancies 1 Ectopic pregnancies 0 AB induced 0 Hx Number of Living Children 4 AB spontaneous 3 Past Pregnancies Del. Date GA/Weeks # Preg Succ Route Wgt Sex Labor Lgth Anesth esia Location Prov Complic 06/14/17 42 No vaginal 4091.97 g Male [address] guan shoulder dystocia 09/16/17 6 other 02/10/18 6 other 03/30/19 4 other 06/16/19 38 No vaginal 3061.[address] Brent peck 08/18/20 36 No vaginal 2849.127 g Male 3 KJ 10/02/21 36 Yes vaginal Female KJ 10/02/21 36 No Yes vaginal 2464.991 g Female Tennille connelly DO 10/02/21 36 No Yes vaginal 2464.991 g Female 21hours 56min DO Hussain Delivery Date: 06/14/17 Last Updated by: Nancy Guan M.D. as per pt; infant stuck at brow. w/o use of vacuum or forceps, baby had bleeding of head, then seizures infant sent to [facility] [place] at day three for seizures. @ [facility] x 1 weeks sent home on seizure meds x 1 week. al Name is George Delivery Date: 09/16/17 Last Updated by: BEATRICE Barrow Delivery Date: 02/10/18 Last Updated by: Mariela Monaco CNM SAB Delivery Date: 03/30/19 Last Updated by: Mariela Monaco CNM SAB Delivery Date: 06/16/19 Last Updated by: CHERYL Fenton Delivery Date: 08/18/20 Last Updated by: BEATRICE Barrow Jr. Delivery Date: 10/02/21 Last Updated by: MD Tania Morton'. Transfered to [facility]. Had surgery at [facility] for stomach stricture and N/V. Doing well. Delivery Date: 10/02/21 Last Updated by: CHERYL Kumar baby transferred after , surgery for pyloric stricture ([facility]) Vital Signs and Lab Results Lab Results Blood Type / Crossmatch: Patient ABO/Rh O Positive 04/06/23 Antibody Screen NEGATIVE 04/06/23 Complete Blood Count: White Blood Count 7.92 10^3/uL (4.4-10.8) 04/06/23 11:16 Red Blood Count 4.69 10^6/uL (3.93-5.22) 04/06/23 11:16 Hemoglobin 14.0 g/dL (11.2-15.7) 04/06/23 11:16 Hematocrit 41.1 % (36.0-46.0) 04/06/23 11:16 Platelet Count 264 10^3/uL (130-400) 04/06/23 11:16 Complete Metabolic Panel: Sodium 141 mmol/L (136-145) 04/06/23 11:16 Potassium 3.5 mmol/L (3.5-5.1) 04/06/23 11:16 Chloride 103 mmol/L (98-107) 04/06/23 11:16 Carbon Dioxide 28.2 mmol/L (21.0-32.0) 04/06/23 11:16 BUN 8 mg/dL (7-18) 04/06/23 11:16 Creatinine 0.6 mg/dL (0.55-1.02) 04/06/23 11:16 Est GFR (CKD-EPI 2020) 126.87 (mL/min/1.73m2) 04/06/23 11:16 Calcium 9.5 mg/dL (8.5-10.1) 04/06/23 11:16 Glucose 86 mg/dL (74-106) 04/06/23 11:16 Liver Function Panel: No Data to Display Coagulation Panel: No Data to Display Cardiac Panel: No Data to Display Arterial Blood Gas: No Data to Display Venous Blood Gas: No Data to Display Pancreas Panel: No Data to Display Thyroid Panel: No Data to Display Infectious Disease: 2 No Data to Display Blood Cultures: No Data to Display Toxicology Panel: No Data to Display Panel: Serum HCG, Qualitative Negative 04/06/23 11:16 Imaging and Studies Imaging and Studies Study information below may be from another EMR and interpreted by another provider. Please see original notes in EMR for more complete details. Other Study Summary:: CT abd/pelvis reviewed and results in chart Anesthesia Assessment and Plan Anesthesia History Personal History: No History of Anesthesia Complications Family History: No Family History of Anesthesia Complications Exercise Tolerance Exercise Tolerance: Metabolic Equivalents>4 Pertinent Negatives Pertinent Negatives: No Symptoms of GERD, No Major Cardiovascular Symptoms or Complaints, No Major Pulmonary Symptoms or Complaints and No History of CVA/TIA Cardiac & Pulmonary Exam Cardiac Exam: Normal S1/S2 Heart Sounds Pulmonary Exam: Clear Bilateral Breath Sounds Implantable Cardiac Device Does patient have a Pacemaker or an ICD?: No Airway Exam Known Difficult Airway: No Mallampati Class: 3 Mouth Opening: Normal (> 3cm) Thyromental Distance: Greater than 3 cm Neck Range of Motion: Full ROM Neck Circumference: Normal Teeth Condition: Loose or Chipped (pt reports chipped molar in the left back side of the mouth ) ASA Classification ASA Score: ASA 2 Emergency Case?: No NPO Status NPO Status: NPO Clears >2 hours, Solids >8 hours Status Status: Negative HCG Anesthesia Plan Resuscitation Status: Full Code Anesthesia Technique: General Anesthesia Airway Planned: Endotracheal Tube Monitors Used: Standard Monitors and SedLine Preoperative Comments:: Chivo sangeetha 2020 Mac 3 grade I
[2023-04-08] MEDS: Lactated Ringers 1,000 ML 125 ML IV (06:37)
[2023-04-08] MEDS: Bupivacaine 0.25% Pres-Free 30 ML VIAL (08:00)
--- NOTE | 2023-04-08 08:10 | FALL_PTH ---
PATIENT: Laura Hwang LOC: [facility] U#:[id number] AGE/SX: 28/F ROOM: RE04/08/[address]: Miriam Ferguson DO : 1995 BED: DIS: 04/08/2023 SPEC #: [id number] RECD: 04/08/23 12:54 STATUS: MAYRA REQ #: [id number] CARRIE: 04/08/23 08:[address]: Miriam Ferguson DEPT: Surgical Specimen RECD BY: Mayuri Inman ENTERED: 04/08/23 12:54 SP TYPE: Fall OTHR DR: Hardik Lilly Tissues: 1 - FALLOPIAN TUBE (STERILIZATION) 2 - FALLOPIAN TUBE (STERILIZATION) Procedures: GROSS AND MICRO LEVEL 2 Comments: [id number]
--- NOTE | 2023-04-08 08:30 | ROE_ITS ---
Date of service: 04/08/23 Time of Service: 08:30 Operative Note Operative Note DATE OF PROCEDURE: 04/08/23 PRE-OP DIAGNOSIS: Undesired fertility POST-OP DIAGNOSIS: same PROCEDURE: Laparoscopic bilateral salpingectomy SURGEON: Miriam Ferguson ASSISTING SURGEON: Nancy Hays ANESTHESIA TYPE: Local By Surgeon and General LMA/ETT Refer to Anesthesia Record ESTIMATED BLOOD LOSS: 5 PATHOLOGY: other (1. Right fallopian tube 2. Left fallopian tube) COMPLICATIONS: None Patient was transported to: PACU Patient's condition: stable Indications: Undesired fertility Findings: Normal-appearing tubes, ovaries, uterus. Smooth regular appendix. Smooth regular liver edge. No intra-abdominal pathology or trauma noted Procedure Description: After full informed consent was obtained and negative status verified, patient was taken the operating suite with an IV running. She was placed in the dorsal supine position. She had pneumatic compression stockings for DVT prophylaxis. Endotracheal intubation was performed for the administration of general anesthesia with ease. She was then placed in the modified dorsolithotomy position and prepped and draped in the usual sterile fashion. Her bladder was drained for approximately 100 cc of clear yellow urine. No antibiotic prophylaxis was warranted. Exam under anesthesia revealed a uterus that was midline and mobile. At this point speculum was inserted into the vaginal vault and a single-tooth tenaculum used to grasp the anterior lip of the cervix. Hulka uterine manipulator was placed and tenaculum was removed. Speculum was also removed. The patient was then returned to the dorsal supine position. Attention was then turned to the abdomen where quarter percent Marcaine was used to infiltrate at the umbilical area. A vertical incision was made and the anter ior abdominal wall elevated with penetrating towel clips. Veress needle inserted into the abdomen to create a pneumoperitoneum to a maximum pressure of 15 mmHg. At this point a bladeless 12 mm Optiview port was placed under direct visualization. There was no evidence of trauma or intra-abdominal pathology. A second and third right and left lower quadrant trocar site was placed after infiltration of quarter percent Marcaine under direct visualization. These were 5 mm ports. Attention was then turned to the right fallopian tube which was elevated, cautery transected, and removed through the 12 mm port. Similar procedure was carried out on the left fallopian tube, elevated, transected, and removed. Pedicles were noted to be hemostatic. With decrease in intra- abdominal pressure to 5 mmHg, again all pedicle sites were noted to be hemostatic. At this point the procedure was terminated, pneumoperitoneum released, 5 mm ports removed, 12 mm port removed. Fascial incision was closed w ith a simple interrupted suture of 0 Vicryl suture. The skin edges were then reapproximated with 4-0 undyed Monocryl Steri-Strips and a sterile dressing were placed. Hulka manipulator was removed from the abdomen and the patient was returned to the dorsal supine position. She woke from anesthesia without difficulty. She was taken to the postanesthesia care unit in stable condition. Complications: None apparent Fluids: Crystalloid per anesthesia Pathology: 1. Right fallopian tube 2. Left fallopian tube Fluids: Crystalloid per anesthesia EBL: 5 mL.
[2023-04-08] MEDS: fentaNYL 100 MCG/2 ML VIAL IVP (08:53)
--- NOTE | 2023-04-08 10:11 | W.ANESPOSTOP ---
Postoperative Evaluation Date, Time and Location Date Performed: 04/08/23 Time Performed: 09:39 Patient Location: Day Surgery Unit Vital Signs Most Recent Imported Vital Signs: Most Recent Vital Signs Temp Pulse Resp BP Pulse Ox 36.5 C 71 18 98/58 L 100 04/08/23 09:39 04/08/23 09:39 04/08/23 09:39 04/08/23 09:39 04/08/23 09:39 Pain Score Most Recent Pain Score: Most Recent Pain Score Pain Level 4 04/08/23 09:39 Assessment Mental Status: Awake (Alert & Oriented to Patient Baseline) Airway and Respiratory Function: Patent airway with normal (patient baseline) respiratory exam Cardiovascular Function: Hemodynamically Stable Hydration Status: Adequately Hydrated Nausea & Vomiting: No Nausea or Vomiting Pain: Pain is tolerable per patient Peripheral Nerve Block: Patient did not receive a nerve block
== END 2023-04-08 10:43 | disposition home or self-care (01) ==
PROVIDERS: PCP Internal Medicine; Visit Provider Obstetrics & Gynecology
PROC: (CPT 58661; principal; 2023-04-08 07:30)
DX: Z30.2 Encounter for sterilization (principal)
CPT/HCPCS: 58661; 88302; J0665; J1100; J1885; J2001; J2371; J2405; J2704; J3010

== ENCOUNTER 2023-06-21 21:00 | Emergency (ER) | payer MEDICAID, SELFPAY ==
[2023-06-21 21:03] VITALS: BP 116/83; PULSE 83; RESP 18; TEMP 36.9; O2SAT 100
--- NOTE | 2023-06-21 21:32 | ED.GENADUL_ITS ---
Discharge Plan Disposition Patient Disposition: Home Condition: Stable Discharge Details Chief Complaint: EyeProblem Clinical Impression: Conjunctivitis Primary Care Provider: None,None ED Provider: Darien Larose Home Meds and New Rx's Prescriptions: No Action albuterol sulfate [Proventil HFA] 200 PUFF HFA aerosol inhaler 2 puff Inhalation Q4H PRN PRNQty: 1 0RF Patient Comments: Not needed since perscribed ibuprofen 800 mg tablet 800 mg PO Q8H Qty: 60 1RF oxycodone-acetaminophen [Percocet] 5-325 mg tablet 1 tab PO TID PRNQty: 7 0RF Discharge Instructions Instructions: Conjunctivitis (ED) Additional Instructions: Please use ofloxacin drops as instructed: 2 drops in each eye every 4 hours for the first 2 days, then 2 drops 4 times daily for an additional 5 days. Please be seen by your primary care physician. Please return to the emergency de partment for any worsening symptoms HPI General Date/Time Provider Initiated Documentation: 06/21/23 21:01 . HPI Narrative: 28-year-old female presents with bilateral eye redness and itchiness as well as discharge for the last couple of days, kids had conjunctivitis this week. Related Data Home Medications Medication Instructions Recorded Confirmed albuterol sulfate 90 mcg/actuation 2 puff inhalation Q4H PRN PRN #1 04/19/17 04/06/23 aerosol inhaler (Proventil HFA) inh ibuprofen 800 mg tablet 800 mg PO Q8H #60 tabs 04/08/23 oxycodone-acetaminophen 5 mg-325 1 tab PO TID PRN #7 tabs 04/08/23 mg tablet (Percocet) Previous Rx's Medication Instructions Recorded albuterol sulfate 90 mcg/actuation 2 puff inhalation Q4H PRN PRN #1 04/19/17 aerosol inhaler (Proventil HFA) inh ibuprofen 800 mg tablet 800 mg PO Q8H #60 tabs 04/08/23 oxycodone-acetaminophen 5 mg-325 1 tab PO TID PRN #7 tabs // mg tablet (Percocet) Allergies Allergy/AdvReac Type Severity Reaction Status Date / Time codeine [Codeine] AdvReac Intermediate hyperactivi Verified 06/21/23 21:05 ty General Stated Complaint: EyeProblem PHIL: 4 Review of Systems Narrative: Review of Systems Constitutional: negative Eyes: Eye redness, discharge ENT: negative Cardiovascular: negative Respiratory: negative Gastrointestinal: negative : negative Musculoskeletal: negative Skin: negative Neurologic: negative Psych: negative Exam Narrative Exam Narrative: Eyes: Pupils equal round reactive to light, diffuse injection of bilateral conjunctiva, bilateral purulent discharge, no corneal ulcer or abrasion noted; extraocular motion intact no proptosis, no evidence of foreign body Course Vital Signs Vital signs: Vital Signs Temperature 36.9 C 06/21/23 21:03 Pulse 83 06/21/23 21:03 Respiratory Rate 18 06/21/23 21:03 Blood Pressure 116/83 06/21/23 21:03 Pulse Oximetry 100 06/21/23 21:03 Temperature 36.9 C 06/21/23 21:03 Pulse 83 06/21/23 21:03 Respiratory Rate 18 06/21/23 21:03 Respiratory Effort Normal 06/21/23 21:05 Blood Pressure 116/83 06/21/23 21:03 Blood Pressure Position Sitting 06/21/23 21:03 Pulse Oximetry 100 06/21/23 21:03 Oxygen Delivery Method Room Air 06/21/23 21:03 Oxygen Flow Rate 0 06/21/23 21:03 Medical Decision Making 28-year-old female presents with likely conjunctivitis viral versus early bacterial, recent exposure to children with conjunctivitis, no evidence of corneal ulceration or abrasion, no evidence of foreign body. Will start empiric ofloxacin drops. Home care instructions and return precautions given Quality:SDOH Health Related Social Needs: No Data to Display PFSH All Active Problems (Updated 06/21/23 @ 21:34 by Darien Larose MD) Conjunctivitis (Acute) Status post bilateral salpingectomy (Acute) Bilateral laparoscopic salpingectomy 04/08/2023 Contraceptive management (Acute) Auditory hallucination (Acute) 04/2022.per pt report. has contacted [facility]. denies any impulses of self harm or harm of family. Medical History (Updated 06/21/23 @ 21:34 by Darien Larose MD) History of depression History of shoulder dystocia in prior Active labor 10/02/21. F. at 36w6d. Transfer to in [facility] for resp distress. Infant had Covid @3w EGA. Surgery for pyloric stenosis. Left flank pain BMI 38.0-38.9,adult History of recurrent UTIs Urinary tract infection due to Enterococcus 03/06/2019. Along with E. coli UTI. Both sensitive to Cipro. Patient will need suppression therapy for the remainder of . 03/19/2019 repeat UTI symptoms-enterococcus. On 03/24/2019 Rx with Cipro x10 days. Will need test of cure. Seasonal allergies (10/27/14) Surgical History (Updated 04/08/23 @ 08:35 by Miriam Ferguson DO) Hx of wisdom tooth extraction History of cholecystectomy removal of wisdom teeth Family History Father Alcohol use disorder Heart disease Hyperlipidemia Hypertension Paternal Uncle Alcohol use disorder Paternal Grandfather Alcohol use disorder Maternal Aunt Breast cancer Great Aunt, diagnosed under age 50 Maternal Uncle Colon cancer Maternal Grandmother Cancer liver or stomach Self Depression Social History Smoking/Tobacco Use Status: Never Smoking risk assessment performed?: Yes Alcohol Intake: never Drug use: Occasionally Substance use type: marijuana Details: Marijuana smoker once a week. Housing: house Current gender identity: female Do you feel safe at home: Yes Do you feel safe in your relationship?: Yes History History 7 Para 3 Hx # Term Pregnancies 3 Multiple births 0 Hx # Pregnancies 1 Ectopic pregnancies 0 AB induced 0 Hx Number of Living Children 4 AB spontaneous 3 Past Pregnancies Del. Date GA/Weeks # Preg Succ Route Wgt Sex Labor Lgth Anesth esia Location [facility] 06/14/17 42 No vaginal 4091.97 g Male [address] guan shoulder dystocia 09/16/17 6 other 02/10/18 6 other 03/30/19 4 other 06/16/19 38 No vaginal 3061.[address] Brent peck 08/18/20 36 No vaginal 2849.127 g Male 3 KJ 10/02/21 36 Yes vaginal Female KJ 10/02/21 36 No Yes vaginal 2464.991 g Female Tennille connelly DO 10/02/21 36 No Yes vaginal 2464.991 g Female 21hours 56min DO Hussain Delivery Date: 06/14/17 Last Updated by: Nancy Guan M.D. as per pt; stuck at brow. w/o use of vacuum or forceps, baby had bleeding of head, then seizures infant sent [place] [facility] for seizures. @ [facility] [place] x 1 weeks sent home on seizure meds x 1 week. al Name is George Delivery Date: 09/16/17 Last Updated by: BEATRICE Barrow Delivery Date: 02/10/18 Last Updated by: BEATRICE Barrow Delivery Date: 03/30/19 Last Updated by: BEATRICE Barrow Delivery Date: 06/16/19 Last Updated by: CHERYL Fenton Delivery Date: 08/18/20 Last Updated by: BEATRICE Barrow Jr. Delivery Date: 10/02/21 Last Updated by: MD Tania Morton'. Transfered to nursery. [place] [facility] [place] and N/V. Doing well. Delivery Date: 10/02/21 Last Updated by: CHERYL Kumar baby transferred after , [place] for pyloric stricture [place]
== END 2023-06-21 21:44 | disposition home or self-care (01) ==
PROVIDERS: Emergency Provider Emergency Medicine
DX: H10.9 Unspecified conjunctivitis (principal)
CPT/HCPCS: 99283

== ENCOUNTER 2024-03-31 12:03 | Emergency (ER) | payer MEDICAID, SELFPAY ==
[2024-03-31 12:09] VITALS: BP 116/70; PULSE 80; RESP 20; TEMP 36.7; O2SAT 100
[2024-03-31 12:12] VITALS: BP 116/70; PULSE 80; RESP 20; TEMP 36.7; O2SAT 100
--- NOTE | 2024-03-31 13:54 | ED.GENADUL_ITS ---
Discharge Plan Disposition Patient Disposition: Home Condition: Stable Discharge Details Clinical Impression: Nausea vomiting and diarrhea Primary Care Provider: None,None ED Provider: Lis Cárdenas Home Meds and New Rx's Prescriptions: No Action albuterol sulfate [Proventil HFA] 200 PUFF HFA aerosol inhaler 2 puff Inhalation Q4H PRN PRNQty: 1 0RF Patient Comments: Not needed since perscribed ibuprofen 800 mg tablet 800 mg PO Q8H Qty: 60 1RF Discharge Instructions Instructions: Nausea and Vomiting, Adult ED Additional Instructions: Please take the Zofran tablets 3 times daily 20 to 30 minutes before eating or drinking anything. Small sips of fluid at a time. Try Gatorade or similar. Follow up with primary care provider in 3-5 days. Return to ED sooner if any worsening, if you are unable to keep any fluids down or concerns. Stand Alone Forms: Work Release HPI General Mode of arrival: ambulatory . Date/Time Provider Initiated Documentation: 03/31/24 12:17 . Limitations to Documentation: no limitations . Information obtained by: patient, RN notes reviewed and old records reviewed . HPI Narrative: 29-year-old female presents to the ER after vomiting yesterday. She reports having a headache today denies any significant abdominal pain. She reports multiple sick contacts with similar symptoms. She is requesting a work note. Related Data Home Medications ?Medication ?Instructions ?Recorded ?Confirmed albuterol sulfate 90 mcg/actuation 2 puff inhalation Q4H PRN PRN #1 04/19/17 03/31/24 aerosol inhaler (Proventil HFA) inh ibuprofen 800 mg tablet 800 mg PO Q8H #60 tabs 04/08/23 03/31/24 Previous Rx's ?Medication ?Instructions ?Recorded albuterol sulfate 90 mcg/actuation 2 puff inhalation Q4H PRN PRN #1 04/19/17 aerosol inhaler (Proventil HFA) inh ibuprofen 800 mg tablet 800 mg PO Q8H #60 tabs 04/08/23 Allergies Allergy/AdvReac Type Severity Reaction Status Date / Time codeine (Codeine) AdvReac Intermediate hyperactivi Verified 03/31/24 12:13 ty General Stated Complaint: Headache PHIL: 4 Review of Systems All systems reviewed & are unremarkable except as noted in HPI and below Gastrointestinal Gastrointestinal: Reports nausea and Reports vomiting Exam Narrative Exam Narrative: Constitutional: Alert and oriented x3. Appears stated age. Normal body habitus. Head: Normocephalic, no trauma. Eyes: Pupils PERRL, EOM's intact. Eyelids symmetrical without lesions, discharge, or swelling. Chest: RRR, Normal S1, S2, distal pulses intact. Resp: Lungs clear to auscultation bilaterally, no wheezes, rales, or rhonchi. Abdomen: Soft, non-distended, Normoactive bowel sounds all 4 quads. Musculoskeletal: Normal gait, Moves all 4 extremities without difficulty. Skin: No suspicious rashes or lesions. Capillary refill less than 2 sec. Neurologic: Cranial nerves II-XII intact. Alert and oriented x 3. Hematologic/Lymphatic: No ecchymosis, no lymphadenopathy. Course Vital Signs Vital signs: Vital Signs Temperature 36.7 C 03/31/24 12:09 Pulse 80 03/31/24 12:09 Respiratory Rate 20 03/31/24 12:09 Blood Pressure 116/70 03/31/24 12:09 Pulse Oximetry 100 03/31/24 12:09 Temperature 36.7 C 03/31/24 12:12 Temperature Source Oral 03/31/24 12:12 Pulse 80 03/31/24 12:12 Respiratory Rate 20 03/31/24 12:12 Blood Pressure 116/70 03/31/24 12:12 Blood Pressure Position Sitting 03/31/24 12:12 Pulse Oximetry 100 03/31/24 12:12 Oxygen Delivery Method Room Air 03/31/24 12:12 Oxygen Flow Rate 0 03/31/24 12:12 Medical Decision Making 29-year-old female presents to the ER after vomiting yesterday. She reports having a headache today denies any significant abdominal pain. She reports multiple sick contacts with similar symptoms. She is requesting a work note. I did offer IV labs which patient declined at this time. I will give Zofran to go and a work note for her. Discussed tricked return instructions and follow-up care she verbalized understanding. This text was generated using [employer] system, please disregard any oddities of phrase or misspellings. Quality:SDOH Health Related Social Needs: No Data to Display PFSH All Active Problems (Updated 03/31/24 @ 13:57 by Lis Cárdenas, [employer]) Nausea vomiting and diarrhea (Acute) Status post bilateral salpingectomy (Acute) Bilateral laparoscopic salpingectomy 04/08/2023 Contraceptive management (Acute) Auditory hallucination (Acute) 04/2022.per pt report. has contacted [facility]. denies any impulses of self harm or harm of family. Medical History History of depression History of shoulder dystocia in prior Active labor 10/02/21. F. at 36w6d. Transfer to in [place] [facility] for resp distress. had Covid @3w EGA. Surgery for pyloric stenosis. Left flank pain BMI 38.0-38.9,adult History of recurrent UTIs Urinary tract infection due to Enterococcus 03/06/2019. Along with E. coli UTI. Both sensitive to Cipro. Patient will need suppression therapy for the remainder of . 03/19/2019 repeat UTI symptoms-enterococcus. On 03/24/2019 Rx with Cipro x10 days. Will need test of cure. Seasonal allergies (10/27/14) Surgical History Hx of wisdom tooth extraction History of cholecystectomy removal of wisdom teeth Family History Father Alcohol use disorder Heart disease Hyperlipidemia Hypertension Paternal Uncle Alcohol use disorder Paternal Grandfather Alcohol use disorder Maternal Aunt Breast cancer Great Aunt, diagnosed under age 50 Maternal Uncle Colon cancer Maternal Grandmother Cancer liver or stomach Self Depression Social History Smoking/Tobacco Use Status: Never Smoking risk assessment performed?: Yes Alcohol Intake: never Drug use: Occasionally Substance use type: marijuana Details: Marijuana smoker once a week. Housing: house Current gender identity: female Do you feel safe at home: Yes Do you feel safe in your relationship?: Yes History History 7 Para 3 Hx # Term Pregnancies 3 Multiple births 0 Hx # Pregnancies 1 Ectopic pregnancies 0 AB induced 0 Hx Number of Living Children 4 AB spontaneous 3 Past Pregnancies Del. Date GA/Weeks # Preg Succ Route Wgt Sex Labor Lgth Anesth esia Location Prov Complic 04/15/18 42 No vaginal 4091.97 g Male [address] guan shoulder dystocia 09/16/17 6 other 02/10/18 6 other 03/30/19 4 other 06/16/19 38 No vaginal 3061.[address] Brent peck 08/18/20 36 No vaginal 2849.127 g Male 3 KJ 10/02/21 36 Yes vaginal Female KJ 10/02/21 36 No Yes vaginal 2464.991 g Female Tennille connelly, 10/02/21 36 No Yes vaginal 2464.991 g Female 21hours 56min DO Hussain Delivery Date: 06/14/17 Last Updated by: Nancy Guan M.D. as per pt; infant stuck at brow. w/o use of vacuum or forceps, baby had bleeding of head, then seizures sent to [facility] at day three for seizures. @ [facility] x 1 weeks sent home on seizure meds x 1 week. al Name is George Delivery Date: 09/16/17 Last Updated by: BEATRICE Barrow Delivery Date: 02/10/18 Last Updated by: BEATRICE Barrow Delivery Date: 03/30/19 Last Updated by: BEATRICE Barrow Delivery Date: 06/16/19 Last Updated by: CHERYL Fenton Delivery Date: 08/18/20 Last Updated by: BEATRICE Barrow . Delivery Date: 10/02/21 Last Updated by: MD Tania Morton'. Transfered to nursery. Had surgery at [facility] [place] for stomach stricture and N/V. Doing well. Delivery Date: 10/02/21 Last Updated by: CHERYL Kumar baby transferred after , surgery for pyloric strictu re ([facility] [place] [place])
[2024-03-31] MEDS: Ondansetron O.D.T. 4 MG TABEF, 3 TABS/BTL PO (14:02)
== END 2024-03-31 14:05 | disposition home or self-care (01) ==
LOC: ER 14:18
PROVIDERS: Emergency Provider Registered Nurse Emergency
DX: R11.2 Nausea with vomiting, unspecified (principal); R19.7 Diarrhea, unspecified
CPT/HCPCS: 87426; 99283

== ENCOUNTER 2024-04-05 14:36 | Emergency (ER) | payer MEDICAID, SELFPAY ==
[2024-04-05 14:51] VITALS: BP 91/66; PULSE 94; RESP 18; TEMP 37.2; O2SAT 100
[2024-04-05] MEDS: Ibuprofen 600 MG TAB PO (15:34)
[2024-04-05] MEDS: Acetaminophen 500 MG TAB 1000 MG PO (15:34)
--- NOTE | 2024-04-05 15:40 | ED.GENADUL_ITS ---
Discharge Plan Disposition Patient Disposition: Home Condition: Stable Discharge Details Clinical Impression: Influenza A Primary Care Provider: None,None ED Provider: Michelle Garcia Home Meds and New Rx's Prescriptions: New oseltamivir [Tamiflu] 75 mg capsule 75 mg PO BID 5 Days Qty: 10 0RF No Action albuterol sulfate [Proventil HFA] 200 PUFF HFA aerosol inhaler 2 puff Inhalation Q4H PRN PRNQty: 1 0RF Patient Comments: Not needed since perscribed ibuprofen 800 mg tablet 800 mg PO Q8H Qty: 60 1RF Discharge Instructions Instructions: Flu, Adult ED Additional Instructions: You were seen in the ED for fever, body aches, and cough, and were found to be positive for Influenza A. We have sent a prescription for tamiflu to your pharmacy and you should also get some tylenol and ibuprofen to manage your symptoms. I have referred you to establish with primary care. Please follow-up with your primary care provider in the next few days to discuss this visit and any symptoms that change, worsen, or persist. Thank you for allowing us to be part of your care. HPI General Mode of arrival: ambulatory . Date/Time Provider Initiated Documentation: 04/05/24 14:46 . Limitations to Documentation: no limitations . Information obtained by: patient and old records reviewed . HPI Narrative: HPI: This is a 29-year-old female patient without significant past medical history is presenting for evaluation of 2 days of bodyaches, cough, and subjective fevers. The patient reports that yesterday she began to feel unwell, had a sore throat and states that food and drink do not taste right to her. She noticed a nonproductive cough, does feel some congestion, and bodyaches that prevented her from sleeping normally last night. She states that she has been able to drink some water, has not had nausea or vomiting, states that she has not tried any medications in the outpatient environment for management of the symptoms. She states that she has had numerous sick contacts at work. Exam: Gen: Awake and alert, in no apparent distress HEENT: Non-icteric sclera, posterior pharynx without erythema, exudate, or lesion Neck: Supple, no significant lymphadenopathy Lungs: No apparent respiratory distress, normal respiratory effort. Lung sounds clear and equal bilaterally without wheezes, rhonchi, rales CV: Appears well perfused, strong distal pulses, heart with regular rate and rhythm Abdomen: Non-distended MSK: Moves 4 extremities without apparent limitation in ROM Skin: Visualized skin without rashes, cyanosis. Neuro: Normal Gait, no obvious focal deficits or facial asymmetry. Speaks in full, clear sentences. Psych: Appropriate for situation. MDM: This is a 29-year-old female patient presenting for evaluation of 2 days of subjective fever with bodyaches and cough. Differential includes but is not limited to viral upper respiratory infection. The patient has no exudative pharyngitis to significantly increase my concern for strep pharyngitis. I did consider bronchitis and pneumonia though the brief duration of symptoms and the lack of focal respiratory findings is quite reassuring. She has been able to maintain her hydration and I have a lower concern for metabolic and electrolyte derangements, kidney injury. I provided the patient with a dose of Tylenol and ibuprofen and will obtain a viral swab. ED Course: Viral swab positive for influenza A, the patient has remained without focal respiratory findings or hypoxia and I do not see an indication to proceed with x-ray imaging at this time. I did have a shared decision-making conversation with her regarding Tamiflu and she is amenable to starting this medication. I also discussed conservative management, and at this time, the patient has had a full medical evaluation and is safe for discharge to home. They are hemodynamically stable, ambulatory, and tolerating PO. They are understanding of the follow-up plan and return precautions. They left our facility without incident. Michelle Garcia MD Related Data Home Medications ?Medication ?Instructions ?Recorded ?Confirmed albuterol sulfate 90 mcg/actuation 2 puff inhalation Q4H PRN PRN #1 04/19/17 04/05/24 aerosol inhaler (Proventil HFA) inh ibuprofen 800 mg tablet 800 mg PO Q8H #60 tabs 04/08/23 04/05/24 oseltamivir 75 mg capsule (Tamiflu) 75 mg PO BID 5 days #10 caps 04/05/24 Previous Rx's ?Medication ?Instructions ?Recorded albuterol sulfate 90 mcg/actuation 2 puff inhalation Q4H PRN PRN #1 04/19/17 aerosol inhaler (Proventil HFA) inh ibuprofen 800 mg tablet 800 mg PO Q8H #60 tabs 04/08/23 oseltamivir 75 mg capsule (Tamiflu) 75 mg PO BID 5 days #10 caps 04/05/24 Allergies Allergy/AdvReac Type Severity Reaction Status Date / Time codeine (Codeine) AdvReac Intermediate hyperactivi Verified 04/05/24 14:53 ty General Stated Complaint: RespSymp PHIL: 4 Course Vital Signs Vital signs: Vital Signs Temperature 37.2 C 04/05/24 14:51 Pulse 94 H 04/05/24 14:51 Respiratory Rate 18 04/05/24 14:51 Blood Pressure 91/66 L 04/05/24 14:51 Pulse Oximetry 100 04/05/24 14:51 Temperature 37.2 C 04/05/24 14:51 Pulse 94 H 04/05/24 14:51 Respiratory Rate 18 04/05/24 14:51 Respiratory Effort Normal 04/05/24 15:03 Respiratory Depth Normal 04/05/24 15:03 Blood Pressure 91/66 L 04/05/24 14:51 Pulse Oximetry 100 04/05/24 14:51 Oxygen Delivery Method Room Air 04/05/24 14:51 Oxygen Flow Rate 0 04/05/24 14:51 Pain Level 5 04/05/24 14:51 Medical Decision Making Quality:SDOH Health Related Social Needs: No Data to Display PFSH All Active Problems (Updated 04/05/24 @ 15:58 by Michelle Garcia MD) Influenza A (Acute) Nausea vomiting and diarrhea (Acute) Status post bilateral salpingectomy (Acute) Bilateral laparoscopic salpingectomy 04/08/2023 Contraceptive management (Acute) Auditory hallucination (Acute) 04/2022.per pt report. has contacted [facility]. denies any impulses of self harm or harm of family. Medical History History of depression History of shoulder dystocia in prior Active labor 10/02/21. F. at 36w6d. Transfer to in [place] [facility] for resp distress. had Covid @3w EGA. Surgery for pyloric stenosis. Left flank pain BMI 38.0-38.9,adult History of recurrent UTIs Urinary tract infection due to Enterococcus 03/06/2019. Along with E. coli UTI. Both sensitive to Cipro. Patient will need suppression therapy for the remainder of . 03/19/2019 repeat UTI symptoms-enterococcus. On 03/24/2019 Rx with Cipro x10 days. Will need test of cure. Seasonal allergies (10/27/14) Surgical History Hx of wisdom tooth extraction History of cholecystectomy removal of wisdom teeth Family History Father Alcohol use disorder Heart disease Hyperlipidemia Hypertension Paternal Uncle Alcohol use disorder Paternal Grandfather Alcohol use disorder Maternal Aunt Breast cancer Great Aunt, diagnosed under age 50 Maternal Uncle Colon cancer Maternal Grandmother Cancer liver or stomach Self Depression Social History Smoking/Tobacco Use Status: Never Smoking risk assessment performed?: Yes Alcohol Intake: never Drug use: Occasionally Substance use type: marijuana Details: Marijuana smoker once a week. Housing: house Current gender identity: female Do you feel safe at home: Yes Do you feel safe in your relationship?: Yes History History 7 Para 3 Hx # Term Pregnancies 3 Multiple births 0 Hx # Pregnancies 1 Ectopic pregnancies 0 AB induced 0 Hx Number of Living Children 4 AB spontaneous 3 Past Pregnancies Del. Date GA/Weeks # Preg Succ Route Wgt Sex Labor Lgth Anesth esia Location Prov Complic 06/14/17 42 No vaginal 4091.97 g Male [address] guan shoulder dystocia 09/16/17 6 other 02/10/18 6 other 03/30/19 4 other 06/16/19 38 No vaginal 3061.[address] Brent peck 08/18/20 36 No vaginal 2849.127 g Male 3 KJ 10/02/21 36 Yes vaginal Female KJ 10/02/21 36 No Yes vaginal 2464.991 g Female Tennille connelly DO 10/02/21 36 No Yes vaginal 2464.991 g Female 21hours 56min DO Hussain Delivery Date: 06/14/17 Last Updated by: Nancy Guan M.D. as per pt; stuck at brow. w/o use of vacuum or forceps, baby had bleeding of head, then seizures infant sent to [facility] [place] at day three for seizures. @ [facility] [place] x 1 weeks sent home on seizure meds x 1 week. al Name is George Delivery Date: 09/16/17 Last Updated by: BEATRICE Barrow Delivery Date: 02/10/18 Last Updated by: BEATRICE Barrow Delivery Date: 03/30/19 Last Updated by: BEATRICE Barrow Delivery Date: 06/16/19 Last Updated by: CHERYL Fenton Delivery Date: 08/18/20 Last Updated by: BEATRICE Barrow . Delivery Date: 10/02/21 Last Updated by: MD Tania Morton'. [facility] [place] for stomach stricture and N/V. Doing well. Delivery Date: 10/02/21 Last Updated by: CHERYL Kumar baby transferred after , surgery for pyloric stricture ([facility] [place]
[2024-04-05 15:48] LABS: Influenza A PCR Positive (Negative); Influenza B PCR Negative (Negative); RSV PCR Negative (Negative)
[2024-04-05 15:50] LABS: COVID-19 PCR Negative (Negative); Source Nasopharynx
[2024-04-05 16:04] VITALS: BP 102/62; PULSE 82; RESP 18; TEMP 37.2; O2SAT 100
== END 2024-04-05 16:06 | disposition home or self-care (01) ==
PROVIDERS: Physician Assistant; Emergency Provider Emergency Medicine
DX: J10.1 Influenza due to other identified influenza virus with other respiratory manifestations (principal); G47.00 Insomnia, unspecified
CPT/HCPCS: 87637; 99283